=== PATIENT | male | born 1965 | race Caucasian/White ===

== ENCOUNTER 2017-04-18 11:44 | Inpatient (IN) | payer OTHER ==
[~2017-04-18] VITALS: Ht 185.4 cm; Wt 80.7 kg
[~2017-04-18 11:44] MED LIST: ASPIRIN EC81 M1 PO; DILTIAZEM 24HR240 MG PO; ELIQUIS5 M1 PO; FOLIC ACID1 M1 PO; FUROSEMIDE40 M1 PO; NADOLOL40 M1 PO; ONE DAILY MULT1 EAC2 PO; VITAMIN B-1100 MG PO
--- NOTE | 2017-04-18 11:49 | ED GENERAL ADULT ---
History of Present Illness General Chief Complaint: General Adult Stated Complaint: BIBA PT WITH AFIB Source: patient, family, old records, EMS Exam Limitations: no limitations Vital Signs & Intake/Output Vital Signs & Intake/Output Vital Signs Date Time Temp Pulse Resp B/P B/P Pulse O2 O2 Flow FiO2 Mean Ox Delivery Rate 04/18 1415 102 04/18 1410 126 141/98 04/18 1410 98.2 126 22 138/93 97 Room Air 04/18 1346 99.1 119 16 141/98 98 Room Air 04/18 1246 99.0 111 16 134/99 99 Room Air 04/18 1238 97 Room Air 04/18 1224 99.1 139 22 140/90 04/18 1209 140 134/70 04/18 1204 99.1 129 22 140/90 97 Room Air Allergies Coded Allergies: No Known Allergies (06/04/16) Reconcile Medications Apixaban (Eliquis) 5 MG TABLET 1 TAB PO BID ATRIAL FIBRILLATION Aspirin (Ecotrin*) 81 MG TABLET.DR 1 TAB PO DAILY Heart Health (Reported) Diltiazem HCl (Diltiazem 24HR ER) 240 MG CAP.ER.24H 1 CAP PO DAILY HEART ( Reported) Folic Acid 1 MG TABLET 1 TAB PO DAILY Supplement Furosemide 40 MG TABLET 1 TAB PO DAILY EDEMA (Reported) Multivitamin (One Daily Multivitamin) 1 EACH TABLET 1 TAB PO DAILY Supplement Nadolol 40 MG TABLET 1 TAB PO DAILY HEART (Reported) Thiamine HCl (Vitamin B-1) 100 MG TABLET 1 TAB PO DAILY Supplement Triage Nurses Notes Reviewed? yes HPI: Patient has not taken his medications in the past few days. Patient has been laying on his couch and feeling too weak to get up. EMS was from a [facility] this afternoon. The house was very disheveled with garbage everywhere. Multiple empty beer cans strong throughout the house. Patient is unsure why he has not taken his medications in a few days however he states that he is feeling very weak. Patient denies any chest pain or shortness of breath. Patient has been incontinent of urine and stool. Past History Travel History Traveled to [place] past 21 day No Medical History Any Pertinent Medical History? 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 No Review of Systems Review of Systems Constitutional: Reports: see HPI, weakness. EENTM: Reports: no symptoms. Respiratory: Reports: no symptoms. Cardiovascular: Reports: no symptoms. GI: Reports: no symptoms. Genitourinary: Reports: no symptoms. Musculoskeletal: Reports: no symptoms. Skin: Reports: no symptoms. Neurological/Psychological: Reports: no symptoms. Hematologic/Endocrine: Reports: no symptoms. Immunologic/Allergic: Reports: no symptoms. All Other Systems: Reviewed and Negative Physical Exam Physical Exam General Appearance: well developed/nourished, alert, awake, anxious, moderate distress Head: atraumatic, normal appearance Eyes: Bilateral: PERRL, EOMI. Ears, Nose, Throat: normal pharynx, hearing grossly normal Neck: normal inspection, supple, full range of motion Respiratory: normal breath sounds, chest non-tender, no respiratory distress, lungs clear Cardiovascular: normal peripheral pulses, tachycardia, irregularly irregular Gastrointestinal: normal bowel sounds, soft Back: normal inspection, normal range of motion Extremities: pedal edema, swelling, tenderness Neurologic/Psych: no motor/sensory deficits, awake, alert, oriented x 3, normal mood/affect Skin: intact, normal color, warm/dry Lymphatic: no anterior cervical aubrey Core Measures ACS in differential dx? Yes CVA/TIA Diagnosis: No Severe Sepsis Present: No Septic Shock Present: No Progress Differential Diagnoses I considered the following diagnoses in my evaluation of the patient: [SEPSIS, UTI, ALCOHOL WITHDRAWL, AMI, PNEUMONIA, CELLULITIS, SBO] Plan of Care: Orders Procedure Date/time Status PARTIAL THROMBOPLASTIN TIME 04/18 1830 Active LACTIC ACID 04/18 1449 Active Admit to inpatient 04/18 1422 Active Add-on Test (ER Only) 04/18 1201 Active Telemetry/Assistant Real Estate Manager 04/18 1149 Active URINE DRUGS OF ABUSE 04/18 1149 Active URINALYSIS 04/18 1149 Active TROPONIN LEVEL 04/18 1149 Complete PARTIAL THROMBOPLASTIN TIME 04/18 1149 Complete PROTHROMBIN TIME 04/18 1149 Complete AMMONIA 04/18 1149 Complete LACTIC ACID 04/18 1149 Complete ETHANOL 04/18 1149 Complete COMPREHENSIVE METABOLIC PANEL 04/18 1149 Complete CBC WITHOUT DIFFERENTIAL 04/18 1149 Complete EKG 04/18 1147 Active Current Medications Sig/Jose Start time Last Medication Dose Stop Time Status Admin Diltiazem HCl 125 MG Q12H 04/18 1200 AC 04/18 (Cardizem DRIP) 04/19 1159 1219 Dextrose/Water 100 ML (D5W) Heparin Sodium 4,000 UNIT ONCE ONE 04/18 1200 CAN (Porcine) 04/18 1201 Heparin Sodium/ 25,000 UNIT Q24H 04/18 1200 AC 04/18 Dextrose 04/19 1159 1233 (Heparin) Dextrose/Water 500 ML (D5W) Laboratory Tests 04/18/17 1212: Anion Gap 16, Estimated GFR > 60, BUN/Creatinine Ratio 23.3, Glucose 58 L, Lactic Acid 3.9 H, Calcium 8.5, Total Bilirubin 2.3 H, AST 49, ALT 37, Alkaline Phosphatase 151 H, Ammonia 30, Troponin I 0.03, Total Protein 5.9 L, Albumin 3.4 L, Globulin 2.5, Albumin/Globulin Ratio 1.4, PT 13.1 H, INR 1.25 H, APTT 32, CBC w Diff NO MAN DIFF REQ, RBC 4.09 L, MCV 96.7 H, MCH 31.6 H, RDW 18.6 H, MPV 7.6, Gran % 71.7, Lymphocytes % 15.8 L, Monocytes % 10.6 H, Eosinophils % 0.5, Basophils % 1.4, Absolute Granulocytes 4.1, Absolute Lymphocytes 0.9 L, Absolute Monocytes 0.6, Absolute Eosinophils 0, Absolute Basophils 0.1, PUBS MCHC 32.8 L, Serum Alcohol 138.0 Diagnostic Imaging: Viewed by Me: Radiology Read. Discussed w/RAD: Radiology Read. CXR Impression: PATIENT: JUAN A MORALES PRESENT AGE: 51 PATIENT ACCOUNT NO: [id number] : 63 LOCATION: [facility] ORDERING PHYSICIAN: NIYA HARGROVE MD SERVICE DATE: 04/18/17 EXAM TYPE: RAD - XRY-PORTABLE CHEST XRAY EXAMINATION: XR PORTABLE CHEST CLINICAL INFORMATION: Chest pain COMPARISON: 06/04/2016 TECHNIQUE: Portable frontal view of the chest was obtained. FINDINGS: The lungs are well expanded. There is no dense consolidation, edema, or effusion. Linear left midlung atelectasis. No pneumothorax. The cardiac silhouette is enlarged. IMPRESSION: No acute pulmonary finding. Enlarged cardiac silhouette. DICTATED BY: KENNETH RAO MD DATE/ TIME DICTATED:04/18/171315 CONSULTING PROPERTY MANAGER:KENY DATE/TIME TRANSCRIBED: 04/18/171315 CONFIDENTIAL, DO NOT COPY WITHOUT APPROPRIATE AUTHORIZATION. < Electronically signed in Other Vendor System> SIGNED BY: MAIRA KAMARA, KENNETH 04/18/17 1322 Initial ED EKG: AFIB (with rvr), nonspecific ST T wave chg Prior EKG: unchanged Rhythm Strip: atrial fibrillation Departure Departure Disposition: STILL A PATIENT Condition: Guarded Clinical Impression Primary Impression: Atrial fibrillation with RVR Referrals: DES IZQUIERDO MD Departure Forms: Customer Survey General Discharge Information Admission Note Spoke With: SHAD KAMARA,DAMON Documentation of Exam: Documentation of any treatments & extenuating circumstances including Concerns Regarding Discharge (functional status, medication knowledge or non-compliance, living conditions, etc.) that warrant an admission rather than observation: [ TELE MONITORING, CARDIZEDM DRIP, HEPARIN DRIP, CARDIOLOGY CONSULTATION, SOCIAL WORK INVOLVEMENT] Critical Care Note Critical Care Note Critical Care Time: mins: (45 MIN)
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
--- NOTE | 2017-04-18 12:20 | NUR ---
LABS DRAWN AND SENT (BLUE, SSTX2, LAV, HUNTER, GREEN ON ICE). SECOND IV EST. MEDICATED WITH CARDIZEM IVP PER EMAR FOR AFIB RATE 140'S WITH IMPROVEMENT TO 100'S-110'S. CARDIZEM GTT INITIATED AT 10ML(10MG)/HR PER ORDER TO LAC #18G AND RATE VERIFIED WITH ILDA QUIÑONES. MEDICATED WITH HEPARIN PER ORDER, PLAN FOR GTT WELL AND PT INFORMED.
[2017-04-18 12:22] LABS: ABSOLUTE BASOPHIL COUNT 0.1 /CUMM (0.0-0.2); ABSOLUTE EOSINOPHIL COUNT 0 /CUMM (0.0-0.7); ABSOLUTE GRANULOCYTE CT 4.1 /CUMM (1.4-6.5); ABSOLUTE LYMPH COUNT 0.9 /CUMM (1.2-3.4); ABSOLUTE MONOCYTE COUNT 0.6 /CUMM (0.10-0.60); BASOPHIL % 1.4 % (0.0-2.0); EOSINOPHIL % 0.5 % (0-5); GRANULOCYTE % 71.7 % (42.2-75.2); HEMATOCRIT 39.5 % (42-52); MEAN CORPUSCULAR HGB 31.6 PG (27.0-31.0); MEAN CORPUSCULAR HGB CONC 32.8 G/DL (33.0-37.0); MEAN CORPUSCULAR VOLUME 96.7 FL (80.0-94.0); MEAN PLATELET VOLUME 7.6 FL (7.4-10.4); PLATELET COUNT 283 /CUMM (130-400); RBC DISTRIBUTION WIDTH 18.6 % (11.5-14.5); RED BLOOD CELL CT 4.09 /CUMM (4.70-6.10); WHITE BLOOD CELL COUNT 5.7 /CUMM (4.8-10.8)
[2017-04-18 12:24] VITALS: BP 140/90
--- NOTE | 2017-04-18 12:30 | NUR ---
HEPARIN GTT RUNNING AT 26ML/HR PER MAX OUT DOSE TO RW #18 AND CONFIRMED RATE WITH SECOND RN ISHMAEL. PT AWARE OF PLAN FOR REEVAL OF PTT IN 6 HOURS, PTT ORDERED BY THIS RN. PCXR IN PROGRESS
[2017-04-18 12:32] LABS: PT 13.1 SEC (9.4-12.5); PTT 32 SEC (25-37)
--- NOTE | 2017-04-18 13:22 | RADIOLOGY REPORT ---
EXAMINATION: XR PORTABLE CHEST CLINICAL INFORMATION: Chest pain COMPARISON: 06/04/2016 TECHNIQUE: Portable frontal view of the chest was obtained. FINDINGS: The lungs are well expanded. There is no dense consolidation, edema, or effusion. Linear left midlung atelectasis. No pneumothorax. The cardiac silhouette is enlarged. IMPRESSION: No acute pulmonary finding. Enlarged cardiac silhouette.
--- NOTE | 2017-04-18 13:33 | NUR ---
AT BEDSIDE FOR EVAL. IVF BOLUS RUNNING PER eMAR FOR ELEVATED LACTIC LEVEL 3.9; DR HARGROVE AWARE
--- NOTE | 2017-04-18 13:47 | NUR ---
ACCUCHECK 64 AND NOTIFIED. PT GIVEN JUICES, CRACKERS AND PEANUT BUTTER WHICH IS OK BY
--- NOTE | 2017-04-18 14:14 | NUR ---
MEDICATED WITH ADDITIONAL BOLUS OF IVP CARDIZEM 10MG PER eMAR AND RATE INCREASED TO 15MG(15ML)/HR PER DR HARGROVE ORDER AND RATE VERIFIED AND CONFIRMED WITH SECOND RN ISHMAEL. REMAINS STABLE, [id number]
--- NOTE | 2017-04-18 14:28 | History & Physical ---
JOHN GRAHAM MD 04/18/17 1428: General Information and HPI MD Statement: I have seen and personally examined DARRYL DAVIDSON and documented this H&P. The patient is a 51 year old M who presented with a patient stated chief complaint of SHORTNESS OF BREATH AND EXTREMITY SWELLING OF 6 WEEKS DURATION. Source of Information: patient Exam Limitations: UNDER THE INFLUENCE OF ALCOHOL AND UNRELIABLE HISTORIAN History of Present Illness: Mr Darryl Davidson is a 51 year old male with a PMH significant for afib, HTN, smoking, alcohol abuse, fatty liver, that was BIBA from home for a chief complaint of shortness of breath without excertion and 6 weeks of progressive swelling from his feet to his abdomen that has impeded his ability to ambulate over the past 3 days. He states that he has needed to sleep with several pillows each night. Patient has been noncompliant with his medications which include lasix 40mg, ASA, diltiazem, lopressor. In addition to the SOB and swelling, he complains of chills, palpitations. Patient denies cough or sick contacts, diarrhea or constipation. Last echo done in 2015 showed moderate concentric LVH and an EF of 30-35% with severe RA enlargment. He has a history of cardioversion in the past. He reports smoking 6 cigarettes a day for the past 40 years and drinking 6 beers a day. In fact, EMS reports finding him living in poor conditions with about 50 -60 beer cans strewn throughout his residence. Denies drug use. Denies history of seizures or withdrawal symptoms. Has been told he has fatty liver changes due to alcohol. His bakery associate is Dr. Pang In the ambulance he was given lopressor IV for afib rate 150-160's which improved rate to 120-140's. In the ED he was given 2 cardizem boluses with a 10ml/hr drip which further decreased the rate to 96-100. His EKG showed afib at a rate of 124 with QTC of 483. In the ED vitals noted to be Temperature 99.1, pulse 129, respiration 22, blood pressure 140/90. Labs showed an H&H of 12.9/39.5, lactic Acid level of 3.9, T bili of 2.3, normal AST, ALT, alkaline phosphatase 151, troponin 0.03. U tox pending. Serum alcohol level 138. Chest x-ray showed no evidence of pulmonary edema and severe left midlung atelectasis was seen. Allergies/Medications Allergies: Coded Allergies: No Known Allergies (06/04/16) Home Med list Apixaban (Eliquis) 5 MG TABLET 1 TAB PO BID ATRIAL FIBRILLATION Aspirin (Ecotrin*) 81 MG TABLET.DR 1 TAB PO DAILY Heart Health (Reported) Diltiazem HCl (Diltiazem 24HR ER) 240 MG CAP.ER.24H 1 CAP PO DAILY HEART ( Reported) Folic Acid 1 MG TABLET 1 TAB PO DAILY Supplement Furosemide 40 MG TABLET 1 TAB PO DAILY EDEMA (Reported) Multivitamin (One Daily Multivitamin) 1 EACH TABLET 1 TAB PO DAILY Supplement Nadolol 40 MG TABLET 1 TAB PO DAILY HEART (Reported) Thiamine HCl (Vitamin B-1) 100 MG TABLET 1 TAB PO DAILY Supplement Compliance With Home Meds: POOR Past History Travel History Traveled to [place] past 21 day No Medical History Blood Transfusion Hx: No Neurological: NONE EENT: NONE, poor eyesight due to "age related changes" Cardiovascular: AFIB, hypertension (all valves are leaky), systolic CHF Respiratory: NONE Gastrointestinal: alcoholic hepatitis, LOOSE, FREQUENT STOOLS Hepatic: NONE Renal: NONE Musculoskeletal: NONE Psychiatric: alcohol dependence, depression, substance abuse Endocrine: NONE Blood Disorders: NONE Cancer(s): NONE TAP BUILDER/Reproductive: NONE History of MRSA: No History of VRE: No History of CDIFF: No Influenza Vaccine Status Unknown if ever received Surgical History Surgical History: none ECHO Results (as available) Date of last Echo 04/27/16 EF% 30 Past Family/Social History Psychosocial History Where do you live? Home Who Do You Live With? self Services at Home: None Primary Language: Tuvaluan Smoking Status: Current Everyday Smoker ETOH Use: heavy use Illicit Drug Use: denies illicit drug use Living Will? no Power of [place]/HCP? no Other Social History: Unemployed and trying to complete the process to receive unemployment. Functional Ability ADLs Independent: dressing, eating, toileting, bathing. Ambulation: non-ambulatory (legs swollen and painful) Employment History Employment Unemployed Review of Systems Review of Systems Constitutional: Reports: chills, weakness. EENTM: Reports: blurred vision. Cardiovascular: Reports: edema, orthopena, palpitations, peripheral edema. Denies: chest pain, syncope. Respiratory: Reports: orthopnea, short of breath. Denies: cough. GI: Reports: bloating. Denies: abdominal pain, constipation, diarrhea, vomiting. Musculoskeletal: Denies: back pain, gout, muscle pain, muscle stiffness. Skin: Reports: change in skin color, erythema. Neurological/Psychological: Denies: tremors. Hematologic/Endocrine: Denies: bruising, bleeding, polyuria, polydipsia. All Other Systems: Reviewed and Negative Colonoscopy Testing Status: Unknown if test ever done Exam & Diagnostic Data Last 24 Hrs of Vital Signs/I&O Vital Signs Date Time Temp Pulse Resp B/P B/P Pulse O2 O2 Flow FiO2 Mean Ox Delivery Rate 04/18 1415 102 04/18 1410 126 141/98 04/18 1410 98.2 126 22 138/93 97 Room Air 04/18 1346 99.1 119 16 141/98 98 Room Air 04/18 1246 99.0 111 16 134/99 99 Room Air 04/18 1238 97 Room Air 04/18 1224 99.1 139 22 140/90 04/18 1209 140 134/70 04/18 1204 99.1 129 22 140/90 97 Room Air Intake & Output 04/18 1600 04/18 0800 04/18 0000 Intake Total 1000 Output Total 0 Balance 1000 Intake, IV 1000 Output, Urine 0 Patient 244 lb Weight Weight Reported by Patient Measurement Method Physical Exam General Appearance Alert, Oriented X3, Cooperative, No Acute Distress Skin edematous erythematous legs and groin Skin Temp/Moisture Exam: Warm/Dry Sepsis Skin Exam (color): Flushed HEENT Atraumatic, PERRLA, EOMI, Mucous Membr. moist/pink Neck Supple, JVD + Cardiovascular Normal S1, Normal S2, No Murmurs, Gallops, Rubs Lungs bibasalar crackles Abdomen Normal Bowel Sounds, No Tenderness, distended Neurological Normal Speech, Normal Tone, Sensation Intact Extremities No Clubbing, No Cyanosis, non tender, swollen, erythematous Vascular Normal Pulses, Pulses Symmetrical Sepsis Peripheral Pulse Location: Radial Sepsis Peripheral Pulse Exam: Normal Reproductive (MALE) swollen scrotum Last 24 Hrs of Labs/Ruddy: Laboratory Tests 04/18/17 1830: Lactic Acid Pending, Troponin I Pending, APTT Pending 04/18/17 1625: Urine Opiates Screen < 100.00, Methadone Screen 45, Barbiturate Screen < 60, Ur Phencyclidine Scrn < 6.00, Amphetamines Screen < 100, U Benzodiazepines Scrn < 85, Urine Cocaine Screen < 50, Urine Cannabis Screen < 5.00, Urine Color YEL, Urine Clarity CLEAR, Urine pH 6.0, Ur Specific [place] 1.025, Urine Protein 100 H, Urine Ketones TRACE H, Urine Nitrite NEG, Urine Bilirubin NEG@ICTO, Urine Urobilinogen 4.0 H, Ur Leukocyte Esterase NEG, Ur Microscopic SEDIMENT EXAMINED , Urine RBC 3-5, Urine Bacteria FEW H, Urine Hemoglobin SMALL H, Urine Glucose NEG 04/18/17 1520: Lactic Acid 3.5 H 04/18/17 1212: Anion Gap 16, Estimated GFR > 60, BUN/Creatinine Ratio 23.3, Glucose 58 L, Lactic Acid 3.9 H, Calcium 8.5, Total Bilirubin 2.3 H, AST 49, ALT 37, Alkaline Phosphatase 151 H, Ammonia 30, Troponin I 0.03, Itr-Q-Haonmudcdkb Pept 3330 H, Total Protein 5.9 L, Albumin 3.4 L, Globulin 2.5, Albumin/Globulin Ratio 1.4, PT 13.1 H, INR 1.25 H, APTT 32, CBC w Diff NO MAN DIFF REQ, RBC 4.09 L, MCV 96.7 H, MCH 31.6 H, RDW 18.6 H, MPV 7.6, Gran % 71.7, Lymphocytes % 15.8 L, Monocytes % 10.6 H, Eosinophils % 0.5, Basophils % 1.4, Absolute Granulocytes 4.1, Absolute Lymphocytes 0.9 L, Absolute Monocytes 0.6, Absolute Eosinophils 0, Absolute Basophils 0.1, PUBS MCHC 32.8 L, Serum Alcohol 138.0 Diagnostic Data EKG Results afib rate 124 qtc 483 CXR Results IMPRESSION: No acute pulmonary finding. Enlarged cardiac silhouette. Other Results US - US-EXT BILAT VENOUS DOPPLER IMPRESSION: No acute pulmonary finding. Enlarged cardiac silhouette. Assessment/Plan Assessment: Assessment: This is a 51 year old male with a PMH significant for afib with rvr on eloquis electrical cardioversion 2000, htn, alcohol abuse, dilated cardiomyopathy that presented today for worsening bipedal edema of 6 weeks duration that has impeded his ability to ambulate and shortness of breath without exertion. 1. Bipedal and scrotal nonpitting edema: ?Acute decompensation of chronic CHF vs. ?cellulitis vs ?lymphedema vs ?DVT vs. ?liver disease 2. Atrial fibrillation 3. Hypertension 4. Lactic acidosis 5. Alcohol abuse Plan 1. Bipedal and scrotal nonpitting edema: with normal CBC, negative doppler legs, normal lfts, likely due to acute decompensation of chronic CHF. Patient last had an echocardiogram in 2016 which found systolic dysfunction. Based on clinical picture, he is showing signs of fluid overload despite not having voided since the previous day. Kidney function as per labs was normal so he was given 2L of fluid and is now on lasix 40mg IV bid. * continue lasix and monitor i/o's and weight closely * repeat echo (possible tachycardia induced cariomyopathy due to afib especially since patient is noncompliant with meds) * cardiology consult with dr. merida * if worsening, in setting of tense abdomen and alcohol dependence, consider CT abdomen or ultrasound abdomen 2. Noncompliance with medication has likely contributed to afib mediated worsening cardiac function * continue to monitor on telemetry * check last set troponins and EKGs to rule out ACS * continue cardizem drip and transfer to po once better controlled * discontinue IV heparin drip and restart eliquis 3. Continue Lopressor 50 bid 4. Elevated likely due to alcohol abuse, was given 2L. Trend. 5. CIWA PROTOCOL with ativan prn 1mg IV. Give MV, folate, thiamine and watch for withdrawal signs- currently not showing any. #Heart healthy diet #Full code #Mild pain pathway As Ranked By This Provider Problem List: 1. CHF (congestive heart failure) 2. HTN (hypertension) 3. Atrial fibrillation with RVR Core Measures/Miscellaneous Acute Coronary Syndrome ACS Diagnosis: No Cerebrovascular Accident CVA/TIA Diagnosis: No Congestive Heart Failure CHF Diagnosis: Yes Date of most recent Echo: 06/06/16 Last Known EF %: 30 ALEX/ARB for EF <40%: No VTE (View Protocol) VTE Risk Factors: Acute medical illness, Age > 40, CHF or Resp failure, Immobility, paresis No [facility] VTE prophylaxis d/t: VTE low risk, No contraindications No VTE Pharm Prophylaxis d/t: VTE low risk, No contraindications VTE Diagnosis: No VTE Type: NONE VTE Confirmed by (Test): NONE Sepsis (View Protocol) Severe Sepsis Present: No Septic Shock Septic Shock Present: No Miscellaneous Documentation Attending Case Discussed With: DARRYL TALAVERA MD Primary Care Physician: DOTTIE PANG MD, V. Patient sees these Specialists NA Level of Patient Care: Telemetry Resident Review Statement Resident Statement: examined this patient, discussed with internet manager MANJIT VASQUES 04/18/17 1508: Resident Review Statement Other Findings: Patient is a 50-year-old male with past medical history of A. fib on Eliquis, hypertension, electrical cardioversion in 2000, dilated cardiomyopathy, alcohol abuse who presented to the hospital today for worsening leg edema and shortness of breath. Patient states that his legs has been swelling for the past 6 weeks and has recently become really bad and he is unable to ambulate. He lays on his couch the whole day because of leg swelling. He had palpitations, chills, fatigue but denied any yung chest pain, paroxysmal nocturnal dyspnea, nausea, vomiting, urinary or bowel symptoms. He does endorse dyspnea at rest and exertion which has been going on for the past 2 days. Patient called EMS this afternoon because he was feeling very weak and tired. When the EMS arrived the house was discharged and there was garbage everywhere. Multiple beer cans were spread throughout the room. He was found to be incontinent in urine and stool. He is known to be noncompliant with his medications especially when he is drinking. He has been drinking continuously for the past few days about 6-8 packs of beer every day. His last drink was last night, when he drank about 3 packs of beer. He smokes about 6 cigarettes per day for the last 40 years. He was seen by his bakery associate Dr. Pang about a month ago and prescribed metoprolol 50 twice a day to be taken instead of Nadolol. He has been on Cardizem and Eliquis for about a year now. Patient got his medications refilled however apparently was not taking them. In the ED vitals noted to be Temperature 99.1, pulse 129, respiration 22, blood pressure 140/90. Labs showed an H&H of 12.9/39.5, normal chemistries, lactic Acid level of 3.9, T bili of 2.3, normal AST, ALT, alkaline phosphatase 151, troponin 0.03. U tox pending. Serum alcohol level was 138. EKG showed a A. fib with rapid RVR, heart rate of 124, QTC 483 Chest x-ray showed no evidence of pulmonary edema and severe left midlung atelectasis was seen. Was started on Cardizem drip, heparin drip after a bolus of 20 mg Cardizem. He received 2 L of fluid in the ED. Physical examination: Gen.: Morbidly obese, appears to be in moderate distress HEENT: PERRLA, EOMI, ++JVD Chest: Clear breath sounds, some basal crackles heard CVS: Irregularly irregular heart rate, systolic murmur Abdomen: Distended, no tenderness Extremities: 2+ pitting edema bilateral extremities with erythema up to the thighs Plan: #Atrial fibrillation with rapid RVR: Likely secondary to medication noncompliance -Admit the patient to telemetry -3 sets of troponin and EKG to rule out ACS -Continue Cardizem drip and transition to by mouth Cardizem once heart rate better controlled -Discontinue IV heparin drip and restart the patient on Eliquis -Cardiologic consult with Dr. Pang #Acute on chronic HFwrEF (stage I diastolic dysfunction, EF 30-35% in 2016) -Patient appears fluid overloaded at this time -We'll start him on IV Lasix 40 twice a day -Strict intake and output -Daily weight checks -Doppler bilateral lower extremity to rule out DVT -Repeat echocardiogram(might have worsening EF due to tachycardia-induced cardio myopathy secondary to the A. fib) -Cardiology consult with Dr. Pang #Alcohol abuse: Drinks about 6-8 packs of beers every day. Last drink yesterday evening. No previous episodes of detox. No history of seizures. Serum alcohol level more than 138 -[facility] protocol -Ativan 1 mg IV every when necessary -Multivitamin, thiamine and folate -Watch for withdrawal signs #Hypertension -Continue metoprolol 50 twice a day #Elevated lactate levels -Likely due to chronic severe alcohol abuse -Trend lactate levels to the normalize #Heart healthy diet #Full code #Mild pain pathway DARRYL TALAVERA MD 04/18/17 2213: Attending Review Statement Attending Statement Attending Statement: examined this patient, discuss w/resident/PA/MEDICAL COST CONSULTANT, agreed w/resident/PA/MEDICAL COST CONSULTANT, reviewed EMR data (avail), discussed with nursing, reviewed images, amended to note Attending Assessment/Plan: The patient is a 51 yo male with h/o chronic atrial fibrillation (h/o attempted cardioversion 2000), HTN, fatty liver, dilated cardiomyopathy (EF 30-35% in 2016 ), EtOH abuse (currently drinks at lease 1 six pack of beer/day), who presented in the [facility] ED with 6 week h/o progressive dyspnea, LE and abdominal swelling with orthopnea. Had seen Dr. Pang recently (saw Dr. Sr in past x 1- not recent). In the ED was noted to be in rapid afib with HR 140's. He denied any chest pain, palpitations, fever, chills, or abdominal pain. He states he had not taken his medication that day, however suspect longer term non-compliance. He did have an alcohol level at the time of presentation and stated his last drink was the day prior. He denied any h/o DT's or seizures. He was found by EMS in poor living conditions with 50-60 beer cans adjacent to him. He received IV metoprolol and was started on a cardizem drip in the ED. He had elevated lactate level and was initially given fluid. Physical Exam: VS: T 98.9, P 129-140-108, R 18, BP 142/98-145/95, PO 96-98% (on oxygen?) HEENT: eyes- PERRLA, EOMI brett- dry mucosa Neck: + JVD, no bruits or adenopathy, thyroid normal Chest: diminished breath sound, few rales at bases Cor: tachy, reg, nl S1, S2, no murm Abd: BS+, distended, non-tender, unable to palpate liver/spleen, no shifting dullness Ext: 3+ edema, minimal erythema w/o warmth or tenderness, pulses 1+ Neuro: alert & oriented x 3, non-focal exam (gait not tested) Labs/Tests- as above Impression/Plan: #Rapid Atrial Fibrillation- in patient with known mod-severe LAE on ECHO and prior failed cardioversion. HR was previously controlled with meds and he was on Eliquis. States did not take meds just this morning, however suspect more assisted non-compliance due to alcohol use. Plan: Admit to telemetry floor. Cardiology consult (Dr. Pang). Check serial troponin I levels Cardizem drip in ED and will convert to po meds when able ECHO to compare to prior #CHF/Volume Overload- probably some component due to rapid HR. Plan: Agree with IV furosemide. Follow I/O's and daily weights as per CHF protocol Elevate legs #Lactic Acidosis- ? etiology. May be related to alcohol. Patient received fluids in ED. Plan: Follow-up lactate level and observe. #Non-Compliance with Medication- suspect underlying cause of decompensation. Plan: Will need to emphasize compliance. Close OP follow-up when discharged. #EtOH Abuse- patient admits to at least 1 -6 pack of beer/day (suspect more). No h/o significant withdrawal per patient. Plan: Thiamine, MVI, folate as per protocol, CIWA and prn Ativan at present Monitor closely for DT's. #HTN- BP as above slightly elevated. Plan: Will follow on Cardizem. #Dilated Cardiomyopathy- ? secondary to alcohol. EF reduced as above. Plan: Repeat ECHO. IV Furosemide as above.
--- NOTE | 2017-04-18 14:44 | NUR ---
TELEMETRY HOUSE STAFF IN ROOM FOR EVAL
[2017-04-18 14:56] VITALS: BP 142/98
--- NOTE | 2017-04-18 15:24 | NUR ---
REPEAT LACTIC DRAWN AND SENT. PT REPOSITIONED FOR COMFORT AND LEGS REMAIN ELEVATED
--- NOTE | 2017-04-18 15:30 | NUR ---
DR PABLO TO BEDSIDE
--- NOTE | 2017-04-18 15:46 | NUR ---
PT MEDICATED WITH 40MG LASIX IV, LOPRESSOR 50MG PO AND ASPIRIN 81 MG PO. MANUAL BP 134/98 AT THIS TIME, PT PROVIDED WITH URINAL AND OFFERS NO COMPLAINTS AT THIS TIME.
--- NOTE | 2017-04-18 15:52 | NUR ---
CRITICAL TEST RESULTS [id number] [facility] A [facility] TESTS AND RESULTS: LACTIC 3.5 Results received and read back by: BROOKE ESPINOZA Results received date and time: 04/18/17 1552 The following provider was notified of the results, and read the results back: TELE STAFF PAGED Notified date and time: 04/18/17 at 1552
--- NOTE | 2017-04-18 16:17 | NUR ---
PORTABLE U/S IN PROGRESS
--- NOTE | 2017-04-18 16:25 | NUR ---
PT GOING TO ROOM 171-1.
--- NOTE | 2017-04-18 16:27 | NUR ---
450ML [facility] URINE OUTPUT AFTER 2LNS IVF BOLUSES. TRIO SENT TO LAB FOR TESTING
--- NOTE | 2017-04-18 16:32 | Admission Certification ---
Admission Certification Certification Statement - As attending physician, I certify that at the time of - admission, based on clinical presentation, severity of - symptoms, need for further diagnostic testing and - therapeutic interventions, and risk of adverse outcomes - without in-hospital treatment, in my clinical assessment, - this patient requires an acute hospital stay for a minimum - of two nights or longer. I have also considered psychsocial - factors such as support system, advanced age, financial - issues, cognitive issues, and failed out-patient treatments, - past re-admission history, safety of patient, and lack of - compliance as applicable. Specific rationale supporting this admission is: The patient presents in rapid atrial fibrillation with volume overload. Needs telemetry admission, cardizem drip, IV furosemide, check serial troponins, ECHO, cardiology consult (Dr. Pang). Also with EtOH abuse and will need CIWA monitoring.
[2017-04-18 16:39] VITALS: BP 122/74
--- NOTE | 2017-04-18 17:00 | NUR ---
REPORT GIVEN TO RECEIVING RN
--- NOTE | 2017-04-18 17:02 | ULTRASOUND REPORT ---
EXAMINATION: US TRIPLEX OF LOWER EXTREMITIES, BILATERAL, PORTABLE. CLINICAL INFORMATION: Warmth and erythema of the legs. COMPARISON: None TECHNIQUE: Color-flow triplex imaging with spectral analysis and compression Doppler were performed on the lower extremities. The exam is limited due to portable exam and patient's body habitus/edema. FINDINGS: Respiratory variation, normal compression and augmented flow are noted throughout the lower extremities. The visualized common femoral vein, superficial femoral vein, profunda femoral vein, popliteal vein and midcalf peroneal and posterior tibial venous segments show no evidence of deep venous thrombosis. There is no Schulte's cyst. IMPRESSION: Normal right lower leg venous study. No evidence of DVT.
[2017-04-18 17:52] VITALS: BP 122/90
--- NOTE | 2017-04-18 18:09 | NUR ---
NEW ADMIT INTO 171 ALERT AND ORIENTED ADMITS TO DRINKING 6 PACK CIWA ORDERED VSS AFIB ON MONITOR IN THE 80'S CARDIZEM AND HEPARIN GTTS INFUSING WITHOUT PROBLEM GENERALIZED EDEMA NOTED SOB UPON EXERTION ABD FIRM AND DISTENDED +BS CALL LIGHT IN REACH INSTRUCTED TO CALL
--- NOTE | 2017-04-18 18:17 | Cons- Cardiology ---
General Information and HPI Consulting Request Date of Consult: 04/18/17 Requested By: DARRYL TALAVERA MD Reason for Consult: Rapid atrial fibrillation in a patient with chronic atrial fibrillation and noncompliance with medications. Source of Information: patient, old records Exam Limitations: intoxication History of Present Illness: Darryl Morales is currently a 51-year-old man who has a history of atrial fibrillation in the past. He states he started out with periods of atrial fibrillation when he was in his late 20's and has had a couple of cardioversions. His last one was apparently on admission in October 2000 at [facility]. That history and physical is available, and notes that he had intermittent atrial fibrillation and also that he has had noncompliance with medications. He has been on sotalol and amiodarone in the past. His attempt at cardioversion in October 2000 was apparently unsuccessful, and most likely he has remained in atrial fibrillation since that time, although we have no other records. He has seen multiple cardiologists in the past, but in the past 2 or 3 years has not seen anybody because of lack of insurance. He recently did get [facility] and wanted to have Cardiology input. According to the history and physical from 2000 he had a history of cardiomyopathy, possibly related to alcohol abuse and/or atrial fibrillation, but his most recent echo referenced in that HP, done 05/14/1999, revealed an ejection fraction of 50%. Most recently the patient has been on nadolol and Cardizem. He previously was anticoagulated, but has been off anticoagulation for an unknown period of time as well. At the time of his first visit to me on 05/13/2016 I restarted his medications and he was doing a little better on followup, however after his office visit he apparently started drinking again and was off his medications for a period of time. He presented to the hospital on 06/04/2016 complaining of shortness of breath and orthopnea and palpitations. He was found to be in rapid atrial fibrillation. He was treated by reinstituting his Cardizem and beta tequila. He was also placed on heparin. It was noted that his CAT scan showed an old lacunar infarct. At that point, he was recommended for chronic anticoagulation and agreed to this. He actually left the hospital against medical advice without prescriptions but apparently was able to get his prescriptions. When I saw him in the office on 06/22/2016 he was doing better, and he was more stable. He did have his echocardiogram done while he was in the hospital which showed an ejection fraction of 30% to 35% with a lot of uncoordinated left ventricular contractility. Michael was again seen in the office in July 2016 at which time he was doing pretty well. However, he missed his followup appointments. I finally saw him again on 03/22/2017 in the office. At that time he admitted to not being totally compliant with his medications. He was off nadolol because the pharmacy would not refill it for insurance reasons, but he never communicated that to us. He also admitted to missing an occasional day or more of medications. He admitted to drinking a 6 pack of beer on most days. For the prior 3 weeks to 1 month, he complained of increasing edema and shortness of breath. He claimed to be compliant with diltiazem 240 mg daily, Eliquis 5 mg twice a day, Lasix 40 mg daily and potassium, but as noted was not currently on beta tequila. He gained about 40 pounds since his last visit. At the time of that visit he had gained a lot of weight and had a lot of edema I increased his Lasix to 40 mg twice a day and gave him prescription for metoprolol 50 mg twice a day. However it is not clear that he has been compliant with any of his medications since then and apparently has been drinking heavily. According to the landscape maintenance internship there were a lot of beer cans around his house which was in disarray and his alcohol level was elevated in the ED. In the emergency department he was found to be to have a lot of right-sided congestive heart failure with edema and his heart rate was elevated. He had an elevated lactic acid was given some IV fluids despite the edema. The patient tells me he has been taking his medications at home except for today but I am not sure this is accurate. He is complaining of difficulty walking, weakness, edema, shortness of breath. Allergies/Medications Allergies: Coded Allergies: No Known Allergies (06/04/16) Home Med List: Apixaban (Eliquis) 5 MG TABLET 1 TAB PO BID ATRIAL FIBRILLATION Aspirin (Ecotrin*) 81 MG TABLET. 1 TAB PO DAILY Heart Health (Reported) Diltiazem HCl (Diltiazem 24HR ER) 240 MG CAP.ER.24H 1 CAP PO DAILY HEART ( Reported) Folic Acid 1 MG TABLET 1 TAB PO DAILY Supplement Furosemide 40 MG TABLET 1 TAB PO DAILY EDEMA (Reported) Multivitamin (One Daily Multivitamin) 1 EACH TABLET 1 TAB PO DAILY Supplement Nadolol 40 MG TABLET 1 TAB PO DAILY HEART (Reported) Thiamine HCl (Vitamin B-1) 100 MG TABLET 1 TAB PO DAILY Supplement Current Medications: Current Medications Sig/Jose Start time Last Medication Dose Route Stop Time Status Admin Acetaminophen 650 MG Q6P PRN 04/18 1445 AC PO Acetaminophen 1,000 MG Q6P PRN 04/18 1445 AC IV Apixaban 5 MG BID 04/18 1558 AC PO Apixaban 5 MG BID 04/18 1433 DC PO Aspirin 0 .STK-MED ONE 04/18 1541 DC PO Aspirin Buffered 81 MG DAILY 04/18 1433 AC 04/18 PO 1545 Diltiazem HCl 10 MG ONCE ONE 04/18 1415 DC 04/18 IV PUSH 04/18 1416 1410 Diltiazem HCl 0 .STK-MED ONE 04/18 1409 DC .ROUTE Diltiazem HCl 0 .STK-MED ONE 04/18 1212 DC .ROUTE Diltiazem HCl 0 .STK-MED ONE 04/18 1212 DC IV Diltiazem HCl 10 MG ONCE ONE 04/18 1200 DC 04/18 IV PUSH 04/18 1201 1209 Diltiazem HCl 125 MG Q12H 04/18 1200 AC 04/18 Dextrose/Water 100 ML IV 04/19 1159 1219 Folic Acid 0 .STK-MED ONE 04/18 1654 DC PO Folic Acid 1 MG DAILY 04/18 1602 AC 04/18 PO 1650 Furosemide 0 .STK-MED ONE 04/18 1541 DC IV Furosemide 40 MG BID 04/18 1501 AC 04/18 IV 1545 Furosemide 40 MG DAILY 04/18 1433 DC PO Heparin Sodium 0 .STK-MED ONE 04/18 1232 DC (Porcine) .ROUTE Heparin Sodium 0 .STK-MED ONE 04/18 1212 DC (Porcine) .ROUTE Heparin Sodium 4,000 UNIT ONCE ONE 04/18 1200 CAN (Porcine) IV PUSH 04/18 1201 Heparin Sodium 4,000 UNIT ONCE ONE 04/18 1200 DC 04/18 (Porcine) IV 04/18 1201 1225 Heparin Sodium/ 25,000 UNIT Q24H 04/18 1200 AC 07/03 Dextrose IV 04/19 1159 1233 Dextrose/Water 500 ML Lorazepam 1 MG Q1 NEEDED PRN 04/18 1615 AC IV Metoprolol Tartrate 0 .STK-MED ONE 04/18 1540 DC PO Metoprolol Tartrate 50 MG BID 04/18 1501 AC 04/18 PO 1545 Multivitamins 0 .STK-MED ONE 04/18 1654 DC PO Multivitamins 1 TAB DAILY 04/18 1602 AC 04/18 PO 1650 Nadolol 40 MG DAILY 04/18 1434 DC PO Sodium Chloride 1,000 ML BOLUS ONE 04/18 1315 DC 04/18 IV 04/18 1414 1414 Sodium Chloride 1,000 ML BOLUS ONE 04/18 1315 DC 04/18 IV 04/18 1414 1320 Thiamine HCl 0 .STK-MED ONE 04/18 1653 DC PO Thiamine HCl 100 MG DAILY 04/18 1602 AC 04/18 PO 1650 Review of Systems Review of Systems: He has multiple complaints mostly having to do with weakness, shortness of breath and swelling of the legs. Past History Travel History Traveled to [place] past 21 day No Medical History Blood Transfusion Hx: No Neurological: NONE EENT: NONE Cardiovascular: AFIB, hypertension (all valves are leaky) Respiratory: NONE Gastrointestinal: LOOSE, FREQUENT STOOLS Hepatic: NONE Renal: NONE Musculoskeletal: VERTEBRAL FX Psychiatric: NONE Endocrine: NONE Blood Disorders: NONE Cancer(s): NONE COLOR ADVISER/Reproductive: NONE Surgical History Surgical History: 1 Psychosocial History Where Do You Live? Home Services at Home: None Smoking Status: Current Everyday Smoker ETOH Use: heavy use Illicit Drug Use: denies illicit drug use Exam & Diagnostic Data Vital Signs and I&O Vital Signs Date Time Temp Pulse Resp B/P B/P Pulse O2 O2 Flow FiO2 Mean Ox Delivery Rate 04/18 1752 97.7 59 20 122/90 93 Room Air 04/18 1639 98.8 82 16 122/74 04/18 1639 98.8 82 16 122/74 96 Room Air 04/18 1545 98.9 115 18 134/98 04/18 1457 96 Room Air 04/18 1456 98.9 108 18 142/98 04/18 1456 98.9 108 16 142/98 96 Room Air 04/18 1440 98.8 108 20 132/90 98 Room Air 04/18 1415 102 04/18 1410 126 141/98 04/18 1410 98.2 126 22 138/93 97 Room Air 04/18 1346 99.1 119 16 141/98 98 Room Air 04/18 1246 99.0 111 16 134/99 99 Room Air 04/18 1238 97 Room Air 04/18 1224 99.1 139 22 140/90 04/18 1209 140 134/70 04/18 1204 99.1 129 22 140/90 97 Room Air Intake & Output 04/18 1600 04/18 0800 04/18 0000 04/17 1600 04/17 0800 04/17 0000 Intake Total 1000 Output Total 0 Balance 1000 Intake, IV 1000 Output, Urine 0 Patient 244 lb Weight Weight Reported by Patient Measurement Method Physical Exam: He is alert and cooperative and eating a sandwich when I examined him. He is somewhat disheveled but not actively withdrawing. HEENT exam grossly normal Chest is clear Heart reveals irregular rhythm, normal rate, no murmurs Abdomen is nontender Extremities reveal woody edema of both lower extremities to the knees. Labs/Ruddy Results: Laboratory Tests 04/18 04/18 1625 1520 Chemistry Lactic Acid (0.7 - 2.1 mmol/L) 3.5 H Toxicology Urine Opiates Screen (>2000 NG/ML) < 100.00 Methadone Screen (>300 NG/ML) 45 Barbiturate Screen (>200 NG/ML) < 60 Ur Phencyclidine Scrn (>25 NG/ML) < 6.00 Amphetamines Screen (>1000 NG/ML) < 100 U Benzodiazepines Scrn (>200 NG/ML) < 85 Urine Cocaine Screen (>300 NG/ML) < 50 Urine Cannabis Screen (>50 NG/ML) < 5.00 Urines Urine Color (YEL,AMB,STR) YEL Urine Clarity (CLEAR) CLEAR Urine pH (5.0 - 8.0) 6.0 Ur Specific [place] (1.001 - 1.035) 1.025 Urine Protein (NEG,<30 MG/DL) 100 H Urine Ketones (NEG) TRACE H Urine Nitrite (NEG) NEG Urine Bilirubin (NEG) NEG@ICTO Urine Urobilinogen (0.1 - 1.0 EU/dl) 4.0 H Ur Leukocyte Esterase (NEG) NEG Ur Microscopic SEDIMENT EXAMINED Urine RBC (0 - 5 /HPF) 3-5 Urine Bacteria (NEG/NONE) FEW H Urine Hemoglobin (NEG) SMALL H Urine Glucose (N MG/DL) NEG 04/18 1212 Chemistry Sodium (137 - 145 mmol/L) 139 Potassium (3.5 - 5.1 mmol/L) 3.6 Chloride (98 - 107 mmol/L) 102 Carbon Dioxide (22 - 30 mmol/L) 21 L Anion Gap (5 - 16) 16 BUN (9 - 20 mg/dL) 14 Creatinine (0.7 - 1.2 mg/dL) 0.6 L Estimated GFR (>60 ml/min) > 60 BUN/Creatinine Ratio (7 - 25 %) 23.3 Glucose (65 - 99 mg/dL) 58 L Lactic Acid (0.7 - 2.1 mmol/L) 3.9 H Calcium (8.4 - 10.2 mg/dL) 8.5 Total Bilirubin (0.2 - 1.3 mg/dL) 2.3 H AST (17 - 59 U/L) 49 ALT (21 - 72 U/L) 37 Alkaline Phosphatase (< 127 U/L) 151 H Ammonia (9 - 30 umol/L) 30 Troponin I (<0.11 ng/ml) 0.03 Bya-D-Uatenrqwtap Pept (<125 pg/mL) 3330 H Total Protein (6.3 - 8.2 g/dL) 5.9 L Albumin (3.5 - 5.0 g/dL) 3.4 L Globulin (1.9 - 4.2 gm/dL) 2.5 Albumin/Globulin Ratio (1.1 - 2.2 %) 1.4 Coagulation PT (9.4 - 12.5 SEC) 13.1 H INR (0.90 - 1.17) 1.25 H APTT (25 - 37 SEC) 32 Hematology CBC w Diff NO MAN DIFF REQ WBC (4.8 - 10.8 /CUMM) 5.7 RBC (4.70 - 6.10 /CUMM) 4.09 L Hgb (14.0 - 18.0 G/DL) 12.9 L Hct (42 - 52 %) 39.5 L MCV (80.0 - 94.0 FL) 96.7 H MCH (27.0 - 31.0 PG) 31.6 H RDW (11.5 - 14.5 %) 18.6 H Plt Count (130 - 400 /CUMM) 283 MPV (7.4 - 10.4 FL) 7.6 Gran % (42.2 - 75.2 %) 71.7 Lymphocytes % (20.5 - 51.1 %) 15.8 L Monocytes % (1.7 - 9.3 %) 10.6 H Eosinophils % (0 - 5 %) 0.5 Basophils % (0.0 - 2.0 %) 1.4 Absolute Granulocytes (1.4 - 6.5 /CUMM) 4.1 Absolute Lymphocytes (1.2 - 3.4 /CUMM) 0.9 L Absolute Monocytes (0.10 - 0.60 /CUMM) 0.6 Absolute Eosinophils (0.0 - 0.7 /CUMM) 0 Absolute Basophils (0.0 - 0.2 /CUMM) 0.1 PUBS MCHC (33.0 - 37.0 G/DL) 32.8 L Toxicology Serum Alcohol (<10 MG/DL) 138.0 Diagnostic Data EKG Results EKG on admission shows atrial fibrillation rate 124, a single PVC, incomplete right bundle branch block pattern, nonspecific lateral T-wave changes. EKG at 6:45 PM shows atrial fibrillation at a rate of 87, incomplete right bundle-branch block, diffuse lateral T-wave inversions. CXR Results PATIENT: DARRYL MORALES PRESENT AGE: 51 PATIENT ACCOUNT NO: [id number] : 63 LOCATION: [facility] ORDERING PHYSICIAN: NIYA HARGROVE MD SERVICE DATE: 04/18/17-1149 EXAM TYPE: RAD - XRY-PORTABLE CHEST XRAY EXAMINATION: XR PORTABLE CHEST CLINICAL INFORMATION: Chest pain COMPARISON: 06/04/2016 TECHNIQUE: Portable frontal view of the chest was obtained. FINDINGS: The lungs are well expanded. There is no dense consolidation, edema, or effusion. Linear left midlung atelectasis. No pneumothorax. The cardiac silhouette is enlarged. IMPRESSION: No acute pulmonary finding. Enlarged cardiac silhouette. DICTATED BY: KENNETH RAO MD DATE/TIME DICTATED:04/18/171315 SIXTH GRADE TEACHER:KENY DATE/TIME TRANSCRIBED:04/18/171315 CONFIDENTIAL, DO NOT COPY WITHOUT APPROPRIATE AUTHORIZATION. <Electronically signed in Other Vendor System> SIGNED BY: KENNETH RAO MD 04/18 1322 Other Results MPRESSION: Normal right lower leg venous study. No evidence of DVT. DICTATED BY: IMELDA BOLTON MD DATE/TIME DICTATED:04/18/171654 SIXTH GRADE TEACHER:KENY DATE/TIME TRANSCRIBED:04/18/171654 Assessment/Plan Assessment/Plan Michael Morales is a 51-year-old male with chronic atrial fibrillation, reduced left ventricular systolic function, the etiology of which is uncertain. It could be tachycardia-induced cardiomyopathy versus alcoholic cardiomyopathy. The patient has periodically been noncompliant although he claims compliance to his latest medical regimen which I prescribed for him about 3 weeks ago. However he has obviously been drinking heavily and I don't think he has been absolutely compliant with his medications. Today he presented with rapid atrial fibrillation and increased edema and alcohol intoxication. His heart rate is now improved on IV Cardizem and he has been restarted on his oral medications. Once his heart rate is stable I would wean him off of the Cardizem. I would keep him on the metoprolol and use Lasix 40 mg twice daily until his edema has improved. I would keep him on the Eliquis. I recommend a follow-up echocardiogram, which he last had almost a year ago, to see if his LV function is any better. He needs to be evaluated for alcohol withdrawal by the [facility] protocol. A psych consult would be of help. Consult Acknowledgment - Thank you for your consult request.
--- NOTE | 2017-04-18 18:29 | NUR ---
ABD DISTENDED AND FIRM DENIES PAIN DR GRAHAM AWARE NO NEW ORDERS AT THIS TIME HEPARING GTT WILL BE DISCONTINUED AFTER PO ELIQUIS GIVEN
[2017-04-18 19:55] LABS: PTT 47 SEC (25-37)
[2017-04-18 22:57] VITALS: BP 160/72
[2017-04-18 23:58] VITALS: BP 124/94
[2017-04-19] VITALS (7 sets, daily range): BP systolic 100–150; BP diastolic 60–90
--- NOTE | 2017-04-19 13:25 | PN- Housestaff ---
See Addendum Subjective Follow-up For: bipedal swelling afib with rvr alcoholism lactic acidosis Complaints: pain scale (0-10) Tele-Events Since Last Visit: afib 82-109 PVC throughout night Subjective: patient seen and examined bedside, pt complains of swelling of feet and pressure with mild pain. Review of Systems Constitutional: Denies: no symptoms. EENTM: Denies: no symptoms. Cardiovascular: Reports: edema, orthopena. Denies: no symptoms. Respiratory: Reports: short of breath. Gastrointestinal: Denies: no symptoms. Genitourinary: Denies: no symptoms. Musculoskeletal: Denies: no symptoms. Skin: Reports: erythema. Objective Last 24 Hrs of Vital Signs/I&O Vital Signs Date Time Temp Pulse Resp B/P B/P Pulse O2 O2 Flow FiO2 Mean Ox Delivery Rate 04/19 1000 97 /04 0852 96 124/90 / 0800 98.8 90 20 124/90 / 0800 93 Room Air / 0639 98.8 90 20 124/90 93 Room Air 07/03 2358 97.5 97 24 124/94 95 Room Air 07/03 2152 91 122/90 07/03 1752 97.7 59 20 122/90 93 Room Air 07/03 1639 98.8 82 16 122/74 07/03 1639 98.8 82 16 122/74 96 Room Air 07/03 1545 98.9 115 18 134/98 07/03 1457 96 Room Air 07/03 1456 98.9 108 18 142/98 07/03 1456 98.9 108 16 142/98 96 Room Air 07/03 1440 98.8 108 20 132/90 98 Room Air 07/03 1415 102 07/03 1410 126 141/98 07/03 1410 98.2 126 22 138/93 97 Room Air 07/03 1346 99.1 119 16 141/98 98 Room Air Intake & Output / 1600 07/04 0800 07/ 0000 Intake Total 1100 Output Total 800 1750 Balance -800 -650 Intake, IV 1000 Intake, Oral 100 Output, Urine 800 1750 Patient 262 lb Weight Weight Gabriella Lift Measurement Method Physical Exam General Appearance: Alert, Oriented X3, Cooperative, No Acute Distress Skin: No Rashes (erythema and edema) Skin Temp/Moisture Exam: Warm/Dry Sepsis Skin Exam (color): Flushed HEENT: Atraumatic, PERRLA, EOMI, Mucous Membr. moist/pink Neck: Supple Cardiovascular: Normal S1, Normal S2, No Murmurs, Gallops, Rubs Lungs: crackles bilaterally Abdomen: Normal Bowel Sounds, No Tenderness, distended Extremities: No Clubbing, No Cyanosis Vascular: Pulses Symmetrical Sepsis Peripheral Pulse Location: Radial Sepsis Peripheral Pulse Exam: Normal Current Medications: Current Medications Sig/Jose Start time Last Medication Dose Route Stop Time Status Admin Acetaminophen 650 MG Q6P PRN 04/18 1445 AC PO Acetaminophen 1,000 MG Q6P PRN 04/18 1445 AC IV Apixaban 5 MG BID 04/18 1558 AC 04/19 PO 0851 Apixaban 5 MG BID 04/18 1433 DC PO Aspirin 0 .STK-MED ONE 04/18 1541 DC PO Aspirin Buffered 81 MG DAILY 04/18 1433 AC 04/19 PO 0851 Diltiazem HCl 60 MG Q6 04/19 1200 AC PO Diltiazem HCl 10 MG ONCE ONE 04/18 1415 DC 04/18 IV PUSH 04/18 1416 1410 Diltiazem HCl 0 .STK-MED ONE 04/18 1409 DC .ROUTE Diltiazem HCl 125 MG Q12H 04/18 1200 DC 04/18 Dextrose/Water 100 ML IV 04/19 1159 2230 Folic Acid 0 .STK-MED ONE 04/18 1654 DC PO Folic Acid 1 MG DAILY 04/18 1602 AC 04/19 PO 0852 Furosemide 0 .STK-MED ONE 04/18 1541 DC IV Furosemide 40 MG BID 04/18 1501 AC 04/19 IV 0852 Furosemide 40 MG DAILY 04/18 1433 DC PO Heparin Sodium/ 25,000 UNIT Q24H 04/18 1200 DC 04/18 Dextrose IV 04/19 1159 1233 Dextrose/Water 500 ML Lorazepam 1 MG Q1 NEEDED PRN 04/18 1615 AC IV Metoprolol Tartrate 0 .STK-MED ONE 04/18 1540 DC PO Metoprolol Tartrate 50 MG BID 04/18 1501 AC 04/19 PO 0852 Multivitamins 0 .STK-MED ONE 04/18 1654 DC PO Multivitamins 1 TAB DAILY 04/18 1602 AC 04/19 PO 0852 Nadolol 40 MG DAILY 04/18 1434 DC PO Potassium Chloride 20 MEQ DAILY 04/20 1000 CAN PO Potassium Chloride 20 MEQ BID 04/19 2200 UNVr PO Potassium Chloride 20 MEQ ONCE ONE 04/19 1315 UNVr PO 04/19 1316 Potassium Chloride 40 MEQ ONCE ONE 04/19 1030 DC 04/19 PO 04/19 1031 1103 Potassium Chloride 40 MEQ ONCE ONE 04/19 1030 CAN PO 04/19 1031 Sodium Chloride 1,000 ML BOLUS ONE 04/18 1315 DC 04/18 IV 04/18 1414 1414 Sodium Chloride 1,000 ML BOLUS ONE 04/18 1315 DC 04/18 IV 04/18 1414 1320 Thiamine HCl 0 .STK-MED ONE 04/18 1653 DC PO Thiamine HCl 100 MG DAILY 04/18 1602 AC 04/19 PO 0852 Last 24 Hrs of Lab/Ruddy Results Last 24 Hrs of Labs/Mics: Laboratory Tests 04/19/17 0832: Anion Gap 12, Estimated GFR > 60, BUN/Creatinine Ratio 23.3, Lactic Acid 1.7, Phosphorus 3.0, Magnesium 1.2 L 04/19/17 0210: Troponin I 0.03 04/18/17 1830: Lactic Acid 3.3 H, Troponin I 0.03, APTT 47 H 04/18/17 1625: Urine Opiates Screen < 100.00, Methadone Screen 45, Barbiturate Screen < 60, Ur Phencyclidine Scrn < 6.00, Amphetamines Screen < 100, U Benzodiazepines Scrn < 85, Urine Cocaine Screen < 50, Urine Cannabis Screen < 5.00, Urine Color YEL, Urine Clarity CLEAR, Urine pH 6.0, Ur Specific [place] 1.025, Urine Protein 100 H, Urine Ketones TRACE H, Urine Nitrite NEG, Urine Bilirubin NEG@ICTO, Urine Urobilinogen 4.0 H, Ur Leukocyte Esterase NEG, Ur Microscopic SEDIMENT EXAMINED , Urine RBC 3-5, Urine Bacteria FEW H, Urine Hemoglobin SMALL H, Urine Glucose NEG 04/18/17 1520: Lactic Acid 3.5 H Orders CIWA Score (last 24 hrs): 6 EKG Findings: afib with rvr qtc 483 rate 124 Miscellaneous Findings: doppler negative for dvt Assessment/Plan Assessment: This is a 51 year old male with a PMH significant for afib with rvr on eloquis electrical cardioversion 2000, htn, alcohol abuse, dilated cardiomyopathy that presented for worsening bipedal edema of 6 weeks duration that has impeded his ability to ambulate and shortness of breath without exertion. 1. Bipedal and scrotal nonpitting edema: ?Acute decompensation of chronic CHF vs. ?cellulitis vs ?lymphedema vs ?DVT vs. ?liver disease 2. Atrial fibrillation 3. Hypertension 4. Lactic acidosis 5. Alcohol abuse 6. low k, phos, mg 7. psych social work issues Plan 1. Bipedal and scrotal nonpitting edema: with normal CBC, negative doppler legs, normal lfts, likely due to acute decompensation of chronic CHF. Patient last had an echocardiogram in 2016 which found systolic dysfunction. Based on clinical picture, he is showing signs of fluid overload despite not having voided since the previous day. Kidney function as per labs was normal so he was given 2L of fluid and is now on lasix 40mg IV bid. * continue lasix and monitor i/o's and weight closely * follow dr. doty consult repeat echo outpatient with his retail administrative assistant as last one was done in a year (possible tachycardia induced cariomyopathy due to afib especially since patient is noncompliant with meds) 2. Noncompliance with medication has likely contributed to afib mediated worsening cardiac function * continue to monitor on telemetry * ACS RULED OUT NEGATIVE TROPONINS AND EKGS * wean cardizem once rate is controlled and continue his oral home meds * discontinue IV heparin drip and restart eliquis 3. Continue Lopressor 50 bid 4. LACTIC ACIDOSIS RESOLVING. Elevated likely due to alcohol abuse, was given 2L. 5. CIWA PROTOCOL with ativan prn 1mg IV. Give MV, folate, thiamine and watch for withdrawal signs- currently not showing any. 6. replete k, phos, mg 7. psych social work consult as patient is likely to continue to be noncompliant with meds without resolution of these issues. #Heart healthy diet #Full code #Mild pain pathway Problem List: 1. CHF (congestive heart failure) 2. Atrial fibrillation 3. Dependent edema 4. HTN (hypertension) Pain Ratin Pain Location: legs Pain Goal: Pain 4 or less Pain Plan: tylenol prn Tomorrow's Labs & Rationales: bep, la DVT/Prophylaxis: pharmacological
--- NOTE | 2017-04-19 13:51 | PN- Cardiology ---
Subjective Subjective: Feeling mostly well. No chest pain. No palpitations. No lightheadedness or dizziness. He remains in atrial fibrillation with rate under control. He continues to complain of lower extremity edema. Objective Vital Signs and I&Os Vital Signs Date Time Temp Pulse Resp B/P B/P Pulse O2 O2 Flow FiO2 Mean Ox Delivery Rate 04/19 1326 101 108/80 07/ 1325 101 108/80 07/04 1000 97 /04 0852 96 124/90 / 0800 98.8 90 20 124/90 / 0800 93 Room Air 07/04 0639 98.8 90 20 124/90 93 Room Air 07/ 2358 97.5 97 24 124/94 95 Room Air 07/ 2152 91 122/90 / 1752 97.7 59 20 122/90 93 Room Air 07/03 1639 98.8 82 16 122/74 07/03 1639 98.8 82 16 122/74 96 Room Air 07/03 1545 98.9 115 18 134/98 07/03 1457 96 Room Air 07/03 1456 98.9 108 18 142/98 07/03 1456 98.9 108 16 142/98 96 Room Air 07/03 1440 98.8 108 20 132/90 98 Room Air 07/03 1415 102 07/03 1410 126 141/98 07/03 1410 98.2 126 22 138/93 97 Room Air Intake & Output 04/19 1600 /04 0800 /04 0000 07/03 1600 / 0800 07/ 0000 Intake Total 1100 1000 Output Total 800 1750 0 Balance -800 -650 1000 Intake, IV 1000 1000 Intake, Oral 100 Output, Urine 800 1750 0 Patient 262 lb 244 lb Weight Weight Gabriella Lift Reported by Patient Measurement Method Physical Exam: Gen: NAD HEENT: normal Lungs: clear to auscultation, normal resp. effort Heart: Irregularly irregular, S1, S2, no murmurs Abdomen: Soft, nontender, no masses Extremities: 2+ edema bilaterally Neuro: Alert and oriented x 3, cranial nerves intact Current Medications: Current Medications Sig/Jose Start time Last Medication Dose Route Stop Time Status Admin Acetaminophen 650 MG Q6P PRN 04/18 1445 AC PO Acetaminophen 1,000 MG Q6P PRN 04/18 1445 AC IV Apixaban 5 MG BID 04/18 1558 AC 04/19 PO 0851 Apixaban 5 MG BID 04/18 1433 DC PO Aspirin 0 .STK-MED ONE 04/18 1541 DC PO Aspirin Buffered 81 MG DAILY 04/18 1433 AC 04/19 PO 0851 Diltiazem HCl 60 MG Q6 04/19 1200 AC 04/19 PO 1325 Diltiazem HCl 10 MG ONCE ONE 04/18 1415 DC 04/18 IV PUSH 04/18 1416 1410 Diltiazem HCl 0 .STK-MED ONE 04/18 1409 DC .ROUTE Diltiazem HCl 125 MG Q12H 04/18 1200 DC 04/18 Dextrose/Water 100 ML IV 04/19 1159 2230 Folic Acid 0 .STK-MED ONE 04/18 1654 DC PO Folic Acid 1 MG DAILY 04/18 1602 AC 04/19 PO 0852 Furosemide 0 .STK-MED ONE 04/18 1541 DC IV Furosemide 40 MG BID 04/18 1501 AC 04/19 IV 0852 Furosemide 40 MG DAILY 04/18 1433 DC PO Heparin Sodium/ 25,000 UNIT Q24H 04/18 1200 DC 04/18 Dextrose IV 04/19 1159 1233 Dextrose/Water 500 ML Lorazepam 1 MG Q1 NEEDED PRN 04/18 1615 AC IV Magnesium Oxide 400 MG BID 04/19 1334 UNVr PO Magnesium Sulfate 1 GM Q2H 04/19 1345 UNVr Dextrose/Water 100 ML IV 04/19 1744 Metoprolol Tartrate 0 .STK-MED ONE 04/18 1540 DC PO Metoprolol Tartrate 50 MG BID 04/18 1501 AC 04/19 PO 0852 Multivitamins 0 .STK-MED ONE 04/18 1654 DC PO Multivitamins 1 TAB DAILY 04/18 1602 AC 04/19 PO 0852 Nadolol 40 MG DAILY 04/18 1434 DC PO Potassium Chloride 20 MEQ DAILY 04/20 1000 CAN PO Potassium Chloride 20 MEQ BID 04/19 2200 AC PO Potassium Chloride 20 MEQ ONCE ONE 04/19 1315 DC 07 PO 04/19 1316 1348 Potassium Chloride 40 MEQ ONCE ONE 04/19 1030 DC 07 PO 04/19 1031 1103 Potassium Chloride 40 MEQ ONCE ONE 04/19 1030 CAN PO 04/19 1031 Sodium Chloride 1,000 ML BOLUS ONE 04/18 1315 DC 04/18 IV 04/18 1414 1414 Sodium Chloride 1,000 ML BOLUS ONE 04/18 1315 DC 04/18 IV 04/18 1414 1320 Thiamine HCl 0 .STK-MED ONE 04/18 1653 DC PO Thiamine HCl 100 MG DAILY 04/18 1602 AC 04/19 PO 0852 Results Last 48 Hrs of Labs/Mics: Laboratory Tests 04/19/17 0832: Anion Gap 12, Estimated GFR > 60, BUN/Creatinine Ratio 23.3, Lactic Acid 1.7, Phosphorus 3.0, Magnesium 1.2 L 04/19/17 0210: Troponin I 0.03 04/18/17 1830: Lactic Acid 3.3 H, Troponin I 0.03, APTT 47 H 04/18/17 1625: Urine Opiates Screen < 100.00, Methadone Screen 45, Barbiturate Screen < 60, Ur Phencyclidine Scrn < 6.00, Amphetamines Screen < 100, U Benzodiazepines Scrn < 85, Urine Cocaine Screen < 50, Urine Cannabis Screen < 5.00, Urine Color YEL, Urine Clarity CLEAR, Urine pH 6.0, Ur Specific [place] 1.025, Urine Protein 100 H, Urine Ketones TRACE H, Urine Nitrite NEG, Urine Bilirubin NEG@ICTO, Urine Urobilinogen 4.0 H, Ur Leukocyte Esterase NEG, Ur Microscopic SEDIMENT EXAMINED , Urine RBC 3-5, Urine Bacteria FEW H, Urine Hemoglobin SMALL H, Urine Glucose NEG 04/18/17 1520: Lactic Acid 3.5 H 04/18/17 1212: Anion Gap 16, Estimated GFR > 60, BUN/Creatinine Ratio 23.3, Glucose 58 L, Lactic Acid 3.9 H, Calcium 8.5, Total Bilirubin 2.3 H, AST 49, ALT 37, Alkaline Phosphatase 151 H, Ammonia 30, Troponin I 0.03, [id number] Pept 3330 H, Total Protein 5.9 L, Albumin 3.4 L, Globulin 2.5, Albumin/Globulin Ratio 1.4, PT 13.1 H, INR 1.25 H, APTT 32, CBC w Diff NO MAN DIFF REQ, RBC 4.09 L, MCV 96.7 H, MCH 31.6 H, RDW 18.6 H, MPV 7.6, Gran % 71.7, Lymphocytes % 15.8 L, Monocytes % 10.6 H, Eosinophils % 0.5, Basophils % 1.4, Absolute Granulocytes 4.1, Absolute Lymphocytes 0.9 L, Absolute Monocytes 0.6, Absolute Eosinophils 0, Absolute Basophils 0.1, PUBS MCHC 32.8 L, Serum Alcohol 138.0 Assessment/Plan Assessment/Plan Assessment: 1. Chronic atrial fibrillation with rapid rate, now under control 2. Acute on chronic systolic heart Plan: * Increase metoprolol to 100 mg by mouth twice a day * Wean off IV diltiazem. Would eventually wean off by mouth diltiazem as well if able to control heart rate on metoprolol * Continue Eliquis. * Continue IV Lasix * Basic metabolic profile daily. Continue telemetry? Yes
--- NOTE | 2017-04-19 17:47 | Cons- Psychiatry ---
Psychiatric Consult Date of Consult: 04/19/17 Reason for Consult: I discussed request for consultation directly with the physician caring for patient today, Dr. eDsai. She described patient's long history of medical/ cardiologic issues compounded by alcohol abuse and probable noncompliance with medical therapy/medication contributed to by ongoing alcohol use disorder. Patient is already on CIWA protocol (I.V. Ativan) and is not showing symptoms of significant alcohol withdrawal at this time, but Dr. Desai wanted to see if something could be done to begin to engage patient in recovery from alcoholism before cardiac problems (including chronic atrial fibrillation, reduced L ventricular ejection fraction) worsen. History of Present Illness: Patient admitted to medical floor from E.D. for atrial fibrillation with rapid venticular response. He asserted to me that actually he had "stopped drinking entirely four days ago." Allergies: Coded Allergies: No Known Allergies (06/04/16) Current Medications: (see medical chart) Past History Past Medical History Neurological: NONE EENT: NONE, poor eyesight due to "age related changes" Cardiovascular: AFIB, hypertension (all valves are leaky), systolic CHF Respiratory: NONE Gastrointestinal: alcoholic hepatitis, LOOSE, FREQUENT STOOLS Hepatic: NONE Renal: NONE Musculoskeletal: NONE Psychiatric: alcohol dependence Endocrine: NONE Blood Disorders: NONE Cancer(s): NONE CLAIM BENEFIT SPECIALIST/Reproductive: NONE Past Surgical History Surgical History: none, 1 Psychiatric Treatment History Psych Treatment Psychiatric Treatment No Substance Use/Abuse History Drug Use/Abuse Substances Used/Abused Yes (alcohol) Substance Used/Abused Alcohol Substance Abuse Treatment Substance Abuse Treatment Past Substance Abuse [place] No (no hx of A.A. involvement) Assessment/Plan Mental Status Orientation: Person, Place, Situation Affect: Euphoric Speech: WNL Neuro-vegetative: Energy Decreased Lab Results: (see medical chart) Diffential Diagnosis: Patient appears to have a chronic alcohol use disorder; if there were any doubt, his brother who was with him at the time of my visit told me "I'm an alcoholic. I've been in recovery for 7 years. Believe me, my brother is an alcoholic!" Impression: Patient has a long history of fairly steady alcohol abuse but has not seen this as a particular problem up until now. He may be at the stage of Contemplation ( of becoming abstinent) though by history he has had no related past treatment counseling, outpatient programs, rehab admissions or even contact with A.A./ sober supports (though his brother has been in recovery for 7 years by latter's self-report). Provisional Treatment Plan: I discussed various options for beginning to work on sobriety. Of course, the first and foremost would be getting involved in local A.A., attending meetings and acquiring at least a temporary sponsor. I told patient about the various services offered by our department, including the dual focus IOP's but encouraged him to just walk into the E.D. and ask to talk with a email administrator to start the process. Patient actually asked me about medications which might help him to stop drinking; we spoke about Revia, Campral, Antebuse, amongst others; I told him he could be prescribed one or more of these medications through our OPS or could speak with his PCP about this; he does not have a PCP at this moment but said that someone from the [facility] had come by to see him earlier today and left patient his card.
--- NOTE | 2017-04-19 23:33 | NUR ---
PT C/O DIFFICULTY URINATING. STATES HE FEELS LIKE HE NEEDS TO VOID BUT NOTHING IS COMING OUT. ABD FIRM DISTENDED. BLADDER SCANNED= 250ML. GENERALIZED EDEMA +1-2. BLE +[address] REA PAGED AND INFORMED OF PT'S COMPLAINT. HAS ONLY VOIDED 100ML SINCE 7PM. INTAKE = 240 ML. WILL CTM AWAITING ORDERS.
--- NOTE | 2017-04-20 01:46 | NUR ---
PT INCREASINGLY CONFUSED. TALKING OUT TO PEOPLE NOT IN ROOM, THINKING HE NEEDS TO CLOSE THE DOOR AND GET SOMETHING OFF THE KITCHEN TABLE. ATTEMPTING TO GET OOB UNSAFELY. BED ALARM IN PLACE. MONITORING CIWA. THIS RN RIGHT OUTSIDE ROOM FOR CONFUSION AND HIGH FALL RISK. WILL CTM.
[2017-04-20 02:19] VITALS: BP 112/70
[2017-04-20 05:38] VITALS: BP 116/70
[2017-04-20 07:28] VITALS: BP 116/70
--- NOTE | 2017-04-20 08:00 | NUR ---
LATE ENTRY: [phone]- PT CONFUSED, GRABBING AT THINGS IN THE AIR, RIPPING OFF TELE MONITOR AND O2 NC. BED ALARM IN PLCE BUT PT CONTINUES TO ATTEMPT TO CLIMB OUT OF BED UNSAFELY. REPOSITIONED IN BED BUT PT CONTINUES TO THRASH IN BED. PT STRAIGHT CATHED AT 0500 FOR 150 ML DARK MORALES-HEMATURIA CLOUDY URINE. PT ALSO WAS INCONTINENT OF LARGE AMOUNT OF DARK MORALES URINE WHILE STRAIGHT CATHING. AFTER VOIDING, PT APPEARS MORE COMFORTABLE AND RESTING IN BED. AFTER ABOUT 20 MINUTES OF SLEEPING, PT CONTINUES TO YELL OUT AND GRAB AT THINGS THAT ARE NOT THERE. TRIES TO EAT DALILA COAT AND RIPS OFF MONITOR AND LEADS. THIS RN AT BEDSIDE SITTING FOR PT. NURSING HOG BUYER AWARE THAT PT IS RECEIVING IV ATIVAN PER CIWA SCALE. CIWA 8-22. PT PLACED IN SOFT UPPER RESTRAINTS AT 0700 FOR ATTEMPTING TO REMOVE IV, O2 NC AND TELE MONITOR. 4 SIDE RAILS UP FOR UNSAFE AMBULATION. PT CONTINUES TO FIGHT THE WRIST RESTRAINTS EVEN WITH REORIENTATION. BED ALARM IN PLACE. REPORT GIVEN TO DAY RN.
--- NOTE | 2017-04-20 09:40 | NUR ---
ALL PO MEDS HELD DUE TO SOME SEDATION AND NOT FOLLOWING INSTRUCTION, RISK FOR ASPIRATION. WAS UPDATED
--- NOTE | 2017-04-20 09:50 | PN- Cardiology ---
Subjective Subjective: The patient is now actively withdrawing from alcohol. He is poorly responsive and agitated. He is unable to take by mouth medications. We're going to start him back on Cardizem drip for better heart rate control until he is able to take by mouth again. He remains in atrial fibrillation. His heart rate is now in the 120 range. Objective Vital Signs and I&Os Vital Signs Date Time Temp Pulse Resp B/P B/P Pulse O2 O2 Flow FiO2 Mean Ox Delivery Rate / 0939 103 116/70 07/05 0939 103 116/70 07/05 0728 97.8 103 22 116/70 95 Nasal Cannula 07/05 0607 98 116/70 07/05 0538 98 116/70 07/05 0400 98.2 89 24 07/05 0246 89 07/05 0219 97.7 87 24 112/70 07/05 0219 97.7 87 24 112/70 94 Nasal Cannula 07/05 0000 Room Air 07/04 2359 89 07/04 2324 76 100/60 07/04 2250 99.7 65 20 150/60 95 07/04 2200 97.9 96 20 100/60 100 Room Air 07/04 2047 87 112/76 07/04 2000 113 07/04 1849 102 124/90 07/04 1800 109 07/04 1600 98.1 102 20 118/72 07/04 1600 96 Room Air 07/04 1541 98.1 95 20 118/72 96 Room Air 07/04 1400 92 07/04 1326 101 108/80 07/04 1325 101 108/80 07/04 1200 87 07/04 1000 97 Intake & Output 07/ 1600 07/05 0800 07/05 0000 07/04 1600 07/04 0800 07/04 0000 Intake Total 50 0394 050 4672 Output Total 150 450 792 422 6000 Balance -100 820 177 -800 -650 Intake, IV 112 1000 Intake, Oral 50 1270 640 100 Number 0 2 Bowel Movements Output, Urine 150 450 238 391 1666 Patient 250 lb 262 lb Weight Weight Chair scale Gabriella Lift Measurement Method Physical Exam: He is poorly responsive and agitated HEENT exam grossly normal chest aerating okay Heart irregular rhythm, no murmurs Extremities chronic edema Current Medications: Current Medications Sig/Jose Start time Last Medication Dose Route Stop Time Status Admin Acetaminophen 650 MG Q6P PRN 04/18 1445 AC PO Acetaminophen 1,000 MG Q6P PRN 04/18 1445 AC IV Apixaban 5 MG BID 04/18 1558 AC 04/19 PO 2048 Aspirin Buffered 81 MG DAILY 04/18 1433 AC 04/19 PO 0851 Diltiazem HCl 60 MG Q6 04/19 1200 AC 04/19 PO 2324 Diltiazem HCl 125 MG Q12H 04/18 1200 DC 04/18 Dextrose/Water 100 ML IV 04/19 1159 2230 Folic Acid 1 MG DAILY 04/18 1602 AC 04/19 PO 0852 Furosemide 40 MG BID 04/18 1501 AC 04/20 IV 0925 Heparin Sodium/ 25,000 UNIT Q24H 04/18 1200 DC 04/18 Dextrose IV 04/19 1159 1233 Dextrose/Water 500 ML Lorazepam 2 MG Q6 04/20 0711 AC 04/20 IV 0924 Lorazepam 0 Q1P PRN 04/20 0015 AC 04/20 IV 0627 Lorazepam 1 MG Q1 NEEDED PRN 04/18 1615 DC 04/19 IV 2359 Magnesium Oxide 400 MG BID 04/19 1334 AC 04/19 PO 2046 Magnesium Sulfate 1 GM ONCE ONE 04/20 0915 AC Dextrose/Water 100 ML IV 04/20 1314 Magnesium Sulfate 1 GM Q2H 04/19 1345 DC 04/19 Dextrose/Water 100 ML IV 04/19 1744 1630 Metoprolol Tartrate 100 MG BID 04/19 2200 AC 04/19 PO 2047 Metoprolol Tartrate 50 MG BID 04/18 1501 DC 04/19 PO 0852 Multivitamins 1 TAB DAILY 04/18 1602 AC 04/19 PO 0852 Nicotine 14 MG DAILY 04/19 1810 AC 04/20 TOP 0927 Nystatin 1 VY BID 04/20 1000 AC 04/20 TOP 0627 Potassium Chloride 20 MEQ DAILY 04/20 1000 CAN PO Potassium Chloride 10 MEQ ONCE ONE 04/20 0730 DC 04/20 IV 04/20 0731 0927 Potassium Chloride 20 MEQ BID 04/19 2200 AC 04/19 PO 2048 Potassium Chloride 20 MEQ ONCE ONE 04/19 1315 DC 04/19 PO 04/19 1316 1348 Potassium Chloride 40 MEQ ONCE ONE 04/19 1030 DC 04/19 PO 04/19 1031 1103 Potassium Chloride 40 MEQ ONCE ONE 04/19 1030 CAN PO 04/19 1031 Ramelteon 8 MG AT BEDTIME 04/19 2200 AC 04/19 PO 2324 Thiamine HCl 100 MG DAILY 04/18 1602 AC 04/19 PO 0852 Results Last 48 Hrs of Labs/Mics: Laboratory Tests 04/20/17 0735: Anion Gap 10, Estimated GFR > 60, BUN/Creatinine Ratio 18.8, Magnesium 1.6 04/19/17 1855: Anion Gap 12, Estimated GFR > 60, BUN/Creatinine Ratio 17.5, Magnesium 1.6 04/19/17 0832: Anion Gap 12, Estimated GFR > 60, BUN/Creatinine Ratio 23.3, Lactic Acid 1.7, Phosphorus 3.0, Magnesium 1.2 L 04/19/17 0210: Troponin I 0.03 04/18/17 1830: Lactic Acid 3.3 H, Troponin I 0.03, APTT 47 H 04/18/17 1625: Urine Opiates Screen < 100.00, Methadone Screen 45, Barbiturate Screen < 60, Ur Phencyclidine Scrn < 6.00, Amphetamines Screen < 100, U Benzodiazepines Scrn < 85, Urine Cocaine Screen < 50, Urine Cannabis Screen < 5.00, Urine Color YEL, Urine Clarity CLEAR, Urine pH 6.0, Ur Specific [place] 1.025, Urine Protein 100 H, Urine Ketones TRACE H, Urine Nitrite NEG, Urine Bilirubin NEG@ICTO, Urine Urobilinogen 4.0 H, Ur Leukocyte Esterase NEG, Ur Microscopic SEDIMENT EXAMINED , Urine RBC 3-5, Urine Bacteria FEW H, Urine Hemoglobin SMALL H, Urine Glucose NEG 04/18/17 1520: Lactic Acid 3.5 H 04/18/17 1212: Anion Gap 16, Estimated GFR > 60, BUN/Creatinine Ratio 23.3, Glucose 58 L, Lactic Acid 3.9 H, Calcium 8.5, Total Bilirubin 2.3 H, AST 49, ALT 37, Alkaline Phosphatase 151 H, Ammonia 30, Troponin I 0.03, [id number] Pept 3330 H, Total Protein 5.9 L, Albumin 3.4 L, Globulin 2.5, Albumin/Globulin Ratio 1.4, PT 13.1 H, INR 1.25 H, APTT 32, CBC w Diff NO MAN DIFF REQ, RBC 4.09 L, MCV 96.7 H, MCH 31.6 H, RDW 18.6 H, MPV 7.6, Gran % 71.7, Lymphocytes % 15.8 L, Monocytes % 10.6 H, Eosinophils % 0.5, Basophils % 1.4, Absolute Granulocytes 4.1, Absolute Lymphocytes 0.9 L, Absolute Monocytes 0.6, Absolute Eosinophils 0, Absolute Basophils 0.1, PUBS MCHC 32.8 L, Serum Alcohol 138.0 Assessment/Plan Assessment/Plan The patient is now withdrawing from alcohol. His heart rate is beginning to increase in atrial fibrillation and he will be restarted on Cardizem drip. He does not appear to be in gross congestive heart failure at this time. We will use Lasix as necessary intravenously until he is able to take medication orally again. Continue telemetry? Yes
--- NOTE | 2017-04-20 10:06 | PN- Housestaff ---
SANTOS KAMARA,JOHN 04/20/17 1006: Subjective Follow-up For: bipedal swelling afib with rvr alcohol withdrawal lactic acidosis (resolved) Complaints: pt unable to provide hx Tele-Events Since Last Visit: afib 89-102 overnight with PVCs Subjective: patient seen and examined bedside, confused and unresponsive. As per resident, around 11pm patient became aggressive and agitated and 2 point restraints had to be ordered. He is currently on ativan per CIWA protocol, somnolent, and does not respond to questions. Review of Systems Constitutional: Denies: no symptoms. EENTM: Denies: no symptoms. Comments: patient unable to respond to questions - somnolent and on ativan per CIWA protocol Objective Last 24 Hrs of Vital Signs/I&O Vital Signs Date Time Temp Pulse Resp B/P B/P Pulse O2 O2 Flow FiO2 Mean Ox Delivery Rate 04/20 1200 99 Part 60% ReBreather 04/20 1045 98.1 125 32 116/89 / 1020 86 Nasal 2.5L Cannula 04/20 0939 103 116/70 /05 0939 103 116/70 / 0800 Nasal 2.5L Cannula / 0728 97.8 103 22 116/70 95 Nasal Cannula /05 0607 98 116/70 07/05 0538 98 116/70 07/05 0400 98.2 89 24 07/05 0246 89 07/05 0219 97.7 87 24 112/70 07/05 0219 97.7 87 24 112/70 94 Nasal Cannula /05 0000 Room Air /04 2359 89 07/04 2324 76 100/60 07/04 2250 99.7 65 20 150/60 95 07/04 2200 97.9 96 20 100/60 100 Room Air 07/04 2047 87 112/76 07/04 2000 113 07/04 1849 102 124/90 /04 1800 109 Intake & Output / 1600 / 0800 07/05 0000 Intake Total 527 31 3261 Output Total 340 150 450 Balance -60 -100 820 Intake, IV 280 Intake, Oral 0 50 1270 Number 0 Bowel Movements Output, Urine 340 150 450 Physical Exam General Appearance: Moderate Distress Skin: No Breakdown Skin Temp/Moisture Exam: Hot/Dry Sepsis Skin Exam (color): Flushed HEENT: unable to assess- eyes closed Cardiovascular: Normal S1, Normal S2, Gallops, Rubs Lungs: crackles bilaterally Abdomen: Normal Bowel Sounds, distended Neurological: somnolent and not responsive to questions Extremities: erythematous and edematous from feet to scrotum Vascular: Normal Pulses Sepsis Peripheral Pulse Location: Radial Sepsis Peripheral Pulse Exam: Normal Reproductive (MALE) swollen scrotum, hematuria from straight cath and pinon placement for urinary retention Current Medications: Current Medications Sig/Jose Start time Last Medication Dose Route Stop Time Status Admin Acetaminophen 650 MG Q6P PRN 04/18 1445 AC PO Acetaminophen 1,000 MG Q6P PRN 04/18 1445 AC IV Apixaban 5 MG BID 04/18 1558 DC 04/19 PO 2048 Aspirin Buffered 81 MG DAILY 04/18 1433 AC 04/19 PO 0851 Diltiazem HCl 125 MG Q24H / 1000 AC 04/20 Dextrose/Water 100 ML IV 1107 Diltiazem HCl 60 MG Q6 04/19 1200 DC 04/19 PO 2324 Folic Acid 1 MG DAILY 04/18 1602 AC 04/19 PO 0852 Furosemide 20 MG ONCE ONE 04/20 1515 DC 07/ IV 07/ 1516 1528 Furosemide 40 MG BID / 1501 DC 07 IV 0925 Heparin Sodium 25,000 UNIT Q24H 04/20 1515 AC (Porcine) IV Sodium Chloride 500 ML Lorazepam 50 MG Q24H 07/ 1100 AC / Dextrose/Water 500 ML IV 1217 Lorazepam 2 MG Q6 / 0711 DC 04/20 IV 0924 Lorazepam 0 Q1P PRN / 0015 AC 07 IV 1058 Lorazepam 1 MG Q1 NEEDED PRN / 1615 DC 07/ IV 2359 Magnesium Oxide 400 MG BID 04/19 1334 AC 04/19 PO 2046 Magnesium Sulfate 1 GM ONCE ONE 04/20 1215 DC 07/ Dextrose/Water 100 ML IV / 1614 1229 Magnesium Sulfate 1 GM ONCE ONE / 0915 DC / Dextrose/Water 100 ML IV / 1314 1105 Magnesium Sulfate 1 GM Q2H 04/19 1345 DC 04/19 Dextrose/Water 100 ML IV 04/19 1744 1630 Metoprolol Tartrate 100 MG BID 07/04 2200 AC 04/19 PO 2047 Multivitamins 1 TAB DAILY 04/18 1602 AC 04/19 PO 0852 Nicotine 14 MG DAILY 04/19 1810 DC 04/20 TOP 0927 Nystatin 1 VY BID 04/20 1000 AC 04/20 TOP 0627 Pantoprazole Sodium 40 MG DAILY 04/20 1512 IV Potassium Chloride 10 MEQ ONCE ONE 04/20 0730 DC 04/20 IV 04/20 0731 0927 Potassium Chloride 20 MEQ BID 04/19 2200 AC 04/19 PO 2048 Ramelteon 8 MG AT BEDTIME 04/19 2200 DC 04/19 PO 2324 Thiamine HCl 100 MG DAILY 04/18 1602 AC 04/19 PO 0852 Last 24 Hrs of Lab/Ruddy Results Last 24 Hrs of Labs/Mics: Laboratory Tests 04/20/17 1215: Anion Gap 14, Estimated GFR > 60, Glucose 99, Calcium 8.5, Phosphorus 3.3, Magnesium 1.6, Total Bilirubin 3.2 H, AST 48, ALT 33, Troponin I 0.02, Albumin 3.5, CBC w Diff NO MAN DIFF REQ, RBC 3.57 L, MCV 97.5 H, MCH 31.7 H, RDW 19.5 H, MPV 8.2, Gran % 69.6, Lymphocytes % 16.7 L, Monocytes % 11.7 H, Eosinophils % 0.8, Basophils % 1.2, Absolute Granulocytes 6.1, Absolute Lymphocytes 1.5, Absolute Monocytes 1.0 H, Absolute Eosinophils 0.1, Absolute Basophils 0.1, PUBS MCHC 32.5 L 04/20/17 1144: pH 7.48 H, pCO2 30 L, pO2 143 H, HCO3 22, ABG O2 Sat (Measured) 99.0, P-50 ( Temp Corrected) YES, Carboxyhemoglobin 0.6 L, O2 Concentration % 100%, Temperature 98.8, O2 Delivery Method NRB, Phlebotomy Draw Site LEFT RADIAL 04/20/17 0735: Anion Gap 10, Estimated GFR > 60, BUN/Creatinine Ratio 18.8, Magnesium 1.6 04/19/17 1855: Anion Gap 12, Estimated GFR > 60, BUN/Creatinine Ratio 17.5, Magnesium 1.6 Microbiology 04/20 1155 UPPER RESP: Surveillance Culture - RECD 04/20 115 GI: Surveillance Culture - RECD Orders CIWA Score (last 24 hrs): 22 Radiology Findings: renal/kidney ultrasound 1. No evidence of renal calculus or upper urinary tract obstruction. 2. Urinary bladder is underdistended and suboptimally evaluated. There appears to be mild, diffuse thickening of the bladder wall (possible detrusor muscle hypertrophy). 3. Small volume of ascitic fluid is present in the abdomen and pelvis. Lines/Diet/Fluids Fluids/Infusions: kdur, mg, lorazepam, cardizem Catheters/Tubes: pinon Pinon Still Needed? Yes Lines: peripheral lines Restraints: right wrist, left wrist Assessment/Plan Assessment: This is a 51 year old male with a PMH significant for afib with rvr on eliquis electrical cardioversion 2000, htn, alcohol abuse, dilated cardiomyopathy that presented for worsening bipedal edema of 6 weeks duration that has impeded his ability to ambulate and shortness of breath without exertion. Patient is currently experiencing alcohol withdrawal symptoms. 1. ALCOHOL WITHDRAWAL 2. Bipedal and scrotal nonpitting edema: ?Acute decompensation of chronic CHF vs. ?cellulitis vs ?lymphedema vs ?DVT vs. ?liver disease 3. Atrial fibrillation currently on IV cardizem 3. Urinary retention 4. Hypertension 5. Lactic acidosis 6. low k, phos, mg 7. psych social work issues Plan 1. Acute alcohol withdrawal: Start patient on ativan per CIWA protocol. CIWA IS 22 OVERNIGHT. CURRENTLY ON 2MG iV Q6H. MONITOR WITH CIWA Q2-3 HOURS. Give MV, folate, thiamine. 2. Bipedal and scrotal nonpitting edema: with normal CBC, negative doppler legs , normal lfts, likely due to acute decompensation of chronic CHF. Patient last had an echocardiogram in 2016 which found systolic dysfunction. Based on clinical picture, he is showing signs of fluid overload despite not having voided since the previous day. Kidney function as per labs was normal so he was given 2L of fluid and is now on lasix 40mg IV bid. * continue lasix and monitor i/o's and weight closely * follow dr. doty consult repeat echo outpatient with his insurance compliance analyst as last one was done in a year (possible tachycardia induced cariomyopathy due to afib especially since patient is noncompliant with meds) 3. Noncompliance with medication has likely contributed to afib mediated worsening cardiac function. CURRENTLY ON iv CARDIZEM FOR RATE CONTROL. As per cardiology this am: The Patient is now withdrawing from alcohol. His heart rate is beginning to increase in atrial fibrillation and he will be restarted on Cardizem drip. * continue to monitor on telemetry * ACS RULED OUT NEGATIVE TROPONINS AND EKGS * wean cardizem once rate is controlled and continue his oral home meds * ANTICOAGULATED WITH eliquis 4. Continue Lopressor 50 bid 5. Urinary retention. Was straight cathed - high volumes necessitated pinon placement. Renal and kidney ultrasound support bph over kidney pathology. No evidence of renal calculus or upper urinary tract obstruction. 6. LACTIC ACIDOSIS RESOLVING. Elevated likely due to alcohol abuse, was given 2L in the ED. 7. replete k, phos, mg. CURRENTLY k+ IS 3.4. 8. psych social work consult SUGGESTED IOP REHABILITION AND AA. #Heart healthy diet #Full code #Mild pain pathway Problem List: 1. Rapid atrial fibrillation 2. CHF (congestive heart failure) 3. HTN (hypertension) 4. Alcohol withdrawal Pain Ratin (cannot assess accurately) Pain Location: NA Pain Goal: Remain pain free (NA) Pain Plan: NA Tomorrow's Labs & Rationales: bep DVT/Prophylaxis: pharmacological JUAN A TALAVERA MD 04/20/17 1514: Attending MD Review Statement Attending Statement Attending MD Statement: examined this patient, discuss w/resident/PA/DIGITAL SALES DIRECTOR, agreed w/resident/PA/DIGITAL SALES DIRECTOR, reviewed EMR data (avail), discussed with nursing, discussed with case mgmt, reviewed images, amended to note Attending Assessment/Plan: The patient was seen and discussed with house staff. Patient began with DT's and was placed on standing Ativan dose yesterday. Somnolent this morning and oxygen saturation dropped. HR was in low 100's initially. Transferred to ICU for closer nursing monitoring. Pulse ox improved on Venti-mask at present. Dr. Vidal- pulmonary/intensive care to see. Gross hematuria developed at time of transfer and is most likely traumatic. Pinon in place for urinary retention. Appreciate Urology (Dr. Moody) input. Will place back on Cardizem drip in ICU.
[2017-04-20 10:45] VITALS: BP 116/89
--- NOTE | 2017-04-20 11:22 | Event Note ---
Event Note Event Note: At 1100, Mr Davidson was noted to be in respiratory distress, RR 32, 86% O2 sat on 2.5L with agonal breathing but clear chest on auscultation and increasing confusion. ABG was done, order for CXR put in, and a nonrebreather started. He is currently being transferred to the ICU for Ativan drip for possible DT's. He is currently on cardizem drip for rapid afib rates of 140 in the setting of alcohol withdrawal and Eloquis for anticoagulation. Currently rates of 120's-130 's, BP 116/89. We currently are repleting Mg and K. BS: 96. Temp 98.1 axillary. Patient is currently receiving lasix bid 40mg IV for CHF and metoprolol for rate control. Attendings Dr. Chan and Nurse Sitter Dr. Pang aware of transfer.
--- NOTE | 2017-04-20 11:30 | NUR ---
AT START OF SHIFT PT WAS SEDATED FROM ATIVAN DOSES OVER NIGHT ALTHOUGH GRUNTING AT TIMES AND ATTEMPTING TO MOVE ARMS AROUND AT TIMES. BILATERAL SOFT WRIST RESTRAINTS IN PLACE PER ORDERS FOR AGITATION AND TO PREVENT PULLING OF LINES. LIPS, NOSE AND FINGERTIPS CYANOTIC BUT IS NOT A CHANGE PER REPORT. ? POSSIBILITY OF ATIVAN DRIP OVER ROUNDS DUE TO INCREASED PRN USE OVER NIGHT. SHCEDULED IV ATIVAN ORDERED INSTEAD. GIVEN PER ORDERS. OVER THE COURSE OF THE MORNING PT HAD INCREASED GRUNTING AND RESTLESS IN BED ALTHOUGH STILL NOT VERBALLY RESPONDING AND EYES SHUT, ALSO WENT INTO RESPIRATORY DISTRESS USING ABDOMINAL MUSCLES TO BREATH. O2 SAT ON 2.5L WAS HIGH OF 86% ALTHOUGH FINGERTIPS WERE VERY COLD. RR 32. DR.REETUPARNA VASQUES WAS CALLED IMMEDIATELY. ABG'S ORDERED, RT UNABLE TO GET SAT ON NON-REBREATHER. 2MG PRN ATIVAN GIVEN. ALL PO MEDS HAD BEEN HELD DUE TO SEDATION SO CARDIZEM DRIP RESTARTED WELL AT 5ML/HR. IV POTASSIUM GIVEN AND IV MAG INITIATED PRIOR TO TRANSFER TO ICU. LES THAT HAD TRAUMATIC INSERTION PER REPORT,HAS PUT OUT HEMATURIA. MD IS AWARE. LAST SET OF VS 98.1 AXILLARY, HR 120s-130s, RR 32, AUTO BP 116/89. REPORT GIVEN TO ICU.
--- NOTE | 2017-04-20 12:17 | NUR ---
PT TRANSFERED TO UNIT FROM ONE [place] ON 100% NONREBREATHER SAT 98%, CONFUSED AND AGITATED, WRIST RESTRAINTS ON, PT SETTLED INTO BED, ATIVAN GTT ORDERED AND STARTED, ABGS DONE, EKG AND LABS DONE. PT CURRENTLY ON 60% NONREBREATHER WITH SATS OF 98%, WILL CONT TO MON.
[2017-04-20 13:15] LABS: ABSOLUTE BASOPHIL COUNT 0.1 /CUMM (0.0-0.2); ABSOLUTE EOSINOPHIL COUNT 0.1 /CUMM (0.0-0.7); ABSOLUTE GRANULOCYTE CT 6.1 /CUMM (1.4-6.5); ABSOLUTE LYMPH COUNT 1.5 /CUMM (1.2-3.4); BASOPHIL % 1.2 % (0.0-2.0); EOSINOPHIL % 0.8 % (0-5); GRANULOCYTE % 69.6 % (42.2-75.2); HEMATOCRIT 34.8 % (42-52); MEAN CORPUSCULAR HGB 31.7 PG (27.0-31.0); MEAN CORPUSCULAR HGB CONC 32.5 G/DL (33.0-37.0); MEAN CORPUSCULAR VOLUME 97.5 FL (80.0-94.0); MEAN PLATELET VOLUME 8.2 FL (7.4-10.4); PLATELET COUNT 228 /CUMM (130-400); RBC DISTRIBUTION WIDTH 19.5 % (11.5-14.5); RED BLOOD CELL CT 3.57 /CUMM (4.70-6.10)
[2017-04-20 13:24] LABS: WHITE BLOOD CELL COUNT 8.7 /CUMM (4.8-10.8)
--- NOTE | 2017-04-20 14:20 | NUR ---
PT LES [place] PER AT 1400, GROSS HEMATURIA IN LES, AWARE, PT DTV BY 2200, WILL CONT TO MON.
--- NOTE | 2017-04-20 15:36 | ULTRASOUND REPORT ---
EXAMINATION: US RETROPERITONEAL COMPLETE (RENAL) CLINICAL INFORMATION: Difficulty with urination. Evaluate for hydronephrosis/obstruction.. COMPARISON: None TECHNIQUE: Real-time imaging of the kidneys and bladder. FINDINGS: RIGHT KIDNEY: 11 x 6.5 x 6 cm (SAG x AP x TRV). The kidney has normal cortical thickness and echotexture. No evidence of focal parenchymal lesion, nephrolithiasis or hydronephrosis. LEFT KIDNEY: The left kidney is suboptimally visualized. It measures approximately 11.5 x 6.8 x 6 cm (SAG x AP x TRV). The visualized portions of the kidney has normal cortical thickness and echotexture. No evidence of focal parenchymal lesion, hydronephrosis or nephrolithiasis. BLADDER: Urinary bladder is underdistended, currently with estimated volume of 46 mL. There is mild, diffuse thickening of the bladder wall without evidence of bladder calculus or diverticulum. Prostate gland is suboptimally visualized. OTHER: Small amount of ascitic fluid is present within the abdomen and pelvis. IMPRESSION: 1. No evidence of renal calculus or upper urinary tract obstruction. 2. Urinary bladder is underdistended and suboptimally evaluated. There appears to be mild, diffuse thickening of the bladder wall (possible detrusor muscle hypertrophy). 3. Small volume of ascitic fluid is present in the abdomen and pelvis.
--- NOTE | 2017-04-20 15:48 | RADIOLOGY REPORT ---
EXAMINATION: XR PORTABLE CHEST CLINICAL INFORMATION: Acute hypoxemia, edema COMPARISON: 04/18/2017 TECHNIQUE: Portable frontal view of the chest was obtained. FINDINGS: Nonvisualization left hemidiaphragm. A left basilar process needs to be considered. There is some increasing change in the right lung radiating to the hilum. Early CHF cannot be excluded though the left suprahilar area is within normal limits. IMPRESSION: Left basilar opacity obscuring the hemidiaphragm. Consistent with atelectasis or infiltrate. Findings on the right which may reflect asymmetric CHF. Follow-up PA and lateral films recommended when the patient is able
--- NOTE | 2017-04-20 15:50 | CT SCAN REPORT ---
EXAMINATION: CT ANGIOGRAM OF THE CHEST WITH AND WITHOUT CONTRAST (CT PULMONARY ANGIOGRAM FOR PE) CLINICAL INFORMATION: Reason for Study:
Presumptive Dx: PE
Signs Symptoms: SOB, tachy
COMPARISON: None TECHNIQUE: Prior to contrast administration, noncontrast localization images were obtained. Subsequently, multidetector volumetric imaging was performed from the thoracic inlet to below the diaphragms following the administration of 95 mL Optiray 320 intravenous contrast. No contrast reaction reported. Sagittal, coronal, and MIP oblique sagittal reformatted images were obtained on the CT workstation, uploaded to PACS, and reviewed. Total exam dose-length product 556 mGy-cm. FINDINGS: QUALITY OF STUDY/CONTRAST BOLUS: Limited diagnostic quality due to extensive respiratory misregistration. Patient is unable to follow commands. PULMONARY ARTERIES: No filling defects are identified in the central or main pulmonary arteries, lobar and segmental emboli are not excluded on this exam due to extensive respiratory motion. THORACIC AORTA: Atherosclerotic changes without aneurysm. LUNGS AND PLEURA: Small right, trace left pleural effusion with associated atelectasis most notably involving the right lower lobe posterior basal and medial basal segments. There is airspace disease involving the posterior segment of the right upper lobe and superior segment of the right lower lobe, atelectasis and/or infiltrate. Pulmonary nodules are difficult to evaluate for this exam with significant motion artifact. MEDIASTINUM: The heart is enlarged most notably the right atrium with reflux of contrast material into dilated superior and inferior vena cava and distended hepatic veins suggesting a component of right-sided heart failure. There is no lymphadenopathy. There is a trace pericardial effusion. CHEST WALL/AXILLA: No pathologically enlarged lymph nodes. OSSEOUS STRUCTURES: No aggressive appearing osseous lesions. UPPER ABDOMEN: There is a small sliding hiatal hernia. Diffuse hepatic steatosis is suggested. There is a small amount of intraperitoneal free fluid also identified. There is reflux of contrast into the hepatic veins to suggest elevated right heart pressures which are dilated. Echocardiography should be considered to further evaluate if not already performed. IMPRESSION: 1. Nondiagnostic examination for pulmonary emboli although no central or main pulmonary filling defects are identified. 2. Small right-sided pleural effusion with associated atelectasis, infiltrate and pneumonia less likely though not excluded. Findings are less severe on the left. 3. Cardiomegaly with elevated right-sided heart pressures. This is indeterminate in etiology. Small pericardial effusion is also suspected in the superior recess. 4. There is a small amount of ascites. VTE: Nondiagnostic
[2017-04-20 16:00] VITALS: BP 130/90
--- NOTE | 2017-04-20 18:03 | NUR ---
PT BLADDER SCANNED FOR 16ML OF RESIDUAL, MD NOTIFIED.
--- NOTE | 2017-04-20 20:03 | PN- Att Addend ---
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
--- NOTE | 2017-04-20 21:44 | NUR ---
PT DESAT TO 89%, RT NOTIFIED, NASAL TRUMPET PLACED TO R NARES AND PT DEEP SUCTIONED BY RT, PT SAT 95% WILL CONT TO MON.
--- NOTE | 2017-04-20 22:07 | NUR ---
PT BLADDER SCANNED FOR 31ML, PT STILL EXPERIENCING GROSS HEMATURIA, WILL CONT TO MON.
[2017-04-20 22:28] LABS: PTT 70 SEC (25-37)
[2017-04-21] VITALS (12 sets, daily range): BP systolic 112–154; BP diastolic 80–100
--- NOTE | 2017-04-21 01:39 | NUR ---
PT RESTLESS,THRASHING IN BED. ARIVAN GTT AT 5MG/H. BI;ATERA; SOFT WRIST RESTRAINT ON. AFIB 110'S, CATDIZEM GTT ZT 5MG. HEPARIN GTT CONTINUED, NO EVIDENCE OF ACTIVE BLEED. BLADDER SCANFDONE, 150ML OBTAINED.[place] CATH IN PLACE AND DRAINING TO BLOODT URINE.
[2017-04-21 05:13] LABS: ABSOLUTE BASOPHIL COUNT 0.1 /CUMM (0.0-0.2); ABSOLUTE EOSINOPHIL COUNT 0.1 /CUMM (0.0-0.7); ABSOLUTE GRANULOCYTE CT 5.8 /CUMM (1.4-6.5); ABSOLUTE LYMPH COUNT 1.2 /CUMM (1.2-3.4); ABSOLUTE MONOCYTE COUNT 0.8 /CUMM (0.10-0.60); BASOPHIL % 1.2 % (0.0-2.0); EOSINOPHIL % 0.8 % (0-5); GRANULOCYTE % 73.3 % (42.2-75.2); HEMATOCRIT 32.8 % (42-52); MEAN CORPUSCULAR HGB 31.8 PG (27.0-31.0); MEAN CORPUSCULAR HGB CONC 32.1 G/DL (33.0-37.0); MEAN CORPUSCULAR VOLUME 98.9 FL (80.0-94.0); PLATELET COUNT 211 /CUMM (130-400); RBC DISTRIBUTION WIDTH 18.7 % (11.5-14.5); RED BLOOD CELL CT 3.32 /CUMM (4.70-6.10); WHITE BLOOD CELL COUNT 7.9 /CUMM (4.8-10.8)
--- NOTE | 2017-04-21 05:41 | PN- CRCU ---
Subjective HPI/Critical Care Issues: I examined the patient personally today at bedside. Patient is afebrile, Response to tactile stimuli, tachycardic, drowsy,sedated on nasal cannula O2 8 L, Bp 1 22/90. Patient is on Ativan drip 4 mg, heparin drip, Cardizem drip 7.5 mg. Objective Current Medications: Current Medications Sig/Jose Start time Last Medication Dose Route Stop Time Status Admin Acetaminophen 650 MG Q6P PRN 04/18 1445 AC PO Acetaminophen 1,000 MG Q6P PRN / 1445 AC IV Apixaban 5 MG BID 04/18 1558 DC 07 PO 2048 Aspirin Buffered 81 MG DAILY 04/18 1433 AC 04/19 PO 0851 Diltiazem HCl 125 MG Q24H / 1000 AC 04/21 Dextrose/Water 100 ML IV 0730 Diltiazem HCl 60 MG Q6 / 1200 DC 04/19 PO 2324 Folic Acid 1 MG DAILY / 1602 04/19 PO 0852 Furosemide 20 MG ONCE ONE 04/21 0745 CO 07/ IV 04/21 0746 0815 Furosemide 20 MG ONCE ONE 04/20 1515 DC 07/ IV 07/ 1516 1528 Furosemide 40 MG BID / 1501 CO 07 IV 0925 Heparin Sodium 25,000 UNIT Q24H / 1515 AC 07/ (Porcine) IV 1719 Sodium Chloride 500 ML Lorazepam 50 MG Q10H / 0745 / Dextrose/Water 500 ML IV 0842 Lorazepam 50 MG Q16H / 0200 DC Dextrose/Water 500 ML IV 04/21 0744 Lorazepam 50 MG Q24H / 1100 DC 07/ Dextrose/Water 500 ML IV / 0200 1217 Lorazepam 2 MG Q6 / 0711 CO 07 IV 0924 Lorazepam 0 Q1P PRN / 0015 07 IV 1058 Magnesium Oxide 400 MG BID / 1334 04/19 PO 2046 Magnesium Sulfate 1 GM Q2H / 0615 04/21 Dextrose/Water 100 ML IV / 1014 0842 Magnesium Sulfate 1 GM .STK-MED ONE 04/20 1227 DC IM 04/20 1228 Magnesium Sulfate 1 GM ONCE ONE 04/20 1215 DC 07/ Dextrose/Water 100 ML IV 04/20 1614 1229 Magnesium Sulfate 1 GM ONCE ONE 04/20 0915 DC 04/20 Dextrose/Water 100 ML IV 04/20 1314 1105 Metoprolol Tartrate 100 MG BID 04/19 2200 AC 04/19 PO 2047 Multivitamins 1 TAB DAILY 04/18 1602 AC 07 PO 0852 Nicotine 14 MG DAILY 04/19 1810 DC 04/20 TOP 0927 Nystatin 1 VY BID 04/20 1000 AC 04/20 TOP 2113 Pantoprazole Sodium 40 MG DAILY 04/20 1512 AC 07 IV 1814 Potassium Chloride 10 MEQ Q1H 04/21 0615 DC 04/21 IV 04/21 0716 0626 Potassium Chloride 10 MEQ Q1H 04/20 1845 DC 04/20 IV 04/20 2046 2109 Potassium Chloride 20 MEQ BID 04/19 2200 AC 04/19 PO 2048 Ramelteon 8 MG AT BEDTIME 04/19 2200 DC 04/19 PO 2324 Thiamine HCl 100 MG DAILY 04/18 1602 AC 04/19 PO 0852 Vital Signs & I&O Last 24 Hrs of Vitals and I&O: Vital Signs Date Time Temp Pulse Resp B/P B/P Pulse O2 O2 Flow FiO2 Mean Ox Delivery Rate 04/21 0840 94 Nasal 8L Cannula 04/21 08 98.5 110 24 122/90 / 0800 96 Venti Mask 55% 04/21 0800 98.5 110 24 122/90 96 Venti Mask 55% 04/21 0600 104 24 123/83 07/ 0400 96.0 100 32 154/100 07 0400 95 Venti Mask 55% / 0200 106 32 134/80 07/06 0000 96.1 112 30 136/80 07/ 0000 96 Venti Mask 55% 07/ 0000 96.1 112 30 126/80 96 Venti Mask 55% 04/20 2011 95 Venti Mask 55% 07/05 1600 99 Venti Mask 55% 07/05 1600 97.4 112 30 130/90 99 Venti Mask 55% 07/05 1200 99 Part 60% ReBreather 04/20 1045 98.1 125 32 116/89 07/05 1020 86 Nasal 2.5L Cannula Intake & Output 04/21 1600 07/06 0800 07/ 0000 Intake Total 625 782 Output Total 600 1000 Balance 25 -218 Intake, IV 625 782 Intake, Oral 0 Output, Urine 600 1000 Exam General Appearance: well developed/nourished, sedated, mild distress Head: normal appearance Neck: normal inspection, supple Respiratory: normal breath sounds, crackles Cardiovascular: regular rate/rhythm, tachycardia Abdomen: normal bowel sounds, soft, non-tender Extremities: b/l pedal edema 3+ Skin: intact, normal color Results Last 24 Hrs of Lab Results: Laboratory Tests 04/21/17 0700: pH 7.41, pCO2 40, pO2 105 H, HCO3 25, ABG O2 Sat (Measured) 97.0, Carboxyhemoglobin 0.6 L, O2 Concentration % .55, O2 Delivery Method V/M, Phlebotomy Draw Site RIGHT RADIAL 04/21/17 0349: Anion Gap 11, Estimated GFR > 60, Glucose 108 H, Calcium 7.7 L, Phosphorus 3.2 , Magnesium 1.5 L, Total Bilirubin 2.7 H, AST 38, ALT 34, Albumin 2.7 L, CBC w Diff NO MAN DIFF REQ, RBC 3.32 L, MCV 98.9 H, MCH 31.8 H, RDW 18.7 H, MPV 8.0, Gran % 73.3, Lymphocytes % 14.6 L, Monocytes % 10.1 H, Eosinophils % 0.8, Basophils % 1.2, Absolute Granulocytes 5.8, Absolute Lymphocytes 1.2, Absolute Monocytes 0.8 H, Absolute Eosinophils 0.1, Absolute Basophils 0.1, PUBS MCHC 32.1 L 04/20/17 2202: APTT 70 H 04/20/17 1215: Anion Gap 14, Estimated GFR > 60, Glucose 99, Calcium 8.5, Phosphorus 3.3, Magnesium 1.6, Total Bilirubin 3.2 H, AST 48, ALT 33, Troponin I 0.02, Albumin 3.5, CBC w Diff NO MAN DIFF REQ, RBC 3.57 L, MCV 97.5 H, MCH 31.7 H, RDW 19.5 H, MPV 8.2, Gran % 69.6, Lymphocytes % 16.7 L, Monocytes % 11.7 H, Eosinophils % 0.8, Basophils % 1.2, Absolute Granulocytes 6.1, Absolute Lymphocytes 1.5, Absolute Monocytes 1.0 H, Absolute Eosinophils 0.1, Absolute Basophils 0.1, PUBS MCHC 32.5 L 04/20/17 1144: pH 7.48 H, pCO2 30 L, pO2 143 H, HCO3 22, ABG O2 Sat (Measured) 99.0, P-50 ( Temp Corrected) YES, Carboxyhemoglobin 0.6 L, O2 Concentration % 100%, Temperature 98.8, O2 Delivery Method NRB, Phlebotomy Draw Site LEFT RADIAL Diagnostic Data CXR Findings: 04/21/17 Left basilar opacity obscuring the hemidiaphragm. Consistent with atelectasis or infiltrate. Findings on the right which may reflect asymmetric CHF. Follow-up PA and lateral films recommended when the patient is able CT Scan Findings: 04/20/17-CTA 1. Nondiagnostic examination for pulmonary emboli although no central or main pulmonary filling defects are identified. 2. Small right-sided pleural effusion with associated atelectasis, infiltrate and pneumonia less likely though not excluded. Findings are less severe on the left. 3. Cardiomegaly with elevated right-sided heart pressures. This is indeterminate in etiology. Small pericardial effusion is also suspected in the superior recess. 4. There is a small amount of ascites. ECHO Findings: 04/21/17 Mild thickening/calcification of the mitral valve leaflets. There is a somewhat mobile mass on the anterior leaflet of the mitral valve measuring slightly less than 1 cm in diameter. This appears to be calcified. Etiology might be a fibroblastoma versus vegetation. Left ventricular ejection fraction is estimated at 20-25 %. Radiology Findings: 04/20/17- RENAL US 1. No evidence of renal calculus or upper urinary tract obstruction. 2. Urinary bladder is underdistended and suboptimally evaluated. There appears to be mild, diffuse thickening of the bladder wall (possible detrusor muscle hypertrophy). 3. Small volume of ascitic fluid is present in the abdomen and pelvis. Impression/Plan Impression/Plan Impression/Plan: 51 year old male with a PMH significant for afib with rvr on eliquis electrical cardioversion 2000, htn, alcohol abuse, dilated cardiomyopathy that presented for worsening bipedal edema of 6 weeks duration that has impeded his ability to ambulate and shortness of breath without exertion. The patient suddenly became unresponsive, confused yesterday and transferred to ICU for close monitoring. Patient is on Ativan drip, Cardizem drip, heparin drip. Plan Respiratory Bilateral crackles+, no other added sounds. SEEN BY DR. Vidal. * Cont current meds * Reduce ativan further * Low threshold to intubate * Lasix one dose today IV 20 and rpt this pm * Agg replace potassium by IV * Avoid bipap if worse intubate * PPI * keep hob up * Heparin drip,hold asa and keep npo * Reduce nicotine to 7 mg * Agg oral suctioning * Chlorhexidine mouth wash qid * low threshold to start IV abx if patient becomes febrile or if wbc is elevated Infection Maintain low threshold for antibiotics. Cardiac S1-S2, patient has A. fib on heparin drip and Cardizem drip 7.5 mgwith a heart rate around 120 BPM. ECHO-04/21/17 Left ventricular ejection fraction is estimated at 20-25 %. Mild thickening/calcification of the mitral valve leaflets. There is a somewhat mobile mass measuring slightly less than 1 cm in diameter. This appears to be calcified. Etiology might be a fibroblastoma versus vegetation Heme Close monitoring of his electrolytes, CBC. Daily ICU bundle, CBC. metabOLIC PH 7.41, PCO2 40, PaO2 1 not 5, bicarbonate 25. On Ativan drip 40 mg as per CIWA protocol. Aspiration precaution. Alimentary Nothing by mouth Neuro None DVT On heparin drip Code Status: Full Code Problem List: 1. Rapid atrial fibrillation 2. Atrial fibrillation 3. CHF (congestive heart failure) 4. HTN (hypertension) 5. Alcohol withdrawal
--- NOTE | 2017-04-21 09:11 | NUR ---
AT 0800 REC'D THE PT HEAVILY SEDATED ON ATIVAN AT 5MG/HR WITH AN SAS OF 2. AT 0810 THE ATIVAN GTT WAS DECREASED TO 4MG/HR OR 40ML/HR. SAS IS A 3 NOW. PT IS DROWSY BUT AROUSABLE. SPEECH IS GARBLED TO THE POINT OF BEING ALMOST INTELLIGIBLE. HARDING BUT DOES NOT FOLLOW COMMANDS. CIWA IS A 4. PT REMAINS IN AN AFIB IN THE 100'S TO 120'S. CARDIZEM GTT CONTINUES AT 7.5MG/HR OR 7.5ML/HR INFUSING ALONG WITH THE ATIVAN GTT VIA A #20 TO THE TOM. THE HEPARIN GTT IS INFUSING AT 11.5U/KG/HR OR 26ML/HR VIA A #22 TO THE LF. REPEAT PTT IS DUE AT 1100. PT HAS 2+ BLE EDEMA. RACHID BS ARE RHONCHOROUS THROUGHOUT. INITIALLY THE PT WAS ON A 55% VM WITH AN O2 SAT OF 96%. AT 0840 OPEN SHANK COVERER CHANGED THE PT TO AN 8LNC, O2 SAT IS CURRENTLY 93%. ABD IS OBESE WITH NORMOACTIVE BOWEL SOUNDS. REMAINS NPO THE PT IS TOO DROWSY TO EAT SO IS AT AN INCREASED RISK OF ASPIRATION. [place] CATH REAMINS IN PLACE WITH DK RED URINE. LASIX 20MG IV ADMINISTERED AT 0815 PER MD ORDER.
--- NOTE | 2017-04-21 09:27 | NUR ---
PER DR SOSA THE URINE CULTURE DOES NOT NEED TO BE DONE. WHEN THE SALDANA WAS INADVERTANTLY ORDERED THE URINE CULTURE WAS GENREATED BY THE SALDANA ORDER.
--- NOTE | 2017-04-21 09:39 | PN- CRCU ---
Subjective HPI/Critical Care Issues: Still somnolent Coughing with productive sputum Afebrile on nasal cannula In afib with hr around 110 Sig hematuria with a condom cath noted Objective Current Medications: Current Medications Sig/Jose Start time Last Medication Dose Route Stop Time Status Admin Acetaminophen 650 MG Q6P PRN 07/ 1445 AC PO Acetaminophen 1,000 MG Q6P PRN / 1445 AC IV Apixaban 5 MG BID 04/18 1558 DC 04/19 PO 2048 Aspirin Buffered 81 MG DAILY 04/18 1433 AC 04/19 PO 0851 Diltiazem HCl 125 MG Q24H 07/ 1000 AC 07 Dextrose/Water 100 ML IV 0730 Diltiazem HCl 60 MG Q6 / 1200 DC 04/19 PO 2324 Folic Acid 1 MG DAILY / 1602 AC 04/19 PO 0852 Furosemide 20 MG ONCE ONE 04/21 0745 DC / IV 04/21 0746 0815 Furosemide 20 MG ONCE ONE 04/20 1515 DC 07 IV 04/20 1516 1528 Furosemide 40 MG BID / 1501 DC 07 IV 0925 Heparin Sodium 25,000 UNIT Q24H / 1515 AC 07/ (Porcine) IV 1719 Sodium Chloride 500 ML Lorazepam 50 MG Q10H / 0745 AC 04/21 Dextrose/Water 500 ML IV 0842 Lorazepam 50 MG Q16H / 0200 DC Dextrose/Water 500 ML IV 04/21 0744 Lorazepam 50 MG Q24H / 1100 DC 04/20 Dextrose/Water 500 ML IV 04/21 0200 1217 Lorazepam 2 MG Q6 / 0711 CO 07 IV 0924 Lorazepam 0 Q1P PRN / 0015 AC 07/ IV 1058 Magnesium Oxide 400 MG BID / 1334 AC 04/19 PO 2046 Magnesium Sulfate 1 GM Q2H 04/21 0615 AC 04/21 Dextrose/Water 100 ML IV 04/21 1014 0842 Magnesium Sulfate 1 GM .STK-MED ONE 04/20 1227 DC IM 04/20 1228 Magnesium Sulfate 1 GM ONCE ONE 04/20 1215 DC 07 Dextrose/Water 100 ML IV 04/20 1614 1229 Magnesium Sulfate 1 GM ONCE ONE 04/20 0915 DC 04/20 Dextrose/Water 100 ML IV 04/20 1314 1105 Metoprolol Tartrate 100 MG BID 04/19 2200 AC 04/19 PO 2047 Multivitamins 1 TAB DAILY 04/18 1602 AC 04/19 PO 0852 Nicotine 14 MG DAILY 04/19 1810 DC 04/20 TOP 0927 Nystatin 1 VY BID 04/20 1000 AC 04/20 TOP 2113 Pantoprazole Sodium 40 MG DAILY 04/20 1512 AC 04/20 IV 1814 Potassium Chloride 10 MEQ Q1H 04/21 0615 DC 04/21 IV 04/21 0716 0626 Potassium Chloride 10 MEQ Q1H 04/20 1845 DC 07 IV 04/20 2046 2109 Potassium Chloride 20 MEQ BID 04/19 2200 AC 04/19 PO 2048 Ramelteon 8 MG AT BEDTIME 04/19 2200 DC 04/19 PO 2324 Thiamine HCl 100 MG DAILY 04/18 1602 AC 04/19 PO 0852 Vital Signs & I&O Last 24 Hrs of Vitals and I&O: Vital Signs Date Time Temp Pulse Resp B/P B/P Pulse O2 O2 Flow FiO2 Mean Ox Delivery Rate 04/21 0840 94 Nasal 8L Cannula 04/21 0800 98.5 110 24 122/90 07 0800 98.5 110 24 122/90 96 Venti Mask 55% 04/21 0600 104 24 123/83 07/ 0400 96.0 100 32 154/100 07/ 0400 95 Venti Mask 55% / 0200 106 32 134/80 07/06 0000 96.1 112 30 136/80 07/06 0000 96 Venti Mask 55% / 0000 96.1 112 30 126/80 96 Venti Mask 55% 04/20 2011 95 Venti Mask 55% /05 1600 99 Venti Mask 55% / 1600 97.4 112 30 130/90 99 Venti Mask 55% 07/05 1200 99 Part 60% ReBreather 04/20 1045 98.1 125 32 116/89 07/05 1020 86 Nasal 2.5L Cannula 04/20 0939 103 116/70 07/05 0939 103 116/70 Intake & Output /06 1600 07/06 0800 07/06 0000 Intake Total 625 782 Output Total 600 1000 Balance 25 -218 Intake, IV 625 782 Intake, Oral 0 Output, Urine 600 1000 Laboratory Tests 07/04/21 0700 0340 2202 Blood Gas pH (7.35 - 7.45 PH) 7.41 pCO2 (35 - 45 TORR) 40 pO2 (80 - 100 TORR) 105 H HCO3 (21 - 28 MEQ/L) 25 ABG O2 Sat (Measured) (>96.0 %) 97.0 Carboxyhemoglobin (1.5 - 5.0 %) 0.6 L O2 Concentration % .55 O2 Delivery Method V/M Chemistry Sodium (137 - 145 mmol/L) 135 L Potassium (3.5 - 5.1 mmol/L) 3.5 Chloride (98 - 107 mmol/L) 98 Carbon Dioxide (22 - 30 mmol/L) 26 Anion Gap (5 - 16) 11 BUN (9 - 20 mg/dL) 12 Creatinine (0.7 - 1.2 mg/dL) 0.7 Estimated GFR (>60 ml/min) > 60 Glucose (65 - 99 mg/dL) 108 H Calcium (8.4 - 10.2 mg/dL) 7.7 L Phosphorus (2.5 - 4.5 mg/dL) 3.2 Magnesium (1.6 - 2.3 mg/dL) 1.5 L Total Bilirubin (0.2 - 1.3 mg/dL) 2.7 H AST (17 - 59 U/L) 38 ALT (21 - 72 U/L) 34 Albumin (3.5 - 5.0 g/dL) 2.7 L Coagulation APTT (25 - 37 SEC) 70 H Hematology CBC w Diff NO MAN DIFF REQ WBC (4.8 - 10.8 /CUMM) 7.9 RBC (4.70 - 6.10 /CUMM) 3.32 L Hgb (14.0 - 18.0 G/DL) 10.6 L Hct (42 - 52 %) 32.8 L MCV (80.0 - 94.0 FL) 98.9 H MCH (27.0 - 31.0 PG) 31.8 H RDW (11.5 - 14.5 %) 18.7 H Plt Count (130 - 400 /CUMM) 211 MPV (7.4 - 10.4 FL) 8.0 Gran % (42.2 - 75.2 %) 73.3 Lymphocytes % (20.5 - 51.1 %) 14.6 L Monocytes % (1.7 - 9.3 %) 10.1 H Eosinophils % (0 - 5 %) 0.8 Basophils % (0.0 - 2.0 %) 1.2 Absolute Granulocytes (1.4 - 6.5 /CUMM) 5.8 Absolute Lymphocytes (1.2 - 3.4 /CUMM) 1.2 Absolute Monocytes (0.10 - 0.60 /CUMM) 0.8 H Absolute Eosinophils (0.0 - 0.7 /CUMM) 0.1 Absolute Basophils (0.0 - 0.2 /CUMM) 0.1 PUBS MCHC (33.0 - 37.0 G/DL) 32.1 L Miscellaneous Phlebotomy Draw Site RIGHT RADIAL 04/20 04/20 04/20 1215 1144 0735 Blood Gas pH (7.35 - 7.45 PH) 7.48 H pCO2 (35 - 45 TORR) 30 L pO2 (80 - 100 TORR) 143 H HCO3 (21 - 28 MEQ/L) 22 ABG O2 Sat (Measured) (>96.0 %) 99.0 P-50 (Temp Corrected) YES Carboxyhemoglobin (1.5 - 5.0 %) 0.6 L O2 Concentration % 100% Temperature (97.0 - 100.0 FARH) 98.8 O2 Delivery Method NRB Chemistry Sodium (137 - 145 mmol/L) 137 137 Potassium (3.5 - 5.1 mmol/L) 3.7 3.6 Chloride (98 - 107 mmol/L) 99 98 Carbon Dioxide (22 - 30 mmol/L) 25 28 Anion Gap (5 - 16) 14 10 BUN (9 - 20 mg/dL) 15 15 Creatinine (0.7 - 1.2 mg/dL) 0.8 0.8 Estimated GFR (>60 ml/min) > 60 > 60 BUN/Creatinine Ratio (7 - 25 %) 18.8 Glucose (65 - 99 mg/dL) 99 Calcium (8.4 - 10.2 mg/dL) 8.5 Phosphorus (2.5 - 4.5 mg/dL) 3.3 Magnesium (1.6 - 2.3 mg/dL) 1.6 1.6 Total Bilirubin (0.2 - 1.3 mg/dL) 3.2 H AST (17 - 59 U/L) 48 ALT (21 - 72 U/L) 33 Troponin I (<0.11 ng/ml) 0.02 Albumin (3.5 - 5.0 g/dL) 3.5 Hematology CBC w Diff NO MAN DIFF REQ WBC (4.8 - 10.8 /CUMM) 8.7 RBC (4.70 - 6.10 /CUMM) 3.57 L Hgb (14.0 - 18.0 G/DL) 11.3 L Hct (42 - 52 %) 34.8 L MCV (80.0 - 94.0 FL) 97.5 H MCH (27.0 - 31.0 PG) 31.7 H RDW (11.5 - 14.5 %) 19.5 H Plt Count (130 - 400 /CUMM) 228 MPV (7.4 - 10.4 FL) 8.2 Gran % (42.2 - 75.2 %) 69.6 Lymphocytes % (20.5 - 51.1 %) 16.7 L Monocytes % (1.7 - 9.3 %) 11.7 H Eosinophils % (0 - 5 %) 0.8 Basophils % (0.0 - 2.0 %) 1.2 Absolute Granulocytes (1.4 - 6.5 /CUMM) 6.1 Absolute Lymphocytes (1.2 - 3.4 /CUMM) 1.5 Absolute Monocytes (0.10 - 0.60 /CUMM) 1.0 H Absolute Eosinophils (0.0 - 0.7 /CUMM) 0.1 Absolute Basophils (0.0 - 0.2 /CUMM) 0.1 PUBS MCHC (33.0 - 37.0 G/DL) 32.5 L Miscellaneous Phlebotomy Draw Site LEFT RADIAL 04/19 1855 Chemistry Sodium (137 - 145 mmol/L) 136 L Potassium (3.5 - 5.1 mmol/L) 3.4 L Chloride (98 - 107 mmol/L) 97 L Carbon Dioxide (22 - 30 mmol/L) 27 Anion Gap (5 - 16) 12 BUN (9 - 20 mg/dL) 14 Creatinine (0.7 - 1.2 mg/dL) 0.8 Estimated GFR (>60 ml/min) > 60 BUN/Creatinine Ratio (7 - 25 %) 17.5 Magnesium (1.6 - 2.3 mg/dL) 1.6 Microbiology Date/Time Procedure - Status Source Growth 07/06 0812 Urine Culture - ORD URINE ROUT 04/20 1155 Surveillance Culture - RECD UPPER RESP 04/20 1155 Surveillance Culture - RECD GI Impression/Plan Impression/Plan Impression/Plan: General Appearance: Moderate Distress Skin: No Breakdown Skin Temp/Moisture Exam: Hot/Dry Sepsis Skin Exam (color): Flushed HEENT: unable to assess- eyes closed Cardiovascular: Normal S1, Normal S2, Gallops, Rubs Lungs: crackles bilaterally Abdomen: Normal Bowel Sounds, distended Neurological: somnolent and not responsive to questions Extremities: erythematous and edematous from feet to scrotum Vascular: Normal Pulses IMPRESSION Pt with sig cardiomegaly, pulm htn, prob sig jonny, etoh abuse, rapid afib, now admitted to the ICU with * Sig DTs with delirium * Aspiration with chemical pna * Sig pulm htn with total body fluid overload * Medical non compliance * Rapid afib * 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 * Mild effusion, asicites and rt heart failure * Prob sig untreated JONNY * Dillon incertion leading to hematuria has a condom cath urology on board, pt was on eloquis and asa REC Cont current meds Reduce ativan further Low threshold to intubate Lasix one dose today IV 20 and rpt this pm Agg replace potassium by IV Avoid bipap if worse intubate PPI keep hob up Heparin drip,hold asa and keep npo Reduce nicotine to 7 mg Agg oral suctioning Chlorhexidine mouth wash qid low threshold to start IV abx if patient becomes febrile or if wbc is elevated Will follow closely Pt is critically ill tts 40 mins
--- NOTE | 2017-04-21 10:00 | NUR ---
PT HAD BEDSIDE ECHO PERFORMED/
[2017-04-21 12:21] LABS: PTT 54 SEC (25-37)
--- NOTE | 2017-04-21 12:42 | ECHOCARDIOGRAM REPORT ---
JUAN A MORALES Age: 51 : 1965 Gender: M Exam Date: 04/21/2017 09:34 Exam Location: [facility] Ht (in): 73 Wt (lb): 250 BSA: 2.45 BP: 138 / 90 Ordering Physician: MANJIT VASQUES, Referring Physician: MANJIT VASQUES MD Technologist: [facility] Room Number: 110 Indications: AFIB/FLUTTER Rhythm: Sinus Technical Quality: Good FINDINGS Left Ventricle Left ventricular cavity size at the upper limits of normal. Mild concentric left ventricular hypertrophy. Moderately to severly reduced global left ventricular systolic function. Left ventricular ejection fraction is estimated at 20-25 %. Right Ventricle Moderate right ventricular dilatation. Right Atrium Moderate to severe right atrial dilatation. Left Atrium Moderate to severe left atrial dilatation. Mitral Valve Mild thickening/calcification of the mitral valve leaflets. Mild-to- moderate mitral regurgitation. Aortic Valve Structurally normal trileaflet aortic valve. No aortic stenosis. No aortic regurgitation. Tricuspid Valve Tricuspid valve is normal in structure and function. Moderate tricuspid regurgitation. Right ventricular systolic pressure estimated to be elevated at 45-50 mmHg. Pulmonic Valve Pulmonic valve not well visualized, grossly normal. No pulmonic regurgitation. Pericardium Trace posterior percarial effusion. Great Vessels Normal size aortic root. Ascending aorta at upper limits of normal diameter. CONCLUSIONS Left ventricular cavity size at the upper limits of normal. Mild concentric left ventricular hypertrophy. Moderately to severly reduced global left ventricular systolic function. Left ventricular ejection fraction is estimated at 20-25 %. Moderate right ventricular dilatation. Moderate to severe right atrial dilatation. Moderate to severe left atrial dilatation. Mild thickening/calcification of the mitral valve leaflets. [id number]-rh-[id number] mitral regurgitation. Structurally normal trileaflet aortic valve. Moderate tricuspid regurgitation. Right ventricular systolic pressure estimated to be elevated at 45- 50 mmHg. Trace posterior percarial effusion. Ascending aorta at upper limits of normal diameter. Noel Pang M.D. (Electronically Signed) Final Date: 21 April 2017 12:41 MEASUREMENTS (Male / Female) Normal Values 2D ECHO LV Diastolic Diameter PLAX 6.3 cm 4.2 - 5.9 / 3.9 - 5.3 cm LV Systolic Diameter PLAX 5.7 cm 2.1 - 4.0 cm LV Fractional Shortening PLAX 9.5 % 25 - 46 % LV Ejection Fraction 2D Teich 20.5 % IVS Diastolic Thickness 1.2 cm LVPW Diastolic Thickness 1.2 cm LV Relative Wall Thickness 0.4 RV Internal Dim ED PLAX 5.8 cm 1.9 - 3.8 cm LVOT Diameter 2.2 cm Aortic Root Diameter 3.3 cm LA Systolic Diameter LX 6.0 cm 3.0 - 4.0 / 2.7 - 3.8 cm LV Diastolic Length 4C 7.0 cm 6.9 - 10.3 cm LV Diastolic Area 4C 33.4 cm LV Diastolic Volume MOD 4C 132.0 cm LV Ejection Fraction MOD 4C 19.7 % LV Stroke Volume MOD 4C 26.0 cm LV Systolic Length 4C 6.7 cm LV Systolic Area 4C 29.1 cm LV Systolic Volume MOD 4C 106.0 cm LV Ejection Fraction MOD 2C 7.6 % LV Diastolic Volume 4C AL 134.7 cm 85 - 139 / 69 - 109 cm LV Systolic Volume 4C AL 107.0 cm LV Ejection Fraction 4C AL 20.6 % LV Stroke Volume 4C AL 27.7 cm LV Ejection Fraction 2C AL 9.8 % LA Volume 185.0 cm 18 - 58 / 22 - 52 cm Ascending Aorta Diameter 3.6 cm DOPPLER AV Peak Velocity 99.2 cm/s AV Peak Gradient 3.9 mmHg AV Mean Velocity 76.6 cm/s AV Mean Gradient 3.0 mmHg AV Velocity Time Integral 16.4 cm LVOT Peak Velocity 51.9 cm/s LVOT Peak Gradient 1.1 mmHg LVOT Mean Velocity 31.7 cm/s LVOT Mean Gradient 0.0 mmHg LVOT Velocity Time Integral 7.6 cm LVOT Stroke Volume 29.0 cm AV Area Cont Eq vti 1.8 cm AV Area Cont Eq pk 2.0 cm MV Peak Velocity 127.0 cm/s MV Peak Gradient 6.5 mmHg MV Mean Velocity 72.2 cm/s MV Mean Gradient 3.0 mmHg MV PHT Velocity 130.0 cm/s MV Deceleration Dickey 1109.0 cm/s MV Pressure Half Time 35.2 ms MV Area PHT 6.3 cm MR Peak Velocity 518.0 cm/s MR Peak Gradient 107.3 mmHg TR Peak Velocity 279.0 cm/s TR Peak Gradient 31.1 mmHg Right Atrial Pressure 15.0 mmHg Pulmonary Artery Systolic Pressu 46.1 mmHg Right Ventricular Systolic Press 46.1 mmHg PV Peak Velocity 60.7 cm/s PV Peak Gradient 1.5 mmHg PV Mean Velocity 37.7 cm/s PV Mean Gradient 1.0 mmHg PV Velocity Time Integral 8.3 cm
--- NOTE | 2017-04-21 13:18 | PN- Cardiology ---
LYSSA KAMARA,HATTERAS 04/21/17 1317: Subjective Subjective: The patient is now in intensive care because of active alcohol withdrawal syndrome. He is on Ativan drip. He is still agitated. He remains in atrial fibrillation. His rate is in the low 100s. He is on IV Cardizem. Troponins are still negative. Objective Vital Signs and I&Os Vital Signs Date Time Temp Pulse Resp B/P B/P Pulse O2 O2 Flow FiO2 Mean Ox Delivery Rate 04/21 1200 98.0 120 32 120/86 / 1200 97 Nasal 8L Cannula 04/21 1000 Nasal 8L Cannula 04/21 1000 98.5 126 28 126/96 07/ 0840 94 Nasal 8L Cannula 04/21 0800 98.5 110 24 122/90 / 0800 96 Venti Mask 55% / 0800 98.5 110 24 122/90 96 Venti Mask 55% / 0600 104 24 123/83 07/ 0400 96.0 100 32 154/100 07/ 0400 95 Venti Mask 55% / 0200 106 32 134/80 07/06 0000 96.1 112 30 136/80 07/06 0000 96 Venti Mask 55% 07/06 0000 96.1 112 30 126/80 96 Venti Mask 55% /05 2010 95 Venti Mask 55% 07/05 1600 99 Venti Mask 55% 07/05 1600 97.4 112 30 130/90 99 Venti Mask 55% Intake & Output 07/06 1600 07/06 0800 07/06 0000 07/05 1600 07/05 0800 07/05 0000 Intake Total 625 782 078 69 4757 Output Total 600 1000 340 150 450 Balance 25 -218 -60 -100 820 Intake, IV 625 782 280 Intake, Oral 0 0 50 1270 Number 0 Bowel Movements Output, Urine 600 1000 340 150 450 Physical Exam: He is not responsive but slightly agitated and moving in bed. HEENT exam grossly normal Chest grossly clear Heart irregular rhythm moderate rate no murmurs Extremities mild edema Current Medications: Current Medications Sig/Jose Start time Last Medication Dose Route Stop Time Status Admin Acetaminophen 650 MG Q6P PRN 04/18 1445 AC PO Acetaminophen 1,000 MG Q6P PRN 04/18 1445 AC IV Apixaban 5 MG BID 04/18 1558 DC 04/19 PO 8 Aspirin Buffered 81 MG DAILY 04/18 1433 AC 07 PO 0851 Chlorhexidine 15 ML TID 04/21 1000 AC 07 Gluconate PO 1124 Diltiazem HCl 125 MG Q24H 07/ 1000 AC 04/21 Dextrose/Water 100 ML IV 0730 Folic Acid 1 MG DAILY 04/18 1602 AC 07 PO 0852 Furosemide 20 MG ONCE ONE 04/21 1800 AC IV 04/21 1801 Furosemide 20 MG ONCE ONE 04/21 0745 DC 04/21 IV 04/21 0746 0815 Furosemide 20 MG ONCE ONE 04/20 1515 DC 07 IV 04/20 1516 1528 Furosemide 40 MG BID 04/18 1501 DC 07 IV 0925 Heparin Sodium 4,500 UNIT ONCE ONE 04/21 1250 DC (Porcine) IV 04/21 1251 Heparin Sodium 25,000 UNIT Q24H 04/20 1515 AC 04/21 (Porcine) IV 1227 Sodium Chloride 500 ML Lorazepam 50 MG Q10H 04/21 0745 AC 04/21 Dextrose/Water 500 ML IV 0842 Lorazepam 50 MG Q16H 04/21 0200 DC Dextrose/Water 500 ML IV 04/21 0744 Lorazepam 50 MG Q24H / 1100 DC 07 Dextrose/Water 500 ML IV 04/21 0200 1217 Lorazepam 0 Q1P PRN / 0015 AC 04/20 IV 1058 Magnesium Oxide 400 MG BID 04/19 1334 AC 04/19 PO 2046 Magnesium Sulfate 1 GM Q2H / 0615 DC 04/21 Dextrose/Water 100 ML IV 04/21 1014 1015 Magnesium Sulfate 1 GM ONCE ONE 04/20 1215 DC 04/20 Dextrose/Water 100 ML IV 04/20 1614 1229 Metoprolol Tartrate 100 MG BID 04/19 2200 AC 04/19 PO 2047 Multivitamins 1 TAB DAILY 04/18 1602 AC 04/19 PO 0852 Nicotine 7 MG DAILY 04/21 1000 AC 04/21 TOP 1124 Nicotine 14 MG DAILY 04/19 1810 DC 04/20 TOP 0927 Nystatin 1 VY BID 04/20 1000 AC 04/21 TOP 1015 Pantoprazole Sodium 40 MG DAILY 04/20 1512 AC 04/21 IV 1012 Potassium Chloride 10 MEQ Q1H 04/21 0615 DC 04/21 IV 04/21 0716 1124 Potassium Chloride 10 MEQ Q1H 04/20 1845 DC 04/20 IV 04/20 Potassium Chloride 20 MEQ BID 04/19 2200 AC 04/19 PO 2047 Ramelteon 8 MG AT BEDTIME 04/19 2200 DC 04/19 PO 232 Thiamine HCl 100 MG DAILY 04/18 160 AC 04/19 PO 0852 Results Last 48 Hrs of Labs/Mics: Laboratory Tests 04/21/17 1105: APTT 54 H 04/21/17 0700: pH 7.41, pCO2 40, pO2 105 H, HCO3 25, ABG O2 Sat (Measured) 97.0, Carboxyhemoglobin 0.6 L, O2 Concentration % .55, O2 Delivery Method V/M, Phlebotomy Draw Site RIGHT RADIAL 04/21/17 0349: Anion Gap 11, Estimated GFR > 60, Glucose 108 H, Calcium 7.7 L, Phosphorus 3.2 , Magnesium 1.5 L, Total Bilirubin 2.7 H, AST 38, ALT 34, Albumin 2.7 L, CBC w Diff NO MAN DIFF REQ, RBC 3.32 L, MCV 98.9 H, MCH 31.8 H, RDW 18.7 H, MPV 8.0, Gran % 73.3, Lymphocytes % 14.6 L, Monocytes % 10.1 H, Eosinophils % 0.8, Basophils % 1.2, Absolute Granulocytes 5.8, Absolute Lymphocytes 1.2, Absolute Monocytes 0.8 H, Absolute Eosinophils 0.1, Absolute Basophils 0.1, PUBS MCHC 32.1 L 04/20/172201: APTT 70 H 04/20/17 1215: Anion Gap 14, Estimated GFR > 60, Glucose 99, Calcium 8.5, Phosphorus 3.3, Magnesium 1.6, Total Bilirubin 3.2 H, AST 48, ALT 33, Troponin I 0.02, Albumin 3.5, CBC w Diff NO MAN DIFF REQ, RBC 3.57 L, MCV 97.5 H, MCH 31.7 H, RDW 19.5 H, MPV 8.2, Gran % 69.6, Lymphocytes % 16.7 L, Monocytes % 11.7 H, Eosinophils % 0.8, Basophils % 1.2, Absolute Granulocytes 6.1, Absolute Lymphocytes 1.5, Absolute Monocytes 1.0 H, Absolute Eosinophils 0.1, Absolute Basophils 0.1, PUBS MCHC 32.5 L 04/20/17 1144: pH 7.48 H, pCO2 30 L, pO2 143 H, HCO3 22, ABG O2 Sat (Measured) 99.0, P-50 ( Temp Corrected) YES, Carboxyhemoglobin 0.6 L, O2 Concentration % 100%, Temperature 98.8, O2 Delivery Method NRB, Phlebotomy Draw Site LEFT RADIAL 04/20/17 0735: Anion Gap 10, Estimated GFR > 60, BUN/Creatinine Ratio 18.8, Magnesium 1.6 04/19/17 1855: Anion Gap 12, Estimated GFR > 60, BUN/Creatinine Ratio 17.5, Magnesium 1.6 Recent Imaging Studies: CONCLUSIONS Left ventricular cavity size at the upper limits of normal. Mild concentric left ventricular hypertrophy. Moderately to severly reduced global left ventricular systolic function. Left ventricular ejection fraction is estimated at 20-25 %. Moderate right ventricular dilatation. Moderate to severe right atrial dilatation. Moderate to severe left atrial dilatation. Mild thickening/calcification of the mitral valve leaflets. There is a somewhat mobile mass on the anterior leaflet of the mitral valve measuring slightly less than 1 cm in diameter. This appears to be calcified. Etiology might be a fibroblastoma versus vegetation. [id number] mitral regurgitation. Structurally normal trileaflet aortic valve. Moderate tricuspid regurgitation. Right ventricular systolic pressure estimated to be elevated at 45- 50 mmHg. Trace posterior percarial effusion. Ascending aorta at upper limits of normal diameter. Noel Pang M.D. (Electronically Signed) Final Date: 21 April 2017 12:41 Amended: 21 April 2017 12:52 Assessment/Plan Assessment/Plan The patient is actively withdrawing from alcohol. He is on Ativan drip. He has been changed to IV Cardizem. He is on IV heparin for anticoagulation. His echocardiogram shows very poor left ventricular systolic function. 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 Of note is that he has a small mass on his anterior leaflet of mitral valve. 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 I would obtain blood cultures for completeness. Otherwise I would continue the same regimen until he is clinically improved. Continue telemetry? Yes STEPHANIE SOSA MD 04/21/17 1350: Objective Vital Signs and I&Os Vital Signs Date Time Temp Pulse Resp B/P B/P Pulse O2 O2 Flow FiO2 Mean Ox Delivery Rate 04/21 1200 98.0 120 32 120/86 07/ 1200 97 Nasal 8L Cannula 04/21 1000 Nasal 8L Cannula 04/21 1000 98.5 126 28 126/96 04/21 0840 94 Nasal 8L Cannula 04/21 0800 98.5 110 24 122/90 04/21 0800 96 Venti Mask 55% 04/21 0800 98.5 110 24 122/90 96 Venti Mask 55% / 0600 104 24 123/83 07/ 0400 96.0 100 32 154/100 07/ 0400 95 Venti Mask 55% / 0200 106 32 134/80 07/ 0000 96.1 112 30 136/80 07/06 0000 96 Venti Mask 55% 07/06 0000 96.1 112 30 126/80 96 Venti Mask 55% /2010 95 Venti Mask 55% 07/05 1600 99 Venti Mask 55% /05 1600 97.4 112 30 130/90 99 Venti Mask 55% Intake & Output 04/21 1600 / 0800 /06 0000 07/ 1600 07/ 0800 07/05 0000 Intake Total 625 782 701 08 8394 Output Total 600 1000 340 150 450 Balance 25 -218 -60 -100 820 Intake, IV 625 782 280 Intake, Oral 0 0 50 1270 Number 0 Bowel Movements Output, Urine 600 1000 340 150 450
--- NOTE | 2017-04-21 15:58 | NUR ---
PT'S HR HAS INCREASED FROM THE LOW 100'S TO 110'S TO UPWARDS OF 120'S. AT 1545 THE CARDIZEM GTT WAS INCREASED TO 10MG/HR=10ML/HR PER ERASMO HANSON AND JEREMIAH. IN ADDITION, A CBC WAS ORDERED AT 1700. THE PT IS TO HAVE A PTT DRAWN AT 1900 THE CBC WILL BE DRAWN AT THAT TIME WELL PER DISCUSSION WITH DR DANIELS.
[2017-04-21 20:02] LABS: ABSOLUTE BASOPHIL COUNT 0.1 /CUMM (0.0-0.2); ABSOLUTE EOSINOPHIL COUNT 0.1 /CUMM (0.0-0.7); ABSOLUTE GRANULOCYTE CT 6.3 /CUMM (1.4-6.5); ABSOLUTE LYMPH COUNT 1.1 /CUMM (1.2-3.4); ABSOLUTE MONOCYTE COUNT 0.7 /CUMM (0.10-0.60); BASOPHIL % 0.8 % (0.0-2.0); EOSINOPHIL % 0.8 % (0-5); GRANULOCYTE % 76.4 % (42.2-75.2); HEMATOCRIT 33.1 % (42-52); MEAN CORPUSCULAR HGB 31.6 PG (27.0-31.0); MEAN CORPUSCULAR HGB CONC 32.3 G/DL (33.0-37.0); MEAN CORPUSCULAR VOLUME 98.1 FL (80.0-94.0); MEAN PLATELET VOLUME 7.9 FL (7.4-10.4); PLATELET COUNT 228 /CUMM (130-400); RBC DISTRIBUTION WIDTH 18.9 % (11.5-14.5); RED BLOOD CELL CT 3.38 /CUMM (4.70-6.10); WHITE BLOOD CELL COUNT 8.2 /CUMM (4.8-10.8)
[2017-04-21 20:38] LABS: PTT > 120 SEC (25-37)
--- NOTE | 2017-04-21 21:12 | NUR ---
0800 REPORTED PATIENTS RONCHI/CRACKLE/ LUNG SOUNDS TO DR. DANIELS O2 SAT 92%, PAGED RT TO ASSIST W/ N.T. DEEP SUCTION O2 SAT 95% AFTER SUCTION REPORTED BURGUNDY COLOR U/O TO DR. DANIELS PTT > 120 HEPARIN PUT ON HOLD FOR 60 MINUTES; WILL CONTINUE TO CLOSELY MONITOR
[2017-04-22] VITALS (8 sets, daily range): BP systolic 98–130; BP diastolic 62–100
--- NOTE | 2017-04-22 00:57 | NUR ---
PT RESTLESS IN BED. ATIVAN GTT AT 4MG. PULLED OFF [place] CATH, PLACED BACK AGAIN. URINE BLOODY, IN GOOD AMTS. SATURATION 94% ON 8L O2, BILATERAL RHONCH HEARD. SUCTIONED VIA NASAL TRUMPET, OBTAINED THICK YELLOW SWCRETIONS. AFIB 120'S, CARDIZEM TTT AT 15MG/H. HEPARIN GTT CONT, NO EVIDENCE OF ACTIVE BLEED.
--- NOTE | 2017-04-22 02:18 | NUR ---
PLACED ON 55% VM, SATURATION, 90%-93%. BILATERAL RHONCHI HEARD. SEEN BY HOUSESTAFF. ABG DRAWN, 7.44,38,74,94,26. RESULT RELAYED TO HOUSESTAFF. ATIVAN GTT TURNED OFF BY . FOR INTUBATION.
--- NOTE | 2017-04-22 04:04 | Event Note ---
Event Note Event Note: Pt's respiratory status worsening, saturation ~92% on fio2 55% with increased work of breathing and excessive frothy secretions and worsening oxygenation on ABG. Patient unable to protect airway due to AMS and poor bipap candidate. Dr Vidal was informed and patient failed to improve off ativan gtt. Anesthesia and respiratory therapy contacted. Patient intubated by anesthesia with 100mg propofol, mac 3 x 1 attempt w cricoid pressure. 8.0ett 23cm at lip +etco2, stat cxr ordered, ativan 4mg/hr and propofol 25mcg/kg/min ordered for sedation, titrate to sas 3. Will inform family.
--- NOTE | 2017-04-22 04:15 | RADIOLOGY REPORT ---
EXAMINATION: XR PORTABLE CHEST CLINICAL INFORMATION: Post intubation COMPARISON: Chest x-ray 04/20/2017. CT chest 04/20/2017 TECHNIQUE: Portable frontal view of the chest was obtained. 3:43 AM FINDINGS: Endotracheal tube in good position about 4 cm above manny. Heart size is enlarged. This accounts for the density at the left lung base is unchanged since prior study. No acute infiltrate or pulmonary vascular congestion. IMPRESSION: No acute abnormality of chest. Cardiomegaly accounts for the dense left lung base unchanged since prior CAT scan and chest x-ray of 04/20/2017.
[2017-04-22 04:22] LABS: ABSOLUTE BASOPHIL COUNT 0 /CUMM (0.0-0.2); ABSOLUTE EOSINOPHIL COUNT 0.1 /CUMM (0.0-0.7); ABSOLUTE GRANULOCYTE CT 4.5 /CUMM (1.4-6.5); ABSOLUTE LYMPH COUNT 0.9 /CUMM (1.2-3.4); ABSOLUTE MONOCYTE COUNT 0.7 /CUMM (0.10-0.60); BASOPHIL % 0.8 % (0.0-2.0); EOSINOPHIL % 1.4 % (0-5); GRANULOCYTE % 72.4 % (42.2-75.2); HEMATOCRIT 29.9 % (42-52); MEAN CORPUSCULAR HGB 31.8 PG (27.0-31.0); MEAN CORPUSCULAR HGB CONC 32.3 G/DL (33.0-37.0); MEAN CORPUSCULAR VOLUME 98.7 FL (80.0-94.0); MEAN PLATELET VOLUME 7.6 FL (7.4-10.4); PLATELET COUNT 205 /CUMM (130-400); RBC DISTRIBUTION WIDTH 19.3 % (11.5-14.5); RED BLOOD CELL CT 3.03 /CUMM (4.70-6.10); WHITE BLOOD CELL COUNT 6.3 /CUMM (4.8-10.8)
--- NOTE | 2017-04-22 04:25 | NUR ---
PT INTUBATED BY ANESTHESIA, #8/R/24CM. SETTINGS AC18/TV 500/ 50%/ PEEP 5.SATURATION 96%. ATIVAN GTT RESUMED AT 4MG/H. REMAINS IN AFIB 95, MANUAL BP 130/100. URINE REMAINS BLOODY, HEPARIN GTT CONT ORDERED. DR. REA AWARE OF BLOODY URINE.
[2017-04-22 04:27] LABS: PTT 82 SEC (25-37)
--- NOTE | 2017-04-22 06:49 | PN- CRCU ---
Subjective HPI/Critical Care Issues: I examined the patient personally today at bedside. Patient O2 requirement increased overnight around 3 a.m. and decided for intubation. Patient is sedated, BP 105/81(hold Lopressor). Patient off Propofol, Ativan drip 4 mg, heparin drip, Cardizem drip 10 mg. vitals- pr-80,bp- 122/74 Objective Current Medications: Current Medications Sig/Jose Start time Last Medication Dose Route Stop Time Status Admin Acetaminophen 650 MG Q6P PRN 04/18 1445 AC PO Acetaminophen 1,000 MG Q6P PRN / 1445 AC IV Aspirin Buffered 81 MG DAILY 04/18 1433 AC 04/19 PO 0851 Chlorhexidine 15 ML TID 04/21 1000 AC 04/21 Gluconate PO 2209 Diltiazem HCl 125 MG Q12H 04/21 2300 AC 04/22 Dextrose/Water 100 ML IV 0436 Diltiazem HCl 125 MG Q24H / 1000 DC 04/21 Dextrose/Water 100 ML IV 04/21 2300 0730 Folic Acid 1 MG DAILY 04/18 1602 AC 04/19 PO 0852 Furosemide 20 MG ONCE ONE 04/21 1800 DC 04/21 IV 04/21 1801 1826 Heparin Sodium 5,000 UNIT .STK-MED ONE 04/21 1254 DC (Porcine) IV 04/21 1255 Heparin Sodium 4,500 UNIT ONCE ONE 04/21 1250 DC 04/21 (Porcine) IV 07/ 1251 1250 Heparin Sodium 25,000 UNIT Q24H / 1515 AC 04/22 (Porcine) IV 0900 Sodium Chloride 500 ML Lorazepam 50 MG Q16H 04/22 0345 AC 04/22 Dextrose/Water 500 ML IV 0436 Lorazepam 50 MG Q10H 04/21 0745 DC 04/21 Dextrose/Water 500 ML IV 2203 Lorazepam 0 Q1P PRN / 0015 AC 04/20 IV 1058 Magnesium Oxide 400 MG BID 04/19 1334 AC 04/19 PO 2046 Magnesium Sulfate 1 GM ONCE ONE 04/22 0700 AC Dextrose/Water 100 ML IV 04/22 1059 Magnesium Sulfate 1 GM Q2H / 0615 DC 04/21 Dextrose/Water 100 ML IV 04/21 1014 1015 Metoprolol Tartrate 100 MG BID 04/19 2200 AC 04/19 PO 2047 Multivitamins 1 TAB DAILY 04/18 1602 AC 04/19 PO 0852 Nicotine 7 MG DAILY 04/21 1000 04/21 TOP 1124 Non-Formulary 0 SEE ADMIN CRITERIA 04/22 345 CAN Medication ANY Nystatin 1 VY BID 04/20 1000 AC 04/21 TOP 2209 Pantoprazole Sodium 40 MG DAILY 04/20 1512 AC 04/21 IV 1012 Potassium Chloride 10 MEQ Q1H 04/22 0700 DC IV 04/22 0801 Potassium Chloride 20 MEQ BID 04/19 2200 AC 04/19 PO 2048 Propofol 1,000 MG CONTINOUS INFUSION 04/22 0345 AC 04/22 N/A 100 ML IV 0433 Thiamine HCl 100 MG DAILY 04/18 1602 04/19 PO 0852 Vital Signs & I&O Last 24 Hrs of Vitals and I&O: Vital Signs Date Time Temp Pulse Resp B/P B/P Pulse O2 O2 Flow FiO2 Mean Ox Delivery Rate 04/22 0826 50 04/22 0627 50 04/22 0600 92 18 105/81 04/22 0400 96.1 95 20 130/100 04/22 0400 96 Ventilator 50% 04/22 0336 50 04/22 0200 115 32 116/85 04/22 0000 96.0 120 30 130/80 04/22 0000 94 Nasal 8L Cannula 04/22 0000 96.0 120 30 130/80 94 04/21 2212 105 124/85 04/21 2200 112 28 124/85 04/21 2000 98.1 103 24 122/80 04/21 2000 93 Nasal 8L Cannula 04/21 1800 97.2 111 32 116/85 04/21 1600 97.2 124 24 112/90 04/21 1600 95 Nasal 8L Cannula 04/21 1600 97.2 124 24 112/90 95 Nasal 8L Cannula 04/21 1400 98.0 121 30 137/97 04/21 1200 98.0 120 32 120/86 04/21 1200 97 Nasal 8L Cannula 04/21 1000 Nasal 8L Cannula 04/21 1000 98.5 126 28 126/96 Intake & Output 04/22 1600 /07 0800 04/22 0000 Intake Total 532 613 Output Total 300 1500 Balance 232 -887 Intake, IV 532 613 Intake, Oral 0 Number 0 Bowel Movements Output, Urine 300 1500 Patient 250 lb Weight Exam General Appearance: well developed/nourished, sedated, intubated Head: atraumatic, normal appearance Neck: normal inspection, supple Respiratory: chest non-tender, no respiratory distress, left lung base crackles+ Cardiovascular: pulse irregular around 80-90 BPM. Abdomen: soft, non-tender, no organomegaly Extremities: normal inspection, swelling Skin: intact, normal color Other Physical Findings: scrotal swelling + Results Last 24 Hrs of Lab Results: Laboratory Tests 04/22/17 0635: pH 7.53 H, pCO2 31 L, pO2 85, HCO3 26, ABG O2 Sat (Measured) 97.0, P-50 (Temp Corrected) N, Carboxyhemoglobin 0.9 L, O2 Concentration % .50, Respiration Rate 18, O2 Delivery Method VENT, Vent Mode A/C, Expiratory Pressure 5, Tidal Volume 500, Phlebotomy Draw Site RIGHT RADIAL 04/22/17 0350: Anion Gap 8, Estimated GFR > 60, Glucose 108 H, Calcium 7.9 L, Phosphorus 3.1, Magnesium 1.5 L, Total Bilirubin 2.4 H, AST 42, ALT 30, Albumin 2.6 L, APTT 82 H, CBC w Diff NO MAN DIFF REQ, RBC 3.03 L, MCV 98.7 H, MCH 31.8 H, RDW 19.3 H, MPV 7.6, Gran % 72.4, Lymphocytes % 14.5 L, Monocytes % 10.9 H, Eosinophils % 1.4, Basophils % 0.8, Absolute Granulocytes 4.5, Absolute Lymphocytes 0.9 L, Absolute Monocytes 0.7 H, Absolute Eosinophils 0.1, Absolute Basophils 0, PUBS MCHC 32.3 L 04/22/17 0200: pH 7.44, pCO2 38, pO2 74 L, HCO3 26, ABG O2 Sat (Measured) 94.0 L, P-50 (Temp Corrected) N, Carboxyhemoglobin 1.0 L, O2 Concentration % .55, O2 Delivery Method V/M, Phlebotomy Draw Site RIGHT RADIAL 04/21/17 1850: APTT > 120 *H, CBC w Diff NO MAN DIFF REQ, RBC 3.38 L, MCV 98.1 H, MCH 31.6 H , RDW 18.9 H, MPV 7.9, Gran % 76.4 H, Lymphocytes % 12.9 L, Monocytes % 9.1, Eosinophils % 0.8, Basophils % 0.8, Absolute Granulocytes 6.3, Absolute Lymphocytes 1.1 L, Absolute Monocytes 0.7 H, Absolute Eosinophils 0.1, Absolute Basophils 0.1, PUBS MCHC 32.3 L 04/21/17 1105: APTT 54 H Diagnostic Data CXR Findings: 04/22/17 - 4 am Endotracheal tube in good position about 4 cm above manny. Heart size is enlarged. This accounts for the density at the left lung base is unchanged since prior study. No acute infiltrate or pulmonary vascular congestion ECHO Findings: 04/21/17 Left ventricular ejection fraction is estimated at 20-25 %. Mild thickening/calcification of the mitral valve leaflets. There is a somewhat mobile mass measuring slightly less than 1 cm in diameter. This appears to be calcified. 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 The patient suddenly became unresponsive, confused and transferred to ICU for close monitoring on 04/20/17. Patient today around 3:30 AM had worsening respiratory status and planned for intubation as per Dr. Vidal instructions. Patient is on Ativan drip, Cardizem drip, heparin drip. Patient's had bloody urine. Dr. Moody was called in. [place] Cath removed and Chery was inserted. Watch for ongoing hematuria, if so contac Dr. Moody for cystoscopy. Plan ICU day 3 * Respiratory LEFT LUNG BASE crackles+, no other added sounds. * Infection Urine culture grew gram-negative rods. Ceftriaxone 1 g started. * Cardiac S1-S2, patient has A. fib on heparin drip and Cardizem drip 10 mg with a heart rate around 80-90 BPM. * Heme Close monitoring of his electrolytes, CBC. Daily ICU bundle, CBC,ABG * metabOLIC PH 7.47, PCO2 37, PaO2 67, bicarbonate 26. Aspiration precaution. * Alimentary tube feed started. * Neuro Head CT ordered for altered mental status. * DVT On heparin drip Code Status: Full Code Problem List: 1. Acute on chronic congestive heart failure 2. Rapid atrial fibrillation 3. HTN (hypertension) 4. Alcohol withdrawal 3. HTN (hypertension) 4. Alcohol withdrawal
--- NOTE | 2017-04-22 08:50 | RADIOLOGY REPORT ---
EXAMINATION: XR PORTABLE CHEST CLINICAL INFORMATION: Check OGT placement. COMPARISON: Prior chest 04/22/2017, 3:43 AM. TECHNIQUE: Portable frontal view of the chest was obtained. FINDINGS: The exam is limited by underpenetrated technique and the upper abdomen in the expected area of the stomach is outside of the field of view with examination. I am uncertain as to the distal location of the tube although there is a suggestion that the tube may be at least to the EG junction. Recommend repeat radiograph. Endotracheal tube again noted with the tip 3.7 cm above the manny. The cardiac silhouette is enlarged but unchanged. Lungs and pleural spaces: There are patchy bilateral opacities overlying both lungs, unchanged. IMPRESSION: Suboptimal radiograph to determine the location of the orogastric tube. Recommend repeat with different technique and larger field of view to include the area of the stomach. Endotracheal tube unchanged, 3.7 cm above the manny. Stable cardiac enlargement and bilateral parenchymal opacities. CT performed 04/20/2017 suggests that this could simply reflect posterior atelectasis.
--- NOTE | 2017-04-22 09:00 | NUR ---
AT 0800 REC'D THE PT ORALLY INTUBATED AND MECHANICALLY VENTILATED PER MD ORDER. PT WAS INITIALLY ON PROPOFOL AT 10MCG/KG/MIN, HOWEVER, PT WAS REACHING FOR ETT DESPITE BEING IN RACHID WRIST RESTRAINTS, SAS WAS A 4. AT 0830 THE PROPOFOL WAS INCREASED TO 15MCG/KG/MIN OR 10.2ML/HR-THE SAS IS NO 3.PT ALSO CONTINUES ON THE ATIVAN GTT AT 4MG/HR OR 40ML/HR INFUSING VIA A #20 TO THE TOM ALONG WITH THE HEPARIN GTT. HARDING BUT DOES NOT FOLLOW COMMANDS. NOTED TO HAVE ORBITAL AND SCLERAL EDEMA. PT IS IN AN AFIB IN THE 80'S ON CARDIZEM AT 15MG/HR INFUSING VIA A #22 TO THE LF. IN ADDITION, THE PT REMAINS ON THE HEPARIN GTT AT 11.5U/KG/HR OR 26ML/HR. NO ECTOPY NOTED. RACHID BS ARE CLEAR WITH AN O2 SAT OF 100% ON AN FIO2 OF 40%-HOSPITAL TELEVISION RENTAL CLERK DECREASED THE FIO2 FROM 50% TO 40% AT 0820. SUCTIONED FOR CREAMY PALE ARORA SECRETIONS. ABD IS OBESE WITH NORMOACTIVE BOWEL SOUNDS. OGT PLACED AT 60CM AT THE LIP. AWAITING RESULTS OF CXR TO CONFIRM PLACEMENT. PER DR SOSA THE LOPRESSOR IS NOT TO BE GIVEN TODAY. [place] CATH IN PLACE DRAINING PINK TO FRUIT PUNCH COLORED URINE.
--- NOTE | 2017-04-22 09:54 | CT SCAN REPORT ---
EXAMINATION: CT HEAD WITHOUT CONTRAST CLINICAL INFORMATION: Altered mental status. Evaluate for intracranial bleed. COMPARISON: 06/04/2016 TECHNIQUE: Contiguous axial imaging was performed from the skull base to vertex without intravenous administration of contrast. DLP: 674 mGy-cm FINDINGS: No acute intracranial hemorrhage, extra-axial fluid collection, mass or midline shift. Camargo-white matter differentiation is well preserved. Again noted is patchy hypoattenuation within supratentorial white matter compatible with sequela of chronic microvascular ischemic change. There are old lacunar infarctions of the right and left caudate head. No evidence of an acute major vascular territory infarction. There is mild atrophy of cerebral hemispheres with symmetric prominence of ventricles, sulci and cisterns. There is atherosclerotic calcification of cavernous carotid arteries. The calvarium is intact and the mastoid air cells and middle ear cavities are clear. Incidentally noted is mucosal thickening within the right frontal sinus, right ethmoid air cells and sphenoid sinus. IMPRESSION: 1. No acute intracranial pathology compared to 06/04/2016. 2. Incidentally detected is paranasal sinus disease.
--- NOTE | 2017-04-22 10:13 | PN- CRCU ---
Subjective HPI/Critical Care Issues: Events and data reviewed overnight Patient continued to be more somnolent and agitated requiring more Ativan. As he was not able to protect his airway and he was becoming progressively more hypoxemic and was intubated. This morning he is intubated and he is on propofol and Ativan 4 mg per hour. Appears calm. No other history could be a kat obtained. He has had adequate urine output and has had a condom catheter. He has remained afebrile. SIGNIFICANT DATA BUN/creatinine stable potassium significantly low at 3.2, magnesium 1.5. His bilirubin is elevated his last TSH was slightly elevated as well. White count 6.3 with no significant left shift hemoglobin 9.7 with a significant drop since yesterday. Patient continues to have hematuria. His INR was 1.25 on admission ABG reviewed . Chest x-ray showed ET tube in adequate position bilateral bibasal atelectasis. Significant cardiomegaly noted Echocardiogram report reviewed Patient has profoundly reduced ejection fraction 20-25% with left ventricular hypertrophy with significant right ventricular dilation dictation right atrial allocation severe left atrial ballot patient. There was a mobile mass in the anterior leaflet of the mitral valve measuring less than 1 cm in diameter this appears to be calcified differential diagnoses includes fibroblastoma versus vegetation mild to moderate mitral regurg. RV pressure was 40-50. There is a trace posterior effusion noted. So far all his cultures have been negative Objective Current Medications: Current Medications Sig/Jose Start time Last Medication Dose Route Stop Time Status Admin Acetaminophen 650 MG Q6P PRN 04/18 1445 AC PO Acetaminophen 1,000 MG Q6P PRN 04/18 1445 AC IV Aspirin Buffered 81 MG DAILY 04/18 1433 AC 04/19 PO 0851 Chlorhexidine 15 ML TID 04/21 1000 AC 04/21 Gluconate PO 2209 Diltiazem HCl 125 MG Q12H 04/21 2300 AC 04/22 Dextrose/Water 100 ML IV 0436 Diltiazem HCl 125 MG Q24H 04/20 1000 DC / Dextrose/Water 100 ML IV 04/21 2300 0730 Folic Acid 1 MG DAILY 04/18 1602 AC 04/19 PO 0852 Furosemide 20 MG ONCE ONE 04/21 1800 DC 04/21 IV 04/21 1801 1826 Heparin Sodium 5,000 UNIT .STK-MED ONE 04/21 1254 DC (Porcine) IV 04/21 1255 Heparin Sodium 4,500 UNIT ONCE ONE 04/21 1250 DC 04/21 (Porcine) IV 04/21 1251 1250 Heparin Sodium 25,000 UNIT Q24H / 1515 AC 04/22 (Porcine) IV 0900 Sodium Chloride 500 ML Lorazepam 50 MG Q16H 04/22 0345 AC 04/22 Dextrose/Water 500 ML IV 0436 Lorazepam 50 MG Q10H 04/21 0745 DC 04/21 Dextrose/Water 500 ML IV 2203 Lorazepam 0 Q1P PRN 04/20 0015 AC 04/20 IV 1058 Magnesium Oxide 400 MG BID 04/19 1334 AC 04/19 PO 2046 Magnesium Sulfate 1 GM ONCE ONE 04/22 07 AC Dextrose/Water 100 ML IV 04/22 1059 Magnesium Sulfate 1 GM Q2H 04/21 0615 DC 04/21 Dextrose/Water 100 ML IV 04/21 1014 1015 Metoprolol Tartrate 100 MG BID 04/19 2200 AC 04/19 PO 2047 Multivitamins 1 TAB DAILY 04/18 1602 AC 04/19 PO 0852 Nicotine 7 MG DAILY 04/21 1000 AC 04/21 TOP 1124 Non-Formulary 0 SEE ADMIN CRITERIA 04/22 0345 CAN Medication ANY Nystatin 1 VY BID 04/20 1000 AC 04/21 TOP 2209 Pantoprazole Sodium 40 MG DAILY 04/20 1512 AC 04/21 IV 1012 Potassium Chloride 10 MEQ Q1H 04/22 0700 DC IV 04/22 0801 Potassium Chloride 20 MEQ BID 04/19 2200 AC 04/19 PO 2048 Propofol 1,000 MG CONTINOUS INFUSION 04/22 0345 AC 04/22 N/A 100 ML IV 0433 Thiamine HCl 100 MG DAILY 04/18 1602 AC 04/19 PO 0852 Vital Signs & I&O Last 24 Hrs of Vitals and I&O: Vital Signs Date Time Temp Pulse Resp B/P B/P Pulse O2 O2 Flow FiO2 Mean Ox Delivery Rate 04/22 826 50 04/22 06 50 04/22 0600 92 18 105/81 04/22 0400 96.1 95 20 130/100 04/22 0400 96 Ventilator 50% 04/22 0336 50 04/22 0200 115 32 116/85 04/22 0000 96.0 120 30 130/80 04/22 0000 94 Nasal 8L Cannula 04/22 0000 96.0 120 30 130/80 94 04/21 2212 105 124/85 04/21 2200 112 28 124/85 04/21 2000 98.1 103 24 122/80 04/21 2000 93 Nasal 8L Cannula 04/21 1800 97.2 111 32 116/85 /06 1600 97.2 124 24 112/90 04/21 1600 95 Nasal 8L Cannula 04/21 1600 97.2 124 24 112/90 95 Nasal 8L Cannula 04/21 1400 98.0 121 30 137/97 04/21 1200 98.0 120 32 120/86 04/21 1200 97 Nasal 8L Cannula 04/21 1000 Nasal 8L Cannula 04/21 1000 98.5 126 28 126/96 Intake & Output 04/22 1600 04/22 0800 04/22 0000 Intake Total 532 613 Output Total 300 1500 Balance 232 -887 Intake, IV 532 613 Intake, Oral 0 Number 0 Bowel Movements Output, Urine 300 1500 Patient 250 lb Weight Impression/Plan Impression/Plan Impression/Plan: General Appearance: Intubated sedated. Ventilator settings reviewed, vt 500 fio2 50 Skin: No Breakdown Skin Temp/Moisture Exam: Hot/Dry Sepsis Skin Exam (color): Flushed HEENT: unable to assess- eyes closed Cardiovascular: Normal S1, Normal S2, Gallops, Rubs Lungs: crackles bilaterally Abdomen: Normal Bowel Sounds, distended Neurological: somnolent and not responsive to questions Extremities: erythematous and edematous from feet to scrotum Vascular: Normal Pulses IMPRESSION Pt with sig cardiomegaly, pulm htn, prob sig jonny, etoh abuse, rapid afib, now admitted to the ICU issues include * Acute hypoxic resp failure due to severe dt and inability to protect his airways with fluid overload and prob aspiration * Sig DTs with delirium * Aspiration with chemical pna, no active bacterial process so far but high risk for it * Severe cardiomyopathy, 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, with sig pulm htn and atrial hypertrophy * Sig pulm htn with total body fluid overload * Medical non compliance * Rapid afib * Mild effusion, asicites and rt heart failure * Prob sig untreated JONNY * Dillon incertion leading to hematuria has a condom cath urology on board, pt was on eloquis and asa, now with anemia * On heparin for afib * Sig electrolyte imbalance REC Cont current meds Rpt xray to check g tube placement Rpt blood cultures to eval for endocarditis Agg Pot replacement down og tube and iv IV lasix 20 mg q8 hrs today and recheck potassium and replace Wean off propofol and cont ativan Start gabapentin 300 mg q8 hr and increase to 600 q8 hrs in am for dt PPI Check tsh and free t 4 Start jevity at 20 cc per hr later on when pt is stable Mag 2 gram iv DC nicotine patch keep hob up Heparin drip Watch condom cath for any worsening penile edema Agg oral suctioning low threshold to start IV abx if patient becomes febrile or if wbc is elevated Will follow closely Pt is critically ill tts 40 mins Code Status: Full Code
--- NOTE | 2017-04-22 11:23 | PN- Cardiology ---
Subjective Subjective: The patient is now intubated to protect his airway. He is sedated. He remains in atrial fibrillation. His heart rate is in the normal range. 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 Blood cultures have been ordered to rule out vegetation but I think this is less likely. Objective Vital Signs and I&Os Vital Signs Date Time Temp Pulse Resp B/P B/P Pulse O2 O2 Flow FiO2 Mean Ox Delivery Rate 04/22 1056 40 04/22 1000 98.1 87 18 107/82 04/22 0826 50 04/22 0627 50 04/22 0600 92 18 105/81 04/22 0400 96.1 95 20 130/100 04/22 0400 96 Ventilator 50% 04/22 0336 50 04/22 0200 115 32 116/85 04/22 0000 96.0 120 30 130/80 04/22 0000 94 Nasal 8L Cannula 04/22 0000 96.0 120 30 130/80 94 / 2212 105 124/85 04/21 2200 112 28 124/85 04/21 2000 98.1 103 24 122/80 07/06 2000 93 Nasal 8L Cannula / 1800 97.2 111 32 116/85 07/06 1600 97.2 124 24 112/90 07/06 1600 95 Nasal 8L Cannula / 1600 97.2 124 24 112/90 95 Nasal 8L Cannula / 1400 98.0 121 30 137/97 07/06 1200 98.0 120 32 120/86 07/06 1200 97 Nasal 8L Cannula Intake & Output 04/22 1600 04/22 0804/22 0000 04/21 1600 / 0800 04/21 0000 Intake Total 532 613 950 625 782 Output Total 300 1500 7633 917 6244 Balance 232 -887 -950 25 -218 Intake, IV 532 613 950 625 782 Intake, Oral 0 0 Number 0 Bowel Movements Output, Urine 300 1500 7568 924 [id number] Patient 250 lb 250 lb Weight Physical Exam: He is sedated and on the respirator Lungs are aerating well Heart irregular rhythm, soft heart sounds, no murmur Extremities minimal edema at this time. Current Medications: Current Medications Sig/Jose Start time Last Medication Dose Route Stop Time Status Admin Acetaminophen 650 MG Q6P PRN 04/18 1445 AC PO Acetaminophen 1,000 MG Q6P PRN 04/18 1445 AC IV Aspirin Buffered 81 MG DAILY 04/18 1433 AC 04/19 PO 0851 Chlorhexidine 15 ML TID 04/21 1000 AC 04/22 Gluconate PO 1101 Diltiazem HCl 125 MG Q12H 04/21 2300 AC 04/22 Dextrose/Water 100 ML IV 1101 Diltiazem HCl 125 MG Q24H / 1000 DC 04/21 Dextrose/Water 100 ML IV 04/21 2300 0730 Folic Acid 1 MG DAILY 04/18 1602 AC 04/19 PO 0852 Furosemide 20 MG ONCE ONE 04/21 1800 DC 04/21 IV 04/21 1801 1826 Heparin Sodium 5,000 UNIT .STK-MED ONE 04/21 1254 DC (Porcine) IV 04/21 1255 Heparin Sodium 4,500 UNIT ONCE ONE 04/21 1250 DC 04/21 (Porcine) IV 04/21 1251 1250 Heparin Sodium 25,000 UNIT Q24H / 1515 AC 04/22 (Porcine) IV 0900 Sodium Chloride 500 ML Lorazepam 50 MG Q16H 04/22 0345 AC 04/22 Dextrose/Water 500 ML IV 0436 Lorazepam 50 MG Q10H 04/21 0745 DC 04/21 Dextrose/Water 500 ML IV 2203 Lorazepam 0 Q1P PRN 04/20 0015 AC 04/20 IV 1058 Magnesium Oxide 400 MG BID 04/19 1334 AC 04/19 PO 2046 Magnesium Sulfate 1 GM ONCE ONE 04/22 0700 DC 04/22 Dextrose/Water 100 ML IV 04/22 1059 1026 Metoprolol Tartrate 100 MG BID 04/19 2200 AC 04/19 PO 2047 Multivitamins 1 TAB DAILY 04/18 1602 AC 04/19 PO 0852 Nicotine 7 MG DAILY 04/21 1000 AC 04/22 TOP 1101 Non-Formulary 0 SEE ADMIN CRITERIA 04/22 034 CAN Medication ANY Nystatin 1 VY BID 04/20 1000 AC 04/22 TOP 1100 Pantoprazole Sodium 40 MG DAILY 04/20 1512 AC 04/22 IV 1059 Potassium Chloride 10 MEQ Q1H 04/22 0700 DC IV 04/22 0801 Potassium Chloride 20 MEQ BID 04/19 2200 AC 04/19 PO 2048 Propofol 1,000 MG CONTINOUS INFUSION 04/22 0345 AC 04/22 N/A 100 ML IV 0433 Propofol 1,000 MG .STK-MED ONE 04/22 0319 DC IV 04/22 0320 Thiamine HCl 100 MG DAILY 04/18 1602 AC 04/19 PO 0852 Results Last 48 Hrs of Labs/Mics: Laboratory Tests 04/22/17 0635: pH 7.53 H, pCO2 31 L, pO2 85, HCO3 26, ABG O2 Sat (Measured) 97.0, P-50 (Temp Corrected) N, Carboxyhemoglobin 0.9 L, O2 Concentration % .50, Respiration Rate 18, O2 Delivery Method VENT, Vent Mode A/C, Expiratory Pressure 5, Tidal Volume 500, Phlebotomy Draw Site RIGHT RADIAL 04/22/17 0350: Anion Gap 8, Estimated GFR > 60, Glucose 108 H, Calcium 7.9 L, Phosphorus 3.1, Magnesium 1.5 L, Total Bilirubin 2.4 H, AST 42, ALT 30, Albumin 2.6 L, APTT 82 H, CBC w Diff NO MAN DIFF REQ, RBC 3.03 L, MCV 98.7 H, MCH 31.8 H, RDW 19.3 H, MPV 7.6, Gran % 72.4, Lymphocytes % 14.5 L, Monocytes % 10.9 H, Eosinophils % 1.4, Basophils % 0.8, Absolute Granulocytes 4.5, Absolute Lymphocytes 0.9 L, Absolute Monocytes 0.7 H, Absolute Eosinophils 0.1, Absolute Basophils 0, PUBS MCHC 32.3 L 04/22/17 0200: pH 7.44, pCO2 38, pO2 74 L, HCO3 26, ABG O2 Sat (Measured) 94.0 L, P-50 (Temp Corrected) N, Carboxyhemoglobin 1.0 L, O2 Concentration % .55, O2 Delivery Method V/M, Phlebotomy Draw Site RIGHT RADIAL 04/21/17 1850: APTT > 120 *H, CBC w Diff NO MAN DIFF REQ, RBC 3.38 L, MCV 98.1 H, MCH 31.6 H , RDW 18.9 H, MPV 7.9, Gran % 76.4 H, Lymphocytes % 12.9 L, Monocytes % 9.1, Eosinophils % 0.8, Basophils % 0.8, Absolute Granulocytes 6.3, Absolute Lymphocytes 1.1 L, Absolute Monocytes 0.7 H, Absolute Eosinophils 0.1, Absolute Basophils 0.1, PUBS MCHC 32.3 L 04/21/17 1105: APTT 54 H 04/21/17 0700: pH 7.41, pCO2 40, pO2 105 H, HCO3 25, ABG O2 Sat (Measured) 97.0, Carboxyhemoglobin 0.6 L, O2 Concentration % .55, O2 Delivery Method V/M, Phlebotomy Draw Site RIGHT RADIAL 04/21/17 0349: Anion Gap 11, Estimated GFR > 60, Glucose 108 H, Calcium 7.7 L, Phosphorus 3.2 , Magnesium 1.5 L, Total Bilirubin 2.7 H, AST 38, ALT 34, Albumin 2.7 L, CBC w Diff NO MAN DIFF REQ, RBC 3.32 L, MCV 98.9 H, MCH 31.8 H, RDW 18.7 H, MPV 8.0, Gran % 73.3, Lymphocytes % 14.6 L, Monocytes % 10.1 H, Eosinophils % 0.8, Basophils % 1.2, Absolute Granulocytes 5.8, Absolute Lymphocytes 1.2, Absolute Monocytes 0.8 H, Absolute Eosinophils 0.1, Absolute Basophils 0.1, PUBS MCHC 32.1 L 04/20/17 2202: APTT 70 H 04/20/17 1215: Anion Gap 14, Estimated GFR > 60, Glucose 99, Calcium 8.5, Phosphorus 3.3, Magnesium 1.6, Total Bilirubin 3.2 H, AST 48, ALT 33, Troponin I 0.02, Albumin 3.5, CBC w Diff NO MAN DIFF REQ, RBC 3.57 L, MCV 97.5 H, MCH 31.7 H, RDW 19.5 H, MPV 8.2, Gran % 69.6, Lymphocytes % 16.7 L, Monocytes % 11.7 H, Eosinophils % 0.8, Basophils % 1.2, Absolute Granulocytes 6.1, Absolute Lymphocytes 1.5, Absolute Monocytes 1.0 H, Absolute Eosinophils 0.1, Absolute Basophils 0.1, PUBS MCHC 32.5 L 04/20/17 1144: pH 7.48 H, pCO2 30 L, pO2 143 H, HCO3 22, ABG O2 Sat (Measured) 99.0, P-50 ( Temp Corrected) YES, Carboxyhemoglobin 0.6 L, O2 Concentration % 100%, Temperature 98.8, O2 Delivery Method NRB, Phlebotomy Draw Site LEFT RADIAL Microbiology 04/20 1155 UPPER RESP: Surveillance Culture - COMP 04/20 1155 GI: Surveillance Culture - COMP Assessment/Plan Assessment/Plan The patient has been intubated to protect his airway. His atrial fibrillation is better controlled on IV Cardizem. He is on IV heparin for anticoagulation for his atrial fibrillation. His echo showed poor LV function, slightly worse than previous echo. This may be due to alcoholic cardiomyopathy. There is a mass on his mitral valve which is most likely a benign finding but we will await blood culture results. There is no evidence of acute systemic infection at this time. After he is extubated we will reinstitute his oral medications. Continue telemetry? Yes
--- NOTE | 2017-04-22 11:31 | NUR ---
PT WENT FOR CT SCAN OF THE HEAD AT 0920. JUST PT WAS BEING MOVED TO THE STRETCHER XRAY ARRIVED TO PERFORM A REPEAT CXR FOR OGT PLACEMENT CONFIRMATION THE 1ST XRAY WAS NOT PLACED LOW ENOUGH TO VISUALIZE OGT. XRAY DIRECTED TO RETURN LATER. UPON RETURN FROM CT SCAN THE ETT REQUIRED RETAPING. XRAY ARRIVED TO PERFORM CXR AND THE ETT WAS BEING RETAPED. PT'S CHEEKS NEEDED TO BE SHAVED TO USE THE CHEEK/BITE BLOCK ETT HERNANDEZ REGULAR TAPE DID NOT HOLD ETT. STILL AWAITING XRAY FOR CXR. ALL MEDS TO BE ADMINSITERED VIA THE OGT WILL BE GIVEN ONCE PLACEMENT CONFIRMED.
--- NOTE | 2017-04-22 13:43 | RADIOLOGY REPORT ---
EXAMINATION: XR PORTABLE CHEST CLINICAL INFORMATION: CHF shortness of breath look for OGT COMPARISON: Prior examinations most recent performed today at 7:54 AM TECHNIQUE: Portable frontal view of the chest was obtained. FINDINGS: The cardiac silhouette is enlarged but unchanged. There are patchy bilateral opacities overlying both lungs unchanged. Pulmonary vascularity unremarkable. Lines and tubes: Endotracheal tube has moved slightly proximally 6.7 cm proximal to the manny. Evaluation of the orogastric tube is again limited due to underpenetration. However I suspect that the NG tube is below the diaphragm likely within the stomach. IMPRESSION: Orogastric tube again difficult to visualize with certainty given the technique.. I suspect that the tube is below the diaphragm in the stomach. Suggest x-ray of the abdomen to confirm placement of the tube in the stomach no change in the appearance of the lungs with bilateral patchy opacities possibly atelectasis as suggested on prior CT but cannot exclude patchy pulmonary edema.
--- NOTE | 2017-04-22 14:34 | RADIOLOGY REPORT ---
EXAMINATION: XR ABDOMEN CLINICAL INDICATION: Congestive heart failure. Shortness of breath Evaluate tube placement COMPARISON: Chest x-ray earlier same day TECHNIQUE: Portable supine frontal view of the abdomen. FINDINGS: Enteric tube tip projects in left midabdomen likely within the proximal body of the stomach. Numerous devices overlie the patient. Only the central upper abdomen is included. There is pleural and parenchymal disease in the left lower chest. The bowel gas pattern is nonobstructed. There is arterial calcification IMPRESSION: Enteric tube tip projects in region of gastric body
--- NOTE | 2017-04-22 15:16 | Cons- Urology ---
General Information and HPI Consulting Request Date of Consult: 04/22/17 Requested By: FEI KAMARA,JOVANY Fitzgerald Reason for Consult: gross hematuria Source of Information: old records Exam Limitations: unable to give history History of Present Illness: 51 year old male with a PMH significant for afib, HTN, smoking, alcohol abuse, fatty liver, that was BIBA from home for a chief complaint of shortness of breath without exertion and 6 weeks of progressive swelling from his feet to his abdomen. Patient has has been noncompliant with his medications which include lasix 40mg, ASA, diltiazem, lopressor. He has a smoking 6 cigarettes a day for the past 40 years and drinking 6 beers a day. Pt had a pinon catheter inserted and thereafter started with gross hematuria. He has no hx of gross hematuria in the past (as per his brother) or prostate issues. Allergies/Medications Allergies: Coded Allergies: No Known Allergies (06/04/16) Home Med List: Apixaban (Eliquis) 5 MG TABLET 1 TAB PO BID ATRIAL FIBRILLATION Aspirin (Ecotrin*) 81 MG TABLET.DR 1 TAB PO DAILY Heart Health (Reported) Diltiazem HCl (Diltiazem 24HR ER) 240 MG CAP.ER.24H 1 CAP PO DAILY HEART ( Reported) Folic Acid 1 MG TABLET 1 TAB PO DAILY Supplement Furosemide 40 MG TABLET 1 TAB PO DAILY EDEMA (Reported) Multivitamin (One Daily Multivitamin) 1 EACH TABLET 1 TAB PO DAILY Supplement Nadolol 40 MG TABLET 1 TAB PO DAILY HEART (Reported) Thiamine HCl (Vitamin B-1) 100 MG TABLET 1 TAB PO DAILY Supplement Current Medications: Current Medications Sig/Jose Start time Last Medication Dose Route Stop Time Status Admin Acetaminophen 650 MG Q6P PRN 04/18 1445 AC PO Acetaminophen 1,000 MG Q6P PRN 04/18 1445 AC IV Aspirin Buffered 81 MG DAILY 04/18 1433 AC 04/19 PO 0851 Ceftriaxone Sodium 1,000 MG DAILY 04/22 1447 AC IV Chlorhexidine 15 ML TID 04/21 1000 AC 04/22 Gluconate PO 1101 Diltiazem HCl 125 MG Q12H 04/21 2300 AC 04/22 Dextrose/Water 100 ML IV 1101 Diltiazem HCl 125 MG Q24H 04/20 1000 DC 04/21 Dextrose/Water 100 ML IV 04/21 2300 0730 Folic Acid 1 MG DAILY 04/18 1602 AC 04/19 PO 0852 Furosemide 20 MG Q8 04/22 1400 AC IV Furosemide 20 MG ONCE ONE 04/21 1800 DC 04/21 IV 04/21 1801 1826 Gabapentin 300 MG Q8 04/22 1400 AC PO Heparin Sodium 25,000 UNIT Q24H 04/20 1515 AC 04/22 (Porcine) IV 0900 Sodium Chloride 500 ML Lorazepam 50 MG Q16H 04/22 0345 AC 04/22 Dextrose/Water 500 ML IV 1214 Lorazepam 50 MG Q10H 04/21 0745 DC 04/21 Dextrose/Water 500 ML IV 2203 Lorazepam 0 Q1P PRN 04/20 0015 AC 04/20 IV 1058 Magnesium Oxide 400 MG BID 04/19 1334 AC 04/19 PO 2046 Magnesium Sulfate 1 GM ONCE ONE 04/22 0700 DC 04/22 Dextrose/Water 100 ML IV 04/22 1059 1026 Metoprolol Tartrate 100 MG BID 04/19 2200 AC 04/19 PO 2047 Multivitamins 1 TAB DAILY 04/18 1602 AC 04/19 PO 0852 Nicotine 7 MG DAILY 04/21 1000 DC 04/22 TOP 1101 Non-Formulary 0 SEE ADMIN CRITERIA 04/22 0345 CAN Medication ANY Nystatin 1 VY BID 04/20 1000 AC 04/22 TOP 1100 Pantoprazole Sodium 40 MG DAILY 04/20 1512 AC 04/22 IV 1059 Potassium Chloride 10 MEQ Q1H 04/22 0700 DC 04/22 IV 04/22 0801 1316 Potassium Chloride 20 MEQ BID 04/19 2200 AC 04/19 PO 2048 Propofol 1,000 MG CONTINOUS INFUSION 04/22 0345 AC 04/22 N/A 100 ML IV 1139 Propofol 1,000 MG .STK-MED ONE 04/22 0319 DC IV 04/22 0320 Thiamine HCl 100 MG DAILY 04/18 1602 AC 04/19 PO 0852 Past History Medical History Blood Transfusion Hx: No Neurological: NONE EENT: NONE, poor eyesight due to "age related changes" Cardiovascular: AFIB, hypertension (all valves are leaky), systolic CHF Respiratory: NONE Gastrointestinal: alcoholic hepatitis, LOOSE, FREQUENT STOOLS Hepatic: NONE Renal: NONE Musculoskeletal: NONE Psychiatric: alcohol dependence Endocrine: NONE Blood Disorders: NONE Cancer(s): NONE CLINICAL TRIAL SPECIALIST/Reproductive: NONE Surgical History Pertinent Surgical History: none, 1 Psychosocial History Where Do You Live? Home Who Do You Live With? self Services at Home: None Primary Language: Slovenian Smoking Status: Current Everyday Smoker ETOH Use: heavy use Illicit Drug Use: denies illicit drug use Living Will? no Power of Steam And Power Supervisor/HCP? no Other Social History: Unemployed and trying to complete the process to receive unemployment. Functional Ability ADLs Independent: dressing, eating, toileting, bathing. Ambulation: non-ambulatory (legs swollen and painful) Employment History Employment: Unemployed Exam & Diagnostic Data Vital Signs and I&O Vital Signs Date Time Temp Pulse Resp B/P B/P Pulse O2 O2 Flow FiO2 Mean Ox Delivery Rate 04/22 1317 40 04/22 1200 97.4 84 18 104/74 04/22 1200 98 Ventilator 40% 04/22 1056 40 04/22 1000 98.1 87 18 107/82 07/ 1000 98.1 87 18 107/82 / 0826 50 / 0800 98.1 90 18 104/80 / 0800 100 Ventilator 50% 04/22 0800 98.1 90 18 104/80 100 Ventilator 50% / 0627 50 / 0600 92 18 105/81 07/ 0400 96.1 95 20 130/100 07/ 0400 96 Ventilator 50% / 0336 50 / 0200 115 32 116/85 /07 0000 96.0 120 30 130/80 07/07 0000 94 Nasal 8L Cannula 04/22 0000 96.0 120 30 130/80 94 07/06 2212 105 124/85 /06 2200 112 28 124/85 /1999 98.1 103 24 122/80 /06 1999 93 Nasal 8L Cannula 04/21 1800 97.2 111 32 116/85 /06 1600 97.2 124 24 112/90 07/ 1600 95 Nasal 8L Cannula 04/21 1600 97.2 124 24 112/90 95 Nasal 8L Cannula Intake & Output 04/22 1600 / 0800 /07 0000 / 1600 / 0800 / 0000 Intake Total 532 613 950 625 782 Output Total 300 1500 2333 934 9333 Balance 232 -237 -950 25 -218 Intake, IV 532 613 950 625 782 Intake, Oral 0 0 Number 0 Bowel Movements Output, Urine 300 1500 9567 395 0277 Patient 113.511 kg 113.511 kg Weight Physical Exam: pt intubated and unable to respond Physical Exam Head: atraumatic, normal appearance Neck: normal inspection Respiratory: intubated Rectal: deferred Assessment/Plan Assessment/Plan 51yo male with a hx of Afibb and ETOH abuse and no hx with onset of gross hematuria after pinon placement initially. Renal/bladder US WNL. Coude catheter placed to drainage and [place] cath removed. Cont pinon to monitor quality of UOP. No need for intervention at this time. Consider cystoscopy possibly as an inpatient if persists but likely from traumatic pinon placement. Consult Acknowledgment - Thank you for your consult request.
--- NOTE | 2017-04-22 15:48 | NUR ---
Sw call from pt sister in law looking for information on aftercare. Providered her infor regarding rehab for PT and Rehab for substance. provider her with no specific info on pt. Pt remains in ICU. Sister in law wanting to be sure there are local options for pt so pt's brother can visit and suppot pt. sister in law doesn ot believe pt has ever had rehab or substance abuse tx. She reprots he was recently spending time doinf nothing but sitting. Gonzalo went by pt's room to see if sister in law was there and pt was in this roomalone sleeping. Brittnee Davidson [phone]
[2017-04-22 17:00] LABS: PTT 74 SEC (25-37)
--- NOTE | 2017-04-22 17:46 | NUR ---
SINCE 1310 THE PT'S CARDIZEM WAS DECREASED FROM 15MG/HR TO 12.5MG/HR AND THEN FURTHER DECREASED TO 10MG/HR AT 1500. IN ADDITION, PER DR ENAMORADO THE PROPOFOL WAS TITRATED TO OFF AT 1500. PT REMAINS ON THE ATIVAN GTT AT 4MG/HR WITH AN SAS OF 3. AT 1430 DR SCHMIDT PLACED AN 18FR CAUDE CATHETER AND 850ML OF BLOODY URINE DRAINED. URINE CULTURE SENT. LASIX 20MG IV DUE AT 1400 HELD THE PT;S SBP WAS 98-100. DR SOSA AWARE.
[2017-04-23] VITALS: BP 94/60
[2017-04-23 04:54] LABS: ABSOLUTE BASOPHIL COUNT 0 /CUMM (0.0-0.2); ABSOLUTE EOSINOPHIL COUNT 0.1 /CUMM (0.0-0.7); ABSOLUTE GRANULOCYTE CT 3.7 /CUMM (1.4-6.5); ABSOLUTE LYMPH COUNT 1.3 /CUMM (1.2-3.4); ABSOLUTE MONOCYTE COUNT 0.7 /CUMM (0.10-0.60); BASOPHIL % 0.7 % (0.0-2.0); EOSINOPHIL % 2.2 % (0-5); GRANULOCYTE % 63.4 % (42.2-75.2); HEMATOCRIT 33.7 % (42-52); MEAN CORPUSCULAR HGB 31.6 PG (27.0-31.0); MEAN CORPUSCULAR VOLUME 98.6 FL (80.0-94.0); MEAN PLATELET VOLUME 7.8 FL (7.4-10.4); PLATELET COUNT 237 /CUMM (130-400); RBC DISTRIBUTION WIDTH 18.9 % (11.5-14.5); RED BLOOD CELL CT 3.41 /CUMM (4.70-6.10); WHITE BLOOD CELL COUNT 5.8 /CUMM (4.8-10.8)
[2017-04-23 05:05] LABS: PTT 103 SEC (25-37)
--- NOTE | 2017-04-23 06:22 | PN- CRCU ---
Subjective HPI/Critical Care Issues: I examined the patient personally today at bedside. Patient intubated on sedation, BP 105/81(hold Lopressor). Patient off Propofol, Ativan drip 4 mg, vitals- pr-80,bp- 122/74 Objective Current Medications: Current Medications Sig/Jose Start time Last Medication Dose Route Stop Time Status Admin Acetaminophen 650 MG Q6P PRN 04/18 1445 AC PO Acetaminophen 1,000 MG Q6P PRN 04/18 1445 AC IV Aspirin Buffered 81 MG DAILY 04/18 1433 AC 04/22 PO 1519 Ceftriaxone Sodium 1,000 MG DAILY 04/22 1447 AC 04/22 IV 1541 Chlorhexidine 15 ML TID 04/21 1000 AC 04/22 Gluconate PO 2126 Diltiazem HCl 125 MG Q12H 04/21 2300 AC 04/22 Dextrose/Water 100 ML IV 2125 Folic Acid 1 MG DAILY 04/18 1602 AC 04/22 PO 1520 Furosemide 20 MG Q8 04/22 1400 AC 04/22 IV 2125 Gabapentin 300 MG Q8 / 1400 AC 04/23 PO 0600 Heparin Sodium 25,000 UNIT Q24H / 1515 AC 04/23 (Porcine) IV 0601 Sodium Chloride 500 ML Lorazepam 50 MG Q16H 04/22 0345 AC 04/23 Dextrose/Water 500 ML IV 0218 Lorazepam 0 Q1P PRN / 0015 AC 04/20 IV 1058 Magnesium Oxide 400 MG BID 04/19 1334 AC 04/22 PO 2125 Magnesium Sulfate 1 GM ONCE ONE 04/23 0615 UNVr Dextrose/Water 100 ML IV 04/23 1014 Magnesium Sulfate 1 GM ONCE ONE 04/22 0700 DC 04/22 Dextrose/Water 100 ML IV 04/22 1059 1026 Metoprolol Tartrate 100 MG BID 04/19 2200 AC 04/19 PO 2047 Multivitamins 1 TAB DAILY 04/18 1602 AC 04/22 PO 1520 Nicotine 7 MG DAILY 04/21 1000 DC 04/22 TOP 1101 Nystatin 1 VY BID 04/20 1000 AC 04/22 TOP 2126 Pantoprazole Sodium 40 MG DAILY 04/20 1512 AC 04/22 IV 1059 Potassium Chloride 40 MEQ ONCE ONE 04/23 0615 UNVr PO 04/23 0616 Potassium Chloride 10 MEQ Q1H 04/22 0700 DC 04/22 IV 04/22 0801 1316 Potassium Chloride 20 MEQ BID 04/19 2200 AC 04/22 PO 2125 Propofol 1,000 MG CONTINOUS INFUSION 04/22 0345 AC 04/22 N/A 100 ML IV 1139 Thiamine HCl 100 MG DAILY 04/18 1602 AC 04/22 PO 1519 Vital Signs & I&O Last 24 Hrs of Vitals and I&O: Vital Signs Date Time Temp Pulse Resp B/P B/P Pulse O2 O2 Flow FiO2 Mean Ox Delivery Rate 04/23 0543 30 04/23 0400 94 Ventilator 30% 04/23 0221 30 04/23 0000 97.9 86 18 94/60 100 Ventilator 30% 04/23 0000 100 Ventilator 30% 04/22 2257 30 04/22 2125 104 102/50 04/22 2002 30 04/22 2000 94 Ventilator 35% 04/22 1731 35 04/22 1600 98 Ventilator 40% 04/22 1600 97.2 95 18 98/62 98 Ventilator 40% 04/22 1317 40 04/22 1200 97.4 84 18 104/74 04/22 1200 98 Ventilator 40% 04/22 1056 40 04/22 1000 98.1 87 18 107/82 07/07 1000 98.1 87 18 107/82 07/07 0826 50 07/07 0800 98.1 90 18 104/80 07/07 0800 100 Ventilator 50% 04/22 0800 98.1 90 18 104/80 100 Ventilator 50% 04/22 0627 50 Intake & Output 04/23 0800 07/08 0000 /07 1600 Intake Total 829 828 968 Output Total 950 1655 400 Balance -121 -827 568 Intake, IV 519 597 968 Intake, Tube 130 36 Feeding Intake, Tube 180 195 Irrigant Output, Urine 950 1655 400 Patient 256 lb Weight Weight Bed scale Measurement Method Exam General Appearance: well developed/nourished, sedated, intubated Head: normal appearance Neck: normal inspection, full range of motion Respiratory: normal breath sounds, chest non-tender, crackles Cardiovascular: irre HR Abdomen: soft, non-tender, no organomegaly Back: normal inspection Extremities: normal inspection Skin: intact, normal color Results Last 24 Hrs of Lab Results: Laboratory Tests 04/23/17 0400: Anion Gap 9, Estimated GFR > 60, Glucose 98, Calcium 8.1 L, Phosphorus 3.1, Magnesium 1.6, Total Bilirubin 2.1 H, AST 30, ALT 32, Albumin 2.5 L, APTT 103 *H, CBC w Diff NO MAN DIFF REQ, RBC 3.41 L, MCV 98.6 H, MCH 31.6 H, RDW 18.9 H, MPV 7.8, Gran % 63.4, Lymphocytes % 22.1, Monocytes % 11.6 H, Eosinophils % 2.2, Basophils % 0.7, Absolute Granulocytes 3.7, Absolute Lymphocytes 1.3, Absolute Monocytes 0.7 H, Absolute Eosinophils 0.1, Absolute Basophils 0, PUBS MCHC 32.0 L 04/22/17 1600: APTT 74 H 04/22/17 0635: pH 7.53 H, pCO2 31 L, pO2 85, HCO3 26, ABG O2 Sat (Measured) 97.0, P-50 (Temp Corrected) N, Carboxyhemoglobin 0.9 L, O2 Concentration % .50, Respiration Rate 18, O2 Delivery Method VENT, Vent Mode A/C, Expiratory Pressure 5, Tidal Volume 500, Phlebotomy Draw Site RIGHT RADIAL Impression/Plan Impression/Plan Impression/Plan: 51 year old male with a PMH significant for afib with rvr was on eliquis ( electrical cardioversion 2000), htn, alcohol abuse, 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 The patient suddenly became unresponsive, agitated, confused and transferred to ICU for close monitoring on 04/20/17. Patient around 3:30 AM Yesterday had worsening respiratory status and intubated as per Dr. Vidal instructions. Patient is on Ativan drip. Cardizem drip HELD IN VIEW OF HYPOTENSION, heparin drip HELD IN VIEW OF HEMATURIA Plan ICU day 3 * Respiratory LEFT LUNG BASE crackles+, no other added sounds. * Infection Urine culture grew gram-negative rods.sputum culture- steptococcos penumonuia on Ceftriaxone 1 gm - DAY 2. pt has hematuria, pinon insitu. advised to hold heparin for 24 hrs. * Cardiac S1-S2, patient has A. fib on heparin drip and Cardizem drip withheld in view of hypotension 96/64. * Heme Close monitoring of his electrolytes, CBC. Daily ICU bundle, CBC,ABG. TSH- 5.440 * metabolic PH 7.47, PCO2 37, PaO2 67, bicarbonate 26. Aspiration precaution. * Alimentary tube feed. * Neuro Head CT-04/22/17 1. No acute intracranial pathology compared to 06/04/2016. 2. Incidentally detected is paranasal sinus disease. * DVT On heparin drip Code Status: Full Code
--- NOTE | 2017-04-23 07:38 | RADIOLOGY REPORT ---
EXAMINATION: XR PORTABLE CHEST CLINICAL INFORMATION: Shortness of breath. COMPARISON: Recent priors. TECHNIQUE: Portable AP erect view of the chest was obtained. FINDINGS: The endotracheal tube is relatively high with the tip 8 cm above the manny. The feeding tube is seen passing in the stomach. The tip is difficult to identify. Enlargement the cardiac silhouette is unchanged. Focal opacity at the left base consistent with atelectasis is unchanged. Patchy opacity in the right upper lobe is consistent with mild atelectasis and is unchanged. IMPRESSION: 1. Endotracheal tube with tip 8 cm above the manny. 2. Persistent cardiomegaly. 3. Persistent left lower lobe opacity consistent with atelectasis. Mild patchy opacity right upper lobe consistent with atelectasis.
--- NOTE | 2017-04-23 09:00 | NUR ---
SEDATED SAS 3, PUPILS 4; PERRLA, BP 102/80, HR 94 AFIB, LUNGS RHONCHOROUS, MODERATE AMOUNT OF THICK, TANNISH/PALE YELLOW SECRETIONS, HEMATURIA WITHOUT CLOTS NOTED TO SALDANA CATHETER. NOSE, LIPS, BILAT. HANDS NOTED TO BE PURPLE IN COLOR, AND COOL TO TOUCH. MOTTLING NOTED TO UNDERSIDE OF SKIN. ABOVE MENTIONED TO DR. LOPEZ AND DR. HOANG. FOR 1100; HEPARIN DRIP TURNED OFF FOR [address] HOANG FOR 1300; CARDIZEM DRIP TURNED OFF, PER LOW BP PER DR. HOANG. BILAT. ARMS ELEVATED ON PILLOWS PER DR. HANSON
--- NOTE | 2017-04-23 10:54 | PN- CRCU ---
Subjective HPI/Critical Care Issues: The patient remains intubated and sedated, on an Ativan drip at 4 mg per hour. His respiratory status is stable on 30% oxygen with saturations in the mid 90s. He remains in atrial fibrillation, on a Cardizem drip. The patient is somewhat arousable with an SAS of 2-3. The patient is tolerating tube feeds at 30 ML per hour. He continues to have hematuria. The patient is not able to communicate or offer complaints. Objective Current Medications: Current Medications Sig/Jose Start time Last Medication Dose Route Stop Time Status Admin Acetaminophen 650 MG Q6P PRN 04/18 1445 AC PO Acetaminophen 1,000 MG Q6P PRN 04/18 1445 AC IV Aspirin Buffered 81 MG DAILY 04/18 1433 AC 04/23 PO 1000 Ceftriaxone Sodium 1,000 MG DAILY 04/22 1447 AC 04/23 IV 1000 Chlorhexidine 15 ML TID 04/21 1000 AC 04/23 Gluconate PO 1001 Diltiazem HCl 125 MG Q12H 04/21 2300 AC 04/22 Dextrose/Water 100 ML IV 2125 Folic Acid 1 MG DAILY 04/18 1602 AC 04/23 PO 1000 Furosemide 20 MG Q8 04/22 1400 AC 04/22 IV 2125 Gabapentin 300 MG Q8 04/22 1400 AC 04/23 PO 0600 Heparin Sodium 25,000 UNIT Q24H 04/20 1515 AC 04/23 (Porcine) IV 0601 Sodium Chloride 500 ML Lorazepam 50 MG Q16H 04/22 0345 AC 04/23 Dextrose/Water 500 ML IV 0218 Lorazepam 0 Q1P PRN 04/20 0015 AC 04/20 IV 1058 Magnesium Oxide 400 MG BID 04/19 1334 AC 04/23 PO 1000 Magnesium Sulfate 1 GM ONCE ONE 04/23 0615 DC 04/23 Dextrose/Water 100 ML IV 04/23 1014 0637 Magnesium Sulfate 1 GM ONCE ONE 04/22 0700 DC 04/22 Dextrose/Water 100 ML IV 04/22 1059 1026 Metoprolol Tartrate 100 MG BID 04/19 2200 AC 04/19 PO 2047 Multivitamins 1 TAB DAILY 04/18 1602 AC 04/23 PO 1001 Nicotine 7 MG DAILY 04/21 1000 DC 04/22 TOP 1101 Nystatin 1 VY BID 04/20 1000 AC 04/23 TOP 1001 Pantoprazole Sodium 40 MG DAILY 04/20 1512 AC 04/23 IV 1000 Potassium Chloride 40 MEQ ONCE ONE 04/23 0615 DC 04/23 PO 04/23 0616 0637 Potassium Chloride 20 MEQ BID 04/19 2200 AC 04/23 PO 1000 Propofol 1,000 MG CONTINOUS INFUSION 04/22 0345 AC 04/22 N/A 100 ML IV 1139 Sodium Chloride 500 ML BOLUS ONE 04/23 0945 DC 04/23 IV 04/23 1044 0945 Thiamine HCl 100 MG DAILY 04/18 1602 AC 04/23 PO 1000 Vital Signs & I&O Last 24 Hrs of Vitals and I&O: Vital Signs Date Time Temp Pulse Resp B/P B/P Pulse O2 O2 Flow FiO2 Mean Ox Delivery Rate 04/23 0853 30 04/23 0543 30 04/23 0400 94 Ventilator 30% 04/23 0221 30 04/23 0000 97.9 86 18 94/60 100 Ventilator 30% 04/23 0000 100 Ventilator 30% 04/22 2257 30 04/22 2125 104 102/50 04/22 2002 30 04/22 2000 94 Ventilator 35% 04/22 1731 35 04/22 1600 98 Ventilator 40% 04/22 1600 97.2 95 18 98/62 98 Ventilator 40% 04/22 1317 40 04/22 1200 97.4 84 18 104/74 04/22 1200 98 Ventilator 40% 04/22 1056 40 Intake & Output 04/23 1600 08 0800 07/08 0000 Intake Total 829 828 Output Total 950 1655 Balance -121 -827 Intake, IV 519 597 Intake, Tube 130 36 Feeding Intake, Tube 180 195 Irrigant Output, Urine 950 1655 General Appearance: Intubated sedated. Skin: No Breakdown Skin Temp/Moisture Exam: Hot/Dry Sepsis Skin Exam (color): Flushed HEENT: unable to assess- eyes closed Cardiovascular: Normal S1, Normal S2, Gallops, Rubs Lungs: crackles bilaterally Abdomen: Normal Bowel Sounds, distended Neurological: somnolent and not responsive to questions Extremities: erythematous and edematous from feet to scrotum Vascular: Normal Pulses Results Last 24 Hrs of Lab Results: Laboratory Tests 04/23/17 0945: pH 7.55 H, pCO2 32 L, pO2 78 L, HCO3 27, ABG O2 Sat (Measured) 96.0, P-50 ( Temp Corrected) N, Carboxyhemoglobin 0.3 L, O2 Concentration % 30%, Respiration Rate 18, O2 Delivery Method VENT, Vent Mode AC, Expiratory Pressure 5, Tidal Volume 500, Pressure Support 0, Phlebotomy Draw Site RIGHT RADIAL 04/23/17 0400: Anion Gap 9, Estimated GFR > 60, Glucose 98, Calcium 8.1 L, Phosphorus 3.1, Magnesium 1.6, Total Bilirubin 2.1 H, AST 30, ALT 32, Albumin 2.5 L, APTT 103 *H, CBC w Diff NO MAN DIFF REQ, RBC 3.41 L, MCV 98.6 H, MCH 31.6 H, RDW 18.9 H, MPV 7.8, Gran % 63.4, Lymphocytes % 22.1, Monocytes % 11.6 H, Eosinophils % 2.2, Basophils % 0.7, Absolute Granulocytes 3.7, Absolute Lymphocytes 1.3, Absolute Monocytes 0.7 H, Absolute Eosinophils 0.1, Absolute Basophils 0, PUBS MCHC 32.0 L 04/22/17 1600: APTT 74 H Impression/Plan Impression/Plan Impression/Plan: 1. Respiratory failure secondary to aspiration pneumonitis versus pneumonia, on mechanical ventilation. Respiratory culture is positive for strep pneumo. The patient also has evidence of fluid overload. 2. Severe cardiomyopathy with an EF of 20-25%, with left ventricular hypertrophy and significant right ventricular dilation. 3. Significant pulmonary hypertension with body fluid overload. 4. Atrial fibrillation with rapid ventricular response, on Heparin. 5. Mild pleural effusion. 6. Probable significant untreated obstructive sleep apnea. 7. Ongoing severe hematuria. 8. Peripheral ischemia, may be related to dependent venous disease. Ulcers are palpable and no evidence of acute clotting. 9. Urinary tract infection, culture is positive for Klebsiella. Recommendations: * Vent settings changed and will check a follow up ABG. * Discussed with urology, will stop Heparin as recommended due to bleeding. Will inform cardiology. CBI will not stop bleeding, so will hold off. * Nursing to irrigate pinon catheter to keep it patent. * Will wean down ativan as tolerated. Keep SAS at 3. Continue to monitor on CIWA protocol. * Continue multivitamin, thiamine and folate. * Keep hands elevated and reassess. Vascular surgery consult for ongoing cyanosis if the patient does not improve with hand elevation. * Check DOLLY, ANCA, ESR. * Tube feeds to be adjusted to goal. * Continue IV Lasix, recheck potassium and replace as needed. * DVT and GI prophylaxis at all times. * Continue ventilator bundle. * Continue all supportive care. Code Status: Full Code
--- NOTE | 2017-04-23 13:01 | PN- Cardiology ---
Subjective Subjective: The patient remains intubated, sedated, etc. Blood pressure systolic in the high 90s. Heart rate stable. Persistent gross hematuria. Objective Vital Signs and I&Os Vital Signs Date Time Temp Pulse Resp B/P B/P Pulse O2 O2 Flow FiO2 Mean Ox Delivery Rate 04/23 1051 30 04/23 0853 30 04/23 0800 97 Ventilator 30% 04/23 0543 30 04/23 0400 94 Ventilator 30% 04/23 0221 30 04/23 0000 97.9 86 18 94/60 100 Ventilator 30% 04/23 0000 100 Ventilator 30% 04/22 2257 30 04/22 2125 104 102/50 / 2002 30 04/22 2000 94 Ventilator 35% 04/22 1731 35 04/22 1600 98 Ventilator 40% 04/22 1600 97.2 95 18 98/62 98 Ventilator 40% 04/22 1317 40 Intake & Output 04/23 1600 /08 0800 07/08 0000 /07 1600 04/22 0800 04/22 0000 Intake Total 829 828 968 532 613 Output Total 950 1655 861 756 6054 Balance -121 -827 568 232 -887 Intake, IV 519 597 968 532 613 Intake, Oral 0 Intake, Tube 130 36 Feeding Intake, Tube 180 195 Irrigant Number 0 Bowel Movements Output, Urine 950 1655 146 616 3802 Patient 256 lb Weight Weight Bed scale Measurement Method Physical Exam: General Appearance: well developed/nourished, sedated, intubated Head: normal appearance Neck: normal inspection, full range of motion, JVP not appreciated, carotids normal bilaterally Respiratory: Bilateral rhonchi Cardiovascular: Irregular S1, S2, 1 to 2/6 systolic murmur left sternal border Abdomen: soft, non-tender, no organomegaly Back: normal inspection Extremities: Hands and feet dusky in color. Capillary refill good. Radial pulses normal bilaterally. Mild edema Skin: intact, normal color Current Medications: Current Medications Sig/Jose Start time Last Medication Dose Route Stop Time Status Admin Acetaminophen 650 MG Q6P PRN 04/18 1445 AC PO Acetaminophen 1,000 MG Q6P PRN 04/18 1445 AC IV Aspirin Buffered 81 MG DAILY 04/18 1433 AC 04/23 PO 1000 Ceftriaxone Sodium 1,000 MG DAILY 04/22 1447 AC 04/23 IV 1000 Chlorhexidine 15 ML TID 04/21 1000 AC 04/23 Gluconate PO 1001 Diltiazem HCl 125 MG Q12H 04/21 2300 AC 04/22 Dextrose/Water 100 ML IV 2125 Folic Acid 1 MG DAILY 04/18 1602 AC 04/23 PO 1000 Furosemide 20 MG Q8 04/22 1400 AC 04/22 IV 2125 Gabapentin 300 MG Q8 04/22 1400 AC 04/23 PO 0600 Heparin Sodium 25,000 UNIT Q24H 04/20 1515 DC 04/23 (Porcine) IV 0601 Sodium Chloride 500 ML Lorazepam 50 MG Q16H 04/22 0345 AC 04/23 Dextrose/Water 500 ML IV 0218 Lorazepam 0 Q1P PRN 04/20 0015 AC 04/20 IV 1058 Magnesium Oxide 400 MG BID 04/19 1334 AC 04/23 PO 1000 Magnesium Sulfate 1 GM ONCE ONE 04/23 0615 DC 04/23 Dextrose/Water 100 ML IV 04/23 1014 0637 Metoprolol Tartrate 100 MG BID 04/19 2200 AC 04/19 PO 2047 Multivitamins 1 TAB DAILY 04/18 1602 AC 04/23 PO 1001 Nicotine 7 MG DAILY 04/21 1000 DC 04/22 TOP 1101 Nystatin 1 VY BID 04/20 1000 AC 04/23 TOP 1001 Pantoprazole Sodium 40 MG DAILY 04/20 1512 AC 04/23 IV 1000 Potassium Chloride 40 MEQ ONCE ONE 04/23 0615 DC 04/23 PO 04/23 0616 0637 Potassium Chloride 20 MEQ BID 04/19 2200 AC 04/23 PO 1000 Propofol 1,000 MG CONTINOUS INFUSION 04/22 0345 AC 04/22 N/A 100 ML IV 1139 Sodium Chloride 500 ML BOLUS ONE 04/23 1300 AC 04/23 IV 04/23 1359 1259 Sodium Chloride 500 ML BOLUS ONE 04/23 0945 DC 04/23 IV 04/23 1044 0945 Thiamine HCl 100 MG DAILY 04/18 1602 AC 04/23 PO 1000 Results Last 48 Hrs of Labs/Mics: Laboratory Tests 04/23/17 1230: pH 7.57 H, pCO2 24 L, pO2 84, HCO3 22, ABG O2 Sat (Measured) 97.0, P-50 (Temp Corrected) N, Carboxyhemoglobin 0.1 L, O2 Concentration % 30%, Respiration Rate 10, O2 Delivery Method VENT, Vent Mode AC, Expiratory Pressure 5, Tidal Volume 500, Pressure Support 0, Phlebotomy Draw Site LEFT RADIAL 04/23/17 0945: pH 7.55 H, pCO2 32 L, pO2 78 L, HCO3 27, ABG O2 Sat (Measured) 96.0, P-50 ( Temp Corrected) N, Carboxyhemoglobin 0.3 L, O2 Concentration % 30%, Respiration Rate 18, O2 Delivery Method VENT, Vent Mode AC, Expiratory Pressure 5, Tidal Volume 500, Pressure Support 0, Phlebotomy Draw Site RIGHT RADIAL 04/23/17 0400: Anion Gap 9, Estimated GFR > 60, Glucose 98, Calcium 8.1 L, Phosphorus 3.1, Magnesium 1.6, Total Bilirubin 2.1 H, AST 30, ALT 32, Albumin 2.5 L, APTT 103 *H, CBC w Diff NO MAN DIFF REQ, RBC 3.41 L, MCV 98.6 H, MCH 31.6 H, RDW 18.9 H, MPV 7.8, Gran % 63.4, Lymphocytes % 22.1, Monocytes % 11.6 H, Eosinophils % 2.2, Basophils % 0.7, Absolute Granulocytes 3.7, Absolute Lymphocytes 1.3, Absolute Monocytes 0.7 H, Absolute Eosinophils 0.1, Absolute Basophils 0, PUBS MCHC 32.0 L 04/22/17 1600: APTT 74 H 04/22/17 0635: pH 7.53 H, pCO2 31 L, pO2 85, HCO3 26, ABG O2 Sat (Measured) 97.0, P-50 (Temp Corrected) N, Carboxyhemoglobin 0.9 L, O2 Concentration % .50, Respiration Rate 18, O2 Delivery Method VENT, Vent Mode A/C, Expiratory Pressure 5, Tidal Volume 500, Phlebotomy Draw Site RIGHT RADIAL 04/22/17 0350: Anion Gap 8, Estimated GFR > 60, Glucose 108 H, Calcium 7.9 L, Phosphorus 3.1, Magnesium 1.5 L, Total Bilirubin 2.4 H, AST 42, ALT 30, Albumin 2.6 L, TSH 5.440 H, Thyroxine (T4) 5.3, APTT 82 H, CBC w Diff NO MAN DIFF REQ, RBC 3.03 L, MCV 98.7 H, MCH 31.8 H, RDW 19.3 H, MPV 7.6, Gran % 72.4, Lymphocytes % 14.5 L, Monocytes % 10.9 H, Eosinophils % 1.4, Basophils % 0.8, Absolute Granulocytes 4.5, Absolute Lymphocytes 0.9 L, Absolute Monocytes 0.7 H, Absolute Eosinophils 0.1, Absolute Basophils 0, PUBS MCHC 32.3 L 04/22/17 0200: pH 7.44, pCO2 38, pO2 74 L, HCO3 26, ABG O2 Sat (Measured) 94.0 L, P-50 (Temp Corrected) N, Carboxyhemoglobin 1.0 L, O2 Concentration % .55, O2 Delivery Method V/M, Phlebotomy Draw Site RIGHT RADIAL 04/21/17 1850: APTT > 120 *H, CBC w Diff NO MAN DIFF REQ, RBC 3.38 L, MCV 98.1 H, MCH 31.6 H , RDW 18.9 H, MPV 7.9, Gran % 76.4 H, Lymphocytes % 12.9 L, Monocytes % 9.1, Eosinophils % 0.8, Basophils % 0.8, Absolute Granulocytes 6.3, Absolute Lymphocytes 1.1 L, Absolute Monocytes 0.7 H, Absolute Eosinophils 0.1, Absolute Basophils 0.1, PUBS MCHC 32.3 L Microbiology 04/21 1400 URINE ROUT: Urine Culture - COMP KLEBSIELLA PNEUMONIAE Assessment/Plan Assessment/Plan Assessment: 1. Atrial fibrillation with reasonable rate control 2. Respiratory failure 3. Cardiomyopathy 4. Mitral valve mass lesion 5. Mild to moderate mitral and tricuspid insufficiency with moderate pulmonary hypertension Recommendations: -For now, continue current regimen management as per ICU team -Continue current cardiac medications -After discussion about gross hematuria, the plan is to hold IV heparin for at least 24 hours. -Reassess hematuria in a.m.
[2017-04-23 14:14] LABS: PT 14.2 SEC (9.4-12.5); PTT 41 SEC (25-37)
[2017-04-23 16:00] VITALS: BP 88/58
[2017-04-24] VITALS: BP 100/64
[2017-04-24 04:53] LABS: ABSOLUTE BASOPHIL COUNT 0 /CUMM (0.0-0.2); ABSOLUTE EOSINOPHIL COUNT 0.1 /CUMM (0.0-0.7); ABSOLUTE GRANULOCYTE CT 3.7 /CUMM (1.4-6.5); ABSOLUTE LYMPH COUNT 1.2 /CUMM (1.2-3.4); ABSOLUTE MONOCYTE COUNT 0.7 /CUMM (0.10-0.60); BASOPHIL % 0.5 % (0.0-2.0); EOSINOPHIL % 1.9 % (0-5); GRANULOCYTE % 64.6 % (42.2-75.2); HEMATOCRIT 31.2 % (42-52); MEAN CORPUSCULAR HGB 31.5 PG (27.0-31.0); MEAN CORPUSCULAR HGB CONC 32.2 G/DL (33.0-37.0); MEAN CORPUSCULAR VOLUME 97.9 FL (80.0-94.0); PLATELET COUNT 233 /CUMM (130-400); RBC DISTRIBUTION WIDTH 19.4 % (11.5-14.5); RED BLOOD CELL CT 3.19 /CUMM (4.70-6.10); WHITE BLOOD CELL COUNT 5.7 /CUMM (4.8-10.8)
--- NOTE | 2017-04-24 07:23 | RADIOLOGY REPORT ---
EXAMINATION: XR PORTABLE CHEST CLINICAL INFORMATION: Shortness of breath COMPARISON: Previous chest x-ray most recent from yesterday TECHNIQUE: Portable frontal view of the chest was obtained. FINDINGS: The support tubes are not well visualized. The lung volumes are low. The cardiac silhouette is enlarged but stable. There is pulmonary venous redistribution. There is loss of the left hemidiaphragm suggestive of left lower lobe atelectasis or consolidation and/or left effusion. The right lung is clear. There is no right pleural effusion. IMPRESSION: Low lung volumes. Stable enlargement of cardiac silhouette. Loss of left hemidiaphragm suggestive of left lower lobe atelectasis/consolidation and/or left effusion. Support tubes is not well visualized. Repeat x-ray should be considered if clinically indicated.
[2017-04-24 08:00] VITALS: BP 110/78
--- NOTE | 2017-04-24 08:31 | PN- Housestaff ---
Subjective Review of Systems Constitutional: Reports: see HPI. Objective Last 24 Hrs of Vital Signs/I&O Vital Signs Date Time Temp Pulse Resp B/P B/P Pulse O2 O2 Flow FiO2 Mean Ox Delivery Rate 04/24 0826 30 04/24 0624 30 04/24 0411 30 04/24 0400 95 Ventilator 30% 04/24 0052 30 04/24 0000 97.9 100 18 100/64 94 Ventilator 30% 04/24 0000 97 Ventilator 30% 04/23 2248 29.5 04/23 2221 108 90/72 04/23 2015 30 04/23 2000 94 Ventilator 30% 04/23 1722 30 04/23 1600 99 Ventilator 30% 04/23 1600 98.5 100 23 88/58 99 Ventilator 30% 04/23 1409 30 04/23 1200 97 Ventilator 30% 04/23 1051 30 04/23 0853 30 Intake & Output 04/24 1600 04/24 0800 04/24 0000 Intake Total 1445 1200 Output Total 1800 800 Balance -355 400 Intake, IV 615 380 Intake, Tube 470 400 Feeding Intake, Tube 360 420 Irrigant Output, Urine 1800 800 Physical Exam General Appearance: No Acute Distress Assessment/Plan Assessment: This is a 51 year old male with a PMH significant for afib with rvr on eliquis electrical cardioversion 2000, htn, alcohol abuse, dilated cardiomyopathy that presented for worsening bipedal edema of 6 weeks duration that has impeded his ability to ambulate and shortness of breath without exertion. Patient is currently experiencing alcohol withdrawal symptoms. 1. ALCOHOL WITHDRAWAL 2. Bipedal and scrotal nonpitting edema: ?Acute decompensation of chronic CHF vs. ?cellulitis vs ?lymphedema vs ?DVT vs. ?liver disease 3. Atrial fibrillation currently on IV cardizem 3. Urinary retention 4. Hypertension 5. Lactic acidosis 6. low k, phos, mg 7. psych social work issues Plan 1. Acute alcohol withdrawal: Start patient on ativan per CIWA protocol. CIWA IS 22 OVERNIGHT. CURRENTLY ON 2MG iV Q6H. MONITOR WITH CIWA Q2-3 HOURS. Give MV, folate, thiamine. 2. Bipedal and scrotal nonpitting edema: with normal CBC, negative doppler legs , normal lfts, likely due to acute decompensation of chronic CHF. Patient last had an echocardiogram in 2016 which found systolic dysfunction. Based on clinical picture, he is showing signs of fluid overload despite not having voided since the previous day. Kidney function as per labs was normal so he was given 2L of fluid and is now on lasix 40mg IV bid. * continue lasix and monitor i/o's and weight closely * follow dr. 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 Noncompliance with medication has likely contributed to afib mediated worsening cardiac function. CURRENTLY ON iv CARDIZEM FOR RATE CONTROL. As per cardiology this am: The Patient is now withdrawing from alcohol. His heart rate is beginning to increase in atrial fibrillation and he will be restarted on Cardizem drip. * continue to monitor on telemetry * ACS RULED OUT NEGATIVE TROPONINS AND EKGS * wean cardizem once rate is controlled and continue his oral home meds * ANTICOAGULATED WITH eliquis 4. Continue Lopressor 50 bid 5. Urinary retention. Was straight cathed - high volumes necessitated pinon placement. Renal and kidney ultrasound support bph over kidney pathology. No evidence of renal calculus or upper urinary tract obstruction. 6. LACTIC ACIDOSIS RESOLVING. Elevated likely due to alcohol abuse, was given 2L in the ED. 7. replete k, phos, mg. CURRENTLY k+ IS 3.4. 8. psych social work consult SUGGESTED IOP REHABILITION AND AA. #Heart healthy diet #Full code #Mild pain pathway
--- NOTE | 2017-04-24 08:42 | PN- Cardiology ---
Subjective Subjective: The patient remains intubated. Systolic blood pressure borderline. IV Cardizem held due to low blood pressure. Digoxin instituted for heart rate control. Objective Vital Signs and I&Os Vital Signs Date Time Temp Pulse Resp B/P B/P Pulse O2 O2 Flow FiO2 Mean Ox Delivery Rate / 0826 30 04/24 0624 30 04/24 0411 30 04/24 0400 95 Ventilator 30% 04/24 0052 30 / 0000 97.9 100 18 100/64 94 Ventilator 30% / 0000 97 Ventilator 30% / 2248 29.5 / 2221 108 90/72 04/23 2015 30 / 2000 94 Ventilator 30% / 1722 30 / 1600 99 Ventilator 30% / 1600 98.5 100 23 88/58 99 Ventilator 30% 04/23 1409 30 04/23 1200 97 Ventilator 30% / 1051 30 04/23 0853 30 Intake & Output 04/24 1600 / 0800 / 0000 / 1600 / 0800 / 0000 Intake Total 1445 1200 2314 829 828 Output Total 1800 800 722 135 7537 Balance -234 631 9623 -121 -827 Intake, IV 320 619 3885 519 597 Intake, Tube 470 400 480 130 36 Feeding Intake, Tube 360 420 360 180 195 Irrigant Number 0 Bowel Movements Output, Urine 1800 800 836 392 3267 Physical Exam: General Appearance: well developed/nourished, sedated, intubated Head: normal appearance Neck: normal inspection, full range of motion, JVP not appreciated, carotids normal bilaterally Respiratory: Bilateral rhonchi Cardiovascular: Irregular S1, S2, 1 to 2/6 systolic murmur left sternal border Abdomen: soft, non-tender, no organomegaly Extremities: Hands and feet dusky in color. Capillary refill good. Radial pulses normal bilaterally. Mild edema Skin: intact, normal color Current Medications: Current Medications Sig/Jose Start time Last Medication Dose Route Stop Time Status Admin Acetaminophen 650 MG Q6P PRN 04/18 1445 AC PO Acetaminophen 1,000 MG Q6P PRN 04/18 1445 AC IV Aspirin Buffered 81 MG DAILY 04/18 1433 AC 04/23 PO 1000 Ceftriaxone Sodium 1,000 MG DAILY 04/22 1447 AC 04/23 IV 1000 Chlorhexidine 15 ML TID 04/21 1000 AC 07 Gluconate PO 2221 Diltiazem HCl 125 MG Q12H 04/21 2300 DC 07 Dextrose/Water 100 ML IV 1000 Folic Acid 1 MG DAILY 04/18 1602 AC 04/23 PO 1000 Furosemide 20 MG Q8 04/22 1400 AC 07 IV 2125 Gabapentin 300 MG Q8 / 1400 AC 04/24 PO 0534 Heparin Sodium 25,000 UNIT Q24H 04/20 1515 DC 04/23 (Porcine) IV 0601 Sodium Chloride 500 ML Lorazepam 100 MG Q13H 04/24 0530 AC 04/24 Dextrose/Water 1,000 ML IV 0532 Lorazepam 50 MG Q13H 04/23 1430 DC 04/23 Dextrose/Water 500 ML IV 2315 Lorazepam 50 MG Q16H 04/22 0345 DC 04/23 Dextrose/Water 500 ML IV 04/23 1429 0218 Lorazepam 0 Q1P PRN 04/20 0015 AC 04/20 IV 1058 Magnesium Oxide 400 MG BID 04/19 1334 AC 04/23 PO 2221 Magnesium Sulfate 1 GM ONCE ONE 04/23 0615 DC 04/23 Dextrose/Water 100 ML IV 04/23 1014 0637 Metoprolol Tartrate 100 MG BID 04/19 2200 AC 04/19 PO 2047 Multivitamins 1 TAB DAILY 04/18 1602 AC 04/23 PO 1001 Nystatin 1 VY BID 04/20 1000 AC 04/23 TOP 2221 Pantoprazole Sodium 40 MG DAILY 04/20 1512 AC 04/23 IV 1000 Potassium Chloride 20 MEQ ONCE ONE 04/23 1730 DC 04/23 PO 04/23 1731 1730 Potassium Chloride 20 MEQ BID 04/19 2200 AC 04/23 PO 2221 Propofol 1,000 MG CONTINOUS INFUSION 04/22 0345 AC 04/22 N/A 100 ML IV 1139 Sodium Chloride 500 ML BOLUS ONE 04/23 1300 DC 04/23 IV 04/23 1359 1259 Sodium Chloride 500 ML BOLUS ONE 04/23 0945 DC 04/23 IV 04/23 1044 0945 Thiamine HCl 100 MG DAILY 04/18 1602 AC 04/23 PO 1000 Results Last 48 Hrs of Labs/Mics: Laboratory Tests 04/24/17 0535: pH 7.52 H, pCO2 36, pO2 85, HCO3 29 H, ABG O2 Sat (Measured) 96.0, P-50 (Temp Corrected) Y, Carboxyhemoglobin 0.2 L, O2 Concentration % 30%, Temperature 98.0 , Respiration Rate 10, O2 Delivery Method ESPRIT, Vent Mode AC, Expiratory Pressure 5, Tidal Volume 500, Phlebotomy Draw Site RIGHT RADIAL 04/24/17 0400: Anion Gap 6, Estimated GFR > 60, Glucose 86, Calcium 7.9 L, Phosphorus 3.3, Magnesium 1.8, Total Bilirubin 1.4 H, AST 24, ALT 30, Albumin 2.4 L, CBC w Diff NO MAN DIFF REQ, RBC 3.19 L, MCV 97.9 H, MCH 31.5 H, RDW 19.4 H, MPV 8.0, Gran % 64.6, Lymphocytes % 20.7, Monocytes % 12.3 H, Eosinophils % 1.9, Basophils % 0.5, Absolute Granulocytes 3.7, Absolute Lymphocytes 1.2, Absolute Monocytes 0.7 H, Absolute Eosinophils 0.1, Absolute Basophils 0, PUBS MCHC 32.2 L 04/23/17 1230: pH 7.57 H, pCO2 24 L, pO2 84, HCO3 22, ABG O2 Sat (Measured) 97.0, P-50 (Temp Corrected) N, Carboxyhemoglobin 0.1 L, O2 Concentration % 30%, Respiration Rate 10, O2 Delivery Method VENT, Vent Mode AC, Expiratory Pressure 5, Tidal Volume 500, Pressure Support 0, Phlebotomy Draw Site LEFT RADIAL 04/23/17 1200: C-Reactive Prot, Quant 6.0 H, C-React Prot High Sens > 15.0 H, PT 14.2 H, INR 1.36 H, APTT 41 H, ESR Westergren 17 H, ANCA Pending 04/23/17 1025: DOLLY Titer Pending, Anti-Nuclear Antibody Pending 04/23/17 1000: DOLLY Titer Cancelled, Anti-Nuclear Antibody Cancelled 04/23/17 0945: pH 7.55 H, pCO2 32 L, pO2 78 L, HCO3 27, ABG O2 Sat (Measured) 96.0, P-50 ( Temp Corrected) N, Carboxyhemoglobin 0.3 L, O2 Concentration % 30%, Respiration Rate 18, O2 Delivery Method VENT, Vent Mode AC, Expiratory Pressure 5, Tidal Volume 500, Pressure Support 0, Phlebotomy Draw Site RIGHT RADIAL 04/23/17 0400: Anion Gap 9, Estimated GFR > 60, Glucose 98, Calcium 8.1 L, Phosphorus 3.1, Magnesium 1.6, Total Bilirubin 2.1 H, AST 30, ALT 32, Albumin 2.5 L, APTT 103 *H, CBC w Diff NO MAN DIFF REQ, RBC 3.41 L, MCV 98.6 H, MCH 31.6 H, RDW 18.9 H, MPV 7.8, Gran % 63.4, Lymphocytes % 22.1, Monocytes % 11.6 H, Eosinophils % 2.2, Basophils % 0.7, Absolute Granulocytes 3.7, Absolute Lymphocytes 1.3, Absolute Monocytes 0.7 H, Absolute Eosinophils 0.1, Absolute Basophils 0, PUBS MCHC 32.0 L 04/22/17 1600: APTT 74 H Assessment/Plan Assessment/Plan Assessment: 1. Atrial fibrillation with reasonable rate control 2. Respiratory failure 3. Cardiomyopathy 4. Mitral valve mass lesion 5. Mild to moderate mitral and tricuspid insufficiency with moderate pulmonary hypertension Recommendations: -The patient is currently off of IV Cardizem. Heart rate slightly higher today in the 120s. Digoxin never instituted. -Please give digoxin 0.25 mg IV now. Heart rate to be reassessed in several hours. If necessary, an additional 0.125 mg of digoxin can be given in a few hours, and repeated again later in the day for rate control. -If there are any further issues with a heart rate please notify me. -Continue other medications for now. Continue telemetry? Yes
--- NOTE | 2017-04-24 10:58 | PN- Resident CRCU ---
Subjective HPI/CRCU Issues: Remained stable. BP remained on the lower side. Remained in afib w/ RVR. In-1445 , Out- 1800 ml. No overnight events. Found to have bluish discolored fingers. Arousable to verbal stimuli. Objective Vital Signs & I&O Last 8 Hrs of Vitals and I&O: Vital Signs Date Time Temp Pulse Resp B/P B/P Pulse O2 O2 Flow FiO2 Mean Ox Delivery Rate 04/24 1319 30 07/ 1200 98 Ventilator 30% 04/24 1055 30 / 0826 30 / 0800 97 Ventilator 30% 04/24 0800 97.9 114 20 110/78 99 Ventilator 30% 04/24 0624 30 04/24 0411 30 / 0400 95 Ventilator 30% / 0052 30 / 0000 97.9 100 18 100/64 94 Ventilator 30% 07/ 0000 97 Ventilator 30% / 2248 29.5 04/23 2221 108 90/72 04/23 2015 30 / 2000 94 Ventilator 30% /08 1722 30 /08 1600 99 Ventilator 30% /08 1600 98.5 100 23 88/58 99 Ventilator 30% /08 1409 30 Intake & Output / 1600 07/ 0800 07/ 0000 Intake Total 1445 1200 Output Total 1800 800 Balance -355 400 Intake, IV 615 380 Intake, Tube 470 400 Feeding Intake, Tube 360 420 Irrigant Output, Urine 1800 800 Exam General Appearance: anxious, sedated, intubated Head: atraumatic, normal appearance Neck: normal inspection, supple Respiratory: normal breath sounds Cardiovascular: edema, tachycardia, irregularly irregular Gastrointestinal: normal bowel sounds Extremities: normal inspection, normal capillary refill Cranial Nerves: PERRL Skin: intact, bluish discoloration of fingers of upper extremity. Improved during the day. Skin Temp/Moisture Exam: Warm/Dry Sepsis Skin Exam (color): Normal for Ethnicity Back: normal inspection Current Medications: Current Medications Sig/Jose Start time Last Medication Dose Route Stop Time Status Admin Acetaminophen 650 MG Q6P PRN 04/18 1445 AC PO Acetaminophen 1,000 MG Q6P PRN 04/18 1445 AC IV Aspirin Buffered 81 MG DAILY 04/18 1433 AC 04/24 PO 1011 Ceftriaxone Sodium 1,000 MG DAILY 07/07 1447 AC 04/24 IV 1011 Chlorhexidine 15 ML TID 04/21 1000 AC 04/24 Gluconate PO 1756 Digoxin 0.125 MG ONCE ONE 04/24 1745 DC 04/24 IV 04/24 1746 1751 Digoxin 0.25 MG ONCE ONE 04/24 1045 DC 04/24 IV 04/24 1046 1111 Diltiazem HCl 125 MG Q12H 04/21 2300 DC 04/23 Dextrose/Water 100 ML IV 1000 Folic Acid 1 MG DAILY 04/18 1602 AC 04/24 PO 1011 Furosemide 20 MG Q8 04/22 1400 AC 04/22 IV 2125 Gabapentin 300 MG Q8 04/22 1400 AC 04/24 PO 1403 Lorazepam 100 MG Q13H 04/24 0530 AC 04/24 Dextrose/Water 1,000 ML IV 1756 Lorazepam 50 MG Q13H 04/23 1430 DC 04/23 Dextrose/Water 500 ML IV 2315 Lorazepam 0 Q1P PRN 04/20 0015 AC 04/20 IV 1058 Magnesium Oxide 400 MG BID 04/19 1334 AC 04/24 PO 1011 Metoprolol Tartrate 100 MG BID 04/19 2200 AC 04/19 PO 2047 Multivitamins 1 TAB DAILY 04/18 1602 AC 04/24 PO 1011 Nystatin 1 VY BID 04/20 1000 DC 04/23 TOP 2221 Pantoprazole Sodium 40 MG DAILY 04/20 1512 AC 04/24 IV 1012 Potassium Chloride 20 MEQ BID 04/19 2200 AC 04/24 PO 1011 Propofol 1,000 MG CONTINOUS INFUSION 04/22 0345 AC 04/22 N/A 100 ML IV 1139 Thiamine HCl 100 MG DAILY 04/18 1602 AC 04/24 PO 1011 Impression/Plan Impression/Problem List Impression: Mr Davidson is a 51 yr old man with a past history of cardiomegaly, pulmonary HTN, JONNY, alcohol abuse, paroxysmal atrial fibrillation is being managed for acute hypoxic respiratory failure and alcohol withdrawal. In the last 24 hours, laboratory findings-WBC 5.7, hemoglobin 10.0 (10.8 on 04/23 ), platelets 233, sodium 136, potassium 4.0, renal function-BUN 7 serum creatinine 0.6. Calcium 7.9 (albumin 2.4), elevated TSH 5.4, blood gas revealed pH 7.52, PCO2 36, (PCO2 24 on 04/23) on 30% FiO2. INR 1.36. DOLLY, Anca titers pending. Differential diagnosis: #1 acute hypoxic respiratory failure #2 digit fibrillation #3 alcohol withdrawal #4 hematuria secondary to trauma #5 low ejection fraction #6 tachycardia Below is the problem list and plan: #1 respiratory-continues to be ventilated with respiratory rate set at 10, tidal volume 500, FiO2 30%, PEEP of 5, peak inspiratory pressure of 20. Chest x-ray revealed possible pneumonia secondary to aspiration, and is currently on antibiotics- ceftriaxone. Lower respiratory culture was positive for strep pneumo. Repeat ABGs in a.m. Alkalemia improving. #2 infectious-no leukocytosis, and remained afebrile. Continue ceftriaxone at this time. He also had urine culture positive for Klebsiella, which is sensitive to cephalosporins. Continue to monitor vitals closely. Continues to be hypotensive, likely multifactorial at this time. #3 cardiovascular-has a history of atrial fibrillation, and has rapid ventricular rate secondary to hypotension also. Low ejection fraction, and mitral valve mass was noted on latest echocardiogram. Dosed with 1 dose of digoxin 250 g, with recommendation to follow-up with one 25 g after 4 hours. Hold IV heparin for another 24 hours, as per bull driver's recommendation. If the hematuria improves, may restart it in the a.m. Hold Cardizem. #4 hematology-H&H stable at this time. #5 alimentary-currently on tube feeds. IV Protonix, since the patient is on ventilator. #6 metabolic-elevated TSH likely subclinical or due to an acute infection. Continue to monitor. Renal function within normal limits. Currently has Chery catheter in place. Hematuria, improving. #7 neuro-continues to be sedated with us SAS 2. Continue Ativan drip, titrate as tolerated. Currently has restraints in place. CIWA protocol. #8 DVT prophylaxis-Alps at this time, and restart heparin after the hematuria resolved. Problem List: 1. Acute on chronic congestive heart failure 2. Alcohol withdrawal Pain Ratin Tomorrow's Labs & Rationales: cbc bep Plan DVT/Prophylaxis: pharmacological Code Status: Full Code
--- NOTE | 2017-04-24 12:24 | PN- CRCU ---
Subjective HPI/Critical Care Issues: The patient is arousable, but sedated and on mechanical ventilation. He is currently on 9 mg of Ativan per hour. His Ativan dose increased overnight due to agatiation. His heart rate and BP have improved, noting his BP was low yesterday and his heart rate was elevated. He is now off Cardizem and he has been started on digoxin with improvement. His cyanosis on his fingertips has improved with hand elevation. His hematuria is resolving. Objective Current Medications: Current Medications Sig/Jose Start time Last Medication Dose Route Stop Time Status Admin Acetaminophen 650 MG Q6P PRN 04/18 1445 AC PO Acetaminophen 1,000 MG Q6P PRN 04/18 1445 AC IV Aspirin Buffered 81 MG DAILY 04/18 1433 AC 04/24 PO 1011 Ceftriaxone Sodium 1,000 MG DAILY 04/22 1447 AC 04/24 IV 1011 Chlorhexidine 15 ML TID 04/21 1000 AC 04/24 Gluconate PO 1012 Digoxin 0.25 MG ONCE ONE 04/24 1045 DC 04/24 IV 04/24 1046 1111 Diltiazem HCl 125 MG Q12H 04/21 2300 DC 04/23 Dextrose/Water 100 ML IV 1000 Folic Acid 1 MG DAILY 04/18 1602 AC 04/24 PO 1011 Furosemide 20 MG Q8 04/22 1400 AC 04/22 IV 2125 Gabapentin 300 MG Q8 04/22 1400 AC 04/24 PO 0534 Lorazepam 100 MG Q13H 04/24 0530 AC 04/24 Dextrose/Water 1,000 ML IV 0532 Lorazepam 50 MG Q13H 04/23 1430 DC / Dextrose/Water 500 ML IV 2315 Lorazepam 50 MG Q16H 04/22 0345 DC / Dextrose/Water 500 ML IV 04/23 1429 0218 Lorazepam 0 Q1P PRN 04/20 0015 AC 04/20 IV 1058 Magnesium Oxide 400 MG BID 04/19 1334 AC 04/24 PO 1011 Metoprolol Tartrate 100 MG BID 04/19 2200 AC 04/19 PO 2047 Multivitamins 1 TAB DAILY 04/18 1602 AC 04/24 PO 1011 Nystatin 1 VY BID 04/20 1000 DC 04/23 TOP 2221 Pantoprazole Sodium 40 MG DAILY 04/20 1512 AC 04/24 IV 1012 Potassium Chloride 20 MEQ ONCE ONE 04/23 1730 DC 04/23 PO 04/23 1731 1730 Potassium Chloride 20 MEQ BID 04/19 2200 AC 04/24 PO 1011 Propofol 1,000 MG CONTINOUS INFUSION 04/22 0345 AC 04/22 N/A 100 ML IV 1139 Sodium Chloride 500 ML BOLUS ONE 04/23 1300 DC 04/23 IV 04/23 1359 1259 Thiamine HCl 100 MG DAILY 04/18 1602 AC 04/24 PO 1011 Vital Signs & I&O Last 24 Hrs of Vitals and I&O: Vital Signs Date Time Temp Pulse Resp B/P B/P Pulse O2 O2 Flow FiO2 Mean Ox Delivery Rate 04/24 1055 30 04/24 0826 30 04/24 0800 97 Ventilator 30% 04/24 0800 97.9 114 20 110/78 99 Ventilator 30% 04/24 0624 30 04/24 0411 30 04/24 0400 95 Ventilator 30% 04/24 0052 30 / 0000 97.9 100 18 100/64 94 Ventilator 30% 04/24 0000 97 Ventilator 30% 04/23 2248 29.5 04/23 2221 108 90/72 04/23 2015 30 / 2000 94 Ventilator 30% 08 1722 30 /08 1600 99 Ventilator 30% / 1600 98.5 100 23 88/58 99 Ventilator 30% 04/23 1409 30 Intake & Output 04/24 1600 / 0800 07/ 0000 Intake Total 1445 1200 Output Total 1800 800 Balance -355 400 Intake, IV 615 380 Intake, Tube 470 400 Feeding Intake, Tube 360 420 Irrigant Output, Urine 1800 800 General Appearance: Intubated, sedated Skin: No Breakdown Skin Temp/Moisture Exam: Hot/Dry Sepsis Skin Exam (color): Flushed HEENT: unable to assess- eyes closed Cardiovascular: Normal S1, Normal S2, Gallops, Rubs Lungs: crackles bilaterally Abdomen: Normal Bowel Sounds, distended Neurological: somnolent and not responsive to questions Extremities: erythematous and edematous from feet to scrotum Vascular: Normal Pulses Results Last 24 Hrs of Lab Results: Laboratory Tests 04/24/17 0535: pH 7.52 H, pCO2 36, pO2 85, HCO3 29 H, ABG O2 Sat (Measured) 96.0, P-50 (Temp Corrected) Y, Carboxyhemoglobin 0.2 L, O2 Concentration % 30%, Temperature 98.0 , Respiration Rate 10, O2 Delivery Method ESPRIT, Vent Mode AC, Expiratory Pressure 5, Tidal Volume 500, Phlebotomy Draw Site RIGHT RADIAL 04/24/17 0400: Anion Gap 6, Estimated GFR > 60, Glucose 86, Calcium 7.9 L, Phosphorus 3.3, Magnesium 1.8, Total Bilirubin 1.4 H, AST 24, ALT 30, Albumin 2.4 L, CBC w Diff NO MAN DIFF REQ, RBC 3.19 L, MCV 97.9 H, MCH 31.5 H, RDW 19.4 H, MPV 8.0, Gran % 64.6, Lymphocytes % 20.7, Monocytes % 12.3 H, Eosinophils % 1.9, Basophils % 0.5, Absolute Granulocytes 3.7, Absolute Lymphocytes 1.2, Absolute Monocytes 0.7 H, Absolute Eosinophils 0.1, Absolute Basophils 0, PUBS MCHC 32.2 L 04/23/17 1230: pH 7.57 H, pCO2 24 L, pO2 84, HCO3 22, ABG O2 Sat (Measured) 97.0, P-50 (Temp Corrected) N, Carboxyhemoglobin 0.1 L, O2 Concentration % 30%, Respiration Rate 10, O2 Delivery Method VENT, Vent Mode AC, Expiratory Pressure 5, Tidal Volume 500, Pressure Support 0, Phlebotomy Draw Site LEFT RADIAL Impression/Plan Impression/Plan Impression/Plan: 1. Respiratory failure secondary to aspiration pneumonitis versus pneumonia, on mechanical ventilation. Respiratory culture is positive for strep pneumo, on ceftriaxone. 2. Severe PREP PERSON with an EF of 20-25%, with left ventricular hypertrophy and significant RV dilation. Positive evidence of fluid overload. 3. Significant pulmonary hypertension with body fluid overload. 4. Atrial fibrillation with rapid ventricular response, on Heparin. 5. Left pleural effusion which may need to be tapped if increased. 6. Probable significant untreated obstructive sleep apnea. 7. Ongoing severe hematuria. 8. Peripheral ischemia, may be related to dependent venous disease. Ulcers are palpable and no evidence of acute clotting. 9. Urinary tract infection, culture is positive for Klebsiella. Recommendations: * Continue to monitor off anticoagulation due to hematuria. * Nursing to irrigate pinon catheter to keep it patent. * Will wean down ativan as tolerated. Keep SAS at 3. Continue to monitor on CIWA protocol. * Continue multivitamin, thiamine and folate. * Keep hands elevated. * Continue tube feeds. * Rate control with digoxin as per cardiology. * Continue IV Lasix, recheck potassium and replace as needed. * DVT and GI prophylaxis at all times. * Continue ventilator bundle. * Continue all supportive care. Code Status: Full Code
--- NOTE | 2017-04-24 20:33 | NUR ---
PT SEDATED ON ATIVAN GTT AT 9MG/HR. OPENS EYES TO VERBAL STIMULI, NOT FOLLOWING COMMAND AT PRESENT. SOFT BILATERAL WRIST RESTRAINTS IN PLACE. ORALLY INTUBATED AND VENTED. RHONCI BREATH SOUNDS THROUGHOUT, DIMINISHED BREATH SOUNDS AT BASES BILATERALLY. SUCTIONING FOR LG AMT OF THIN ARORA SECREATIONS. SEE FLOW SHEET FOR VS, 02 SATS, I/O'S. MONITOR SHOWS AFIB, NO ECTOPY NOTED AT PRESENT. BP STABLE AT PRESENT. ABD SOFT, NONTENDER, NONDISTENDED, POSITIVE BOWEL SOUNDS. OGT IN PLACE-PLACEMENT CONFIRMED BY AIR-ON TUBE FEEDS-TOLERATING WELL AT PRESENT. SALDANA IN PLACE-DRAINING LARGE AMT OF HEMATURIA-NO CLOTS NOTED AT PRESENT. 2+ GENERALIZED EDEMA. SKIN INTACT
[2017-04-24 23:00] VITALS: BP 124/84
[2017-04-25 04:53] LABS: ABSOLUTE BASOPHIL COUNT 0 /CUMM (0.0-0.2); ABSOLUTE EOSINOPHIL COUNT 0.1 /CUMM (0.0-0.7); ABSOLUTE GRANULOCYTE CT 3.3 /CUMM (1.4-6.5); ABSOLUTE MONOCYTE COUNT 0.9 /CUMM (0.10-0.60); BASOPHIL % 0.8 % (0.0-2.0); EOSINOPHIL % 2.3 % (0-5); GRANULOCYTE % 61.1 % (42.2-75.2); HEMATOCRIT 32.2 % (42-52); MEAN CORPUSCULAR HGB 31.8 PG (27.0-31.0); MEAN CORPUSCULAR HGB CONC 32.6 G/DL (33.0-37.0); MEAN CORPUSCULAR VOLUME 97.4 FL (80.0-94.0); MEAN PLATELET VOLUME 8.1 FL (7.4-10.4); PLATELET COUNT 250 /CUMM (130-400); RBC DISTRIBUTION WIDTH 19.3 % (11.5-14.5); WHITE BLOOD CELL COUNT 5.5 /CUMM (4.8-10.8)
--- NOTE | 2017-04-25 07:10 | NUR ---
PT REMAINS ON ATIVAN GTT AT 9MG/HR. SAS-3 FOR SHIFT. REMAINS ON BILATERAL SOFT WRIST RESTRAINTS. SUCTIONING FOR MOD-LG AMT OF THIN AORRA SECREATIONS. 02 SATS >95%. PT REMAINS IN AFIB, BUT HR DOWN TO 90'S TO LOW 100'S AFTER SCHEDULED LOPRESSOR DOSE. BP STABLE THROUGHOUT SHIFT. LARGE URINE OUTPUT AFTER SCHEDULED LASIX DOSE. URINE REMAINS HEMATURIC, BUT IS WILDLIFE BIOSTATION RESEARCH ECOLOGIST-NOW LIGHT RED TO DARK PINK COLOR. TOLERATED TUBE FEEDS WELL THROUGHOUT SHIFT. SKIN REMAINS INTACT
--- NOTE | 2017-04-25 08:22 | RADIOLOGY REPORT ---
EXAMINATION: XR PORTABLE CHEST CLINICAL INFORMATION: Shortness of breath. COMPARISON: CXR from 04/23/2017 and 04/24/2017 TECHNIQUE: Portable frontal view of the chest was obtained. FINDINGS: Patient is slightly rotated to the left. Endotracheal tube is positioned 5.4 cm above the manny. Enteric tube extends below the diaphragm, into the stomach and beyond the [id number]. The interval increased hazy opacity in right lower lobe could represent atelectasis and/or infiltrate. There is persistent opacification of the left lower lobe from collapse and/or consolidation. Unable to exclude small left pleural effusion. Cardiomegaly and left-sided shift of the cardiomediastinal silhouette, indicative of volume loss. No acute skeletal finding. IMPRESSION: 1. Endotracheal tube is in satisfactory position at 5.4 cm above the manny. 2. Left lower lobe is probably collapsed and there is left-sided shift of the cardiomediastinal silhouette. 3. There is increased hazy opacity in the right lower lobe from worsening atelectasis or infiltrate.
--- NOTE | 2017-04-25 08:53 | PN- CRCU ---
Subjective HPI/Critical Care Issues: I saw the patient today at bedside. NO OVER NIGHT EVENTS. Patient is sedated, intubated. No apparent distress. Vitals stable. On Ativan drip 9 MG Objective Current Medications: Current Medications Sig/Jose Start time Last Medication Dose Route Stop Time Status Admin Acetaminophen 650 MG Q6P PRN 04/18 1445 AC PO Acetaminophen 1,000 MG Q6P PRN 04/18 1445 AC IV Aspirin Buffered 81 MG DAILY 04/18 1433 AC 04/24 PO 1011 Ceftriaxone Sodium 1,000 MG DAILY 04/22 1447 AC 04/24 IV 1011 Chlorhexidine 15 ML TID 04/21 1000 AC 04/24 Gluconate PO 2144 Digoxin 0.125 MG ONCE ONE 04/24 1745 DC 04/24 IV 04/24 1746 1751 Digoxin 0.25 MG ONCE ONE 04/24 1045 DC 04/24 IV 04/24 1046 1111 Folic Acid 1 MG DAILY 04/18 1602 AC 04/24 PO 1011 Furosemide 20 MG Q8 04/22 1400 AC 04/25 IV 0635 Gabapentin 300 MG Q8 04/22 1400 AC 04/25 PO 0635 Lorazepam 100 MG Q13H 04/24 0530 AC 04/25 Dextrose/Water 1,000 ML IV 0215 Lorazepam 0 Q1P PRN 04/20 0015 AC 04/20 IV 1058 Magnesium Oxide 400 MG ONE ONE 04/25 0645 CAN PO 04/25 0646 Magnesium Oxide 400 MG ONE ONE 04/25 0645 CAN PO 04/25 0646 Magnesium Oxide 400 MG BID 04/19 1334 AC 04/24 PO 2144 Metoprolol Tartrate 100 MG BID 04/19 2200 AC 04/24 PO 2143 Multivitamins 1 TAB DAILY 04/18 1602 AC 04/24 PO 1011 Nystatin 1 VY BID 04/20 1000 DC 04/23 TOP 2221 Pantoprazole Sodium 40 MG DAILY 04/20 1512 AC 04/24 IV 1012 Potassium Chloride 20 MEQ BID 04/19 2200 AC 04/24 PO 2142 Propofol 1,000 MG CONTINOUS INFUSION 04/22 0345 AC 04/22 N/A 100 ML IV 1139 Thiamine HCl 100 MG DAILY 04/18 1602 AC 04/24 PO 1011 Vital Signs & I&O Last 24 Hrs of Vitals and I&O: Vital Signs Date Time Temp Pulse Resp B/P B/P Pulse O2 O2 Flow FiO2 Mean Ox Delivery Rate 04/25 0820 30 04/25 0605 30 04/25 0400 98 Ventilator 30% 04/25 0324 30 04/25 0000 95 Ventilator 30% 04/24 2300 97.6 92 26 124/84 95 Ventilator 30% 04/24 2143 124 21 122/89 04/24 2127 30 04/24 2000 95 Ventilator 30% 04/24 1926 30 04/24 1610 30 04/24 1319 30 04/24 1200 98 Ventilator 30% 04/24 1055 30 Intake & Output 04/25 1600 04/25 0800 04/25 0000 Intake Total 1742 1375 Output Total 4675 2225 Balance -2933 -850 Intake, IV 701 978 Intake, Tube 501 217 Feeding Intake, Tube 540 180 Irrigant Number 0 0 Bowel Movements Output, Urine 4675 2225 Patient 256 lb Weight Weight Bed scale Measurement Method Exam General Appearance: well developed/nourished, no apparent distress, sedated, intubated Head: normal appearance Neck: normal inspection, supple, full range of motion, JVD Respiratory: normal breath sounds Cardiovascular: regular rate/rhythm Abdomen: normal bowel sounds, soft, non-tender, no organomegaly, minimal scrotal edema Extremities: bluish discoloration of peripheries. Results Last 24 Hrs of Lab Results: Laboratory Tests 04/25/17 0529: Anion Gap 7, Estimated GFR > 60, Glucose 87, Calcium 8.2 L, Phosphorus 4.0, Magnesium 1.9, Total Bilirubin 1.2, AST 27, ALT 31, Albumin 2.5 L 04/25/17 0510: pH 7.50 H, pCO2 39, pO2 103 H, HCO3 30 H, ABG O2 Sat (Measured) 97.0, P-50 ( Temp Corrected) Y, Carboxyhemoglobin 0.4 L, O2 Concentration % 30%, Temperature 98.8, Respiration Rate 10, O2 Delivery Method ESPRIT, Vent Mode AC, Expiratory Pressure 5, Tidal Volume 500, Phlebotomy Draw Site RIGHT RADIAL 04/25/17 0418: CBC w Diff NO MAN DIFF REQ, RBC 3.30 L, MCV 97.4 H, MCH 31.8 H, RDW 19.3 H, MPV 8.1, Gran % 61.1, Lymphocytes % 19.0 L, Monocytes % 16.8 H, Eosinophils % 2.3, Basophils % 0.8, Absolute Granulocytes 3.3, Absolute Lymphocytes 1.0 L, Absolute Monocytes 0.9 H, Absolute Eosinophils 0.1, Absolute Basophils 0, PUBS MCHC 32.6 L Diagnostic Data CXR Findings: 04/25/17 1. Endotracheal tube is in satisfactory position at 5.4 cm above the manny. 2. Left lower lobe is probably collapsed and there is left-sided shift of the cardiomediastinal silhouette. 3. There is increased hazy opacity in the right lower lobe from worsening atelectasis or infiltrate. Impression/Plan Impression/Plan Impression/Plan: 51 year old male with a PMH significant for afib with rvr was on eliquis ( electrical cardioversion 2000), htn, alcohol abuse, 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 The patient suddenly became unresponsive, agitated, confused and transferred to ICU for close monitoring on 04/20/17. Patient around 3.30 am on 04/20/17 had worsening respiratory status and intubated as per Dr. Vidal instructions. Patient is on Ativan drip. Cardizem drip HELD IN VIEW OF HYPOTENSION, heparin drip HELD IN VIEW OF HEMATURIA. on ativan drip. vitals bp-124/84, pr-92,rr-18, fio2 30 Plan ICU day 5 Respiratory * Chest clear, no other added sounds. * Advised to start Librium 75 every q 6, increase gabapentin to 600 every q 8, Lasix 40 mg every q8, potassium 40 mg twice a day if significant diuresis, Ativan rapid taper after 2 or 3 doses of Librium by Dr. Vidal. * Pulmonary toilet * Aspiration precaution Infection * Urine culture grew gram-negative rods.sputum culture- steptococcos penumonuia on Ceftriaxone 1 gm - DAY 4. Patient had hematuria-today urine clearing. Cardiac * S1-S2, patient has A. fib. was on heparin drip held due to hematuria. and Cardizem drip withheld in view of hypotension 96/64. today bp- 124/84. Heme * Close monitoring of his electrolytes, CBC. Daily ICU bundle, CBC,ABG. TSH- 5.440. In view of bluish coloration of his feet and hands- lucy,anca,crp,esr ordered. metabolic * PH 7.50, PCO2 39, PaO2 103, bicarbonate 30. Aspiration precaution. Alimentary * tube feed. Neuro * Head CT-04/22/17 1. No acute intracranial pathology compared to 06/04/20 2. Incidentally detected is paranasal sinus disease. DVT * alps Code Status: Full Code Problem List: 1. Atrial fibrillation with RVR 2. HTN (hypertension) 3. Alcohol withdrawal 4. Acute on chronic congestive heart failure
[2017-04-25 10:00] VITALS: BP 130/94
--- NOTE | 2017-04-25 10:38 | PN- CRCU ---
Subjective HPI/Critical Care Issues: Patient is sedated, intubated. opens eyes on commands. No apparent distress. Vitals stable. On Ativan drip. Events and data reviewed Laboratory Tests 04/25 04/25 04/25 [id number] 8726 Blood Gas pH (7.35 - 7.45 PH) 7.50 H pCO2 (35 - 45 TORR) 39 pO2 (80 - 100 TORR) 103 H HCO3 (21 - 28 MEQ/L) 30 H ABG O2 Sat (Measured) (>96.0 %) 97.0 P-50 (Temp Corrected) Y Carboxyhemoglobin (1.5 - 5.0 %) 0.4 L O2 Concentration % 30% Temperature (97.0 - 100.0 FARH) 98.8 Respiration Rate (BPM) 10 O2 Delivery Method ESPRIT Vent Mode AC Expiratory Pressure (CMH2O/P) 5 Tidal Volume (CC) 500 Chemistry Sodium (137 - 145 mmol/L) 139 Potassium (3.5 - 5.1 mmol/L) 4.3 Chloride (98 - 107 mmol/L) 102 Carbon Dioxide (22 - 30 mmol/L) 29 Anion Gap (5 - 16) 7 BUN (9 - 20 mg/dL) 9 Creatinine (0.7 - 1.2 mg/dL) 0.6 L Estimated GFR (>60 ml/min) > 60 Glucose (65 - 99 mg/dL) 87 Calcium (8.4 - 10.2 mg/dL) 8.2 L Phosphorus (2.5 - 4.5 mg/dL) 4.0 Magnesium (1.6 - 2.3 mg/dL) 1.9 Total Bilirubin (0.2 - 1.3 mg/dL) 1.2 AST (17 - 59 U/L) 27 ALT (21 - 72 U/L) 31 Albumin (3.5 - 5.0 g/dL) 2.5 L Hematology CBC w Diff NO MAN DIFF REQ WBC (4.8 - 10.8 /CUMM) 5.5 RBC (4.70 - 6.10 /CUMM) 3.30 L Hgb (14.0 - 18.0 G/DL) 10.5 L Hct (42 - 52 %) 32.2 L MCV (80.0 - 94.0 FL) 97.4 H MCH (27.0 - 31.0 PG) 31.8 H RDW (11.5 - 14.5 %) 19.3 H Plt Count (130 - 400 /CUMM) 250 MPV (7.4 - 10.4 FL) 8.1 Gran % (42.2 - 75.2 %) 61.1 Lymphocytes % (20.5 - 51.1 %) 19.0 L Monocytes % (1.7 - 9.3 %) 16.8 H Eosinophils % (0 - 5 %) 2.3 Basophils % (0.0 - 2.0 %) 0.8 Absolute Granulocytes (1.4 - 6.5 /CUMM) 3.3 Absolute Lymphocytes (1.2 - 3.4 /CUMM) 1.0 L Absolute Monocytes (0.10 - 0.60 /CUMM) 0.9 H Absolute Eosinophils (0.0 - 0.7 /CUMM) 0.1 Absolute Basophils (0.0 - 0.2 /CUMM) 0 PUBS MCHC (33.0 - 37.0 G/DL) 32.6 L Miscellaneous Phlebotomy Draw Site RIGHT RADIAL 04/24 04/24 0535 0400 Blood Gas pH (7.35 - 7.45 PH) 7.52 H pCO2 (35 - 45 TORR) 36 pO2 (80 - 100 TORR) 85 HCO3 (21 - 28 MEQ/L) 29 H ABG O2 Sat (Measured) (>96.0 %) 96.0 P-50 (Temp Corrected) Y Carboxyhemoglobin (1.5 - 5.0 %) 0.2 L O2 Concentration % 30% Temperature (97.0 - 100.0 FARH) 98.0 Respiration Rate (BPM) 10 O2 Delivery Method ESPRIT Vent Mode AC Expiratory Pressure (CMH2O/P) 5 Tidal Volume (CC) 500 Chemistry Sodium (137 - 145 mmol/L) 136 L Potassium (3.5 - 5.1 mmol/L) 4.0 Chloride (98 - 107 mmol/L) 101 Carbon Dioxide (22 - 30 mmol/L) 29 Anion Gap (5 - 16) 6 BUN (9 - 20 mg/dL) 7 L Creatinine (0.7 - 1.2 mg/dL) 0.6 L Estimated GFR (>60 ml/min) > 60 Glucose (65 - 99 mg/dL) 86 Calcium (8.4 - 10.2 mg/dL) 7.9 L Phosphorus (2.5 - 4.5 mg/dL) 3.3 Magnesium (1.6 - 2.3 mg/dL) 1.8 Total Bilirubin (0.2 - 1.3 mg/dL) 1.4 H AST (17 - 59 U/L) 24 ALT (21 - 72 U/L) 30 Albumin (3.5 - 5.0 g/dL) 2.4 L Hematology CBC w Diff NO MAN DIFF REQ WBC (4.8 - 10.8 /CUMM) 5.7 RBC (4.70 - 6.10 /CUMM) 3.19 L Hgb (14.0 - 18.0 G/DL) 10.0 L Hct (42 - 52 %) 31.2 L MCV (80.0 - 94.0 FL) 97.9 H MCH (27.0 - 31.0 PG) 31.5 H RDW (11.5 - 14.5 %) 19.4 H Plt Count (130 - 400 /CUMM) 233 MPV (7.4 - 10.4 FL) 8.0 Gran % (42.2 - 75.2 %) 64.6 Lymphocytes % (20.5 - 51.1 %) 20.7 Monocytes % (1.7 - 9.3 %) 12.3 H Eosinophils % (0 - 5 %) 1.9 Basophils % (0.0 - 2.0 %) 0.5 Absolute Granulocytes (1.4 - 6.5 /CUMM) 3.7 Absolute Lymphocytes (1.2 - 3.4 /CUMM) 1.2 Absolute Monocytes (0.10 - 0.60 /CUMM) 0.7 H Absolute Eosinophils (0.0 - 0.7 /CUMM) 0.1 Absolute Basophils (0.0 - 0.2 /CUMM) 0 PUBS MCHC (33.0 - 37.0 G/DL) 32.2 L Miscellaneous Phlebotomy Draw Site RIGHT RADIAL 04/23 04/23 1230 1200 Blood Gas pH (7.35 - 7.45 PH) 7.57 H pCO2 (35 - 45 TORR) 24 L pO2 (80 - 100 TORR) 84 HCO3 (21 - 28 MEQ/L) 22 ABG O2 Sat (Measured) (>96.0 %) 97.0 P-50 (Temp Corrected) N Carboxyhemoglobin (1.5 - 5.0 %) 0.1 L O2 Concentration % 30% Respiration Rate (BPM) 10 O2 Delivery Method VENT Vent Mode AC Expiratory Pressure (CMH2O/P) 5 Tidal Volume (CC) 500 Pressure Support (CMH2O/P) 0 Chemistry C-Reactive Prot, Quant (<1.0 mg/dL) 6.0 H C-React Prot High Sens (1.0 - 3.0 mg/L) > 15.0 H Coagulation PT (9.4 - 12.5 SEC) 14.2 H INR (0.90 - 1.17) 1.36 H APTT (25 - 37 SEC) 41 H Hematology ESR Westergren (0 - 10 MM) 17 H Immunology ANCA Pending Miscellaneous Phlebotomy Draw Site LEFT RADIAL Microbiology Date/Time Procedure - Status Source Growth 04/22 1545 Urine Culture - COMP URINE ROUT 04/22 1144 Respiratory Culture - RES LOWER RESP STREPTOCOCCUS PNEUMONIAE 04/22 1144 Gram Stain - RES LOWER RESP Objective Current Medications: Current Medications Sig/Jose Start time Last Medication Dose Route Stop Time Status Admin Acetaminophen 650 MG Q6P PRN 04/18 1445 AC PO Acetaminophen 1,000 MG Q6P PRN 04/18 1445 AC IV Aspirin Buffered 81 MG DAILY 04/18 1433 AC 04/25 PO 0842 Ceftriaxone Sodium 1,000 MG DAILY 04/22 1447 AC 04/25 IV 0841 Chlorhexidine 15 ML TID 04/21 1000 AC 04/25 Gluconate PO 0843 Digoxin 0.125 MG ONCE ONE 04/24 1745 DC 04/24 IV 04/24 1746 1751 Digoxin 0.25 MG ONCE ONE 04/24 1045 DC 04/24 IV 04/24 1046 1111 Folic Acid 1 MG DAILY 04/18 1602 AC 04/25 PO 0842 Furosemide 20 MG Q8 04/22 1400 AC 04/25 IV 0635 Gabapentin 300 MG Q8 04/22 1400 AC 04/25 PO 0635 Lorazepam 100 MG Q13H 04/24 0530 AC 04/25 Dextrose/Water 1,000 ML IV 0215 Lorazepam 0 Q1P PRN 04/20 0015 AC 04/20 IV 1058 Magnesium Oxide 400 MG ONE ONE 04/25 0645 CAN PO 04/25 0646 Magnesium Oxide 400 MG ONE ONE 04/25 0645 CAN PO 04/25 0646 Magnesium Oxide 400 MG BID 04/19 1334 AC 04/25 PO 0842 Metoprolol Tartrate 100 MG BID 04/19 2200 AC 04/25 PO 0842 Multivitamins 1 TAB DAILY 04/18 1602 AC 04/25 PO 0842 Pantoprazole Sodium 40 MG DAILY 04/20 1512 AC 04/25 IV 0841 Potassium Chloride 20 MEQ BID 04/19 2200 AC 04/25 PO 0842 Propofol 1,000 MG CONTINOUS INFUSION 04/22 0345 AC 04/22 N/A 100 ML IV 1139 Thiamine HCl 100 MG DAILY 04/18 1602 AC 04/25 PO 0842 Vital Signs & I&O Last 24 Hrs of Vitals and I&O: Vital Signs Date Time Temp Pulse Resp B/P B/P Pulse O2 O2 Flow FiO2 Mean Ox Delivery Rate 04/25 0820 30 04/25 0605 30 04/25 0400 98 Ventilator 30% 04/25 0324 30 04/25 0000 95 Ventilator 30% 04/24 2300 97.6 92 26 124/84 95 Ventilator 30% 04/24 2143 124 21 122/89 04/24 2127 30 04/24 2000 95 Ventilator 30% 04/24 1926 30 04/24 1610 30 04/24 1319 30 04/24 1200 98 Ventilator 30% 04/24 1055 30 Intake & Output 04/25 1600 04/25 0800 04/25 0000 Intake Total 1742 1375 Output Total 4675 2225 Balance -2933 -850 Intake, IV 701 978 Intake, Tube 501 217 Feeding Intake, Tube 540 180 Irrigant Number 0 0 Bowel Movements Output, Urine 4675 2225 Patient 256 lb Weight Weight Bed scale Measurement Method Impression/Plan Impression/Plan Impression/Plan: General Appearance: Intubated sedated. Ventilator settings reviewed, vt 500 fio2 30 Skin: No Breakdown Skin Temp/Moisture Exam: Hot/Dry Sepsis Skin Exam (color): Flushed HEENT: unable to assess- eyes closed Cardiovascular: Normal S1, Normal S2, Gallops, Rubs Lungs: crackles bilaterally Abdomen: Normal Bowel Sounds, distended Neurological: somnolent and not responsive to questions Extremities: erythematous and edematous from feet to scrotum Vascular: Normal Pulses IMPRESSION Pt with sig cardiomegaly, pulm htn, prob sig jonny, etoh abuse, rapid afib, now admitted to the ICU issues include * Acute hypoxic resp failure due to severe DTs and inability to protect his airways with fluid overload and prob aspiration * Sig DTs with delirium * Aspiration pna and sinusitis with strep pneumo in the sputum * Severe cardiomyopathy, 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, with sig pulm htn and atrial hypertrophy * Sig pulm htn with total body fluid overload * History of Medical non compliance * Afib with high ventricular response * Mild effusion, asicites and rt heart failure * Prob sig untreated JONNY * Dillon incertion leading to hematuria has a condom cath urology on board, pt was on eloquis and asa, now with anemia * Sig hematuria now slowly improving off heparin per cardio, pt has a uti with klebsiella aswell * Sig electrolyte imbalance * Left lower lobe atx due to cardiomegaly and aspiration REC Cont vent Reduce ativan Start librium down ng 75 q 6 hrs and after two to three doses rapidly taper ativan Increase gabapentin to 600 q 8 IV lasix 40mg q 8 hrs today Potassium down ng 40 bid if he has sig diuresis cont abx PPI Check tsh and free t 4 Start jevity at 20 cc per hr later on when pt is stable Mag 1 gram iv Cont agg pulm toilet keep hob up Will follow closely Pt is critically ill tts 40 mins Code Status: Full Code
[2017-04-26] VITALS: BP 104/60
[2017-04-26 05:12] LABS: ABSOLUTE BASOPHIL COUNT 0.1 /CUMM (0.0-0.2); ABSOLUTE EOSINOPHIL COUNT 0.2 /CUMM (0.0-0.7); ABSOLUTE LYMPH COUNT 1.2 /CUMM (1.2-3.4); BASOPHIL % 1.2 % (0.0-2.0); EOSINOPHIL % 3.7 % (0-5); GRANULOCYTE % 53.9 % (42.2-75.2); HEMATOCRIT 34.4 % (42-52); MEAN CORPUSCULAR HGB 31.6 PG (27.0-31.0); MEAN CORPUSCULAR HGB CONC 32.3 G/DL (33.0-37.0); MEAN CORPUSCULAR VOLUME 97.7 FL (80.0-94.0); MEAN PLATELET VOLUME 7.8 FL (7.4-10.4); PLATELET COUNT 292 /CUMM (130-400); RBC DISTRIBUTION WIDTH 19.3 % (11.5-14.5); RED BLOOD CELL CT 3.52 /CUMM (4.70-6.10); WHITE BLOOD CELL COUNT 5.6 /CUMM (4.8-10.8)
--- NOTE | 2017-04-26 07:15 | PN- CRCU ---
Subjective HPI/Critical Care Issues: I saw the patient today at bedside. Patient is drowsy, follows commands, not dyspneic, not tachypneic. No overnight events. FiO2-30, RR-18, BP-113/77, LA- 92. ATIVAN 2 MG. Objective Current Medications: Current Medications Sig/Jose Start time Last Medication Dose Route Stop Time Status Admin Acetaminophen 650 MG Q6P PRN 04/18 1445 AC PO Acetaminophen 1,000 MG Q6P PRN 04/18 1445 AC IV Apixaban 2.5 MG BID 04/26 1041 AC PO Aspirin Buffered 81 MG DAILY 04/18 1433 AC 04/26 PO 0907 Ceftriaxone Sodium 1,000 MG DAILY 04/22 1447 AC 04/26 IV 0902 Chlordiazepoxide HCl 75 MG Q6 04/25 1200 AC 04/26 PO 0543 Chlorhexidine 15 ML TID 04/21 1000 AC 04/26 Gluconate PO 0902 Folic Acid 1 MG DAILY 04/18 1602 AC 04/26 PO 0907 Furosemide 40 MG Q8 04/25 1400 AC 04/26 IV 0543 Gabapentin 600 MG Q8 04/25 1400 AC 04/26 PO 0543 Lorazepam 100 MG Q11H 04/25 2359 AC 04/25 Dextrose/Water 1,000 ML IV 2356 Lorazepam 100 MG Q13H 04/24 0530 DC 04/25 Dextrose/Water 1,000 ML IV 04/25 2359 0215 Lorazepam 0 Q1P PRN 04/20 0015 AC 04/20 IV 1058 Magnesium Oxide 400 MG BID 04/19 1334 DC 04/25 PO 2218 Magnesium Sulfate 1 GM ONCE ONE 04/26 0800 DC 04/26 Dextrose/Water 100 ML IV 04/26 1159 0902 Metoprolol Tartrate 100 MG BID 04/19 2200 AC 04/25 PO 2218 Multivitamins 1 TAB DAILY 04/18 1602 AC 04/26 PO 0907 Pantoprazole Sodium 40 MG DAILY 04/20 1512 AC 04/26 IV 0902 Polyethylene Glycol 17 GM DAILY 04/25 1834 AC 04/26 PO 0905 Potassium Chloride 20 MEQ BID 04/19 2200 AC 04/26 PO 0907 Propofol 1,000 MG CONTINOUS INFUSION 04/22 0345 AC 04/22 N/A 100 ML IV 1139 Thiamine HCl 100 MG DAILY 04/18 1602 AC 04/26 PO 0907 Vital Signs & I&O Last 24 Hrs of Vitals and I&O: Vital Signs Date Time Temp Pulse Resp B/P B/P Pulse O2 O2 Flow FiO2 Mean Ox Delivery Rate 04/26 1200 98.2 110 22 100/68 07 1200 100 Ventilator 30% 11 1115 30 04/26 1026 99 98/68 04/26 1000 98.4 108 24 101/76 04/26 0900 98.4 108 18 100/72 04/26 0843 30 04/26 0800 98.4 104 18 113/78 04/26 0800 100 Ventilator 30% 04/26 0800 98.4 104 21 98/58 100 Ventilator 30% 04/26 0632 30 04/26 0400 100 Ventilator 30% 04/26 0254 30 04/26 0037 30 04/26 0000 100 Ventilator 30% / 0000 97.9 92 18 104/60 100 Ventilator 30% 04/25 2250 30 04/25 2218 111 113/77 04/25 2000 100 Ventilator 30% 10 1950 30 04/25 1635 30 04/25 1600 100 Ventilator 30% /10 1435 30 Intake & Output 04/26 1600 11 0800 04/26 0000 Intake Total 1077 1616 Output Total 5000 3520 Balance -3923 -1904 Intake, IV 386 716 Intake, Oral 0 Intake, Tube 511 520 Feeding Intake, Tube 180 380 Irrigant Number 0 0 Bowel Movements Output, Urine 5000 3520 Patient 227 lb Weight Weight Bed scale Measurement Method Exam General Appearance: well developed/nourished, sedated, intubated, follows command Head: normal appearance Neck: normal inspection, supple, full range of motion Respiratory: normal breath sounds, chest non-tender, no respiratory distress, quiet respiration Cardiovascular: irregular Abdomen: normal bowel sounds, soft, non-tender, no organomegaly Back: normal inspection Extremities: normal inspection, normal capillary refill, peripheral pulses felt Skin: intact, bluish discoloration FEET AND HANDS Results Last 24 Hrs of Lab Results: Laboratory Tests 04/26/17 0415: Anion Gap 10, Estimated GFR > 60, Glucose 81, Calcium 8.9, Phosphorus 5.4 H, Magnesium 1.8, Total Bilirubin 1.2, AST 32, ALT 26, Albumin 2.7 L, CBC w Diff NO MAN DIFF REQ, RBC 3.52 L, MCV 97.7 H, MCH 31.6 H, RDW 19.3 H, MPV 7.8, Gran % 53.9, Lymphocytes % 22.4, Monocytes % 18.8 H, Eosinophils % 3.7, Basophils % 1.2, Absolute Granulocytes 3.0, Absolute Lymphocytes 1.2, Absolute Monocytes 1.0 H, Absolute Eosinophils 0.2, Absolute Basophils 0.1, PUBS MCHC 32.3 L 04/25/17 1500: Troponin I Cancelled Diagnostic Data CXR Findings: 04/26/17 1. Endotracheal tube is in stable position at 5.5 cm above the manny. 2. Persistent collapse of left lower lobe with left-sided shift of the cardiomediastinal silhouette. 3. No interval change in hazy opacity of atelectasis or infiltrate in the right lower lobe. Impression/Plan Impression/Plan Impression/Plan: 51 year old male with a PMH significant for afib with rvr was on eliquis ( electrical cardioversion 2000), htn, alcohol abuse, 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 The patient suddenly became unresponsive, agitated, confused and transferred to ICU for close monitoring on 04/20/17. Patient around 3.30 am on 04/20/17 had worsening respiratory status and intubated as per Dr. Vidal instructions. Patient is on Ativan drip. Cardizem drip HELD IN VIEW OF HYPOTENSION, heparin drip HELD IN VIEW OF HEMATURIA. on ativan TAPER for weaning trials today. vitals bp-124/84, pr-92,rr-18, fio2 30 Plan ICU day 5 Respiratory * Chest clear, no other added sounds. * Pulmonary toilet * Aspiration precaution Infection * Urine culture grew gram-negative rods.sputum culture- steptococcos penumonuia on Ceftriaxone 1 gm - DAY 5. Urine clear. Cardiac * S1-S2, patient has A. fib. was on heparin drip held due to hematuria. and Cardizem drip withheld in view of hypotension 96/64. today bp- 108/72. started on eliquis 2.5 mg BID. Heme * Close monitoring of his electrolytes, CBC. Daily ICU bundle, CBC,ABG. TSH- 5.440. In view of bluish coloration of his feet and hands- lucy,anca,crp,esr ordered. metabolic * PH 7.50, PCO2 39, PaO2 103, bicarbonate 30. Aspiration precaution. Alimentary * tube feed. Neuro * Head CT-04/22/17 1. No acute intracranial pathology compared to 06/04/20 2. Incidentally detected is paranasal sinus disease. DVT * alps, ELIQUIS 2.5 MG BID. Code Status: Full Code Problem List: 1. Alcohol withdrawal 2. Atrial fibrillation with RVR 3. HTN (hypertension) 4. Acute on chronic congestive heart failure
--- NOTE | 2017-04-26 07:40 | NUR ---
RECEIVED PATIENT AT 0730 ORALLY INTUBATED W/ #8 ETT AT THE CENTER AT 24 CM AND MECHANICALLY VENTILATED AT RATE OF 10, TV-500, FIO2 30% AND PEEP OF 5, O2 SAT 100%. DIMINISHED BREATH SOUNDS HEARD TO THE BASES AND MORE ON THE LEFT SIDE AND CLEAR IN THE UPPER RIGHT LOBE. DEEP SUCTIONS FOR MOD WHITE SECRETIONS AND ORALLY SUCTIONED TO FROTHY WHITE SECRETIONS. AFIB ON THE CHIEF GREEN OFFICER 90S-110S, TXY=[id number], NO C/O CP. POSITIVE PEDAL PULSES BILATERALLY, RADIAL PULSES BILATERALLY. ABDOMEN SOFT, HYPERACTIVE BOWEL SOUNDS. OGT AT 60 CM W/ JEVITY 1.5 RUNNING AT 65 MLS/HR W/ Q4 HOUR WATER FLUSHES OF 180 MLS. PASSING FLATUS, NO BM YET. SALDANA IN PLACE DRAINING LARGE/PINK URINE, EMPTIED FOR 1850 ML. SKIN INTACT. +2 EDEMA TO SCROTUM/PENIS. GENERALIZED TRACE EDEMA. SAS 2-3. PUPILS 3MM BRISKLY REACTIVE. RESPONDS TO VERBAL/PHYSICAL STIMULI. ATIVAN GTT AT 2MG/HR. PATIENT GETTING PO LIBRIUM. BILATERAL WRIST RESTRAINTS IN PLACE/SKIN INTEGRITY ASSESSED/RANGE OF MOTION COMPLETED. SAFETY MAINTAINED.
[2017-04-26 08:00] VITALS: BP 113/78; BP 98/58
--- NOTE | 2017-04-26 08:11 | RADIOLOGY REPORT ---
EXAMINATION: XR PORTABLE CHEST CLINICAL INFORMATION: Shortness of breath. COMPARISON: 04/25/2017 TECHNIQUE: Portable frontal view of the chest was obtained. FINDINGS: The endotracheal tube is located 5.5 cm above the manny. The enteric tube extends below the diaphragm and is difficult to visualize. Again noted is left lower lobe collapse, left-sided shift of the cardiomediastinal silhouette and obscuration of the left diaphragm by the basilar opacity. The hazy opacity in the medial right lower lobe is unchanged. No pneumothorax, pneumomediastinum or other new pathology. IMPRESSION: 1. Endotracheal tube is in stable position at 5.5 cm above the manny. 2. Persistent collapse of left lower lobe with left-sided shift of the cardiomediastinal silhouette. 3. No interval change in hazy opacity of atelectasis or infiltrate in the right lower lobe.
[2017-04-26 09:00] VITALS: BP 100/72
--- NOTE | 2017-04-26 09:16 | PN- Cardiology ---
Subjective Subjective: The patient remains intubated and sedated. He remains in atrial fibrillation. He is now on oral i.e. NG tube Lopressor for rate control and his rate is in the 90s. He is off IV heparin because of hematuria. His vital signs are otherwise normal. He continues to diuresis. Objective Vital Signs and I&Os Vital Signs Date Time Temp Pulse Resp B/P B/P Pulse O2 O2 Flow FiO2 Mean Ox Delivery Rate 04/26 0843 30 04/26 0800 100 Ventilator 30% 04/26 0800 98.4 104 21 98/58 100 Ventilator 30% 04/26 0632 30 04/26 0400 100 Ventilator 30% 04/26 0254 30 04/26 0037 30 04/26 0000 100 Ventilator 30% 04/26 0000 97.9 92 18 104/60 100 Ventilator 30% /10 2250 30 04/25 2218 111 113/77 04/25 2000 100 Ventilator 30% 07/10 1950 30 04/25 1635 30 / 1600 100 Ventilator 30% / 1435 30 04/25 1200 97 Ventilator 30% / 1130 30 /10 1000 99 Ventilator 30% 07/10 1000 97.5 99 22 130/94 99 Ventilator 30% Intake & Output 04/26 1600 11 0800 04/26 0000 /10 1600 /10 0800 / 0000 Intake Total 1077 1616 1690 1742 1375 Output Total 5000 3520 4600 4675 2225 Balance -3923 -1904 -2910 -2933 -850 Intake, IV 386 716 750 701 978 Intake, Oral 0 0 Intake, Tube 511 520 520 501 217 Feeding Intake, Tube 180 380 420 540 180 Irrigant Number 0 0 0 0 0 Bowel Movements Output, Urine 5000 3520 4600 4675 2225 Patient 227 lb 256 lb Weight Weight Bed scale Bed scale Measurement Method Physical Exam: He is unresponsive on the respirator HEENT exam grossly normal Chest aerating well Heart irregular rhythm no murmurs Extremities no edema at this time Current Medications: Current Medications Sig/Jose Start time Last Medication Dose Route Stop Time Status Admin Acetaminophen 650 MG Q6P PRN 04/25 1230 CAN PO Acetaminophen 650 MG Q6P PRN 04/18 1445 AC PO Acetaminophen 1,000 MG Q6P PRN 04/18 1445 AC IV Aspirin 81 MG DAILY 04/26 1000 CAN PO Aspirin Buffered 81 MG DAILY 04/18 1433 AC 04/25 PO 0842 Atorvastatin Calcium 80 MG 1700 04/25 1700 CAN PO Ceftriaxone Sodium 1,000 MG DAILY 04/22 1447 AC 04/25 IV 0841 Chlordiazepoxide HCl 75 MG Q6 04/25 1200 AC 04/26 PO 0543 Chlorhexidine 15 ML TID 04/21 1000 AC 04/25 Gluconate PO 2216 Folic Acid 1 MG DAILY 04/18 1602 AC 04/25 PO 0842 Furosemide 40 MG Q8 04/25 1400 AC 04/26 IV 0543 Furosemide 20 MG Q8 04/22 1400 DC 04/25 IV 0635 Gabapentin 600 MG Q8 04/25 1400 AC 04/26 PO 0543 Gabapentin 300 MG Q8 04/22 1400 DC 04/25 PO 0635 Ibuprofen 600 MG Q6P PRN 04/25 1230 DC PO Lorazepam 100 MG Q11H 04/25 2359 AC 04/25 Dextrose/Water 1,000 ML IV 2356 Lorazepam 100 MG Q13H 04/24 0530 DC 04/25 Dextrose/Water 1,000 ML IV 04/25 2359 0215 Lorazepam 0 Q1P PRN 04/20 0015 AC 04/20 IV 1058 Magnesium Oxide 400 MG BID 04/19 1334 DC 04/25 PO 2218 Magnesium Sulfate 1 GM ONCE ONE 04/26 0800 AC Dextrose/Water 100 ML IV 04/26 1159 Metoprolol Tartrate 100 MG BID 04/19 2200 AC 04/25 PO 2218 Morphine Sulfate 2 MG Q4P PRN 04/25 1230 DC IV Multivitamins 1 TAB DAILY 04/18 1602 AC 04/25 PO 0842 Pantoprazole Sodium 40 MG DAILY 04/20 1512 AC 04/25 IV 0841 Polyethylene Glycol 17 GM DAILY 04/25 1834 AC 04/25 PO 1834 Potassium Chloride 20 MEQ BID 04/19 2200 AC 04/25 PO 2219 Propofol 1,000 MG CONTINOUS INFUSION 04/22 0345 AC 04/22 N/A 100 ML IV 1139 Thiamine HCl 100 MG DAILY 04/18 1602 AC 04/25 PO 0842 Results Last 48 Hrs of Labs/Mics: Laboratory Tests 04/26/17 0415: Anion Gap 10, Estimated GFR > 60, Glucose 81, Calcium 8.9, Phosphorus 5.4 H, Magnesium 1.8, Total Bilirubin 1.2, AST 32, ALT 26, Albumin 2.7 L, CBC w Diff NO MAN DIFF REQ, RBC 3.52 L, MCV 97.7 H, MCH 31.6 H, RDW 19.3 H, MPV 7.8, Gran % 53.9, Lymphocytes % 22.4, Monocytes % 18.8 H, Eosinophils % 3.7, Basophils % 1.2, Absolute Granulocytes 3.0, Absolute Lymphocytes 1.2, Absolute Monocytes 1.0 H, Absolute Eosinophils 0.2, Absolute Basophils 0.1, PUBS MCHC 32.3 L 04/25/17 1500: Troponin I Cancelled 04/25/17 0529: Anion Gap 7, Estimated GFR > 60, Glucose 87, Calcium 8.2 L, Phosphorus 4.0, Magnesium 1.9, Total Bilirubin 1.2, AST 27, ALT 31, Albumin 2.5 L 04/25/17 0510: pH 7.50 H, pCO2 39, pO2 103 H, HCO3 30 H, ABG O2 Sat (Measured) 97.0, P-50 ( Temp Corrected) Y, Carboxyhemoglobin 0.4 L, O2 Concentration % 30%, Temperature 98.8, Respiration Rate 10, O2 Delivery Method ESPRIT, Vent Mode AC, Expiratory Pressure 5, Tidal Volume 500, Phlebotomy Draw Site RIGHT RADIAL 04/25/178: CBC w Diff NO MAN DIFF REQ, RBC 3.30 L, MCV 97.4 H, MCH 31.8 H, RDW 19.3 H, MPV 8.1, Gran % 61.1, Lymphocytes % 19.0 L, Monocytes % 16.8 H, Eosinophils % 2.3, Basophils % 0.8, Absolute Granulocytes 3.3, Absolute Lymphocytes 1.0 L, Absolute Monocytes 0.9 H, Absolute Eosinophils 0.1, Absolute Basophils 0, PUBS MCHC 32.6 L Recent Imaging Studies: PATIENT: JUAN A MORALES PRESENT AGE: 51 PATIENT ACCOUNT NO: [id number] : 63 LOCATION: [facility] ORDERING PHYSICIAN: STEPHANIE SOSA MD SERVICE DATE: 04/26/17050 EXAM TYPE: RAD - XRY-PORTABLE CHEST XRAY EXAMINATION: XR PORTABLE CHEST CLINICAL INFORMATION: Shortness of breath. COMPARISON: 04/25/2017 TECHNIQUE: Portable frontal view of the chest was obtained. FINDINGS: The endotracheal tube is located 5.5 cm above the manny. The enteric tube extends below the diaphragm and is difficult to visualize. Again noted is left lower lobe collapse, left-sided shift of the cardiomediastinal silhouette and obscuration of the left diaphragm by the basilar opacity. The hazy opacity in the medial right lower lobe is unchanged. No pneumothorax, pneumomediastinum or other new pathology. IMPRESSION: 1. Endotracheal tube is in stable position at 5.5 cm above the manny. 2. Persistent collapse of left lower lobe with left-sided shift of the cardiomediastinal silhouette. 3. No interval change in hazy opacity of atelectasis or infiltrate in the right lower lobe. DICTATED BY: BENITO GONSALES MD DATE/TIME DICTATED:04/26/17804 DISABILITY SERVICES COORDINATOR:KENY DATE/TIME TRANSCRIBED:04/26/17804 CONFIDENTIAL, DO NOT COPY WITHOUT APPROPRIATE AUTHORIZATION. <Electronically signed in Other Vendor System> SIGNED BY: BENITO GONSALES MD 04/26/17810 Assessment/Plan Assessment/Plan The patient's atrial fibrillation is controlled. He is diuresing on IV Lasix. We will need to watch his renal function so as not to over diuresis him. Hopefully he will be able to be extubated soon. We'll continue to watch him on the monitor for his atrial fibrillation Continue telemetry? Yes
[2017-04-26 10:00] VITALS: BP 101/76
[2017-04-26 12:00] VITALS: BP 100/68
--- NOTE | 2017-04-26 12:25 | NUR ---
PATIENT'S ATIVAN D/C'D AT 1000 SAS-2, OPENS EYES, FOLLOWS COMMANDS, SQUEEZES HANDS TO GIVE PRN ATIVAN IV NEEDED.
--- NOTE | 2017-04-26 14:22 | PN- CRCU ---
Subjective HPI/Critical Care Issues: The patient remains intubated and sedated. He remains in atrial fibrillation. He is now on oral i.e. NG tube Lopressor for rate control and his rate is in the 90s. He is off IV heparin because of hematuria. His vital signs are otherwise normal. He continues to diuresis. Objective Current Medications: Current Medications Sig/Jose Start time Last Medication Dose Route Stop Time Status Admin Acetaminophen 650 MG Q6P PRN 04/18 1445 AC PO Acetaminophen 1,000 MG Q6P PRN 04/18 1445 AC IV Apixaban 2.5 MG BID 04/26 1041 AC PO Aspirin Buffered 81 MG DAILY 04/18 1433 AC 04/26 PO 0907 Ceftriaxone Sodium 1,000 MG DAILY 04/22 1447 AC 04/26 IV 0902 Chlordiazepoxide HCl 75 MG Q6 04/25 1200 AC 04/26 PO 0543 Chlorhexidine 15 ML TID 04/21 1000 AC 04/26 Gluconate PO 0902 Folic Acid 1 MG DAILY 04/18 1602 AC 04/26 PO 0907 Furosemide 40 MG Q8 04/25 1400 AC 04/26 IV 0543 Gabapentin 600 MG Q8 04/25 1400 AC 04/26 PO 0543 Lorazepam 100 MG Q11H 04/25 2359 DC 04/25 Dextrose/Water 1,000 ML IV 2356 Lorazepam 100 MG Q13H 04/24 0530 DC 04/25 Dextrose/Water 1,000 ML IV 04/25 2359 0215 Lorazepam 0 Q1P PRN 04/20 0015 AC 04/20 IV 1058 Magnesium Oxide 400 MG BID 04/19 1334 DC 04/25 PO 2218 Magnesium Sulfate 1 GM ONCE ONE 04/26 0800 DC 04/26 Dextrose/Water 100 ML IV 04/26 1159 0902 Metoprolol Tartrate 100 MG BID 04/19 2200 AC 04/25 PO 2218 Multivitamins 1 TAB DAILY 04/18 1602 AC 04/26 PO 0907 Pantoprazole Sodium 40 MG DAILY 04/20 1512 AC 04/26 IV 0902 Polyethylene Glycol 17 GM DAILY 04/25 1834 AC 04/26 PO 0905 Potassium Chloride 20 MEQ BID 04/19 2200 AC 04/26 PO 0907 Propofol 1,000 MG CONTINOUS INFUSION 04/22 0345 DC 04/22 N/A 100 ML IV 1139 Thiamine HCl 100 MG DAILY 04/18 1602 AC 04/26 PO 0907 Vital Signs & I&O Last 24 Hrs of Vitals and I&O: Vital Signs Date Time Temp Pulse Resp B/P B/P Pulse O2 O2 Flow FiO2 Mean Ox Delivery Rate 04/26 1200 98.2 110 22 100/68 07 1200 100 Ventilator 30% 04/26 1115 30 04/26 1026 99 98/68 04/26 1000 98.4 108 24 101/76 04/26 0900 98.4 108 18 100/72 04/26 0843 30 04/26 0800 98.4 104 18 113/78 04/26 0800 100 Ventilator 30% 04/26 0800 98.4 104 21 98/58 100 Ventilator 30% 04/26 0632 30 04/26 0400 100 Ventilator 30% 04/26 0254 30 04/26 0037 30 04/26 0000 100 Ventilator 30% 04/26 0000 97.9 92 18 104/60 100 Ventilator 30% 04/25 2250 30 04/25 2218 111 113/77 04/25 2000 100 Ventilator 30% 04/25 1950 30 04/25 1635 30 04/25 1600 100 Ventilator 30% 04/25 1435 30 Intake & Output 04/26 1600 11 0800 07 0000 Intake Total 1077 1616 Output Total 5000 3520 Balance -3923 -1904 Intake, IV 386 716 Intake, Oral 0 Intake, Tube 511 520 Feeding Intake, Tube 180 380 Irrigant Number 0 0 Bowel Movements Output, Urine 5000 3520 Patient 227 lb Weight Weight Bed scale Measurement Method Laboratory Tests 04/26 04/25 07 0415 1500 0529 Chemistry Sodium (137 - 145 mmol/L) 138 139 Potassium (3.5 - 5.1 mmol/L) 4.3 4.3 Chloride (98 - 107 mmol/L) 96 L 102 Carbon Dioxide (22 - 30 mmol/L) 33 H 29 Anion Gap (5 - 16) 10 7 BUN (9 - 20 mg/dL) 12 9 Creatinine (0.7 - 1.2 mg/dL) 0.7 0.6 L Estimated GFR (>60 ml/min) > 60 > 60 Glucose (65 - 99 mg/dL) 81 87 Calcium (8.4 - 10.2 mg/dL) 8.9 8.2 L Phosphorus (2.5 - 4.5 mg/dL) 5.4 H 4.0 Magnesium (1.6 - 2.3 mg/dL) 1.8 1.9 Total Bilirubin (0.2 - 1.3 mg/dL) 1.2 1.2 AST (17 - 59 U/L) 32 27 ALT (21 - 72 U/L) 26 31 Troponin I Cancelled Albumin (3.5 - 5.0 g/dL) 2.7 L 2.5 L Hematology CBC w Diff NO MAN DIFF REQ WBC (4.8 - 10.8 /CUMM) 5.6 RBC (4.70 - 6.10 /CUMM) 3.52 L Hgb (14.0 - 18.0 G/DL) 11.1 L Hct (42 - 52 %) 34.4 L MCV (80.0 - 94.0 FL) 97.7 H MCH (27.0 - 31.0 PG) 31.6 H RDW (11.5 - 14.5 %) 19.3 H Plt Count (130 - 400 /CUMM) 292 MPV (7.4 - 10.4 FL) 7.8 Gran % (42.2 - 75.2 %) 53.9 Lymphocytes % (20.5 - 51.1 %) 22.4 Monocytes % (1.7 - 9.3 %) 18.8 H Eosinophils % (0 - 5 %) 3.7 Basophils % (0.0 - 2.0 %) 1.2 Absolute Granulocytes (1.4 - 6.5 /CUMM) 3.0 Absolute Lymphocytes (1.2 - 3.4 /CUMM) 1.2 Absolute Monocytes (0.10 - 0.60 /CUMM) 1.0 H Absolute Eosinophils (0.0 - 0.7 /CUMM) 0.2 Absolute Basophils (0.0 - 0.2 /CUMM) 0.1 PUBS MCHC (33.0 - 37.0 G/DL) 32.3 L 04/25 04/25 0510 0418 Blood Gas pH (7.35 - 7.45 PH) 7.50 H pCO2 (35 - 45 TORR) 39 pO2 (80 - 100 TORR) 103 H HCO3 (21 - 28 MEQ/L) 30 H ABG O2 Sat (Measured) (>96.0 %) 97.0 P-50 (Temp Corrected) Y Carboxyhemoglobin (1.5 - 5.0 %) 0.4 L O2 Concentration % 30% Temperature (97.0 - 100.0 FARH) 98.8 Respiration Rate (BPM) 10 O2 Delivery Method ESPRIT Vent Mode AC Expiratory Pressure (CMH2O/P) 5 Tidal Volume (CC) 500 Hematology CBC w Diff NO MAN DIFF REQ WBC (4.8 - 10.8 /CUMM) 5.5 RBC (4.70 - 6.10 /CUMM) 3.30 L Hgb (14.0 - 18.0 G/DL) 10.5 L Hct (42 - 52 %) 32.2 L MCV (80.0 - 94.0 FL) 97.4 H MCH (27.0 - 31.0 PG) 31.8 H RDW (11.5 - 14.5 %) 19.3 H Plt Count (130 - 400 /CUMM) 250 MPV (7.4 - 10.4 FL) 8.1 Gran % (42.2 - 75.2 %) 61.1 Lymphocytes % (20.5 - 51.1 %) 19.0 L Monocytes % (1.7 - 9.3 %) 16.8 H Eosinophils % (0 - 5 %) 2.3 Basophils % (0.0 - 2.0 %) 0.8 Absolute Granulocytes (1.4 - 6.5 /CUMM) 3.3 Absolute Lymphocytes (1.2 - 3.4 /CUMM) 1.0 L Absolute Monocytes (0.10 - 0.60 /CUMM) 0.9 H Absolute Eosinophils (0.0 - 0.7 /CUMM) 0.1 Absolute Basophils (0.0 - 0.2 /CUMM) 0 PUBS MCHC (33.0 - 37.0 G/DL) 32.6 L Miscellaneous Phlebotomy Draw Site RIGHT RADIAL Impression/Plan Impression/Plan Impression/Plan: General Appearance: Intubated sedated. Ventilator settings reviewed, vt 500 fio2 30 Skin: No Breakdown Skin Temp/Moisture Exam: Hot/Dry Sepsis Skin Exam (color): Flushed HEENT: unable to assess- eyes closed Cardiovascular: Normal S1, Normal S2, Gallops, Rubs Lungs: crackles bilaterally Abdomen: Normal Bowel Sounds, distended Neurological: somnolent and not responsive to questions Extremities: erythematous and edematous from feet to scrotum Vascular: Normal Pulses IMPRESSION Pt with sig cardiomegaly, pulm htn, prob sig jonny, etoh abuse, rapid afib, now admitted to the ICU issues include * Acute hypoxic resp failure due to severe DTs and inability to protect his airways with fluid overload and prob aspiration * Sig DTs with delirium * Aspiration pna and sinusitis with strep pneumo in the sputum * Severe cardiomyopathy, 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, with sig pulm htn and atrial hypertrophy * Sig pulm htn with total body fluid overload * History of Medical non compliance * Afib with high ventricular response * Mild effusion, asicites and rt heart failure * Prob sig untreated JONNY * Dillon incertion leading to hematuria has a condom cath urology on board, pt was on eloquis and asa, now with anemia * Sig hematuria now slowly improving off heparin per cardio, pt has a uti with klebsiella aswell * Sig electrolyte imbalance * Left lower lobe atx due to cardiomegaly and aspiration REC Cont vent Reduce ativan to off and use prn librium down ng 75 q 6 hrs Gabapentin to 600 q 8 IV lasix 40mg q 12 hrs today Potassium down ng 40 bid if he has sig diuresis cont abx PPI PSV trials and hope to extubate in am when more awake Mag 1 gram iv Cont agg pulm toilet keep hob up Will follow closely Pt is critically ill tts 38 mins Code Status: Full Code
[2017-04-26 16:00] VITALS: BP 108/60
[2017-04-27] VITALS: BP 104/64
[2017-04-27 04:37] LABS: ABSOLUTE BASOPHIL COUNT 0.1 /CUMM (0.0-0.2); ABSOLUTE EOSINOPHIL COUNT 0.2 /CUMM (0.0-0.7); ABSOLUTE GRANULOCYTE CT 3.4 /CUMM (1.4-6.5); ABSOLUTE LYMPH COUNT 1.1 /CUMM (1.2-3.4); HEMATOCRIT 32.9 % (42-52); MEAN PLATELET VOLUME 7.8 FL (7.4-10.4); PLATELET COUNT 286 /CUMM (130-400); RBC DISTRIBUTION WIDTH 19.1 % (11.5-14.5); RED BLOOD CELL CT 3.39 /CUMM (4.70-6.10); WHITE BLOOD CELL COUNT 5.8 /CUMM (4.8-10.8)
--- NOTE | 2017-04-27 07:54 | NUR ---
RECEIVED PATIENT DROWSY AROUSABLE, FOLLOWING SOME COMMANDS/RESTLESS, PUPILS 4MM AND BRISK, ORALLY INTUBATED W/ #8 TO THE CENTER AT 24 CM AND MECHANICALLY VENTILATED W/ RATE OF 24, TV 500, FIO2 30%, PEEP OF 5, SATTING 100%. LUNGS DIMINISHED THROUGHOUT. AFIB ON THE MONITOR 90S-100S, EKA=359S. NO CHEST PAIN. ABDOMEN SOFT/NONTENDER. POSITIVE BOWEL SOUNDS, PASSING FLATUS. OGT TO JEVITY 1.5 TUBE FEEDING AT 65 MLS/HR AND Q4 HOUR WATER FLUSHES OF 180 MLS. NO RESIDUALS. SALDANA IN PLACE DRAINING LARGE PINK CLEAR URINE. +1 EDEMA TO BILATERAL FEET, TRACE SCROTAL EDEMA, SKIN INTACT. FOUR SIDE RAILS UP FOR TRYING TO GET OOB AND BILATERAL WRIST RESTRAINTS IN PLACE FOR PULLING AT LINES AND TUBES. PATIENT GIVEN VERBAL REASSURANCE AND EMOTIONAL SUPPORT. SAFETY MAINTAINED.
[2017-04-27 08:00] VITALS: BP 94/60
--- NOTE | 2017-04-27 08:47 | RADIOLOGY REPORT ---
EXAMINATION: XR PORTABLE CHEST CLINICAL INFORMATION: Shortness of breath. CHF, hypertension. COMPARISON: Chest x-ray 04/25/2017; 04/26/2017. TECHNIQUE: Portable frontal 45-degrees semierect view of the chest was obtained. FINDINGS: The tip of endotracheal tube is 5.5 cm above the manny, unchanged. Enteric tube is not well visualized below the diaphragms. The left lung is partially collapsed, consistent with left lower lobe collapse and mediastinal shift to the left. Opacity in the right lower zone medially is unchanged. There may be a small left-sided pleural effusion. The cardiac silhouette is prominent but unchanged. There is mild prominence of the central pulmonary vasculature, slightly increased compared to the prior study. There are no acute osseous findings. IMPRESSION: 1. Stable position of the endotracheal tube, 5.5 cm above the manny. 2. Persistent left lower lobe collapse with mediastinal shift to the left. 3. No change in the opacity at the right lower lobe.
--- NOTE | 2017-04-27 10:18 | PN- Pulmonary ---
Subjective HPI/Critical Care Issues: Continues to be drowsy and at times opens his eyes on psv trial ongoing diuresis noted No other history could be obtained Draining pink urine Objective Current Medications: Current Medications Sig/Jose Start time Last Medication Dose Route Stop Time Status Admin Acetaminophen 650 MG Q6P PRN 04/18 1445 AC PO Acetaminophen 1,000 MG Q6P PRN 04/18 1445 AC IV Apixaban 2.5 MG BID 04/26 1041 AC 04/27 PO 0936 Aspirin Buffered 81 MG DAILY 04/18 1433 AC 04/27 PO 0936 Ceftriaxone Sodium 1,000 MG DAILY 04/22 1447 DC 04/26 IV 0902 Chlordiazepoxide HCl 75 MG Q6 04/25 1200 AC 04/27 PO 0507 Chlorhexidine 15 ML TID 04/21 1000 AC 04/27 Gluconate PO 0956 Folic Acid 1 MG DAILY 04/18 1602 AC 04/27 PO 0936 Furosemide 40 MG Q8 04/25 1400 AC 04/27 IV 0507 Gabapentin 600 MG Q8 04/25 1400 AC 04/27 PO 0507 Lorazepam 100 MG Q11H 04/25 2359 DC 04/25 Dextrose/Water 1,000 ML IV 2356 Lorazepam 0 Q1P PRN 04/20 0015 DC 04/20 IV 1058 Magnesium Oxide 400 MG ONE ONE 04/27 0645 DC 04/27 PO 04/27 0646 0658 Magnesium Sulfate 1 GM ONCE ONE 04/26 0800 DC 04/26 Dextrose/Water 100 ML IV 04/26 1159 0902 Metoprolol Tartrate 100 MG BID 04/19 2200 AC 04/27 PO 0936 Multivitamins 1 TAB DAILY 04/18 1602 AC 04/27 PO 0936 Pantoprazole Sodium 40 MG DAILY 04/20 1512 AC 04/27 IV 0956 Polyethylene Glycol 17 GM DAILY 04/25 1834 AC 04/27 PO 0936 Potassium Chloride 20 MEQ ONCE ONE 04/27 0645 DC 04/27 PO 04/27 0646 0656 Potassium Chloride 20 MEQ BID 04/19 2200 AC 04/27 PO 0936 Propofol 1,000 MG CONTINOUS INFUSION 04/22 0345 DC 04/22 N/A 100 ML IV 1139 Thiamine HCl 100 MG DAILY 04/18 1602 AC 04/27 PO 0936 Vital Signs & I&O Last 24 Hrs of Vitals and I&O: Vital Signs Date Time Temp Pulse Resp B/P B/P Pulse O2 O2 Flow FiO2 Mean Ox Delivery Rate 04/27 0936 109 99/63 / 0858 30 04/27 0800 99 Ventilator 30% 04/27 0634 30 04/27 0400 99 Ventilator 30% 04/27 0234 30 04/27 0035 30 04/27 0000 97.4 92 16 104/64 97 Ventilator 30% 04/27 0000 97 Ventilator 30% 04/26 2209 112 105/62 07 2205 30 04/26 2000 97 Ventilator 30% 04/26 1905 30 04/26 1630 30 04/26 1600 99 Ventilator 30% 04/26 1600 98.8 104 14 108/60 99 Ventilator 30% 04/26 1421 30 04/26 1200 98.2 110 22 100/68 04/26 1200 100 Ventilator 30% 04/26 1115 30 04/26 1026 99 98/68 Intake & Output 04/27 1600 /12 0800 07/ 0000 Intake Total 738 706 Output Total 3700 3300 Balance -2962 -2594 Intake, Oral 0 0 Intake, Tube 483 326 Feeding Intake, Tube 255 380 Irrigant Number 0 0 Bowel Movements Output, Urine 3700 3300 Patient 210 lb Weight Weight Bed scale Measurement Method Impression/Plan Impression/Plan Impression/Plan: General Appearance: Intubated sedated. Ventilator settings reviewed, vt 500 fio2 30 Skin: No Breakdown Skin Temp/Moisture Exam: Hot/Dry Sepsis Skin Exam (color): Flushed HEENT: unable to assess- eyes closed Cardiovascular: Normal S1, Normal S2, Gallops, Rubs Lungs: crackles bilaterally Abdomen: Normal Bowel Sounds, distended Neurological: somnolent and not responsive to questions Extremities: erythematous and edematous from feet to scrotum Vascular: Normal Pulses IMPRESSION Pt with sig cardiomegaly, pulm htn, prob sig jonny, etoh abuse, rapid afib, now admitted to the ICU issues include * Acute hypoxic resp failure due to severe DTs and inability to protect his airways with fluid overload and prob aspiration * Sig DTs with delirium * Aspiration pna and sinusitis with strep pneumo in the sputum * Severe cardiomyopathy, 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, with sig pulm htn and atrial hypertrophy * Sig pulm htn with total body fluid overload * History of Medical non compliance * Afib with high ventricular response * Mild effusion, asicites and rt heart failure * Prob sig untreated JONNY * Dillon incertion leading to hematuria has a condom cath urology on board, pt was on eloquis and asa, now with anemia * Sig hematuria now slowly improving off heparin per cardio, pt has a uti with klebsiella aswell * Sig electrolyte imbalance * Left lower lobe atx due to cardiomegaly and aspiration REC Cont vent, psv trials Hold librium till he is awake and then start librium 50 q 8 Use prn ativan May extubate if he is more awake and following commands Chest Pt to left lower with mucomyst and tid Gabapentin to 600 q 8 continue potassium 40 now and 20 later Hold further lasix and give diamox 250 down ng cont abx PPI Cont agg pulm toilet, mucomyst and chest pt to left lower lobe keep hob up Will follow closely Pt is critically ill tts 40 mins
--- NOTE | 2017-04-27 12:06 | PN- CRCU ---
Subjective HPI/Critical Care Issues: I saw the patient today at bedside. Patient is drowsy, follows commands, not dyspneic, not tachypneic. No overnight events. He remains in atrial fibrillation. He is now on oral i.e. NG tube Lopressor for rate control and his rate is in the 90s. FiO2-30, RR-18, BP-113/77, RI-92. off ativan. for weaning trials today. Objective Current Medications: Current Medications Sig/Jose Start time Last Medication Dose Route Stop Time Status Admin Acetaminophen 650 MG Q6P PRN 04/18 1445 AC PO Acetaminophen 1,000 MG Q6P PRN 04/18 1445 AC IV Acetazolamide 250 MG ONCE ONE 04/27 1215 DC PO 04/27 1216 Acetylcysteine 2 ML TID 04/27 1600 AC INH Albuterol Sulfate 3 ML TID 04/27 1600 AC INH Apixaban 2.5 MG BID 04/26 1041 AC 04/27 PO 0936 Aspirin Buffered 81 MG DAILY 04/18 1433 AC 04/27 PO 0936 Ceftriaxone Sodium 1,000 MG DAILY 04/22 1447 DC 04/26 IV 0902 Chlordiazepoxide HCl 75 MG Q6 04/25 1200 DC 04/27 PO 0507 Chlorhexidine 15 ML TID 04/21 1000 AC 04/27 Gluconate PO 0956 Folic Acid 1 MG DAILY 04/18 1602 AC 04/27 PO 0936 Furosemide 40 MG Q8 04/25 1400 DC 07 IV 0507 Gabapentin 600 MG Q8 04/25 1400 AC 04/27 PO 0507 Lorazepam 100 MG Q11H 04/25 2359 DC 04/25 Dextrose/Water 1,000 ML IV 2356 Lorazepam 0 Q1P PRN 04/20 0015 DC 07 IV 1058 Magnesium Oxide 400 MG ONE ONE 04/27 0645 DC 04/27 PO 04/27 0646 0658 Metoprolol Tartrate 100 MG BID 04/19 2200 AC 04/27 PO 0936 Multivitamins 1 TAB DAILY 04/18 1602 AC 04/27 PO 0936 Pantoprazole Sodium 40 MG DAILY 04/20 1512 AC 07 IV 0956 Polyethylene Glycol 17 GM DAILY 04/25 1834 AC 04/27 PO 0936 Potassium Chloride 20 MEQ ONCE ONE 04/27 1800 AC PO 04/27 1801 Potassium Chloride 20 MEQ ONCE ONE 04/27 0645 DC 04/27 PO 04/27 0646 0656 Potassium Chloride 20 MEQ BID 04/19 2200 AC 04/27 PO 0936 Propofol 1,000 MG CONTINOUS INFUSION 04/22 0345 DC 04/22 N/A 100 ML IV 1139 Thiamine HCl 100 MG DAILY 04/18 1602 AC 04/27 PO 0936 Vital Signs & I&O Last 24 Hrs of Vitals and I&O: Vital Signs Date Time Temp Pulse Resp B/P B/P Pulse O2 O2 Flow FiO2 Mean Ox Delivery Rate 04/27 1219 30 04/27 0936 109 99/63 04/27 0858 30 04/27 0800 98.1 108 15 94/60 99 Ventilator 30% 04/27 0800 99 Ventilator 30% 04/27 0634 30 04/27 0400 99 Ventilator 30% 04/27 0234 30 04/27 0035 30 04/27 0000 97.4 92 16 104/64 97 Ventilator 30% 04/27 0000 97 Ventilator 30% 04/26 2209 112 105/62 04/26 2205 30 04/26 2000 97 Ventilator 30% 04/26 1905 30 04/26 1630 30 04/26 1600 99 Ventilator 30% 04/26 1600 98.8 104 14 108/60 99 Ventilator 30% 04/26 1421 30 Intake & Output 04/27 1600 / 0800 07 0000 Intake Total 738 706 Output Total 3700 3300 Balance -2962 -2594 Intake, Oral 0 0 Intake, Tube 483 326 Feeding Intake, Tube 255 380 Irrigant Number 0 0 Bowel Movements Output, Urine 3700 3300 Patient 210 lb Weight Weight Bed scale Measurement Method Exam General Appearance: well developed/nourished, comfortable, intubated Head: normal appearance Neck: normal inspection, supple, full range of motion Respiratory: chest non-tender, no respiratory distress, quiet respiration, decreased breath sounds left lower base. Cardiovascular: irregular heart rate Abdomen: normal bowel sounds, soft, non-tender, no organomegaly Extremities: normal inspection Skin: intact, normal color Results Last 24 Hrs of Lab Results: Laboratory Tests 04/27/17 0345: Anion Gap 10, Estimated GFR > 60, Glucose 119 H, Calcium 8.9, Phosphorus 5.9 H , Magnesium 1.8, Total Bilirubin 1.1, AST 27, ALT 30, Albumin 2.6 L, CBC w Diff NO MAN DIFF REQ, RBC 3.39 L, MCV 97.0 H, MCH 31.0, RDW 19.1 H, MPV 7.8, Gran % 59.0, Lymphocytes % 18.9 L, Monocytes % 18.1 H, Eosinophils % 3.0, Basophils % 1.0, Absolute Granulocytes 3.4, Absolute Lymphocytes 1.1 L, Absolute Monocytes 1.0 H, Absolute Eosinophils 0.2, Absolute Basophils 0.1, PUBS MCHC 32.0 L Diagnostic Data CXR Findings: 04/27/17 1. Stable position of the endotracheal tube, 5.5 cm above the manny. 2. Persistent left lower lobe collapse with mediastinal shift to the left. 3. No change in the opacity at the right lower lobe Impression/Plan Impression/Plan Impression/Plan: 51 year old male with a PMH significant for afib with rvr was on eliquis ( electrical cardioversion 2000), htn, alcohol abuse, 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 The patient suddenly became unresponsive, agitated, confused and transferred to ICU for close monitoring on 04/20/17. Patient around 3.30 am on 04/20/17 had worsening respiratory status and intubated as per Dr. Vidal instructions. Patient is on Ativan drip. Cardizem drip HELD IN VIEW OF HYPOTENSION, heparin drip HELD IN VIEW OF HEMATURIA. Off ativan TAPER, for weaning trials today. vitals bp-104/64, pr-108,rr-18, fio2 30 Plan ICU day 5 Respiratory * Chest clear, no other added sounds. * Pulmonary toilet * Aspiration precaution/pul toileting. * Hold librium till he is awake and then start librium 50 q 8 * Hold further lasix and give diamox 250 down ng Infection * Urine culture grew gram-negative rods.sputum culture- steptococcos penumonuia on Ceftriaxone 1 gm - DAY 6. Urine clear. Cardiac * S1-S2, patient has A. fib. was on heparin drip held due to hematuria. and Cardizem drip withheld in view of hypotension 96/64. today bp- 108/72. started on eliquis 2.5 mg BID. * cario f/p appreciated. Heme * Close monitoring of his electrolytes, CBC. Daily ICU bundle, CBC,ABG. TSH- 5.440. In view of bluish coloration of his feet and hands- lucy,anca,crp,esr ordered. metabolic * PH 7.50, PCO2 39, PaO2 103, bicarbonate 30. Aspiration precaution. Alimentary * tube feed. Neuro * Head CT-04/22/17 1. No acute intracranial pathology compared to 06/04/20 2. Incidentally detected is paranasal sinus disease. DVT * alps, ELIQUIS 2.5 MG BID. Code Status: Full Code
[2017-04-27 16:00] VITALS: BP 110/80
--- NOTE | 2017-04-27 18:00 | NUR ---
Patient presents with a partial thickness wound to the coccyx presumed stage 2 pressure injury measuring 1.2 X 1.2 cm. Clean pink dermal fill with scant bloody drainage noted. Wound bed is moist. Periwound is red and blanchable. Wound was cleansed with normal saline and patted dry. A hydrocolloid was applied to the wound at this time. Impression: Stage 2 pressure injury Recommendations: Continue use of hydrocolloid and change every 3-5 days and prn. Continue use of catergory 2 mattress. Frequent turning and repositioning. Nutrition has been following since patient has been intubated. Please follow all additional pressure injury guidelines. Notify wound care with any further decline.
--- NOTE | 2017-04-27 19:00 | NUR ---
PATIENT HAVING INCREASING HEMATURIA TODAY BEFORE STARTING ELIQUIS, PATIENT'S URINE WAS ORANGE/PINK BUT CLEAR INFORMED DR. SOSA UROLOGY TO BE CONSULTED. PATIENT ON ELIQUIS CONTINUING TO MONITOR
[2017-04-27 20:00] VITALS: BP 116/64
[2017-04-28] VITALS: BP 14/72
[2017-04-28 05:13] LABS: ABSOLUTE BASOPHIL COUNT 0 /CUMM (0.0-0.2); ABSOLUTE EOSINOPHIL COUNT 0.1 /CUMM (0.0-0.7); ABSOLUTE GRANULOCYTE CT 4.3 /CUMM (1.4-6.5); ABSOLUTE MONOCYTE COUNT 1.6 /CUMM (0.10-0.60); BASOPHIL % 0.7 % (0.0-2.0); GRANULOCYTE % 60.6 % (42.2-75.2); HEMATOCRIT 35.6 % (42-52); MEAN CORPUSCULAR HGB 31.1 PG (27.0-31.0); MEAN CORPUSCULAR HGB CONC 32.2 G/DL (33.0-37.0); MEAN CORPUSCULAR VOLUME 96.5 FL (80.0-94.0); MEAN PLATELET VOLUME 7.7 FL (7.4-10.4); PLATELET COUNT 317 /CUMM (130-400); RBC DISTRIBUTION WIDTH 19.5 % (11.5-14.5); RED BLOOD CELL CT 3.69 /CUMM (4.70-6.10); WHITE BLOOD CELL COUNT 7.1 /CUMM (4.8-10.8)
[2017-04-28 08:00] VITALS: BP 110/80
--- NOTE | 2017-04-28 08:23 | RADIOLOGY REPORT ---
EXAMINATION: XR PORTABLE CHEST CLINICAL INFORMATION: Shortness of breath. COMPARISON: 04/27/2017 TECHNIQUE: Portable frontal view of the chest was obtained. FINDINGS: The endotracheal tube is located 6.2 cm above the manny, unchanged from 04/27/2017. The aeration of the retrocardiac region of left lower lobe has improved and the left diaphragm is now more clearly defined. This suggests decreasing atelectasis/collapse in the left lower lobe. There is persistent left-sided shift of the cardiomediastinal silhouette. The hazy opacity in the medial right lung base has decreased. There is stable enlargement of the cardiomediastinal silhouette. No pulmonary edema, pneumothorax or other interval change. IMPRESSION: 1. Endotracheal tube is 6.2 cm above the manny, stable in position compared the prior radiograph. 2. Left lower lobe collapse/atelectasis and medial right basilar opacity have decreased compared to the prior exam.
--- NOTE | 2017-04-28 09:52 | PN- CRCU ---
Subjective HPI/Critical Care Issues: I saw the patient today at bedside. No overnight events. Patient drowsy, follows commands. On Ativan 2 mg. Vitals stable. Plan for weaning trials today. Objective Current Medications: Current Medications Sig/Jose Start time Last Medication Dose Route Stop Time Status Admin Acetaminophen 650 MG Q6P PRN 04/18 1445 AC PO Acetaminophen 1,000 MG Q6P PRN 04/18 1445 AC IV Acetazolamide 250 MG ONCE ONE 04/27 1215 DC 04/27 PO 04/27 1216 1500 Acetylcysteine 2 ML TID 04/27 1600 AC 04/28 INH 0939 Albuterol Sulfate 3 ML TID 04/27 1600 AC 04/28 INH 0910 Apixaban 2.5 MG BID 04/26 1041 AC 04/28 PO 1015 Aspirin Buffered 81 MG DAILY 04/18 1433 AC 04/28 PO 1015 Bisacodyl 5 MG ONE ONE 04/27 1415 CAN PO 04/27 1416 Chlordiazepoxide HCl 75 MG Q6 04/25 1200 DC 04/27 PO 0507 Chlorhexidine 15 ML TID 04/21 1000 AC 04/28 Gluconate PO 1015 Folic Acid 1 MG DAILY 04/18 1602 AC 04/28 PO 1015 Furosemide 40 MG ONCE ONE 04/28 1000 DC 04/28 IV 04/28 1001 1011 Furosemide 40 MG Q8 04/25 1400 DC 04/27 IV 0507 Gabapentin 600 MG Q8 04/25 1400 AC 04/28 PO 0529 Methylprednisolone 60 MG ONCE ONE 04/28 1000 DC 04/28 IV 04/28 1001 1012 Metoprolol Tartrate 100 MG BID 04/19 2200 AC 04/28 PO 1016 Multivitamins 1 TAB DAILY 04/18 1602 AC 04/28 PO 1015 Pantoprazole Sodium 40 MG DAILY 04/20 1512 AC 04/28 IV 1012 Polyethylene Glycol 17 GM DAILY 04/25 1834 AC 04/28 PO 1015 Potassium Chloride 20 MEQ ONCE ONE 04/27 1800 DC 04/27 PO 04/27 1801 1749 Potassium Chloride 20 MEQ BID 04/19 2200 AC 04/28 PO 1015 Senna 187 MG AT BEDTIME 04/27 2200 AC 04/27 PO 2207 Senna 187 MG ONCE ONE 04/27 1445 DC 04/27 PO 04/27 1446 1500 Thiamine HCl 100 MG DAILY 04/18 1602 AC 04/28 PO 1015 Vital Signs & I&O Last 24 Hrs of Vitals and I&O: Vital Signs Date Time Temp Pulse Resp B/P B/P Pulse O2 O2 Flow FiO2 Mean Ox Delivery Rate 04/28 1111 30 04/28 1016 113 109/77 04/28 0814 30 04/28 0800 99 Ventilator 30% 04/28 0800 99.0 110 14 110/80 98 Ventilator 30% 04/28 0610 30 04/28 0400 99 Ventilator 30% 04/28 0352 30 04/28 0000 100 Ventilator 30% 04/28 0000 98.2 86 12 14/72 100 Ventilator 30% 04/27 2215 30 04/27 2207 104 122/70 04/27 2000 96 Ventilator 30% 04/27 2000 98.3 100 16 116/64 96 Ventilator 30% 04/27 1935 30 04/27 1700 30 04/27 1600 98.0 98 13 110/80 100 Ventilator 30% 04/27 1600 100 Ventilator 30% 04/27 1443 30 04/27 1219 30 04/27 1200 100 Ventilator 30% Intake & Output 04/28 1600 04/28 0800 04/28 0000 Intake Total 654 1010 Output Total 850 1600 Balance -196 -590 Intake, Oral 0 Intake, Other 200 Intake, Tube 444 450 Feeding Intake, Tube 210 360 Irrigant Number 1 0 Bowel Movements Output, Urine 850 1600 Patient 197 lb Weight Weight Bed scale Measurement Method Exam General Appearance: well developed/nourished, sedated, intubated Head: normal appearance Neck: normal inspection, supple, full range of motion Respiratory: normal breath sounds, chest non-tender, no respiratory distress, quiet respiration Cardiovascular: regular rate/rhythm Abdomen: normal bowel sounds, soft, non-tender, no organomegaly Extremities: normal inspection Skin: intact, normal color Results Last 24 Hrs of Lab Results: Laboratory Tests 04/28/17 0440: Anion Gap 10, Estimated GFR > 60, Glucose 102 H, Calcium 9.2, Phosphorus 5.4 H , Magnesium 2.0, Total Bilirubin 1.3, AST 31, ALT 21, Albumin 2.9 L, CBC w Diff NO MAN DIFF REQ, RBC 3.69 L, MCV 96.5 H, MCH 31.1 H, RDW 19.5 H, MPV 7.7, Gran % 60.6, Lymphocytes % 14.0 L, Monocytes % 22.7 H, Eosinophils % 2.0, Basophils % 0.7, Absolute Granulocytes 4.3, Absolute Lymphocytes 1.0 L, Absolute Monocytes 1.6 H, Absolute Eosinophils 0.1, Absolute Basophils 0, PUBS MCHC 32.2 L Diagnostic Data CXR Findings: 04/28/17 1. Endotracheal tube is 6.2 cm above the manny, stable in position compared the prior radiograph. 2. Left lower lobe collapse/atelectasis and medial right basilar opacity have decreased compared to the prior exam. Impression/Plan Impression/Plan Impression/Plan: 51 year old male with a PMH significant for afib with rvr was on eliquis ( electrical cardioversion 2000), htn, alcohol abuse, 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 The patient suddenly became unresponsive, agitated, confused and transferred to ICU for close monitoring on 04/20/17. Patient around 3.30 am on 04/20/17 had worsening respiratory status and intubated as per Dr. Vidal instructions. Patient is on Ativan drip. Cardizem drip HELD IN VIEW OF HYPOTENSION, heparin drip HELD IN VIEW OF HEMATURIA. ativan 2mg, for extubation today. vitals bp-110/80, pr-113,rr-14, fio2 30 Plan ICU day 6 Respiratory * Chest clear, no other added sounds. * Pulmonary toilet * Aspiration precaution/pul toileting. * Hold librium till he is awake and then start librium 50 q 8 * lasix 40 meq once, iv solumedrol 60 mg now and rpt if needed. Infection * Urine culture grew gram-negative rods.sputum culture- steptococcos penumonuia on Ceftriaxone 1 gm - DAY 7. Urine clear. Cardiac * S1-S2, patient has A. fib. was on heparin drip held due to hematuria. and Cardizem drip withheld in view of hypotension 96/64. on eliquis 2.5 mg BID. * cardio f/p appreciated. Heme * Close monitoring of his electrolytes, CBC. Daily ICU bundle, CBC,ABG. TSH- 5.440. In view of bluish coloration of his feet and hands- lucy,anca,crp,esr ordered. metabolic * PH 7.50, PCO2 39, PaO2 103, bicarbonate 30. Aspiration precaution. Alimentary * tube feed. Neuro * Head CT-04/22/17 1. No acute intracranial pathology compared to 06/04/20 2. Incidentally detected is paranasal sinus disease. DVT * alps, ELIQUIS 2.5 MG BID. Code Status: Full Code Problem List: 1. Alcohol withdrawal 2. Atrial fibrillation with RVR 3. HTN (hypertension)
--- NOTE | 2017-04-28 09:52 | PN- CRCU ---
Subjective HPI/Critical Care Issues: Patient is drowsy, follows commands, not dyspneic, not tachypneic. No overnight events. He remains in atrial fibrillation. He is now on oral i.e. NG tube Lopressor for rate control and his rate is in the 90s. FiO2-30, RR-18, BP- 113/77, AK-92. off ativan. for weaning trials today. Objective Current Medications: Current Medications Sig/Jose Start time Last Medication Dose Route Stop Time Status Admin Acetaminophen 650 MG Q6P PRN 04/18 1445 AC PO Acetaminophen 1,000 MG Q6P PRN 04/18 1445 AC IV Acetazolamide 250 MG ONCE ONE 04/27 1215 DC 04/27 PO 04/27 1216 1500 Acetylcysteine 2 ML TID 04/27 1600 AC 04/28 INH 0939 Albuterol Sulfate 3 ML TID 04/27 1600 AC 04/28 INH 0910 Apixaban 2.5 MG BID 04/26 1041 AC 04/27 PO 2206 Aspirin Buffered 81 MG DAILY 04/18 1433 AC 04/27 PO 0936 Bisacodyl 5 MG ONE ONE 04/27 1415 CAN PO 04/27 1416 Chlordiazepoxide HCl 75 MG Q6 04/25 1200 DC 04/27 PO 0507 Chlorhexidine 15 ML TID 04/21 1000 AC 04/27 Gluconate PO 2207 Folic Acid 1 MG DAILY 04/18 1602 AC 04/27 PO 0936 Furosemide 40 MG Q8 04/25 1400 DC 07 IV 0507 Gabapentin 600 MG Q8 04/25 1400 AC 04/28 PO 0529 Metoprolol Tartrate 100 MG BID 04/19 2200 AC 04/27 PO 2207 Multivitamins 1 TAB DAILY 04/18 1602 AC 04/27 PO 0936 Pantoprazole Sodium 40 MG DAILY 04/20 1512 AC 04/27 IV 0956 Polyethylene Glycol 17 GM DAILY 04/25 1834 AC 04/27 PO 0936 Potassium Chloride 20 MEQ ONCE ONE 04/27 1800 DC 04/27 PO 04/27 1801 1749 Potassium Chloride 20 MEQ BID 04/19 2200 AC 04/27 PO 2207 Senna 187 MG AT BEDTIME 04/27 2200 AC 04/27 PO 2207 Senna 187 MG ONCE ONE 04/27 1445 DC 04/27 PO 04/27 1446 1500 Thiamine HCl 100 MG DAILY 04/18 1602 AC 04/27 PO 0936 Vital Signs & I&O Last 24 Hrs of Vitals and I&O: Vital Signs Date Time Temp Pulse Resp B/P B/P Pulse O2 O2 Flow FiO2 Mean Ox Delivery Rate 04/28 0814 30 04/28 0800 99 Ventilator 30% 04/28 0800 99.0 110 14 110/80 98 Ventilator 30% 04/28 0610 30 04/28 0400 99 Ventilator 30% 04/28 0352 30 04/28 0000 100 Ventilator 30% 04/28 0000 98.2 86 12 14/72 100 Ventilator 30% 04/27 2215 30 04/27 2207 104 122/70 04/27 2000 96 Ventilator 30% 04/27 2000 98.3 100 16 116/64 96 Ventilator 30% 04/27 1935 30 04/27 1700 30 04/27 1600 98.0 98 13 110/80 100 Ventilator 30% 04/27 1600 100 Ventilator 30% 04/27 1443 30 04/27 1219 30 04/27 1200 100 Ventilator 30% Intake & Output 04/28 1600 04/28 0800 04/28 0000 Intake Total 654 1010 Output Total 850 1600 Balance -196 -590 Intake, Oral 0 Intake, Other 200 Intake, Tube 444 450 Feeding Intake, Tube 210 360 Irrigant Number 1 0 Bowel Movements Output, Urine 850 1600 Patient 197 lb Weight Weight Bed scale Measurement Method Laboratory Tests 04/28 04/27 0440 0345 Chemistry Sodium (137 - 145 mmol/L) 136 L 139 Potassium (3.5 - 5.1 mmol/L) 4.4 3.9 Chloride (98 - 107 mmol/L) 95 L 92 L Carbon Dioxide (22 - 30 mmol/L) 31 H 37 H Anion Gap (5 - 16) 10 10 BUN (9 - 20 mg/dL) 16 14 Creatinine (0.7 - 1.2 mg/dL) 0.8 0.8 Estimated GFR (>60 ml/min) > 60 > 60 Glucose (65 - 99 mg/dL) 102 H 119 H Calcium (8.4 - 10.2 mg/dL) 9.2 8.9 Phosphorus (2.5 - 4.5 mg/dL) 5.4 H 5.9 H Magnesium (1.6 - 2.3 mg/dL) 2.0 1.8 Total Bilirubin (0.2 - 1.3 mg/dL) 1.3 1.1 AST (17 - 59 U/L) 31 27 ALT (21 - 72 U/L) 21 30 Albumin (3.5 - 5.0 g/dL) 2.9 L 2.6 L Hematology CBC w Diff NO MAN DIFF REQ NO MAN DIFF REQ WBC (4.8 - 10.8 /CUMM) 7.1 5.8 RBC (4.70 - 6.10 /CUMM) 3.69 L 3.39 L Hgb (14.0 - 18.0 G/DL) 11.5 L 10.5 L Hct (42 - 52 %) 35.6 L 32.9 L MCV (80.0 - 94.0 FL) 96.5 H 97.0 H MCH (27.0 - 31.0 PG) 31.1 H 31.0 RDW (11.5 - 14.5 %) 19.5 H 19.1 H Plt Count (130 - 400 /CUMM) 317 286 MPV (7.4 - 10.4 FL) 7.7 7.8 Gran % (42.2 - 75.2 %) 60.6 59.0 Lymphocytes % (20.5 - 51.1 %) 14.0 L 18.9 L Monocytes % (1.7 - 9.3 %) 22.7 H 18.1 H Eosinophils % (0 - 5 %) 2.0 3.0 Basophils % (0.0 - 2.0 %) 0.7 1.0 Absolute Granulocytes (1.4 - 6.5 /CUMM) 4.3 3.4 Absolute Lymphocytes (1.2 - 3.4 /CUMM) 1.0 L 1.1 L Absolute Monocytes (0.10 - 0.60 /CUMM) 1.6 H 1.0 H Absolute Eosinophils (0.0 - 0.7 /CUMM) 0.1 0.2 Absolute Basophils (0.0 - 0.2 /CUMM) 0 0.1 PUBS MCHC (33.0 - 37.0 G/DL) 32.2 L 32.0 L Impression/Plan Impression/Plan Impression/Plan: General Appearance: Intubated sedated. Ventilator settings reviewed, vt 500 fio2 30 Skin: No Breakdown Skin Temp/Moisture Exam: Hot/Dry Sepsis Skin Exam (color): Flushed HEENT: unable to assess- eyes closed Cardiovascular: Normal S1, Normal S2, Gallops, Rubs Lungs: crackles bilaterally Abdomen: Normal Bowel Sounds, distended Neurological: somnolent and not responsive to questions Extremities: erythematous and edematous from feet to scrotum Vascular: Normal Pulses IMPRESSION Pt with sig cardiomegaly, pulm htn, prob sig jonny, etoh abuse, rapid afib, now admitted to the ICU issues include * Resolving Acute hypoxic resp failure due to severe DTs and inability to protect his airways with fluid overload and prob aspiration * Sig DTs with delirium * Aspiration pna and sinusitis with strep pneumo in the sputum * Severe cardiomyopathy, 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, with sig pulm htn and atrial hypertrophy * Sig pulm htn with total body fluid overload * History of Medical non compliance * Afib with high ventricular response * Mild effusion, asicites and rt heart failure * Prob sig untreated JONNY * Dillon incertion leading to hematuria has a condom cath urology on board, pt was on eloquis and asa, now with anemia * Sig hematuria now slowly improving off heparin per cardio, pt has a uti with klebsiella aswell * Sig electrolyte imbalance * Left lower lobe atx due to cardiomegaly and aspiration REC Cont vent, psv trials and extubate Give one dose of lasix now IV 40 mg and solumedrol 60 mg one dose now Hold librium till he is awake and then start librium 50 q 8 Chest Pt to left lower with mucomyst and tid Gabapentin to 600 q 8 continue potassium 40 now and 20 later Hold further lasix and give diamox 250 down ng cont abx PPI Cont agg pulm toilet, mucomyst and chest pt to left lower lobe keep hob up Will follow closely Pt is critically ill tts 40 mins Code Status: Full Code
--- NOTE | 2017-04-28 13:23 | NUR ---
1310: PATIENT EXTUBATED AND PLACED ON 30% AEROSOL MASK TOLERATED EXTUBATED WELL, O2 SAT 100% W/ A STRONG COUGH. PATIENT FOLLOWING COMMANDS ONLY OCCASIONALLY AND OPENING EYES INTERMITTENTLY. CONTINUING TO ENCOURAGE/GIVE EMOTIONAL SUPPORT
--- NOTE | 2017-04-28 15:33 | NUR ---
Patient wrist restraints reordered for patient continuing to pull off o2 and wires/lines. Patient continuing to be reoriented as well. Dr. Rahman aware. Informed oncoming RN Dada. Bed alarm also plugged in.
[2017-04-28 16:00] VITALS: BP 130/76
--- NOTE | 2017-04-28 16:00 | NUR ---
ASSUMED CARE OF PATIENT. PATIENT SOMNOLENT BUT AWAKENS TO NAME CALL. OPENS EYES AND FOLLOWS SIMPLE COMMANDS, ABLE TO MOVE ALL EXTREMITIES ON COMMAND. LUNGS WITH SCATTERED RHONCHI, PRODUCTIVE COUGH WITH THICK SECRETIONS, MONITOR AFIB WITHOUT ECTOPY, GOOD PULSES IN EXTREMITIES, ABD OBESE NON TENDER WITH GOOD BS, SALDANA INTACT DRAINING MORALES RED URINE, SKIN INTACT EXCEPT FOR SMALL STAGE II ON COCCYX DUODERM IN PLACE.
[2017-04-28 22:42] LABS: PTT 84 SEC (25-37)
[2017-04-29] VITALS: BP 130/80
--- NOTE | 2017-04-29 01:03 | NUR ---
RESTLESS AND AGITATED. HAD ATIVAN AT 10PM TODAY. AFIB 90'S, MANUAL BP 130/80. SATURATION 99% ON 2L O2, LUNGS SOUND CLEAR. ABDOMEN SOFT, NORMOACTIVE BS. SALDANA IN PLACE, ADEQUATE UO NOTED. URINE DARK MORALES. HEPARIN GTT CONT.
[2017-04-29 05:30] LABS: ABSOLUTE BASOPHIL COUNT 0 /CUMM (0.0-0.2); ABSOLUTE EOSINOPHIL COUNT 0 /CUMM (0.0-0.7); ABSOLUTE GRANULOCYTE CT 5.1 /CUMM (1.4-6.5); BASOPHIL % 0.4 % (0.0-2.0); EOSINOPHIL % 0.3 % (0-5); GRANULOCYTE % 71.5 % (42.2-75.2); HEMATOCRIT 36.3 % (42-52); MEAN CORPUSCULAR HGB 30.7 PG (27.0-31.0); MEAN CORPUSCULAR VOLUME 95.9 FL (80.0-94.0); MEAN PLATELET VOLUME 8.6 FL (7.4-10.4); PLATELET COUNT 386 /CUMM (130-400); RED BLOOD CELL CT 3.78 /CUMM (4.70-6.10); WHITE BLOOD CELL COUNT 7.1 /CUMM (4.8-10.8)
--- NOTE | 2017-04-29 07:31 | RADIOLOGY REPORT ---
EXAMINATION: XR PORTABLE CHEST CLINICAL INFORMATION: Atrial fibrillation. Extubated. COMPARISON: Chest x-ray 04/28/2017. TECHNIQUE: Portable frontal view of the chest was obtained. FINDINGS: Endotracheal tube is no longer visualized. Symmetric lung inflation. Stable appearing retrocardiac opacity. Stable hazy right perihilar airspace opacity. The lungs are otherwise clear. There is no pneumothorax. No definite pleural effusions. Cardiac silhouette is enlarged and unchanged. No acute osseous findings. IMPRESSION: - The endotracheal tube is no longer visualized. - Stable retrocardiac and hazy right perihilar opacity. - Stable enlargement of the cardiac silhouette.
[2017-04-29 08:00] VITALS: BP 120/80
--- NOTE | 2017-04-29 08:53 | PN- CRCU ---
Subjective HPI/Critical Care Issues: I saw the patient today at bedside. he [id number] , well oriented. afebrile. denies chestpain, dyspnea. vitals: bp 110/70, pr 108. Objective Current Medications: Current Medications Sig/Jose Start time Last Medication Dose Route Stop Time Status Admin Acetaminophen 650 MG Q6P PRN 04/18 1445 AC PO Acetaminophen 1,000 MG Q6P PRN 04/18 1445 AC IV Acetylcysteine 2 ML TID 04/27 1600 AC 04/29 INH 1340 Albuterol Sulfate 3 ML TID 04/27 1600 AC 04/29 INH 1340 Apixaban 2.5 MG BID 04/29 1242 CAN PO Apixaban 2.5 MG BID 04/26 1041 AC 04/29 PO 1211 Aspirin Buffered 81 MG DAILY 04/18 1433 AC 04/29 PO 1212 Chlorhexidine 15 ML TID 04/21 1000 AC 04/29 Gluconate PO 1034 Folic Acid 1 MG DAILY 04/18 1602 AC 04/29 PO 1212 Furosemide 40 MG ONCE ONE 04/29 1300 DC 04/29 IV 04/29 1301 1344 Gabapentin 600 MG Q8 04/25 1400 AC 04/29 PO 1222 Heparin Sodium/ 25,000 UNIT Q24H 04/28 1545 DC 04/28 Dextrose IV 1618 Dextrose/Water 500 ML Lorazepam 2 MG ONCE ONE 04/29 1145 DC 04/29 IV 04/29 1146 1155 Lorazepam 1 MG ONE TIME ONE 04/29 0100 DC IV 04/29 0101 Metoprolol Tartrate 100 MG BID 04/29 1213 AC 04/29 PO 1222 Metoprolol Tartrate 5 MG Q6 04/28 1800 DC 04/29 IV 0530 Multivitamins 1 TAB DAILY 04/18 1602 AC 04/29 PO 1212 Omeprazole 40 MG DAILY AC 04/29 1248 AC PO Pantoprazole Sodium 40 MG DAILY 04/20 1512 DC 04/29 IV 1033 Polyethylene Glycol 17 GM DAILY 04/25 1834 AC 04/28 PO 1015 Potassium Chloride 20 MEQ ONCE ONE 04/29 1300 DC 04/29 PO 04/29 1301 1344 Potassium Chloride 20 MEQ BID 04/19 2200 AC 04/29 PO 1223 Senna 187 MG AT BEDTIME 04/27 2200 AC 04/27 PO 2207 Thiamine HCl 100 MG DAILY 04/18 1602 AC 04/29 PO 1213 Vital Signs & I&O Last 24 Hrs of Vitals and I&O: Vital Signs Date Time Temp Pulse Resp B/P B/P Pulse O2 O2 Flow FiO2 Mean Ox Delivery Rate 04/29 1222 121 115/82 04/29 1200 100 Nasal 2.0L Cannula 04/29 0911 98 Nasal 2.0L Cannula 04/29 0800 98.9 108 18 120/80 98 Nasal 2.0L Cannula 04/29 0800 99 Nasal 2.0L Cannula 04/29 0530 109 24 116/87 04/29 0400 93 Nasal 2.0L Cannula 04/29 0000 99 Nasal 2.0L Cannula 04/29 0000 96.5 92 22 130/80 99 Nasal 2.0L Cannula 04/28 2358 109 32 115/72 04/28 2000 98 Nasal 2.0L Cannula 04/28 1900 98 Nasal 2.0L Cannula 04/28 1818 99.0 100 22 116/75 04/28 1600 98 Nasal 2.0L Cannula 04/28 1600 99.0 116 22 130/76 98 Nasal 2.0L Cannula Intake & Output 04/29 1600 04/29 0800 04/29 0000 Intake Total 318 153 Output Total 675 1225 Balance -357 -1072 Intake, IV 218 153 Intake, Oral 100 0 Number 0 1 Bowel Movements Output, Urine 675 1225 Patient 188 lb Weight Weight Bed scale Measurement Method Exam General Appearance: well developed/nourished, alert, awake, comfortable Head: normal appearance Neck: normal inspection, supple, full range of motion Respiratory: normal breath sounds, chest non-tender, no respiratory distress Cardiovascular: irregular heart rate. Abdomen: normal bowel sounds, soft, non-tender, no organomegaly Extremities: normal inspection Neurologic/Psychiatric: awake, alert, oriented x 3 Skin: intact, normal color Results Last 24 Hrs of Lab Results: Laboratory Tests 04/29/17 1100: APTT 79 H 04/29/17 0343: Anion Gap 11, Estimated GFR > 60, Glucose 96, Calcium 9.4, Phosphorus 5.0 H, Magnesium 2.0, Total Bilirubin 1.3, AST 28, ALT 29, Albumin 3.1 L, CBC w Diff NO MAN DIFF REQ, RBC 3.78 L, MCV 95.9 H, MCH 30.7, RDW 19.0 H, MPV 8.6, Gran % 71.5, Lymphocytes % 14.4 L, Monocytes % 13.4 H, Eosinophils % 0.3, Basophils % 0.4, Absolute Granulocytes 5.1, Absolute Lymphocytes 1.0 L, Absolute Monocytes 1.0 H, Absolute Eosinophils 0, Absolute Basophils 0, PUBS MCHC 32.0 L 04/28/17 2205: APTT 84 H Diagnostic Data CXR Findings: 04/29/17 The endotracheal tube is no longer visualized. - Stable retrocardiac and hazy right perihilar opacity. - Stable enlargement of the cardiac silhouette. Impression/Plan Impression/Plan Impression/Plan: 51 year old male with a PMH significant for afib with rvr was on eliquis ( electrical cardioversion 2000), htn, alcohol abuse, 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 The patient suddenly became unresponsive, agitated, confused and transferred to ICU for close monitoring on 04/20/17. Patient around 3.30 am on 04/20/17 had worsening respiratory status and intubated as per Dr. Vidal instructions. Patient is on Ativan drip. Cardizem drip HELD IN VIEW OF HYPOTENSION, heparin drip HELD IN VIEW OF HEMATURIA. extubated and progressing well. Plan ICU day 7 Respiratory * Chest clear, no other added sounds. * Pulmonary toilet * Aspiration precaution/pul toileting. 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 Urine pink Cardiac * S1-S2, patient has A. fib. was on heparin drip held due to hematuria. and Cardizem drip withheld in view of hypotension 96/64. on eliquis 2.5 mg BID. * cardio f/p appreciated. Heme * Close monitoring of his electrolytes, CBC. Daily ICU bundle, CBC,ABG. TSH- 5.440. In view of bluish coloration of his feet and hands- lucy,anca,crp,esr ordered. metabolic * replete electrolytes if needed. Alimentary regular diet Neuro * none DVT * alps, ELIQUIS 2.5 MG BID. Code Status: Full Code Problem List: 1. Atrial fibrillation with RVR 2. Alcohol withdrawal 3. HTN (hypertension)
--- NOTE | 2017-04-29 10:19 | PN- CRCU ---
Subjective HPI/Critical Care Issues: Status post extubation Still groggy Afebrile Vital signs stable 2 L nasal cannula Intravenous heparin ongoing Patient is still tachycardic with atrial fibrillation heart rate of 110 Urine output was adequate patient was negative Objective Current Medications: Current Medications Sig/Jose Start time Last Medication Dose Route Stop Time Status Admin Acetaminophen 650 MG Q6P PRN 04/18 1445 AC PO Acetaminophen 1,000 MG Q6P PRN 04/18 1445 AC IV Acetylcysteine 2 ML TID 04/27 1600 AC 04/29 INH 0903 Albuterol Sulfate 3 ML TID 04/27 1600 AC 04/29 INH 0903 Apixaban 2.5 MG BID 04/26 1041 AC 04/28 PO 1015 Aspirin Buffered 81 MG DAILY 04/18 1433 AC 04/28 PO 1015 Chlorhexidine 15 ML TID 04/21 1000 AC 04/28 Gluconate PO 2200 Folic Acid 1 MG DAILY 04/18 1602 AC 04/28 PO 1015 Gabapentin 600 MG Q8 04/25 1400 AC 04/28 PO 0529 Heparin Sodium/ 25,000 UNIT Q24H 04/28 1545 AC 04/28 Dextrose IV 1618 Dextrose/Water 500 ML Lorazepam 1 MG ONE TIME ONE 04/29 0100 DC IV 04/29 0101 Metoprolol Tartrate 10 MG Q6 04/28 1800 CAN IV Metoprolol Tartrate 5 MG Q6 04/28 1800 AC 04/29 IV 0530 Metoprolol Tartrate 100 MG BID 04/19 2200 DC 04/28 PO 1016 Multivitamins 1 TAB DAILY 04/18 1602 AC 04/28 PO 1015 Pantoprazole Sodium 40 MG DAILY 04/20 1512 AC 04/28 IV 1012 Polyethylene Glycol 17 GM DAILY 04/25 1834 AC 04/28 PO 1015 Potassium Chloride 20 MEQ BID 04/19 2200 AC 04/28 PO 1015 Senna 187 MG AT BEDTIME 04/27 2200 AC 04/27 PO 2207 Thiamine HCl 100 MG DAILY 04/18 1602 AC 04/28 PO 1015 Vital Signs & I&O Last 24 Hrs of Vitals and I&O: Vital Signs Date Time Temp Pulse Resp B/P B/P Pulse O2 O2 Flow FiO2 Mean Ox Delivery Rate 04/29 0911 98 Nasal 2.0L Cannula 04/29 0530 109 24 116/87 04/29 0400 93 Nasal 2.0L Cannula 04/29 0000 99 Nasal 2.0L Cannula 04/29 0000 96.5 92 22 130/80 99 Nasal 2.0L Cannula 04/28 2358 109 32 115/72 04/28 2000 98 Nasal 2.0L Cannula 04/28 1900 98 Nasal 2.0L Cannula 04/28 1818 99.0 100 22 116/75 04/28 1600 98 Nasal 2.0L Cannula 04/28 1600 99.0 116 22 130/76 98 Nasal 2.0L Cannula 04/28 1406 98 Nasal 2.0L Cannula 04/28 1200 99 Ventilator 30% 04/28 1111 30 04/28 1016 113 109/77 Intake & Output 04/29 1600 04/29 0800 04/29 0000 Intake Total 153 Output Total 1225 Balance -1072 Intake, IV 153 Intake, Oral 0 Number 1 Bowel Movements Output, Urine 1225 Patient 185 lb Weight Weight Bed scale Measurement Method Laboratory Tests 04/29 04/28 0343 2205 Chemistry Sodium (137 - 145 mmol/L) 139 Potassium (3.5 - 5.1 mmol/L) 4.2 Chloride (98 - 107 mmol/L) 97 L Carbon Dioxide (22 - 30 mmol/L) 32 H Anion Gap (5 - 16) 11 BUN (9 - 20 mg/dL) 17 Creatinine (0.7 - 1.2 mg/dL) 0.8 Estimated GFR (>60 ml/min) > 60 Glucose (65 - 99 mg/dL) 96 Calcium (8.4 - 10.2 mg/dL) 9.4 Phosphorus (2.5 - 4.5 mg/dL) 5.0 H Magnesium (1.6 - 2.3 mg/dL) 2.0 Total Bilirubin (0.2 - 1.3 mg/dL) 1.3 AST (17 - 59 U/L) 28 ALT (21 - 72 U/L) 29 Albumin (3.5 - 5.0 g/dL) 3.1 L Coagulation APTT (25 - 37 SEC) 84 H Hematology CBC w Diff NO MAN DIFF REQ WBC (4.8 - 10.8 /CUMM) 7.1 RBC (4.70 - 6.10 /CUMM) 3.78 L Hgb (14.0 - 18.0 G/DL) 11.6 L Hct (42 - 52 %) 36.3 L MCV (80.0 - 94.0 FL) 95.9 H MCH (27.0 - 31.0 PG) 30.7 RDW (11.5 - 14.5 %) 19.0 H Plt Count (130 - 400 /CUMM) 386 MPV (7.4 - 10.4 FL) 8.6 Gran % (42.2 - 75.2 %) 71.5 Lymphocytes % (20.5 - 51.1 %) 14.4 L Monocytes % (1.7 - 9.3 %) 13.4 H Eosinophils % (0 - 5 %) 0.3 Basophils % (0.0 - 2.0 %) 0.4 Absolute Granulocytes (1.4 - 6.5 /CUMM) 5.1 Absolute Lymphocytes (1.2 - 3.4 /CUMM) 1.0 L Absolute Monocytes (0.10 - 0.60 /CUMM) 1.0 H Absolute Eosinophils (0.0 - 0.7 /CUMM) 0 Absolute Basophils (0.0 - 0.2 /CUMM) 0 PUBS MCHC (33.0 - 37.0 G/DL) 32.0 L 04/28 0440 Chemistry Sodium (137 - 145 mmol/L) 136 L Potassium (3.5 - 5.1 mmol/L) 4.4 Chloride (98 - 107 mmol/L) 95 L Carbon Dioxide (22 - 30 mmol/L) 31 H Anion Gap (5 - 16) 10 BUN (9 - 20 mg/dL) 16 Creatinine (0.7 - 1.2 mg/dL) 0.8 Estimated GFR (>60 ml/min) > 60 Glucose (65 - 99 mg/dL) 102 H Calcium (8.4 - 10.2 mg/dL) 9.2 Phosphorus (2.5 - 4.5 mg/dL) 5.4 H Magnesium (1.6 - 2.3 mg/dL) 2.0 Total Bilirubin (0.2 - 1.3 mg/dL) 1.3 AST (17 - 59 U/L) 31 ALT (21 - 72 U/L) 21 Albumin (3.5 - 5.0 g/dL) 2.9 L Hematology CBC w Diff NO MAN DIFF REQ WBC (4.8 - 10.8 /CUMM) 7.1 RBC (4.70 - 6.10 /CUMM) 3.69 L Hgb (14.0 - 18.0 G/DL) 11.5 L Hct (42 - 52 %) 35.6 L MCV (80.0 - 94.0 FL) 96.5 H MCH (27.0 - 31.0 PG) 31.1 H RDW (11.5 - 14.5 %) 19.5 H Plt Count (130 - 400 /CUMM) 317 MPV (7.4 - 10.4 FL) 7.7 Gran % (42.2 - 75.2 %) 60.6 Lymphocytes % (20.5 - 51.1 %) 14.0 L Monocytes % (1.7 - 9.3 %) 22.7 H Eosinophils % (0 - 5 %) 2.0 Basophils % (0.0 - 2.0 %) 0.7 Absolute Granulocytes (1.4 - 6.5 /CUMM) 4.3 Absolute Lymphocytes (1.2 - 3.4 /CUMM) 1.0 L Absolute Monocytes (0.10 - 0.60 /CUMM) 1.6 H Absolute Eosinophils (0.0 - 0.7 /CUMM) 0.1 Absolute Basophils (0.0 - 0.2 /CUMM) 0 PUBS MCHC (33.0 - 37.0 G/DL) 32.2 L Impression/Plan Impression/Plan Impression/Plan: General Appearance: Patient is extubated 2 L nasocannula Alert does follow commands Lethargic Skin: No Breakdown Skin Temp/Moisture Exam: Hot/Dry Sepsis Skin Exam (color): Flushed HEENT: unable to assess- eyes closed Cardiovascular: Normal S1, Normal S2, Gallops, Rubs Lungs: crackles bilaterally Abdomen: Normal Bowel Sounds, distended Neurological: Moves all limbs Extremities: erythematous and edematous from feet to scrotum Vascular: Normal Pulses IMPRESSION Pt with sig cardiomegaly, pulm htn, prob sig jonny, etoh abuse, rapid afib, now admitted to the ICU issues include * Resolving Acute hypoxic resp failure due to severe DTs and inability to protect his airways with fluid overload and prob aspiration, now status post extubation * Sig DTs with delirium, slowly improving * Aspiration pna and sinusitis with strep pneumo in the sputum, status post antibiotics * Severe cardiomyopathy, 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, with sig pulm htn and atrial hypertrophy * Sig pulm htn with total body fluid overload * History of Medical non compliance * Afib with high ventricular response * Mild effusion, asicites and rt heart failure * Prob sig untreated JONNY * Dillon incertion leading to hematuria has a condom cath urology on board, pt was on eloquis and asa, now on IV heparin as he is nothing by mouth * Sig hematuria now slowly improving * Sig electrolyte imbalance * Left lower lobe atx due to cardiomegaly and aspiration REC Continue to hold sedation As needed Ativan only if he gets agitated Lasix 20 mg IV 2 doses with potassium intravenously 20 mEq Continue chest PT to left lower lobe IV heparin. Discontinue Eliquis in the computer and it can be restarted when he can take by mouth PPI Pt is critically ill tts 36 mins Code Status: Full Code
[2017-04-29 11:51] LABS: PTT 79 SEC (25-37)
[2017-04-29 16:00] VITALS: BP 118/60
--- NOTE | 2017-04-29 17:10 | Transfer of Care Summary ---
Hospital Course Course Hospital Course: DATE OF ICU TRANSFER- DATE OF TRANSFER TO FLOOR-04/30/17 NO OF DAYS IN ICU- 9 DIAGNOSIS UPON ADMISSION- Rapid Atrial Fibrillation CHF/Volume Overload Lactic Acidosis EtOH Abuse HTN Dilated Cardiomyopathy secondary to alcoho DIAGNOSIS UPON DISCHARGE FROM ICU- Rapid Atrial Fibrillation Alcohol withdrawal HTN Dilated Cardiomyopathy secondary to alcohol vs tachycardia Acute on chronic congestive heart failure Urinary tract infection, culture is positive for Klebsiella CONDITION UPON TRANSFER- Hemodynamicaly stable. HPI Mr Darryl Davidson is a 51 year old male with a PMH significant for afib, HTN, smoking, alcohol abuse, fatty liver, that was BIBA from home for a chief complaint of shortness of breath without exertion and 6 weeks of progressive swelling from his feet to his abdomen that has impeded his ability to ambulate over the past 3 days. Patient has been noncompliant with his medications which include lasix 40mg, ASA, diltiazem, lopressor. In addition to the SOB and swelling, he complains of chills, palpitations. Last echo done in 2015 showed moderate concentric LVH and an EF of 30-35% with severe RA enlargment. He has a history of cardioversion in the past. Active smoker past 40 years and drinking 6 beers a day. In the ambulance he was given lopressor IV for afib rate 150-160 's which improved rate to 120-140's. In the ED he was given 2 cardizem boluses with a 10ml/hr drip which further decreased the rate to 96-100. His EKG showed afib at a rate of 124 with QTC of 483. ED vitals noted to be Temperature 99.1, pulse 129, respiration 22, blood pressure 140/90. Labs showed an H&H of 12.9/39.5, lactic Acid level of 3.9, T bili of 2.3, normal AST , ALT, alkaline phosphatase 151, troponin 0.03.Serum alcohol level 138. Chest x-ray showed no evidence of pulmonary edema and severe left midlung atelectasis was seen. He was admitted in tele for further treatment. cardiology was on board. ON day 2 of hospital admission patient around 1100, was noted to be in respiratory distress, RR 32, 86% O2 sat on 2.5L with agonal breathing but clear chest on auscultation and increasing confusion. ABG was done, order for CXR put in, and a nonrebreather started. He was transferred to the ICU for Ativan drip for possible DT's. He was on cardizem drip for rapid afib rates of 140 in the setting of alcohol withdrawal and Eliquis for anticoagulation. Patient also on lasix bid 40mg IV for CHF and metoprolol for rate control. Transfer viatls : of 120's-130's, BP 116/89. Temp 98.1 axillary. ICU COURSE: Pt was recieved with the above vitals. started him on ativan drip. during the time of transfer patient had pinon insertion followed by hematuria likely traumatic, renal USG was taken and urology was on board who advised 24 hr monitoring if persits advised to hold heparin for 24 hrs. icu day 2: Pt's respiratory status worsening, saturation ~92% on fio2 55% with increased work of breathing and excessive frothy secretions and worsening oxygenation on ABG. Patient unable to protect airway due to AMS and poor bipap candidate. Hence intubated. Pt was on ativan, heparin, propofol and cardizem drip. Heamaturia worsened and heparin was held for 24 hrs. his blood pressure dropped to 105/81 hence cardizem was held . Urine culture grew gram-negative rods. sputum culture- steptococcos penumonuia was started on ceftriaxone. In view of bluish coloration of his feet and hands- lucy,anca,crp,esr ordered. Slowly ativan was tapered and he was off propofol. adequate diuresis and aspiration precaution maintained. he was slowely planned for weaning trails since day 6 and extubated sucessfully on day 9. pt diet advanced and was transferred back to [facility]. IMAGING: ECHO: 04/21/17Left ventricular cavity size at the upper limits of normal. Mild concentric left ventricular hypertrophy. Moderately to severly reduced global left ventricular systolic function. Left ventricular ejection fraction is estimated at 20-25 %. Moderate right ventricular dilatation. Moderate to severe right atrial dilatation. Moderate to severe left atrial dilatation. Moderate to severe left atrial dilatation. Mild thickening/calcification of the mitral valve leaflets. There is a somewhat mobile mass on the anterior leaflet of the mitral valve measuring slightly less than 1 cm in diameter. This appears to be calcified. Etiology might be a fibroblastoma versus vegetation. [id number] mitral regurgitation. Structurally normal trileaflet aortic valve. Moderate tricuspid regurgitation. Right ventricular systolic pressure estimated to be elevated at 45- 50 mmHg. Trace posterior percarial effusion. Ascending aorta at upper limits of normal diameter. RENAL US04/20/17 1. No evidence of renal calculus or upper urinary tract obstruction. 2. Urinary bladder is underdistended and suboptimally evaluated. There appears to be mild, diffuse thickening of the bladder wall (possible detrusor muscle hypertrophy). 3. Small volume of ascitic fluid is present in the abdomen and pelvis. VENOUS DOPPLER: 04/18/17 Respiratory variation, normal compression and augmented flow are noted throughout the lower extremities. The visualized common femoral vein, superficial femoral vein, profunda femoral vein, popliteal vein and midcalf peroneal and posterior tibial venous segments show no evidence of deep venous thrombosis. Complications: Hypotension Hematuria Assessment/Plan: 51 year old male with a PMH significant for afib with rvr was on eliquis ( electrical cardioversion 2000), htn, alcohol abuse, 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 The patient suddenly became unresponsive, agitated, confused and transferred to ICU for close monitoring on 04/20/17. Patient around 3.30 am on 04/20/17 had worsening respiratory status and intubated as per Dr. Vidal instructions. Patient is on Ativan drip. Cardizem drip HELD IN VIEW OF HYPOTENSION, heparin drip HELD IN VIEW OF HEMATURIA. extubated and progressing well. Can be transferred back tele. Plan ICU day 9 Respiratory * Chest clear, no other added sounds. * Pulmonary toilet * Aspiration precaution/pul toileting. 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 Urine pink Cardiac * S1-S2, patient has A. fib. was on heparin drip held due to hematuria. and Cardizem drip withheld in view of hypotension 96/64. on eliquis 2.5 mg BID. * cardio f/p appreciated. Heme * Close monitoring of his electrolytes, CBC. Daily ICU bundle, CBC,ABG. TSH- 5.440. In view of bluish coloration of his feet and hands- lucy,anca,crp,esr ordered. metabolic * replete electrolytes if needed. Alimentary regular diet Neuro * none DVT * alps, ELIQUIS 2.5 MG BID.
[2017-04-29 22:04] VITALS: BP 130/90
[2017-04-30 06:30] VITALS: BP 112/84
[2017-04-30 08:38] LABS: ABSOLUTE BASOPHIL COUNT 0.1 /CUMM (0.0-0.2); ABSOLUTE EOSINOPHIL COUNT 0.1 /CUMM (0.0-0.7); ABSOLUTE GRANULOCYTE CT 3.4 /CUMM (1.4-6.5); ABSOLUTE LYMPH COUNT 1.5 /CUMM (1.2-3.4); ABSOLUTE MONOCYTE COUNT 1.1 /CUMM (0.10-0.60); BASOPHIL % 1.8 % (0.0-2.0); EOSINOPHIL % 2.1 % (0-5); GRANULOCYTE % 54.7 % (42.2-75.2); HEMATOCRIT 35.9 % (42-52); MEAN CORPUSCULAR HGB 30.8 PG (27.0-31.0); MEAN CORPUSCULAR HGB CONC 32.4 G/DL (33.0-37.0); PLATELET COUNT 416 /CUMM (130-400); RBC DISTRIBUTION WIDTH 19.2 % (11.5-14.5); RED BLOOD CELL CT 3.78 /CUMM (4.70-6.10); WHITE BLOOD CELL COUNT 6.2 /CUMM (4.8-10.8)
--- NOTE | 2017-04-30 10:19 | PN- Resident CRCU ---
Objective Weaning Parameters NIF: 20 Minute Volume: 9.51 Resp rate: 16 Vt: 475 Heart Rate: 108 Weaning Schedule Start Time: 0935 Minute Volume: 9.51 Resp Rate: 16 Vt: 430 Heart Rate: 108 End Time: 1310 Minute Volume: 8.45 Resp Rate: 22 Vt: 375 Heart Rate: 100 Impression/Plan Plan DVT/Prophylaxis: pharmacological Code Status: Full Code
--- NOTE | 2017-04-30 12:50 | PN- Pulmonary ---
Subjective HPI/Critical Care Issues: Continues to be restless and agitated passed swallow yesterday Objective Current Medications: Current Medications Sig/Jose Start time Last Medication Dose Route Stop Time Status Admin Acetaminophen 650 MG Q6P PRN 04/18 1445 AC PO Acetaminophen 1,000 MG Q6P PRN 04/18 1445 AC IV Acetylcysteine 2 ML TID 04/27 1600 DC 04/29 INH 1340 Albuterol Sulfate 3 ML BID 04/29 2200 AC 04/30 INH 1027 Albuterol Sulfate 3 ML TID 04/27 1600 DC 04/29 INH 2118 Apixaban 2.5 MG BID 04/29 1242 CAN PO Apixaban 2.5 MG BID 04/26 1041 AC 04/30 PO 0941 Aspirin Buffered 81 MG DAILY 04/18 1433 AC 04/30 PO 0941 Chlordiazepoxide HCl 50 MG Q8 04/29 1708 AC 04/30 PO 0609 Chlorhexidine 15 ML TID 04/21 1000 AC 04/30 Gluconate PO 1126 Folic Acid 1 MG DAILY 04/18 1602 AC 04/30 PO 0940 Furosemide 40 MG ONCE ONE 04/29 1300 DC 04/29 IV 04/29 1301 1344 Gabapentin 600 MG Q8 04/25 1400 AC 04/30 PO 0610 Metoprolol Tartrate 100 MG BID 04/29 1213 AC 04/30 PO 0940 Multivitamins 1 TAB DAILY 04/18 1602 AC 04/30 PO 0941 Omeprazole 40 MG DAILY AC 04/29 1248 AC PO Pantoprazole Sodium 40 MG DAILY 04/20 1512 DC 04/29 IV 1033 Polyethylene Glycol 17 GM DAILY 04/25 1834 AC 04/30 PO 0940 Potassium Chloride 20 MEQ ONCE ONE 04/29 1300 DC 04/29 PO 04/29 1301 1344 Potassium Chloride 20 MEQ BID 04/19 2200 AC 04/30 PO 0940 Senna 187 MG AT BEDTIME 04/27 2200 AC 04/27 PO 2207 Thiamine HCl 100 MG DAILY 04/18 1602 AC 04/30 PO 0940 Vital Signs & I&O Last 24 Hrs of Vitals and I&O: Vital Signs Date Time Temp Pulse Resp B/P B/P Pulse O2 O2 Flow FiO2 Mean Ox Delivery Rate 04/30 1029 97 Nasal 2.0L Cannula 04/30 940 112 112/84 04/30 0800 Nasal 2.0L Cannula 04/30 0630 95.7 112 19 112/84 74 04/30 0000 Room Air 04/29 2229 98.2 102 20 94 Room Air 04/29 2204 116 130/90 04/29 2151 121 130/90 04/29 2122 97 Room Air 04/29 1600 98.0 102 18 118/60 98 Nasal 2.0L Cannula 04/29 1600 98 Nasal 2.0L Cannula Intake & Output 04/30 1600 04/30 0800 04/30 0000 Intake Total 150 374 Output Total 300 2124 Balance -150 -1751 Intake, IV 14 Intake, Oral 150 360 Number 0 Bowel Movements Output, Urine 300 2124 Impression/Plan Impression/Plan Impression/Plan: General Appearance: 2 L nasocannula Alert does follow commands, restless Skin: No Breakdown Skin Temp/Moisture Exam: Hot/Dry Sepsis Skin Exam (color): Flushed HEENT: unable to assess- eyes closed Cardiovascular: Normal S1, Normal S2, Gallops, Rubs Lungs: crackles bilaterally Abdomen: Normal Bowel Sounds, distended Neurological: Moves all limbs Extremities: erythematous and edematous from feet to scrotum Vascular: Normal Pulses IMPRESSION Pt with sig cardiomegaly, pulm htn, prob sig jonny, etoh abuse, rapid afib, now admitted to the ICU issues include * Resolving Acute hypoxic resp failure due to severe DTs and inability to protect his airways with fluid overload and prob aspiration, now status post extubation * Sig DTs with delirium, slowly improving * Aspiration pna and sinusitis with strep pneumo in the sputum, status post antibiotics * Severe cardiomyopathy, 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, with sig pulm htn and atrial hypertrophy * Sig pulm htn with total body fluid overload * History of Medical non compliance * Afib with high ventricular response * Mild effusion, asicites and rt heart failure * Prob sig untreated JONNY * Dillon incertion leading to hematuria has a condom cath urology on board, pt was on eloquis and asa, now on IV heparin as he is nothing by mouth * Sig hematuria now slowly improving * Sig electrolyte imbalance * Left lower lobe atx due to cardiomegaly and aspiration REC Continue current meds including libirium and gabapentin As needed Ativan only if he gets agitated Lasix 20 mg IV with potassium replacement Continue chest PT to left lower lobe for one more day cxr in am Cont apixaban cardio to follow Agg bowel regimen
--- NOTE | 2017-04-30 13:42 | PN- Housestaff ---
Subjective Follow-up For: Alcohol withdrawal Atrial fibrillation with RVR Hypertension Complaints: no complaints Tele-Events Since Last Visit: Patient has A. fib rates 92-124 Subjective: Patient was seen and examined bedside. Patient seems somnolent and less responsive than earlier. Speaks in a very low voice. He notes that he does feel weak. He denies headache dizziness chest pain. Review of Systems Constitutional: Reports: weakness. EENTM: Reports: no symptoms. Cardiovascular: Reports: no symptoms. Respiratory: Reports: no symptoms. Gastrointestinal: Reports: no symptoms. Genitourinary: Reports: no symptoms. Musculoskeletal: Reports: no symptoms. Skin: Reports: no symptoms. Neurological/Psychological: Reports: no symptoms. Hematologic/Endocrine: Reports: no symptoms. Objective Last 24 Hrs of Vital Signs/I&O Vital Signs Date Time Temp Pulse Resp B/P B/P Pulse O2 O2 Flow FiO2 Mean Ox Delivery Rate 04/30 1029 97 Nasal 2.0L Cannula 04/30 0940 112 112/84 04/30 0800 Nasal 2.0L Cannula 04/30 0630 95.7 112 19 112/84 74 04/30 0000 Room Air 04/29 2229 98.2 102 20 94 Room Air 04/29 2204 116 130/90 04/29 2151 121 130/90 04/29 2122 97 Room Air 04/29 1600 98.0 102 18 118/60 98 Nasal 2.0L Cannula 04/29 1600 98 Nasal 2.0L Cannula Intake & Output 04/30 1600 04/30 0800 04/30 0000 Intake Total 150 374 Output Total 300 2125 Balance -150 -1751 Intake, IV 14 Intake, Oral 150 360 Number 0 Bowel Movements Output, Urine 300 2125 Physical Exam General Appearance: No Acute Distress, patient is somnolent he knows his name does not know the date and knows he is at [facility]. Skin: No Rashes, No Breakdown, No Significant Lesion Skin Temp/Moisture Exam: Warm/Dry Sepsis Skin Exam (color): Normal for Ethnicity HEENT: Atraumatic, PERRLA, EOMI, Mucous Membr. moist/pink Neck: Supple, No thryomegaly Cardiovascular: Normal S1, Normal S2, No Murmurs, Gallops, Rubs Lungs: some expiratory wheezing, patient has cough when asked to breathe and breathe out for physical exam. Abdomen: Normal Bowel Sounds, Soft, No Tenderness Neurological: Normal Speech Extremities: No Clubbing, No Cyanosis, No Edema, Normal Pulses, No Tenderness/ Swelling, patient's edema is much better from admission Vascular: Normal Pulses Sepsis Peripheral Pulse Location: Radial Sepsis Peripheral Pulse Exam: Normal Current Medications: Current Medications Sig/Jose Start time Last Medication Dose Route Stop Time Status Admin Acetaminophen 650 MG Q6P PRN 04/18 1445 AC PO Acetaminophen 1,000 MG Q6P PRN 04/18 1445 AC IV Acetylcysteine 2 ML TID 04/27 1600 DC 04/29 INH 1340 Albuterol Sulfate 3 ML BID 04/29 2200 AC 04/30 INH 1027 Albuterol Sulfate 3 ML TID 04/27 1600 DC 04/29 INH 2118 Apixaban 2.5 MG BID 04/29 1242 CAN PO Apixaban 2.5 MG BID 04/26 1041 AC 04/30 PO 0941 Aspirin Buffered 81 MG DAILY 04/18 1433 AC 04/30 PO 0941 Chlordiazepoxide HCl 50 MG Q8 04/29 1708 AC 04/30 PO 0609 Chlorhexidine 15 ML TID 04/21 1000 AC 04/30 Gluconate PO 1126 Folic Acid 1 MG DAILY 04/18 1602 AC 04/30 PO 0940 Gabapentin 600 MG Q8 04/25 1400 AC 04/30 PO 0610 Metoprolol Tartrate 100 MG BID 04/29 1213 AC 04/30 PO 0940 Multivitamins 1 TAB DAILY 04/18 1602 AC 04/30 PO 0941 Omeprazole 40 MG DAILY AC 04/29 1248 AC PO Polyethylene Glycol 17 GM DAILY 04/25 1834 AC 04/30 PO 0940 Potassium Chloride 20 MEQ BID 04/19 2200 AC 04/30 PO 0940 Senna 187 MG AT BEDTIME 04/27 2200 AC 04/27 PO 2207 Thiamine HCl 100 MG DAILY 04/18 1602 AC 04/30 PO 0940 Last 24 Hrs of Lab/Ruddy Results Last 24 Hrs of Labs/Mics: Laboratory Tests 04/30/17 0628: Anion Gap 11, Estimated GFR > 60, Glucose 87, Calcium 9.5, Phosphorus 4.9 H, Magnesium 1.9, Total Bilirubin 1.4 H, AST 37, ALT 33, Albumin 3.1 L, CBC w Diff NO MAN DIFF REQ, RBC 3.78 L, MCV 95.0 H, MCH 30.8, RDW 19.2 H, MPV 8.0, Gran % 54.7, Lymphocytes % 24.0, Monocytes % 17.4 H, Eosinophils % 2.1, Basophils % 1.8, Absolute Granulocytes 3.4, Absolute Lymphocytes 1.5, Absolute Monocytes 1.1 H, Absolute Eosinophils 0.1, Absolute Basophils 0.1, PUBS MCHC 32.4 L Orders CIWA Score (last 24 hrs): 0 Radiology Findings: X-ray April 29 IMPRESSION: - The endotracheal tube is no longer visualized. - Stable retrocardiac and hazy right perihilar opacity. - Stable enlargement of the cardiac silhouette. Lines/Diet/Fluids Restraints: 2 point restraints because he was pulling out his oxygen Assessment/Plan Assessment: 51 year old male with a PMH significant for afib with rvr was on eliquis ( electrical cardioversion 2000), htn, alcohol abuse, 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 The patient suddenly became unresponsive, agitated, confused and transferred to ICU for close monitoring on 04/20/17. Patient around 3.30 am on 04/20/17 had worsening respiratory status and intubated as per Dr. Vidal instructions. Patient is no longer on Ativan drip Cardizem drip HELD IN VIEW OF HYPOTENSION, heparin drip HELD IN VIEW OF HEMATURIA. Extubated and progressing well. Currently in telemetry Respiratory patient is currently on nasal cannula 2 L satting 97%, status post extubation. * Chest clear, no other added sounds. Patient began coughing on examination. * Patient's voice is quite low and he notes throat soreness probably from intubation. He passed a swallow evaluation yesterday. * Continue chest PT to left lower lobe for 1 more day. * Patient previously was positive for strep pneumoniae by respiratory culture April 22. Has finished antibiotics. * Chest x-ray in the morning. Infection * Patient has finished antibiotics course for strep pneumoniae in for UTI which was positive for Klebsiella. He is currently still experiencing some hematuria is most likely traumatic from Chery insertion. Cardiac * Patient is currently on eliquis for atrial fibrillation with RVR, aspirin, metoprolol. Patient edema has mostly resolved, no longer on Lasix * Cardio is following Heme * Close monitoring of his electrolytes, CBC. Alcohol withdrawal * patient on Librium 50 mg every 8 by mouth * Continue thiamine and multivitamins Alimentary regular diet Continue patient on omeprazole 40 mg daily DVT * alps, ELIQUIS 2.5 MG BID. #Full code #Mild pain pathway Problem List: 1. Atrial fibrillation with RVR 2. Alcohol withdrawal 3. HTN (hypertension) Pain Ratin Pain Location: None Pain Goal: Remain pain free Pain Plan: None Tomorrow's Labs & Rationales: bep
[2017-04-30 14:00] VITALS: BP 110/50
[2017-04-30 21:39] VITALS: BP 112/68
[2017-05-01 06:30] VITALS: BP 106/80
[2017-05-01 08:30] LABS: ABSOLUTE BASOPHIL COUNT 0.1 /CUMM (0.0-0.2); ABSOLUTE EOSINOPHIL COUNT 0.2 /CUMM (0.0-0.7); ABSOLUTE GRANULOCYTE CT 3.8 /CUMM (1.4-6.5); ABSOLUTE LYMPH COUNT 1.5 /CUMM (1.2-3.4); ABSOLUTE MONOCYTE COUNT 1.1 /CUMM (0.10-0.60); BASOPHIL % 2.2 % (0.0-2.0); EOSINOPHIL % 2.5 % (0-5); GRANULOCYTE % 56.7 % (42.2-75.2); HEMATOCRIT 37.1 % (42-52); MEAN CORPUSCULAR HGB 30.8 PG (27.0-31.0); MEAN CORPUSCULAR HGB CONC 32.2 G/DL (33.0-37.0); MEAN CORPUSCULAR VOLUME 95.4 FL (80.0-94.0); MEAN PLATELET VOLUME 8.3 FL (7.4-10.4); RBC DISTRIBUTION WIDTH 18.4 % (11.5-14.5); RED BLOOD CELL CT 3.89 /CUMM (4.70-6.10); WHITE BLOOD CELL COUNT 6.7 /CUMM (4.8-10.8)
--- NOTE | 2017-05-01 08:59 | PN- Housestaff ---
See Addendum Subjective Follow-up For: Resolving acute hypoxic respiratory failure due to DTs Status post extubation Alcohol withdrawal A. fib with RVR Hypertension Complaints: no complaints Tele-Events Since Last Visit: Valerie pedraza, heart rate 107-112 Subjective: Patient appears very drowsy and lethargic. Does not offer any complaints this morning. Vital stable overnight. Hasn't required any when necessary Ativan. Saturating 95% on room air Review of Systems Constitutional: Reports: malaise, weakness. EENTM: Reports: no symptoms. Cardiovascular: Reports: no symptoms. Respiratory: Reports: no symptoms. Gastrointestinal: Reports: no symptoms. Genitourinary: Reports: no symptoms. Musculoskeletal: Reports: no symptoms. Skin: Reports: no symptoms. Neurological/Psychological: Reports: no symptoms. Objective Last 24 Hrs of Vital Signs/I&O Vital Signs Date Time Temp Pulse Resp B/P B/P Pulse O2 O2 Flow FiO2 Mean Ox Delivery Rate 05/01 0800 Room Air 05/01 0630 98.7 103 20 106/80 95 Room Air 05/01 0000 Room Air 04/30 2139 98.3 116 20 112/68 95 Room Air 04/30 2137 124 112/68 04/30 1850 94 Room Air 04/30 1400 97.9 110 20 110/50 94 04/30 1029 97 Nasal 2.0L Cannula 04/30 0940 112 112/84 Intake & Output 05/01 1600 16 0800 05/01 0000 Intake Total 120 252 Output Total 450 700 Balance -330 -448 Intake, IV 12 Intake, Oral 120 240 Number 0 0 Bowel Movements Output, Urine 450 700 Patient 86.636 kg Weight Weight Bed scale Measurement Method Physical Exam General Appearance: drowsy, lethargic Skin: No Rashes Skin Temp/Moisture Exam: Warm/Dry Sepsis Skin Exam (color): Normal for Ethnicity HEENT: Atraumatic, PERRLA, EOMI Neck: Supple Lymphatic: Cervical nl Cardiovascular: Normal S1, Normal S2, irregularly irregular Lungs: basal crackles Abdomen: Normal Bowel Sounds, Soft, No Tenderness Neurological: Normal Tone, Reflexes 2+, patient lethargic, not following commands Extremities: trace pedal edema Vascular: Normal Pulses, Pulses Symmetrical Current Medications: Current Medications Sig/Jose Start time Last Medication Dose Route Stop Time Status Admin Acetaminophen 650 MG Q6P PRN 04/18 1445 AC PO Acetaminophen 1,000 MG Q6P PRN 04/18 1445 AC IV Albuterol Sulfate 3 ML BID 04/29 2200 AC 04/30 INH 1850 Apixaban 2.5 MG BID 04/26 1041 AC 04/30 PO 2137 Aspirin Buffered 81 MG DAILY 04/18 1433 AC 04/30 PO 0941 Chlordiazepoxide HCl 50 MG Q8 04/29 1708 AC 05/01 PO 0542 Chlorhexidine 15 ML TID 04/21 1000 AC 04/30 Gluconate PO 2137 Folic Acid 1 MG DAILY 04/18 1602 AC 04/30 PO 0940 Furosemide 20 MG ONCE ONE 04/30 1545 DC 04/30 IV 04/30 1546 1732 Gabapentin 600 MG Q8 04/25 1400 AC 05/01 PO 0541 Lorazepam 1 MG BID PRN 04/30 1545 AC PO Metoprolol Tartrate 100 MG BID 04/29 1213 AC 04/30 PO 2137 Multivitamins 1 TAB DAILY 04/18 1602 AC 04/30 PO 0941 Omeprazole 40 MG DAILY AC 04/29 1248 DC PO Pantoprazole Sodium 40 MG DAILY 05/01 1000 AC IV Polyethylene Glycol 17 GM DAILY 04/25 1834 AC 04/30 PO 0940 Potassium Chloride 40 MEQ ONCE ONE 04/30 1730 DC 04/30 PO 04/30 1731 1733 Potassium Chloride 40 MEQ ONCE ONE 04/30 1545 CAN PO 04/30 1546 Potassium Chloride 20 MEQ BID 04/19 2200 AC 04/30 PO 2137 Senna 187 MG AT BEDTIME 04/27 2200 AC 04/27 PO 2207 Thiamine HCl 100 MG DAILY 04/18 1602 AC 04/30 PO 0940 Last 24 Hrs of Lab/Ruddy Results Last 24 Hrs of Labs/Mics: Laboratory Tests 05/01/17 0635: Anion Gap 12, Estimated GFR > 60, BUN/Creatinine Ratio 25.7 H, CBC w Diff Pending, WBC Pending, RBC Pending, Hgb Pending, Hct Pending, MCV Pending, MCH Pending, RDW Pending, Plt Count Pending, MPV Pending, PUBS MCHC Pending Assessment/Plan Assessment: 51 year old male with a PMH significant for afib with rvr was on eliquis ( electrical cardioversion 2000), htn, alcohol abuse, 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 The patient suddenly became unresponsive, agitated, confused and transferred to ICU for close monitoring on 04/20/17. Patient around 3.30 am on 04/20/17 had worsening respiratory status and intubated as per Dr. Vidal instructions. Patient is no longer on Ativan drip Cardizem drip HELD IN VIEW OF HYPOTENSION, heparin drip HELD IN VIEW OF HEMATURIA. Extubated and progressing well. Currently in telemetry Status post extubation for acute hypoxic respiratory failure due to fluid overload and aspiration pneumonia * Significant improvement in respiratory status, saturating 95% on room air * Last chest x-ray showed stable retrocardiac and hazy right perihilar opacity * Off antibiotics, vital stable, afebrile overnight * Last day of chest PT * Respiratory Cultures positive for strep pneumoniae, finished course of antibiotics * Repeat Chest x-ray today * Pulmonology following Alcohol withdrawal with significant DTs and delirium * Continued on Librium taper * Continue thiamine and multivitamins * Hasn't required any when necessary Ativan overnight * Not being maintained on CIWA anymore * Continue gabapentin Atrial fibrillation with rapid RVR * Patient is currently on eliquis for atrial fibrillation with RVR, aspirin, metoprolol. Patient edema has mostly resolved, no longer on Lasix * Repeat chest x-ray pending * Cardio is following Significant cardiomyopathy with valvular heart disease and mitral valve lesion Mass with significant pulmonary hypertension * Last echo on March 2017 showed an EF of 20-25% with Moderately to severly reduced global left ventricular systolic function. 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 Alimentary * Passed swallow eval, pured and honey thick regular diet * Continue omeprazole 40 daily DVT * alps, ELIQUIS 2.5 MG BID. Full code Mild pain pathway Problem List: 1. Atrial fibrillation 2. HTN (hypertension) 3. Alcohol withdrawal Pain Ratin Pain Location: na Pain Goal: Remain pain free Pain Plan: prn tylenol Tomorrow's Labs & Rationales: none needed
[2017-05-01 09:30] LABS: PLATELET COUNT 416 /CUMM (130-400)
--- NOTE | 2017-05-01 10:07 | RADIOLOGY REPORT ---
EXAMINATION: XR PORTABLE CHEST CLINICAL INFORMATION: Aspiration pneumonia, coughing COMPARISON: Multiple prior studies most recently 04/29/2017. TECHNIQUE: Portable AP 85 degrees upright view of the chest was obtained. FINDINGS: Cardiac silhouette is moderately enlarged. Retrocardiac opacity is likely not significantly changed allowing for differences in technique. A few streaky markings are seen at the right lung base. No evidence of pulmonary edema. IMPRESSION: Stable enlarged cardiac silhouette. No pulmonary edema. No significant change in the patchy opacity in the left retrocardiac region. When feasible, PA and lateral chest radiograph would provide optimal evaluation.
--- NOTE | 2017-05-01 11:47 | PN- Pulmonary ---
Subjective HPI/Critical Care Issues: Does not offer any complaints this morning. Vital stable overnight. Hasn't required any when necessary Ativan. Saturating 95% on room air Review of Systems Constitutional: Reports: malaise, weakness. EENTM: Reports: no symptoms. Cardiovascular: Reports: no symptoms. Respiratory: Reports: no symptoms. Gastrointestinal: Reports: no symptoms. Genitourinary: Reports: no symptoms. Musculoskeletal: Reports: no symptoms. Skin: Reports: no symptoms. Neurological/Psychological: Reports: no symptoms. Objective Current Medications: Current Medications Sig/Jose Start time Last Medication Dose Route Stop Time Status Admin Acetaminophen 650 MG Q6P PRN 04/18 1445 AC PO Acetaminophen 1,000 MG Q6P PRN 04/18 1445 AC IV Albuterol Sulfate 3 ML BID 04/29 2200 AC 05/01 INH 1007 Apixaban 2.5 MG BID 04/26 1041 AC 05/01 PO 0910 Aspirin Buffered 81 MG DAILY 04/18 1433 AC 05/01 PO 0910 Chlordiazepoxide HCl 50 MG Q8 04/29 1708 AC 05/01 PO 0542 Chlorhexidine 15 ML TID 04/21 1000 AC 05/01 Gluconate PO 0911 Folic Acid 1 MG DAILY 04/18 1602 AC 05/01 PO 0910 Furosemide 20 MG ONCE ONE 04/30 1545 DC 04/30 IV 04/30 1546 1732 Gabapentin 600 MG Q8 04/25 1400 AC 05/01 PO 0541 Lorazepam 1 MG BID PRN 04/30 1545 AC PO Metoprolol Tartrate 100 MG BID 04/29 1213 AC 05/01 PO 0910 Multivitamins 1 TAB DAILY 04/18 1602 AC 05/01 PO 0910 Omeprazole 40 MG DAILY AC 04/29 1248 DC PO Pantoprazole Sodium 40 MG DAILY 05/01 1000 AC 05/01 IV 0911 Polyethylene Glycol 17 GM DAILY 04/25 1834 AC 05/01 PO 0910 Potassium Chloride 40 MEQ ONCE ONE 04/30 1730 DC 04/30 PO 04/30 1731 1733 Potassium Chloride 40 MEQ ONCE ONE 04/30 1545 CAN PO 04/30 1546 Potassium Chloride 20 MEQ BID 04/19 2200 AC 05/01 PO 0910 Senna 187 MG AT BEDTIME 04/27 2200 AC 04/27 PO 2207 Thiamine HCl 100 MG DAILY 04/18 1602 AC 05/01 PO 0910 Vital Signs & I&O Last 24 Hrs of Vitals and I&O: Vital Signs Date Time Temp Pulse Resp B/P B/P Pulse O2 O2 Flow FiO2 Mean Ox Delivery Rate 05/01 1011 94 Room Air Room Air 05/01 0910 103 106/80 05/01 0800 Room Air 05/01 0630 98.7 103 20 106/80 95 Room Air 05/01 0000 Room Air 04/30 2139 98.3 116 20 112/68 95 Room Air 04/30 2137 124 112/68 04/30 1850 94 Room Air 04/30 1400 97.9 110 20 110/50 94 Intake & Output 05/01 1600 05/01 0800 05/01 0000 Intake Total 120 252 Output Total 450 700 Balance -330 -448 Intake, IV 12 Intake, Oral 120 240 Number 0 0 Bowel Movements Output, Urine 450 700 Patient 191 lb Weight Weight Bed scale Measurement Method Impression/Plan Impression/Plan Impression/Plan: General Appearance: On room air Alert does follow commands, restless Skin: No Breakdown Skin Temp/Moisture Exam: Hot/Dry Sepsis Skin Exam (color): Flushed HEENT: unable to assess- eyes closed Cardiovascular: Normal S1, Normal S2, Gallops, Rubs Lungs: crackles bilaterally Abdomen: Normal Bowel Sounds, distended Neurological: Moves all limbs Extremities: erythematous and edematous from feet to scrotum Vascular: Normal Pulses IMPRESSION Pt with sig cardiomegaly, pulm htn, prob sig jonny, etoh abuse, rapid afib, now admitted to the ICU issues include * Resolved Acute hypoxic resp failure due to severe DTs and inability to protect his airways with fluid overload and prob aspiration, now status post extubation * Sig DTs with delirium, slowly improving * Resolved Aspiration pna and sinusitis with strep pneumo in the sputum, status post antibiotics * Severe cardiomyopathy, 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, with sig pulm htn and atrial hypertrophy * Sig pulm htn with total body fluid overload * History of Medical non compliance * Afib with high ventricular response * Mild effusion, asicites and rt heart failure * Prob sig untreated JONNY * History of hematuria from traumatic pinon * Resolved Sig electrolyte imbalance * Left lower lobe atx due to cardiomegaly and aspiration REC Continue current meds including libirium and gabapentin, wean off librium in few days As needed Ativan only if he gets agitated DC chest pt Continue chest PT to left lower lobe for one more day cxr in am Cont apixaban cardio to follow Agg bowel regimen WIll sign off and signed out to hospitalist c
--- NOTE | 2017-05-01 14:40 | NUR ---
SALDANA PUT OUT 150ML TEA COLORED URINE WITH SEDEMENT IT IN. BOOK SORTER ALEXANDRA ACOSTA AWARE AND RESIDENT JOSE DAVID AWARE. PER JOSE DAVID WILL WATCH PATIENT FOR NOW. WILL CONTINUE TO MONITOR PT.
[2017-05-01 14:59] VITALS: BP 104/76
--- NOTE | 2017-05-01 19:45 | NUR ---
PT HR UP TO 130-150'S FIELD PROFESSIONAL ALEXANDRA ACOSTA AWARE AND INSTRUCTED TO GIVE PT A DOSE OF ATIVAN AND HIS NIGHTLY DOSE OF METOPROLOL. WILL CONTINUE TO MONITOR PT.
[2017-05-01 22:17] VITALS: BP 114/88
[2017-05-02 06:19] VITALS: BP 110/84
[2017-05-02 08:00] VITALS: BP 110/84
--- NOTE | 2017-05-02 10:42 | NUR ---
SW aware of pt's admit being impacted by ETOH. Pt is a 51 y.o. male admitted on 04/18/17 for AFib, ETOH abuse, edema secondary to CHF x6 weeks, and progressive weakness and impairment in legs and mobility. Pt with respiratory failure while admitted, requiring intubation. Pt extubated 04/29/17. Pt now on Tele and oxygen. Sw into see pt, who is to sleepy to hold a conversation with Sw. Rn reports pt had been up this morning, ate breakfast and visited with his brother who, is no longer in the room. Pt likely will need Physical therapy rehab before he can address ETOH issues. It is unclear if pt is interested in addressing ETOH issues.
[2017-05-02 11:58] VITALS: BP 106/58
[2017-05-02 14:34] VITALS: BP 102/50
--- NOTE | 2017-05-02 15:07 | PN- Psychiatry ---
Assessment/Plan Impression: Identifying Info: 51-year-old single male presents to [facility] emergency department on 04/18/2017 for weakness. Subsequently developed alcohol withdrawal delirium, hypoxic respiratory failure and pneumonia requiring intubation required an ICU stay. Currently downgraded to telemetry. SUBJECTIVE Patient states "I'm feeling great." Brief ROS Gait: Did not assess Sleep: Patient reports adequate Appetite: Patient reports adequate OBJECTIVE Mental Status Exam Presentation/Appearance: Cooperative with evaluation to best of his ability. Hospital garb. Unkempt, long gilbert. 2-point soft wrist restraints in place. Orientation: Oriented to self, states place is "[place]," year "Yea" will not attempt to name date month or season Sensorium: Awake and alert Eye contact: Appropriate Affect: Blunted Mood: "Great" Depression: Denies Anxiety: Denies Thought Content: - Denies SI/HI, AH/VH. - Denies Hopeless/Helpless Thoughts Thought Process: Confused Associations: Loose Speech: Soft and dysarthic, latency in response Judgment: Poor Insight: Poor Cognition: Memory: Deficits noted Attention/Concentration: Deficits noted Fund of Knowledge: Did not assess Abstractions: Did not assess MMSE: Did not assess Per nursing report patient remains confused and has required 2 point wrist restraints to prevent accidental self-harm by pulling on lines or Chery. ASSESSMENT 51-year-old male the long history of alcohol use disorder presents with continued confusion in the context of alcohol withdrawal. His mentation has improved but has yet to return to his previously reported baseline. He would likely benefit from substance abuse treatment and medication to curb alcohol cravings once medically cleared. Diagnosis Alcohol use disorder, severe Delirium due to alcohol withdrawal, improving A total of 30 minutes was spent with the patient with more than 50% of the time spent in counseling and/or coordination of care. Suggestion: 1. Continue to advance Librium taper and when necessary Ativan. 2. Continue vitamin supplementation. 3. Appreciate social work assistance in disposition planning. 4. As patient mentation clears we will continue to educate on medications for alcohol cravings. Campral or naltrexone would be medication of choice. Thank you for including psychiatry in this case, we will follow on an as-needed basis. Subjective Subjective: as above Objective Last 24 Hrs of Vital Signs/I&O Current Medications Sig/Jose Start time Last Medication Dose Route Stop Time Status Admin Acetaminophen 650 MG Q6P PRN 04/18 1445 AC PO Acetaminophen 1,000 MG Q6P PRN 04/18 1445 AC IV Albuterol Sulfate 3 ML BID 04/29 2200 AC 05/02 INH 1031 Apixaban 2.5 MG BID 04/26 1041 AC 05/02 PO 1204 Aspirin Buffered 81 MG DAILY 04/18 1433 AC 05/02 PO 1204 Chlordiazepoxide HCl 50 MG BID 05/01 2200 AC 05/02 PO 1217 Chlorhexidine 15 ML TID 04/21 1000 AC 05/02 Gluconate PO 1217 Diltiazem HCl 5 MG ONCE ONE 05/01 2030 DC 05/01 IV PUSH 05/01 2031 2045 Folic Acid 1 MG DAILY 04/18 1602 AC 05/02 PO 1204 Gabapentin 600 MG Q8 04/25 1400 AC 05/02 PO 1454 Lorazepam 1 MG BID PRN 04/30 1545 AC 05/01 PO 1208 Metoprolol Tartrate 100 MG BID 04/29 1213 AC 05/02 PO 1204 Multivitamins 1 TAB DAILY 04/18 1602 AC 05/02 PO 1204 Nicotine 14 MG DAILY 05/02 1000 AC 05/02 TOP 1216 Omeprazole 40 MG DAILY AC 05/02 0700 AC 05/02 PO 0700 Polyethylene Glycol 17 GM DAILY 04/25 1834 AC 05/01 PO 0910 Potassium Chloride 20 MEQ BID 04/19 2200 AC 05/02 PO 1203 Senna 187 MG AT BEDTIME 04/27 2200 AC 05/01 PO 2305 Thiamine HCl 100 MG DAILY 04/18 1602 AC 05/02 PO 1204 Vital Signs Date Time Temp Pulse Resp B/P B/P Pulse O2 O2 Flow FiO2 Mean Ox Delivery Rate 05/02 1434 98.4 111 20 102/50 97 05/02 1204 120 106/58 05/02 1158 106/58 05/02 0619 97.9 112 20 110/84 97 Room Air 05/01 2302 134 114/88 05/01 2217 98.1 118 20 114/88 97 Room Air 05/01 2045 124 05/01 1952 94 Room Air Room Air Intake & Output 05/02 1600 05/02 0800 05/02 0000 Intake Total 360 Output Total 275 250 Balance -275 110 Intake, Oral 360 Output, Urine 275 250 Patient 182 lb Weight
--- NOTE | 2017-05-02 16:42 | PN- Housestaff ---
See Addendum SANTOS KAMARA,JOHN 05/02/17 1642: Subjective Follow-up For: Alcohol withdrawal Atrial fibrillation with RVR Hypertension Complaints: no complaints Tele-Events Since Last Visit: Patient was in A. fib rates 96-118. Subjective: Patient was seen and examined bedside. Patient is somnolent and speaks in a very low hoarse voice. He has no complaints. Patient is currently on Librium taper and Ativan when necessary. Review of Systems Constitutional: Reports: no symptoms. EENTM: Reports: no symptoms. Cardiovascular: Reports: no symptoms. Respiratory: Reports: no symptoms. Gastrointestinal: Reports: no symptoms. Genitourinary: Reports: no symptoms. Musculoskeletal: Reports: no symptoms. Skin: Reports: no symptoms. Neurological/Psychological: Reports: no symptoms. Hematologic/Endocrine: Reports: no symptoms. Immunologic/Allergic: Reports: no symptoms. Objective Last 24 Hrs of Vital Signs/I&O Vital Signs Date Time Temp Pulse Resp B/P B/P Pulse O2 O2 Flow FiO2 Mean Ox Delivery Rate 05/03 717 97.8 76 20 102/76 98 Room Air 05/03 0400 98 05/03 0200 112 05/03 0000 Nasal 2.0L Cannula 05/02 2228 97.1 117 24 128/90 98 Room Air 05/02 2200 97.1 117 22 128/90 05/02 2123 125 128/90 05/02 2000 135 05/02 1945 96 Room Air Room Air 05/02 1434 98.4 111 20 102/50 97 05/02 1204 120 106/58 05/02 1158 106/58 05/02 0800 97.9 112 20 110/84 Intake & Output 05/03 0800 05/03 0000 05/02 1600 Intake Total 500 120 300 Output Total 250 50 275 Balance 250 70 25 Intake, IV 500 Intake, Oral 0 120 300 Number 0 Bowel Movements Output, Urine 250 50 275 Patient 186 lb 182 lb Weight Weight Bed scale Measurement Method Physical Exam General Appearance: No Acute Distress Skin: No Rashes, No Breakdown, No Significant Lesion Skin Temp/Moisture Exam: Warm/Dry Sepsis Skin Exam (color): Normal for Ethnicity HEENT: Atraumatic, PERRLA, Mucous Membr. moist/pink Neck: Supple Cardiovascular: Normal S1, Normal S2, No Murmurs, Gallops, Rubs Lungs: Clear to Auscultation Abdomen: Normal Bowel Sounds, Soft, No Masses Neurological: Normal Speech Extremities: No Clubbing, No Cyanosis, No Edema, Normal Pulses, No Tenderness/ Swelling Vascular: Pulses Symmetrical Sepsis Peripheral Pulse Location: Radial Current Medications: Current Medications Sig/Jose Start time Last Medication Dose Route Stop Time Status Admin Acetaminophen 650 MG Q6P PRN 04/18 1445 AC PO Acetaminophen 1,000 MG Q6P PRN 04/18 1445 AC IV Albuterol Sulfate 3 ML BID 04/29 2200 AC 05/02 INH 1944 Apixaban 2.5 MG BID 04/26 1041 AC 05/02 PO 2123 Aspirin Buffered 81 MG DAILY 04/18 1433 AC 05/02 PO 1204 Chlordiazepoxide HCl 50 MG BID 05/01 2200 AC 05/02 PO 2122 Chlorhexidine 15 ML TID 04/21 1000 AC 05/02 Gluconate PO 2124 Folic Acid 1 MG DAILY 04/18 1602 AC 05/02 PO 1204 Gabapentin 600 MG Q8 04/25 1400 AC 05/02 PO 2123 Lorazepam 1 MG BID PRN 04/30 1545 AC 05/01 PO 1208 Metoprolol Tartrate 100 MG BID 04/29 1213 AC 05/02 PO 2123 Multivitamins 1 TAB DAILY 04/18 1602 AC 05/02 PO 1204 Nicotine 14 MG DAILY 05/02 1000 AC 05/02 TOP 1216 Omeprazole 40 MG DAILY AC 05/02 0700 AC 05/02 PO 0700 Polyethylene Glycol 17 GM DAILY 04/25 1834 AC 05/01 PO 0910 Potassium Chloride 20 MEQ BID 04/19 2200 AC 05/02 PO 2122 Senna 187 MG AT BEDTIME 04/27 2200 AC 05/01 PO 2305 Sodium Chloride 500 ML BOLUS ONE 05/02 2330 DC 05/02 IV 05/03 0029 2342 Thiamine HCl 100 MG DAILY 04/18 1602 AC 05/02 PO 1204 Lines/Diet/Fluids Restraints: right wrist, left wrist Assessment/Plan Assessment: 51 year old male with a PMH significant for afib with rvr was on eliquis ( electrical cardioversion 2000), htn, alcohol abuse, 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 The patient suddenly became unresponsive, agitated, confused and transferred to ICU for close monitoring on 04/20/17. Patient around 3.30 am on 04/20/17 had worsening respiratory status and intubated as per Dr. Vidal instructions. Patient is no longer on Ativan drip Cardizem drip HELD IN VIEW OF HYPOTENSION, heparin drip HELD IN VIEW OF HEMATURIA. Extubated and progressing well. Currently in telemetry Status post extubation for acute hypoxic respiratory failure due to fluid overload and aspiration pneumonia * Significant improvement in respiratory status, saturating 95% on room air * Last chest x-ray showed stable retrocardiac and hazy right perihilar opacity * Off antibiotics, vital stable, afebrile overnight * Chest PT * Respiratory Cultures positive for strep pneumoniae, finished course of antibiotics * Repeat Chest x-ray today- stable cardiomegaly and rec to followup chest series following treatment. * Pulmonology following Alcohol withdrawal with significant DTs and delirium * Continued on Librium taper 50, tomorrow 25. * Continue thiamine and multivitamins * Hasn't required any when necessary Ativan overnight * Not being maintained on CIWA anymore * Continue gabapentin * Psychiatry consulted: As patient mentation clears we will continue to educate on medications for alcohol cravings. Campral or naltrexone would be medication of choice. Atrial fibrillation with rapid RVR * Patient is currently on eliquis for atrial fibrillation with RVR, aspirin, metoprolol. Patient edema has mostly resolved, no longer on Lasix * Repeat chest x-ray pending * Cardio is following Significant cardiomyopathy with valvular heart disease and mitral valve lesion Mass with significant pulmonary hypertension * Last echo on March 2017 showed an EF of 20-25% with Moderately to severly reduced global left ventricular systolic function. 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 Full code Mild pain pathway Problem List: 1. Atrial fibrillation with RVR 2. Alcohol withdrawal 3. HTN (hypertension) Pain Ratin Pain Location: . Pain Goal: Remain pain free Pain Plan: . Tomorrow's Labs & Rationales: . JUAN A TALAVERA MD 05/02/172057: Attending MD Review Statement Attending Statement Attending MD Statement: examined this patient, discuss w/resident/PA/PRISON CLASSIFICATION COUNSELOR, agreed w/resident/PA/PRISON CLASSIFICATION COUNSELOR, reviewed EMR data (avail), discussed with case mgmt, amended to note Attending Assessment/Plan: The patient was seen and discussed with house staff. Appreciate psychiatry follow-up. Suggest delirium is more due to prolonged use of long acting benzodiazepine (Librium) rather than continued alcohol detox. This patient most likely has underlying liver disease and short acting benzodiazepine are more appropriate. Will taper Librium aggressively as ordered and will use prn Ativan. The patient has been persistently tachycardic and reported episode of decreased HR (?40-50). Will need to trend HR. PO Cardizem restarted today. Will need Cardiology follow-up/input tomorrow. Has dilated cardiomyopathy (?alcohol related). The patient is not combative and is restrained to prevent pulling out IV/pinon. I do suggest continued PT/attempts at mobilizing him after prolonged ICU stay. Most likely will need rehab. Once delirium has cleared more will need social service input. Has some persistent hematuria and is on anticoagulation. Need Urology input regarding pinon.
--- NOTE | 2017-05-02 17:29 | RADIOLOGY REPORT ---
EXAMINATION: CHEST 1 VIEW CLINICAL INFORMATION: Pulmonary edema. COMPARISON: 05/01/2017. TECHNIQUE: An AP view of the chest is provided. FINDINGS: The cardiac silhouette is enlarged, but stable. There are neither pleural effusions nor pneumothoraces. Evaluation of the retrocardiac region is limited, though I suspect that there is retrocardiac airspace disease. There are no pleural effusions or pneumothoraces. IMPRESSION: Stable cardiomegaly. Limited evaluation of the retrocardiac region, though I suspect that a retrocardiac infiltrate is present. Recommendation is for a followup chest series to be obtained following treatment and/or resolution of symptoms to assure resolution of this appearance.
[2017-05-02 22:00] VITALS: BP 128/90
[2017-05-02 22:28] VITALS: BP 128/90
[2017-05-03] VITALS (9 sets, daily range): BP systolic 98–102; BP diastolic 68–76
--- NOTE | 2017-05-03 11:48 | PN- Housestaff ---
SANTOS KAMARA,JOHN 05/03/17 1114: Subjective Follow-up For: Alcohol withdrawal Atrial fibrillation with RVR Hypertension Complaints: no complaints Tele-Events Since Last Visit: Overnight patient was in A. fib, 93-101 Subjective: Patient was examined sitting in bed. He is somnolent but less so than yesterday. He says that he has no complaints. He is currently on half the dose of Librium that he was on yesterday and when necessary Ativan. He asks where he can get beer. Review of Systems Constitutional: Reports: no symptoms. EENTM: Reports: no symptoms. Cardiovascular: Reports: no symptoms. Respiratory: Reports: no symptoms. Gastrointestinal: Reports: no symptoms. Genitourinary: Reports: no symptoms. Musculoskeletal: Reports: no symptoms. Skin: Reports: no symptoms. Neurological/Psychological: Reports: no symptoms. Hematologic/Endocrine: Reports: no symptoms. Immunologic/Allergic: Reports: no symptoms. Objective Last 24 Hrs of Vital Signs/I&O Vital Signs Date Time Temp Pulse Resp B/P B/P Pulse O2 O2 Flow FiO2 Mean Ox Delivery Rate 05/03 1000 97.8 76 20 102/76 05/03 0938 76 102/76 05/03 0800 Nasal 2.0L Cannula 05/03 0800 97.8 76 20 102/76 05/03 0717 97.8 76 20 102/76 98 Room Air 05/03 0400 98 05/03 0200 112 05/03 0000 Nasal 2.0L Cannula 05/02 2228 97.1 117 24 128/90 98 Room Air 05/02 2200 97.1 117 22 128/90 05/02 2123 125 128/90 05/02 2000 135 05/02 1945 96 Room Air Room Air 05/02 1434 98.4 111 20 102/50 97 05/02 1204 120 106/58 05/02 1158 106/58 Intake & Output 05/03 1600 05/03 0800 05/03 0000 Intake Total 500 120 Output Total 250 50 Balance 250 70 Intake, IV 500 Intake, Oral 0 120 Number 0 Bowel Movements Output, Urine 250 50 Patient 186 lb Weight Weight Bed scale Measurement Method Physical Exam General Appearance: Cooperative, No Acute Distress Skin: No Rashes, No Breakdown, No Significant Lesion Skin Temp/Moisture Exam: Warm/Dry Sepsis Skin Exam (color): Normal for Ethnicity HEENT: Atraumatic, EOMI, Mucous Membr. moist/pink Neck: Supple Cardiovascular: Normal S1, Normal S2, No Murmurs, Gallops, Rubs Lungs: Clear to Auscultation Abdomen: Normal Bowel Sounds, Soft Neurological: Normal Speech Extremities: No Edema Vascular: Normal Pulses, Pulses Symmetrical Sepsis Peripheral Pulse Location: Radial Sepsis Peripheral Pulse Exam: Normal Current Medications: Current Medications Sig/Jose Start time Last Medication Dose Route Stop Time Status Admin Acetaminophen 650 MG Q6P PRN 04/18 1445 AC PO Acetaminophen 1,000 MG Q6P PRN 04/18 1445 AC IV Albuterol Sulfate 3 ML BID 04/29 2200 AC 05/03 INH 0909 Apixaban 2.5 MG BID 04/26 1041 AC 05/03 PO 0938 Aspirin Buffered 81 MG DAILY 04/18 1433 AC 05/03 PO 0938 Chlordiazepoxide HCl 25 MG 8AM 05/03 0800 AC 05/03 PO 0832 Chlordiazepoxide HCl 50 MG BID 05/01 2200 DC 05/02 PO 2122 Chlorhexidine 15 ML TID 04/21 1000 AC 05/03 Gluconate PO 0943 Folic Acid 1 MG DAILY 04/18 1602 AC 05/03 PO 0938 Gabapentin 600 MG Q8 04/25 1400 AC 05/03 PO 0546 Lorazepam 1 MG BID PRN 04/30 1545 AC 05/03 PO 1106 Metoprolol Tartrate 100 MG BID 04/29 1213 AC 05/03 PO 0938 Multivitamins 1 TAB DAILY 04/18 1602 AC 05/03 PO 0938 Nicotine 14 MG DAILY 05/02 1000 AC 05/03 TOP 0938 Omeprazole 40 MG DAILY AC 05/02 0700 AC 05/02 PO 0700 Polyethylene Glycol 17 GM DAILY 04/25 1834 AC 05/01 PO 0910 Potassium Chloride 20 MEQ BID 04/19 2200 AC 05/03 PO 0938 Senna 187 MG AT BEDTIME 04/27 2200 AC 05/01 PO 2305 Sodium Chloride 500 ML BOLUS ONE 05/02 2330 DC 05/02 IV 05/03 0029 2342 Thiamine HCl 100 MG DAILY 04/18 1602 AC 05/03 PO 0938 Orders CIWA Score (last 24 hrs): 3, orientation Lines/Diet/Fluids Catheters/Tubes: pinon Pinon Still Needed? 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 The patient suddenly became unresponsive, agitated, confused and transferred to ICU for close monitoring on 04/20/17. Patient around 3.30 am on 04/20/17 had worsening respiratory status and intubated as per Dr. Vidal instructions. Patient is no longer on Ativan drip Cardizem drip HELD IN VIEW OF HYPOTENSION, heparin drip HELD IN VIEW OF HEMATURIA. Extubated and progressing well. Currently in telemetry -Status post extubation for acute hypoxic respiratory failure due to fluid overload and aspiration pneumonia * Significant improvement in respiratory status, saturating high 90's on 2L or RA * Last chest x-ray showed stable retrocardiac and hazy right perihilar opacity * Off antibiotics, vital stable, afebrile overnight * Chest PT * Respiratory Cultures positive for strep pneumoniae, finished course of antibiotics * Repeat Chest x-ray yesterday- stable cardiomegaly and rec to followup chest series following treatment. * Pulmonology following Alcohol withdrawal with significant DTs and delirium * Continued on Librium taper today 25 mg * Continue thiamine and multivitamins * Hasn't required any when necessary Ativan overnight 1 mg twice a day * Is currently on CIWA, score of 3 today, orientation. No longer needed to continue on CIWA. * Psychiatry consulted yesterday: As patient mentation clears we will continue to educate on medications for alcohol cravings. Campral or naltrexone would be medication of choice. Atrial fibrillation with rapid RVR * Patient is currently on eliquis for atrial fibrillation with RVR, aspirin, metoprolol. Patient edema has mostly resolved, no longer on Lasix * Repeat chest x-ray pending * Cardio is following * Patient has required doses of Cardizem for increased heart rate on several occasions during this admission. Significant cardiomyopathy with valvular heart disease and mitral valve lesion, mass with significant pulmonary hypertension * Last echo on March 2017 showed an EF of 20-25% with moderately to severly reduced global left ventricular systolic function. 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 Alimentary * Passed swallow eval, pured and honey thick regular diet * Omeprazole Activity * PT Consult * Patient is currently on restraints as he was trying to remove his oxygen. * Encouraged patient to walk with PT * Patient has early stage bedsore in coccygeal area. Encouraged to walk, turn, Tylenol for pain. DVT * alps, ELIQUIS 2.5 MG BID. Full code Mild pain pathway Problem List: 1. Alcohol withdrawal 2. Atrial fibrillation with RVR 3. Acute on chronic congestive heart failure 4. HTN (hypertension) Pain Ratin Pain Location: None Pain Goal: Remain pain free Pain Plan: Tylenol. Tomorrow's Labs & Rationales: . JUAN A TALAVERA MD 05/03/17 2202: Attending MD Review Statement Attending Statement Attending MD Statement: examined this patient, discuss w/resident/PA/OCCUPATIONAL NURSE, agreed w/resident/PA/OCCUPATIONAL NURSE, reviewed EMR data (avail), discussed with case mgmt, amended to note Attending Assessment/Plan: The patient was seen and discussed with house staff. Appreciate Cardiology follow-up. Still some tachycardia. Delirium improved with Librium taper.
--- NOTE | 2017-05-03 13:42 | NUR ---
PHYSICAL THERAPY: Pt NOT APPROP FOR PT THIS DAY. RESTRAINED, NOT FOLLOWING COMMANDS AND MAKING ATTEMPTS TO GET OOB REPEATEDLY. WILL REVISIT PATIENT FOR SKILLED PT SERVICES HE IS APPROPRIATE.
--- NOTE | 2017-05-03 17:16 | PN- Cardiology ---
Subjective Subjective: The patient is now on the floor and recovering from his alcohol withdrawal syndrome. He is still lethargic but awake and able to eat without any difficulty. He has no specific complaints today. He remains in atrial fibrillation, which is probably permanent for him, and his rate is consistently in the 1 teens to 120s. He is receiving metoprolol 100 mg twice daily. He was previously on Cardizem but this was held for low blood pressure. Objective Vital Signs and I&Os Vital Signs Date Time Temp Pulse Resp B/P B/P Pulse O2 O2 Flow FiO2 Mean Ox Delivery Rate 05/03 1618 98.5 05/03 1600 98.5 129 18 98/68 05/03 1437 100.2 129 18 9868 96 Nasal 2.0L Cannula 05/03 1400 98.2 122 18 100/72 05/03 1200 98.2 122 18 100/72 05/03 1000 97.8 76 20 102/76 05/03 0938 76 102/76 05/03 0800 Nasal 2.0L Cannula 05/03 0800 97.8 76 20 102/76 05/03 0717 97.8 76 20 102/76 98 Room Air 05/03 0400 98 05/03 0200 112 05/03 0000 Nasal 2.0L Cannula 05/02 2228 97.1 117 24 128/90 98 Room Air 05/02 2200 97.1 117 22 128/90 05/02 2123 125 128/90 05/02 2000 135 05/02 1945 96 Room Air Room Air Intake & Output 05/03 1600 05/03 0800 05/03 0000 05/02 1600 05/02 0800 05/02 0000 Intake Total 480 500 120 300 360 Output Total 250 250 50 275 250 Balance 230 250 70 25 110 Intake, IV 500 Intake, Oral 480 0 120 300 360 Number 1 0 Bowel Movements Output, Urine 250 250 50 275 250 Patient 186 lb 182 lb Weight Weight Bed scale Measurement Method Physical Exam: He is somewhat lethargic but able to eat. HEENT exam grossly normal Chest is clear to limited exam Heart irregular rhythm and no murmurs Extremities edema has resolved Current Medications: Current Medications Sig/Jose Start time Last Medication Dose Route Stop Time Status Admin Acetaminophen 650 MG Q6P PRN 04/18 1445 AC PO Acetaminophen 1,000 MG Q6P PRN 04/18 1445 AC IV Albuterol Sulfate 3 ML BID 04/29 2200 AC 05/03 INH 0909 Apixaban 2.5 MG BID 04/26 1041 AC 05/03 PO 0938 Aspirin Buffered 81 MG DAILY 04/18 1433 AC 05/03 PO 0938 Chlordiazepoxide HCl 25 MG 8AM 05/03 0800 DC 05/03 PO 0832 Chlordiazepoxide HCl 50 MG BID 05/01 2200 DC 05/02 PO 2122 Chlorhexidine 15 ML TID 04/21 1000 AC 05/03 Gluconate PO 1530 Folic Acid 1 MG DAILY 04/18 1602 AC 05/03 PO 0938 Gabapentin 600 MG Q8 04/25 1400 AC 05/03 PO 1529 Lorazepam 1 MG BID PRN 04/30 1545 AC 05/03 PO 1106 Metoprolol Tartrate 100 MG BID 04/29 1213 AC 05/03 PO 0938 Multivitamins 1 TAB DAILY 04/18 1602 AC 05/03 PO 0938 Nicotine 14 MG DAILY 05/02 1000 AC 05/03 TOP 0938 Omeprazole 40 MG DAILY AC 05/02 0700 AC 05/02 PO 0700 Polyethylene Glycol 17 GM DAILY 04/25 1834 AC 05/01 PO 0910 Potassium Chloride 20 MEQ BID 04/19 2200 AC 05/03 PO 0938 Senna 187 MG AT BEDTIME 04/27 2200 AC 05/01 PO 2305 Sodium Chloride 500 ML BOLUS ONE 05/02 2330 DC 05/02 IV 05/03 0029 2342 Thiamine HCl 100 MG DAILY 04/18 1602 AC 05/03 PO 0938 Results Last 48 Hrs of Labs/Mics: PATIENT: JUAN A MORALES PRESENT AGE: 51 PATIENT ACCOUNT NO: [id number] : 63 LOCATION: 1NO ORDERING PHYSICIAN: MANJIT VASQUES MD SERVICE DATE: 05/02/17- EXAM TYPE: RAD - XRY-PORTABLE CHEST XRAY EXAMINATION: CHEST 1 VIEW CLINICAL INFORMATION: Pulmonary edema. COMPARISON: 05/01/2017. TECHNIQUE: An AP view of the chest is provided. FINDINGS: The cardiac silhouette is enlarged, but stable. There are neither pleural effusions nor pneumothoraces. Evaluation of the retrocardiac region is limited, though I suspect that there is retrocardiac airspace disease. There are no pleural effusions or pneumothoraces. IMPRESSION: Stable cardiomegaly. Limited evaluation of the retrocardiac region, though I suspect that a retrocardiac infiltrate is present. Recommendation is for a followup chest series to be obtained following treatment and/or resolution of symptoms to assure resolution of this appearance. DICTATED BY: JUAN A DE JESUS MD DATE/TIME DICTATED:05/02/171721 CHEMICAL RESEARCH TECHNICIAN:KENY DATE/TIME TRANSCRIBED:05/02/171721 CONFIDENTIAL, DO NOT COPY WITHOUT APPROPRIATE AUTHORIZATION. <Electronically signed in Other Vendor System> SIGNED BY: JUAN A DE JESUS MD 05/02/171728 Recent Imaging Studies: PATIENT: JUAN A MORALES PRESENT AGE: 51 PATIENT ACCOUNT NO: [id number] : 63 LOCATION: [facility] ORDERING PHYSICIAN: MANJIT VASQUES MD SERVICE DATE: 05/02/17- EXAM TYPE: RAD - XRY-PORTABLE CHEST XRAY EXAMINATION: CHEST 1 VIEW CLINICAL INFORMATION: Pulmonary edema. COMPARISON: 05/01/2017. TECHNIQUE: An AP view of the chest is provided. FINDINGS: The cardiac silhouette is enlarged, but stable. There are neither pleural effusions nor pneumothoraces. Evaluation of the retrocardiac region is limited, though I suspect that there is retrocardiac airspace disease. There are no pleural effusions or pneumothoraces. IMPRESSION: Stable cardiomegaly. Limited evaluation of the retrocardiac region, though I suspect that a retrocardiac infiltrate is present. Recommendation is for a followup chest series to be obtained following treatment and/or resolution of symptoms to assure resolution of this appearance. DICTATED BY: JUAN A DE JESUS MD DATE/TIME DICTATED:05/02/171721 CHEMICAL RESEARCH TECHNICIAN:KENY DATE/TIME TRANSCRIBED:05/02/171721 CONFIDENTIAL, DO NOT COPY WITHOUT APPROPRIATE AUTHORIZATION. <Electronically signed in Other Vendor System> SIGNED BY: JUAN A DE JESUS MD 05/02/171728 Assessment/Plan Assessment/Plan The patient's atrial fibrillation is still at a moderate rate despite being on metoprolol 100 mg twice a day. I suggest adding a small dose of Cardizem for better rate control, 30 mg every 8 hours. Hopefully his blood pressure will hold. I also suggest starting him on Lasix 20 mg daily as he will undoubtedly need baseline diuretics as his ejection fraction is very poor. I would recommend a follow-up echo looking at LV function to see if it has improved over his very low value on admission. Continue telemetry? Yes
--- NOTE | 2017-05-04 00:57 | NUR ---
PT DTV BY 10PM ON 05/03/17. SALDANA REMOVED AT 1400 ON 05/03/17. BLADDER SCAN SHOWED 320ML. ABD SLIGHTLY DISTENDED AND PT STATES HE DID NOT NEED TO VOID. STC DONE AT 1250AM WITH 250ML MORALES URINE OUTPUT. NO HEMATURIA NOTED. WILL CTM.
[2017-05-04 06:00] VITALS: BP 110/80
--- NOTE | 2017-05-04 09:28 | PN- Housestaff ---
SANTOS KAMARA,JOHN 05/04/17 0928: Subjective Follow-up For: Alcohol withdrawal Atrial fibrillation with RVR Hypertension Complaints: no complaints Tele-Events Since Last Visit: Last night A. fib rates from 90-127. No events Subjective: Patient is seen and examined bedside. Patient is quite somnolent and does not answer questions. Review of Systems Constitutional: Reports: no symptoms. Objective Last 24 Hrs of Vital Signs/I&O Vital Signs Date Time Temp Pulse Resp B/P B/P Pulse O2 O2 Flow FiO2 Mean Ox Delivery Rate 05/04 1009 118/86 05/04 0800 96 Nasal 2.0L Cannula 05/04 0600 98.1 105 24 110/80 96 Nasal 2.0L Cannula 05/04 0525 105 110/80 05/04 0400 106 05/04 0000 112 05/04 0000 Nasal 2.0L Cannula 05/03 2253 97.9 113 18 100/68 97 05/03 2200 99 05/03 2135 135 108/80 05/03 2135 135 108/80 05/03 2033 97 Nasal 2.0L Cannula 05/03 2000 125 05/03 1800 98.5 124 18 98/68 05/03 1618 98.5 05/03 1600 98.5 129 18 98/68 05/03 1437 100.2 129 18 98/68 96 Nasal 2.0L Cannula 05/03 1400 98.2 122 18 100/72 05/03 1200 98.2 122 18 100/72 Intake & Output 05/04 1600 05/04 0800 05/04 0000 Intake Total 50 600 Output Total 250 0 Balance -200 600 Intake, Oral 50 600 Number 0 0 Bowel Movements Output, Urine 250 0 Physical Exam General Appearance: No Acute Distress Skin: No Rashes, No Breakdown, No Significant Lesion Skin Temp/Moisture Exam: Warm/Dry Sepsis Skin Exam (color): Normal for Ethnicity HEENT: Atraumatic, Mucous Membr. moist/pink Neck: Supple Cardiovascular: Normal S1, Normal S2, No Murmurs, Gallops, Rubs Lungs: Clear to Auscultation, Normal Air Movement Abdomen: Normal Bowel Sounds, Soft, No Masses Extremities: No Edema, Normal Pulses Vascular: Normal Pulses Sepsis Peripheral Pulse Location: Radial Sepsis Peripheral Pulse Exam: Normal Current Medications: Current Medications Sig/Jose Start time Last Medication Dose Route Stop Time Status Admin Acetaminophen 650 MG Q6P PRN 07/03 1445 AC PO Acetaminophen 1,000 MG Q6P PRN 04/18 1445 AC IV Albuterol Sulfate 3 ML BID 04/29 2200 AC 05/03 INH 2030 Apixaban 2.5 MG BID 04/26 1041 AC 05/04 PO 1009 Aspirin Buffered 81 MG DAILY 04/18 1433 AC 05/04 PO 1005 Chlordiazepoxide HCl 25 MG 8AM 05/03 0800 DC 05/03 PO 0832 Chlorhexidine 15 ML TID 04/21 1000 AC 05/03 Gluconate PO 2135 Diltiazem HCl 30 MG Q8 05/03 2200 AC 05/04 PO 0525 Folic Acid 1 MG DAILY 04/18 1602 AC 05/04 PO 1009 Furosemide 20 MG DAILY 05/04 1000 AC 05/04 PO 1009 Gabapentin 600 MG Q8 04/25 1400 AC 05/04 PO 0526 Lorazepam 1 MG BID PRN 04/30 1545 DC 05/03 PO 1106 Metoprolol Tartrate 100 MG BID 04/29 1213 AC 05/04 PO 1009 Multivitamins 1 TAB DAILY 04/18 1602 AC 05/04 PO 1005 Nicotine 14 MG DAILY 05/02 1000 AC 05/03 TOP 0938 Omeprazole 40 MG DAILY AC 05/02 0700 AC 05/02 PO 0700 Polyethylene Glycol 17 GM DAILY 04/25 1834 AC 05/04 PO 1011 Potassium Chloride 20 MEQ BID 04/19 2200 AC 05/04 PO 1012 Senna 187 MG AT BEDTIME 04/27 2200 AC 05/01 PO 2305 Thiamine HCl 100 MG DAILY 04/18 1602 AC 05/04 PO 1005 Orders CIWA Score (last 24 hrs): 4 Lines/Diet/Fluids Restraints: right wrist, left wrist Assessment/Plan Assessment: 51 year old male with a PMH significant for afib with rvr was on eliquis ( electrical cardioversion 2000), htn, alcohol abuse, 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 The patient suddenly became unresponsive, agitated, confused and transferred to ICU for close monitoring on 04/20/17. Patient around 3.30 am on 04/20/17 had worsening respiratory status and intubated as per Dr. Vidal instructions. Patient is no longer on Ativan drip Cardizem drip HELD IN VIEW OF HYPOTENSION, heparin drip HELD IN VIEW OF HEMATURIA. Extubated and progressing well. Currently in telemetry -Status post extubation for acute hypoxic respiratory failure due to fluid overload and aspiration pneumonia * Significant improvement in respiratory status, saturating high 90's on 2L or RA * Last chest x-ray showed stable retrocardiac and hazy right perihilar opacity * Off antibiotics, vital stable, afebrile overnight * Chest PT * Respiratory Cultures positive for strep pneumoniae, finished course of antibiotics * Repeat Chest x-ray yesterday- stable cardiomegaly and rec to followup chest series following treatment. * Pulmonology following Alcohol withdrawal with significant DTs and delirium * Librium taper stopped, Ativan given last night, patient somnolent, Ativan stopped this morning. * Continue thiamine and multivitamins * Discontinue CIWA. * Psychiatry consulted yesterday: As patient mentation clears we will continue to educate on medications for alcohol cravings. Campral or naltrexone would be medication of choice. * Social work for IOP. Patient is currently requesting beer and is likely to relapse. Atrial fibrillation with rapid RVR * Patient is currently on eliquis for atrial fibrillation with RVR, aspirin, metoprolol. * Cardio is following. As per Dr. Pang yesterday, patient's atrial fibrillation rate is moderate despite being on 100 mg metoprolol twice a day. We have added a small dose of Cardizem 30 mg 3 times a day for better rate control. Continue to watch blood pressure and pulse rate. * He is to be continued on telemetry. Significant cardiomyopathy with valvular heart disease and mitral valve lesion, mass with significant pulmonary hypertension * Last echo on March 2017 showed an EF of 20-25% with moderately to severly reduced global left ventricular systolic function. 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 Pang, we have also started him on 20 mg Lasix daily as he will likely need baseline diuretics since his ejection fraction is quite poor. Hematuria * Likely traumatic due to Chery insertion * Urology consulted * Chery was removed yesterday. Hematuria resolving. This morning a bladder scan showed 320 mL of residual urine with a slightly distended abdomen, patient stated he did not need to void. A straight cath was done and yielded 250 mL of quinton urine with no hematuria. Alimentary * Passed swallow eval, pured and honey thick regular diet * Omeprazole Activity * As per physical therapy yesterday patient not appropriate for physical therapy he was restrained and not following commands and making repeated attempts to get out of bed. * Patient is currently on restraints as he was trying to remove his oxygen. * Patient has early stage bedsore in coccygeal area. Encouraged to walk, turn, Tylenol for pain. DVT * alps, ELIQUIS 2.5 MG BID. Full code Mild pain pathway Problem List: 1. Alcohol withdrawal 2. Atrial fibrillation with RVR 3. HTN (hypertension) 4. Acute on chronic congestive heart failure Pain Ratin Pain Location: None Pain Goal: Remain pain free Pain Plan: Tylenol Tomorrow's Labs & Rationales: None DVT/Prophylaxis: pharmacological JUAN A TALAVERA MD 05/04/17 0106: Attending MD Review Statement Attending Statement Attending MD Statement: examined this patient, discuss w/resident/PA/EMBROIDERY OPERATOR, agreed w/resident/PA/EMBROIDERY OPERATOR, reviewed EMR data (avail), discussed with nursing, discussed with case mgmt, amended to note Attending Assessment/Plan: The patient was seen and discussed with house staff. Less somnolent coming off of Librium. Will continue current care and observe off of Librium. Appreciate cardiology follow-up. HR decreased with addition of Cardizem and will increase dose today.
--- NOTE | 2017-05-04 12:46 | ECHOCARDIOGRAM REPORT ---
JUAN A MORALES Age: 51 : 1965 Gender: M Exam Date: 05/03/2017 19:53 Exam Location: [facility] Ht (in): 73 Wt (lb): 186 BSA: 2.09 BP: 98 / 68 Ordering Physician: NOEL PANG MD Referring Physician: NOEL PANG MD Technologist: Nimo Reddy RDCS Room Number: [id number] Indications: CARDIOMYOPATHY, LIMITED STUDY PER ORDER Rhythm: Atrial fibrillation Technical Quality: Good FINDINGS Left Ventricle Mild left ventricular dilatation. Moderate concentric left ventricular hypertrophy. Moderate to severly reduced global left ventricular systolic function. Left ventricular ejection fraction visually estimated at 25-30 %. Right Ventricle Right Atrium Left Atrium Mitral Valve Aortic Valve Tricuspid Valve Pulmonic Valve Pericardium Great Vessels CONCLUSIONS This is a limited follow-up study to look at left ventricular systolic function. Mild left ventricular dilatation. Moderate concentric left ventricular hypertrophy. Moderate to severly reduced global left ventricular systolic function. Left ventricular ejection fraction visually estimated at 25-30 %. Noel Pang M.D. (Electronically Signed) Final Date: 04 May 2017 12:45 MEASUREMENTS (Male / Female) Normal Values 2D ECHO LV Diastolic Diameter PLAX 5.7 cm 4.2 - 5.9 / 3.9 - 5.3 cm LV Systolic Diameter PLAX 4.9 cm 2.1 - 4.0 cm LV Fractional Shortening PLAX 14.0 % 25 - 46 % LV Ejection Fraction 2D Teich 29.5 % IVS Diastolic Thickness 1.6 cm LVPW Diastolic Thickness 1.5 cm LV Relative Wall Thickness 0.5 LV Ejection Fraction MOD BP 26.5 % >= 55 % LV Diastolic Length 4C 9.3 cm 6.9 - 10.3 cm LV Diastolic Area 4C 44.3 cm LV Diastolic Volume MOD 4C 178.0 cm LV Ejection Fraction MOD 4C 30.3 % LV Stroke Volume MOD 4C 54.0 cm LV Systolic Length 4C 8.6 cm LV Systolic Area 4C 35.1 cm LV Systolic Volume MOD 4C 124.0 cm LV Ejection Fraction MOD 2C 24.5 % LV Diastolic Volume 4C AL 178.8 cm 85 - 139 / 69 - 109 cm LV Systolic Volume 4C AL 121.2 cm LV Ejection Fraction 4C AL 32.2 % LV Stroke Volume 4C AL 57.6 cm LV Ejection Fraction 2C AL 28.4 % DOPPLER TR Peak Velocity 280.0 cm/s TR Peak Gradient 31.4 mmHg Right Atrial Pressure 10.0 mmHg Pulmonary Artery Systolic Pressu 41.4 mmHg Right Ventricular Systolic Press 41.4 mmHg
--- NOTE | 2017-05-04 13:44 | PN- Cardiology ---
Subjective Subjective: The patient remains in atrial fibrillation. His rate is a little bit slower in the 90s to low 100s. He has no cardiac complaints. He is now on Cardizem 30 mg every 8 hours and his blood pressure has been maintained. Lasix has also been started. His echocardiogram still shows poor left ventricular systolic function but perhaps a little bit better than previously. Objective Vital Signs and I&Os Vital Signs Date Time Temp Pulse Resp B/P B/P Pulse O2 O2 Flow FiO2 Mean Ox Delivery Rate 05/04 1156 96 Room Air 05/04 1009 118/86 05/04 0800 96 Nasal 2.0L Cannula 05/04 0600 98.1 105 24 110/80 96 Nasal 2.0L Cannula 05/04 0525 105 110/80 05/04 0400 106 05/04 0000 112 05/04 0000 Nasal 2.0L Cannula 05/03 2253 97.9 113 18 100/68 97 05/03 2200 99 05/03 2135 135 108/80 05/03 2135 135 108/80 05/03 2033 97 Nasal 2.0L Cannula 05/03 2000 125 05/03 1800 98.5 124 18 98/68 05/03 1618 98.5 05/03 1600 98.5 129 18 98/68 05/03 1437 100.2 129 18 98/68 96 Nasal 2.0L Cannula 05/03 1400 98.2 122 18 100/72 Intake & Output 05/04 1600 05/04 0800 05/04 0000 05/03 1600 05/03 0800 05/03 0000 Intake Total 50 600 480 500 120 Output Total 250 0 250 250 50 Balance -200 600 230 250 70 Intake, IV 500 Intake, Oral 50 600 480 0 120 Number 0 0 1 0 Bowel Movements Output, Urine 250 0 250 250 50 Patient 186 lb Weight Weight Bed scale Measurement Method Physical Exam: He is in no distress Chest is clear to limited exam Heart reveals irregular rhythm and no murmurs Current Medications: Current Medications Sig/Jose Start time Last Medication Dose Route Stop Time Status Admin Acetaminophen 650 MG Q6P PRN 04/18 1445 AC PO Acetaminophen 1,000 MG Q6P PRN 04/18 1445 AC IV Albuterol Sulfate 3 ML BID 04/29 2200 AC 05/04 INH 1154 Apixaban 2.5 MG BID 04/26 1041 AC 05/04 PO 1009 Aspirin Buffered 81 MG DAILY 04/18 1433 AC 05/04 PO 1005 Chlordiazepoxide HCl 25 MG 8AM 05/03 0800 DC 05/03 PO 0832 Chlorhexidine 15 ML TID 04/21 1000 AC 05/03 Gluconate PO 2135 Diltiazem HCl 30 MG Q8 05/03 2200 AC 05/04 PO 0525 Folic Acid 1 MG DAILY 04/18 1602 AC 05/04 PO 1009 Furosemide 20 MG DAILY 05/04 1000 AC 05/04 PO 1009 Gabapentin 600 MG Q8 04/25 1400 AC 05/04 PO 0526 Lorazepam 1 MG BID PRN 04/30 1545 DC 05/03 PO 1106 Metoprolol Tartrate 100 MG BID 04/29 1213 AC 05/04 PO 1009 Multivitamins 1 TAB DAILY 04/18 1602 AC 05/04 PO 1005 Nicotine 14 MG DAILY 05/02 1000 AC 05/03 TOP 0938 Omeprazole 40 MG DAILY AC 05/02 0700 AC 05/02 PO 0700 Polyethylene Glycol 17 GM DAILY 04/25 1834 AC 05/04 PO 1011 Potassium Chloride 20 MEQ BID 04/19 2200 AC 05/04 PO 1012 Senna 187 MG AT BEDTIME 04/27 2200 AC 05/01 PO 2305 Thiamine HCl 100 MG DAILY 04/18 1602 AC 05/04 PO 1005 Results Recent Imaging Studies: CONCLUSIONS This is a limited follow-up study to look at left ventricular systolic function. Mild left ventricular dilatation. Moderate concentric left ventricular hypertrophy. Moderate to severly reduced global left ventricular systolic function. Left ventricular ejection fraction visually estimated at 25-30 %. Noel Pang M.D. (Electronically Signed) Final Date: 04 May 2017 12:45 Assessment/Plan Assessment/Plan The patient's atrial fibrillation is a little better controlled with the addition of Cardizem and his blood pressure has been maintained. He still has poor left ventricular systolic function probably due to alcoholic cardiomyopathy. I recommend continuing him on the same medications. If his heart rate should increase then I think it is safe to increase his Cardizem a little bit more for better rate control. Continue telemetry? Yes
[2017-05-04 15:23] VITALS: BP 106/73
[2017-05-04 21:38] VITALS: BP 110/72
[2017-05-05 08:01] VITALS: BP 96/70
--- NOTE | 2017-05-05 09:48 | PN- Psychiatry ---
See Addendum Assessment/Plan Impression: Identifying Info: 51-year-old single male presents to [facility] emergency department on 04/18/2017 for weakness. Subsequently developed alcohol withdrawal delirium, hypoxic respiratory failure and pneumonia requiring intubation required an ICU stay. Currently downgraded to telemetry. SUBJECTIVE Patient states "It's beautiful." Presents today without complaints. Is still interested in alcohol treatment and medications for alcohol cravings. Discussed Campral and Naltrexone, patient will consider and agreeable further education. Brief ROS Gait: Per PT patient is unsteady on his feet and will require rehab Sleep: Adequate Appetite: Adequate OBJECTIVE Mental Status Exam Presentation/Appearance: Cooperative with evaluation. Hospital garb. No longer in 2 pt restraints. Unkempt, long gilbert. Orientation: person, place month and situation but not day Sensorium: Awake and alert Eye contact: Appropriate Affect: Blunted Mood: "Okay" Depression: Denies Anxiety: Denies Thought Content: - Denies SI/HI, AH/VH. - Denies Hopeless/Helpless Thoughts Thought Process: Linear, improved Associations: Appropriate Speech: Soft and dysarthric Judgment: Fair Insight: Fair Cognition: Memory: Recent deficits likely due to withdrawl delirium Attention/Concentration: Grossly intact Fund of Knowledge: Did not assess Abstractions: Did not assess MMSE: Did not assess ASSESSMENT 51-year-old male the long history of alcohol use disorder presents with continued confusion in the context of alcohol withdrawal. His mentation has improved considerably. He would likely benefit from substance abuse treatment and medication to curb alcohol cravings once medically cleared. Diagnosis Alcohol use disorder, severe Delirium due to alcohol withdrawal, improving A total of 30 minutes was spent with the patient with more than 50% of the time spent in counseling and/or coordination of care. Suggestion: 1. Continue vitamin supplementation. 2. Appreciate social work assistance in disposition planning. 3. We will continue to educate on medications for alcohol cravings. Campral or naltrexone would be medication of choice. Thank you for including psychiatry in this case, we will follow on an as-needed basis. Subjective Subjective: as above Objective Last 24 Hrs of Vital Signs/I&O Current Medications Sig/Jose Start time Last Medication Dose Route Stop Time Status Admin Acetaminophen 650 MG Q6P PRN 04/18 1445 AC PO Acetaminophen 1,000 MG Q6P PRN 04/18 1445 AC IV Albuterol Sulfate 3 ML BID 04/29 2200 AC 05/05 INH 0814 Apixaban 2.5 MG BID 04/26 1041 AC 05/04 PO 2206 Aspirin Buffered 81 MG DAILY 04/18 1433 AC 05/04 PO 1005 Chlorhexidine 15 ML TID 04/21 1000 AC 05/04 Gluconate PO 2209 Diltiazem HCl 60 MG Q8 05/04 2200 AC 05/05 PO 0626 Diltiazem HCl 30 MG Q8 05/03 2200 DC 05/04 PO 1408 Folic Acid 1 MG DAILY 04/18 1602 AC 05/04 PO 1009 Furosemide 20 MG DAILY 05/04 1000 AC 05/04 PO 1009 Gabapentin 600 MG Q8 04/25 1400 AC 05/05 PO 0625 Lorazepam 1 MG BID PRN 04/30 1545 DC 05/03 PO 1106 Metoprolol Tartrate 100 MG BID 04/29 1213 AC 05/04 PO 2206 Multivitamins 1 TAB DAILY 04/18 1602 AC 05/04 PO 1005 Nicotine 14 MG DAILY 05/02 1000 AC 05/04 TOP 1407 Omeprazole 40 MG DAILY AC 05/02 0700 AC 05/05 PO 0626 Patient Medication 1 ED .STK-MED ONE 05/04 1357 MS Teaching ED 05/04 1358 Polyethylene Glycol 17 GM DAILY 04/25 1834 AC 05/04 PO 1011 Potassium Chloride 20 MEQ BID 04/19 2200 AC 05/04 PO 2206 Senna 187 MG AT BEDTIME 04/27 2200 AC 05/04 PO 2206 Thiamine HCl 100 MG DAILY 04/18 1602 AC 05/04 PO 1005 Vital Signs Date Time Temp Pulse Resp B/P B/P Pulse O2 O2 Flow FiO2 Mean Ox Delivery Rate 05/05 0816 92 Room Air Room Air 05/05 0801 97.2 92 18 96/70 93 Room Air 05/05 0800 Room Air 05/04 2209 122 110/72 05/046 122 110/72 05/04 2138 98.0 86 18 110/72 94 05/04 1600 Room Air 05/04 1523 97.2 85 20 106/73 97 Nasal Cannula 05/04 1408 106/73 05/04 1156 96 Room Air 05/04 1009 118/86 Intake & Output 05/05 1600 05/05 0800 05/05 0000 Intake Total 200 100 Output Total Balance 200 100 Intake, Oral 200 100 Weight Measurement Method
--- NOTE | 2017-05-05 10:08 | PN- Cardiology ---
Subjective Subjective: The patient remains in atrial fibrillation. He is now on Cardizem 180 mg daily plus Lopressor 200 mg daily. Heart rate is in the 90s. His blood pressure is maintained. He is more alert today. Objective Vital Signs and I&Os Vital Signs Date Time Temp Pulse Resp B/P B/P Pulse O2 O2 Flow FiO2 Mean Ox Delivery Rate 05/05 0816 92 Room Air Room Air 05/05 0801 97.2 92 18 96/70 93 Room Air 05/05 0800 Room Air 05/04 2209 122 110/72 05/04 2206 122 110/72 05/04 2138 98.0 86 18 110/72 94 05/04 1600 Room Air 05/04 1523 97.2 85 20 106/73 97 Nasal Cannula 05/04 1408 106/73 05/04 1156 96 Room Air 05/04 1009 118/86 Intake & Output 05/05 1600 05/05 0800 05/05 0000 05/04 1600 05/04 0800 05/04 0000 Intake Total 200 100 600 50 600 Output Total 550 250 0 Balance 200 100 50 -200 600 Intake, Oral 200 100 600 50 600 Number 2 0 0 Bowel Movements Output, Urine 550 250 0 Weight Measurement Method Physical Exam: He is no distress. He is more alert. HEENT exam normal Chest is clear Heart irregular no murmurs Current Medications: Current Medications Sig/Jose Start time Last Medication Dose Route Stop Time Status Admin Acetaminophen 650 MG Q6P PRN 04/18 1445 AC PO Acetaminophen 1,000 MG Q6P PRN 04/18 1445 AC IV Albuterol Sulfate 3 ML BID 04/29 2200 AC 05/05 INH 0814 Apixaban 2.5 MG BID 04/26 1041 AC 05/04 PO 2206 Aspirin Buffered 81 MG DAILY 04/18 1433 AC 05/04 PO 1005 Chlorhexidine 15 ML TID 04/21 1000 AC 05/04 Gluconate PO 220 Diltiazem HCl 60 MG Q8 05/04 2200 AC 05/05 PO 0626 Diltiazem HCl 30 MG Q8 05/03 2200 DC 05/04 PO 1408 Folic Acid 1 MG DAILY 04/18 1602 AC 05/04 PO 1009 Furosemide 20 MG DAILY 05/04 1000 AC 05/04 PO 1009 Gabapentin 300 MG Q8 05/05 1400 UNVr PO Gabapentin 600 MG Q8 04/25 1400 DC 05/05 PO 0625 Metoprolol Tartrate 100 MG BID 04/29 1213 AC 05/04 PO 2206 Multivitamins 1 TAB DAILY 04/18 1602 AC 05/04 PO 1005 Nicotine 14 MG DAILY 05/02 1000 AC 05/04 TOP 1407 Omeprazole 40 MG DAILY AC 05/02 0700 AC 05/05 PO 0626 Patient Medication 1 ED .STK-MED ONE 05/04 1357 DC Teaching ED 05/04 1358 Polyethylene Glycol 17 GM DAILY 04/25 1834 AC 05/04 PO 1011 Potassium Chloride 20 MEQ BID 04/19 2200 AC 05/04 PO 2206 Senna 187 MG AT BEDTIME 04/27 2200 AC 05/04 PO 2206 Thiamine HCl 100 MG DAILY 04/18 1602 AC 05/04 PO 1005 Assessment/Plan Assessment/Plan The patient's atrial fibrillation is a little better controlled with the addition of Cardizem and his blood pressure has been maintained. He still has poor left ventricular systolic function probably due to alcoholic cardiomyopathy. We can continue on the same medication. We can switch to 180 mg long acting diltiazem on discharge. Telemetry can probably be discontinued at this time as he is stable from a cardiac standpoint and his atrial fibrillation is chronic. Continue telemetry? No
--- NOTE | 2017-05-05 11:03 | PN- Housestaff ---
SANTOS KAMARA,JOHN 05/05/17 1049: Subjective Follow-up For: Valerie pedraza with RVR CHF Alcohol withdrawal Complaints: no complaints Tele-Events Since Last Visit: Patient had rates from 82-114 A. milo last night. At around 10 PM his heart rate was 122. He was increased from 30 mg Cardizem 3 times a day to 60 mg 3 times a day to good effect. Subjective: Patient was seen and examined bedside. He was unresponsive at the time of exam. Review of Systems Constitutional: Reports: no symptoms. Objective Last 24 Hrs of Vital Signs/I&O Vital Signs Date Time Temp Pulse Resp B/P B/P Pulse O2 O2 Flow FiO2 Mean Ox Delivery Rate 05/05 0816 92 Room Air Room Air 05/05 0801 97.2 92 18 96/70 93 Room Air 05/05 0800 Room Air 05/04 2209 122 110/72 05/04 2206 122 110/72 05/04 2138 98.0 86 18 110/72 94 05/04 1600 Room Air 05/04 1523 97.2 85 20 106/73 97 Nasal Cannula 05/04 1408 106/73 05/04 1156 96 Room Air Intake & Output 05/05 1600 05/05 0800 05/05 0000 Intake Total 200 100 Output Total Balance 200 100 Intake, Oral 200 100 Weight Measurement Method Physical Exam General Appearance: No Acute Distress Skin: No Rashes, No Breakdown, No Significant Lesion Skin Temp/Moisture Exam: Warm/Dry Cardiovascular: Regular Rate, Normal S1, Normal S2, No Murmurs, Gallops, Rubs Lungs: Clear to Auscultation, Normal Air Movement Abdomen: Normal Bowel Sounds, Soft, No Masses Extremities: No Edema, Normal Pulses, No Tenderness/Swelling Vascular: Normal Pulses, Pulses Symmetrical Current Medications: Current Medications Sig/Jose Start time Last Medication Dose Route Stop Time Status Admin Acetaminophen 650 MG Q6P PRN 04/18 1445 AC PO Acetaminophen 1,000 MG Q6P PRN 04/18 1445 AC IV Albuterol Sulfate 3 ML BID 04/29 2200 AC 05/05 INH 0814 Apixaban 2.5 MG BID 04/26 1041 AC 05/04 PO 2206 Aspirin Buffered 81 MG DAILY 04/18 1433 AC 05/04 PO 1005 Chlorhexidine 15 ML TID 04/21 1000 AC 05/04 Gluconate PO 2209 Diltiazem HCl 60 MG Q8 05/04 2200 AC 05/05 PO 0626 Diltiazem HCl 30 MG Q8 05/03 2200 DC 05/04 PO 1408 Folic Acid 1 MG DAILY 04/18 1602 AC 05/04 PO 1009 Furosemide 20 MG DAILY 05/04 1000 AC 05/04 PO 1009 Gabapentin 300 MG Q8 05/05 1400 AC PO Gabapentin 600 MG Q8 04/25 1400 DC 05/05 PO 0625 Metoprolol Tartrate 100 MG BID 04/29 1213 AC 05/04 PO 2206 Multivitamins 1 TAB DAILY 04/18 1602 AC 05/04 PO 1005 Nicotine 14 MG DAILY 05/02 1000 AC 05/04 TOP 1407 Omeprazole 40 MG DAILY AC 05/02 0700 AC 05/05 PO 0626 Patient Medication 1 ED .STK-MED ONE 05/04 1357 [facility] Teaching ED 05/04 1358 Polyethylene Glycol 17 GM DAILY 04/25 1834 AC 05/04 PO 1011 Potassium Chloride 20 MEQ BID 04/19 2200 AC 05/04 PO 2206 Senna 187 MG AT BEDTIME 04/27 2200 AC 05/04 PO 2206 Thiamine HCl 100 MG DAILY 04/18 1602 AC 05/04 PO 1005 Orders CIWA Score (last 24 hrs): 4 Lines/Diet/Fluids Restraints: right wrist Assessment/Plan Assessment: Assessment 51 year old male with a PMH significant for afib with rvr was on eliquis ( electrical cardioversion 2000), htn, alcohol abuse, 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 The patient suddenly became unresponsive, agitated, confused and transferred to ICU for close monitoring on 04/20/17. Patient on 04/20/17 had worsening respiratory status and intubated as per Dr. Vidal instructions. Extubated and progressing well. Currently in telemetry Plan Status post extubation for acute hypoxic respiratory failure due to fluid overload and aspiration pneumonia * Significant improvement in respiratory status, saturating high 90's on 2L or RA * Last chest x-ray showed stable retrocardiac and hazy right perihilar opacity * Off antibiotics, vital stable, afebrile overnight * Chest PT * Respiratory Cultures positive for strep pneumoniae, finished course of antibiotics * Repeat Chest x-ray yesterday- stable cardiomegaly and rec to followup chest series following treatment. * Pulmonology following Alcohol withdrawal with significant DTs and delirium * Librium taper stopped, when necessary Ativan stopped. Librium should be out of his system in 1 day. * Continue thiamine and multivitamins * Discontinue CIWA. * Can wean gabapentin which was given to help prevent seizures and calm him during withdrawal can give 300 3 times a day now and wean to twice a day. * Psychiatry consulted 05/03: As patient mentation clears we will continue to educate on medications for alcohol cravings. Campral or naltrexone would be medication of choice. * Social work for IOP. Patient is currently requesting beer and is likely to relapse. Atrial fibrillation with rapid RVR * Patient is currently on eliquis for atrial fibrillation with RVR, aspirin, metoprolol. * Cardio is following. As per Dr. Pang yesterday if patient's A. fib rates spiked we would increase Cardizem dose from 30 mg 3 times a day to 60 mg 3 times a day. Last night his rates spiked to 122 and this was initiated. Continue to watch blood pressure and pulse rate. * He is to be continued on telemetry. Significant cardiomyopathy with valvular heart disease and mitral valve lesion, mass with significant pulmonary hypertension * Last echo on March 2017 showed an EF of 20-25% with moderately to severly reduced global left ventricular systolic function. 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 Pang, we have started him on 20 mg Lasix daily for a baseline diuretic since his ejection fraction is quite poor. Hematuria * Likely traumatic due to Chery insertion * Urology consulted, have not seen him as of today. * Chery was removed 05/03. Hematuria resolving. Alimentary * Passed swallow eval, pured and honey thick regular diet * Omeprazole Activity * Continue to mobilize with PT * Patient is currently on right-handed restraint as he was trying to remove his oxygen. * Patient has recovering early stage bedsore in coccygeal area. Encouraged to walk, turn, Tylenol for pain. DVT * alps, ELIQUIS 2.5 MG BID. Full code Mild pain pathway Problem List: 1. Atrial fibrillation with RVR 2. Alcohol withdrawal 3. Acute on chronic congestive heart failure Pain Ratin Pain Location: Unable to assess at time of interview Pain Goal: Remain pain free Pain Plan: Mild pain pathway Tomorrow's Labs & Rationales: . JUAN A TALAVERA MD 05/05/17 4356: Attending MD Review Statement Attending Statement Attending MD Statement: examined this patient, discuss w/resident/PA/PILOT BOAT OPERATOR, agreed w/resident/PA/PILOT BOAT OPERATOR, reviewed EMR data (avail), discussed with nursing, discussed with case mgmt, amended to note Attending Assessment/Plan: The patient was seen and discussed with house staff. Mental status improving off of Librium/Ativan. Still very weak. HR decreased on increased dose of Cardizem. Appreciate Cardiology input. Will continue PT. Will need Social Service consult regarding EtOH. Pending PT follow-up most likely will need physical rehab (? acute rehab vs STR). Appreciate Psychiatry input and will begin taper of Gabapentin.
[2017-05-05 13:16] VITALS: BP 94/70
[2017-05-05 14:40] VITALS: BP 100/64
--- NOTE | 2017-05-05 15:30 | NUR ---
Sw into see pt who was not awake and would not awake for sw visit. sw spoke with pt's Rn who reported pt was doing better today. Better able to hold his head and sit on the side of the bed. Pt no longer in restraints. Pt continues to ask for beer; wants to go to the store to get some beer per RN. sw to continue to follow pt for support and to discuss ETOH aftercare. Pt will most likly need STR prior to ETOH tx.
[2017-05-05 22:00] VITALS: BP 112/80
--- NOTE | 2017-05-06 05:13 | NUR ---
PER PT "SHAVE IT ALL OFF". MST IN ROOM SHAVING ZAHRA AND NIKI PER PT. A/OX3.
[2017-05-06 06:00] VITALS: BP 112/80
[2017-05-06 08:24] LABS: ABSOLUTE BASOPHIL COUNT 0.1 /CUMM (0.0-0.2); ABSOLUTE EOSINOPHIL COUNT 0.2 /CUMM (0.0-0.7); ABSOLUTE GRANULOCYTE CT 6.1 /CUMM (1.4-6.5); ABSOLUTE LYMPH COUNT 1.5 /CUMM (1.2-3.4); ABSOLUTE MONOCYTE COUNT 0.9 /CUMM (0.10-0.60); BASOPHIL % 1.2 % (0.0-2.0); EOSINOPHIL % 2.2 % (0-5); HEMATOCRIT 33.6 % (42-52); MEAN CORPUSCULAR HGB CONC 32.6 G/DL (33.0-37.0); MEAN CORPUSCULAR VOLUME 94.9 FL (80.0-94.0); MEAN PLATELET VOLUME 8.4 FL (7.4-10.4); PLATELET COUNT 428 /CUMM (130-400); RBC DISTRIBUTION WIDTH 19.9 % (11.5-14.5); RED BLOOD CELL CT 3.54 /CUMM (4.70-6.10); WHITE BLOOD CELL COUNT 8.9 /CUMM (4.8-10.8)
--- NOTE | 2017-05-06 10:11 | PN- Housestaff ---
SANTOS KAMARA,JOHN 05/06/17 1006: Subjective Follow-up For: afib with rvr chf alcohol withdrawal Complaints: no complaints Subjective: Patient is examined in bed. He states that he feels very weak. Other than this he has no complaints. Review of Systems Constitutional: Reports: weakness. Objective Last 24 Hrs of Vital Signs/I&O Vital Signs Date Time Temp Pulse Resp B/P B/P Pulse O2 O2 Flow FiO2 Mean Ox Delivery Rate 05/09 1519 98.0 126 18 122/58 99 05/09 1439 128 102/74 05/09 1439 128 102/74 05/09 1437 128 102/74 05/09 1116 124 88/68 05/09 1050 124 88/68 05/09 1039 124 88/68 05/09 0800 Room Air 05/09 0600 98.1 114 20 90/60 98 Room Air 05/09 0526 114 90/60 05/09 0000 Room Air 05/08 2310 98.9 110 20 118/66 94 05/08 2106 87 108/80 05/08 2106 87 108/80 05/08 1551 110 118/84 Intake & Output 05/09 1600 05/09 0800 05/09 0000 Intake Total 177 321 9398 Output Total 350 650 Balance 603 -110 1130 Intake, IV 3 Intake, Oral 506 014 8285 Output, Urine 350 650 Patient 181 lb Weight Weight Bed scale Measurement Method Physical Exam General Appearance: Alert, Oriented X3, Cooperative, No Acute Distress Skin: No Rashes, No Breakdown, No Significant Lesion Skin Temp/Moisture Exam: Warm/Dry Sepsis Skin Exam (color): Normal for Ethnicity HEENT: EOMI, Mucous Membr. moist/pink Cardiovascular: Normal S1, Normal S2, No Murmurs, Gallops, Rubs Lungs: Clear to Auscultation, Normal Air Movement Abdomen: Normal Bowel Sounds, Soft, No Tenderness, No Hepatospenomegaly, No Masses Neurological: Normal Speech Extremities: No Edema, Normal Pulses, No Tenderness/Swelling Vascular: Normal Pulses Sepsis Peripheral Pulse Location: Radial Sepsis Peripheral Pulse Exam: Normal Current Medications: Current Medications Sig/Jose Start time Last Medication Dose Route Stop Time Status Admin Acamprosate 666 MG TID 05/06 1615 AC 05/09 PO 1050 Acetaminophen 650 MG Q6P PRN 07/03 1445 AC PO Acetaminophen 1,000 MG Q6P PRN 04/18 1445 DC IV Albuterol Sulfate 3 ML BID 04/29 2200 AC 05/05 INH 1900 Apixaban 2.5 MG BID 04/26 1041 AC 05/09 PO 1049 Aspirin Buffered 81 MG DAILY 04/18 1433 AC 05/09 PO 1049 Chlorhexidine 15 ML TID 04/21 1000 AC 05/09 Gluconate PO 1054 Digoxin 0.25 MG 1700 05/10 1700 AC PO Digoxin 0.5 MG ONCE ONE 05/09 1115 DC 05/09 IV 05/09 1116 1116 Digoxin 0.5 MG ONCE ONE 05/09 1045 CAN PO 05/09 1046 Diltiazem HCl 60 MG Q8 05/04 2200 AC 05/09 PO 1439 Folic Acid 1 MG DAILY 04/18 1602 AC 05/09 PO 1049 Furosemide 20 MG DAILY 05/04 1000 AC 05/08 PO 1021 Gabapentin 100 MG Q12 05/09 0734 AC 05/09 PO 1054 Gabapentin 300 MG Q12 05/07 2200 DC 05/08 PO 2106 Metoprolol Tartrate 100 MG BID 04/29 1213 AC 05/09 PO 1439 Multivitamins 1 TAB DAILY 04/18 1602 AC 05/09 PO 1049 Nicotine 14 MG DAILY 05/02 1000 AC 05/09 TOP 1051 Omeprazole 40 MG DAILY AC 05/02 0700 AC 05/05 PO 0626 Polyethylene Glycol 17 GM DAILY 04/25 1834 AC 05/09 PO 1051 Potassium Chloride 20 MEQ BID 04/19 2200 AC 05/09 PO 1049 Senna 187 MG AT BEDTIME 04/27 2200 AC 05/08 PO 2106 Thiamine HCl 100 MG DAILY 04/18 1602 AC 05/09 PO 1049 Lines/Diet/Fluids Restraints: none Assessment/Plan Assessment: Assessment 51 year old male with a PMH significant for afib with rvr was on eliquis ( electrical cardioversion 2000), htn, alcohol abuse, 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 The patient suddenly became unresponsive, agitated, confused and transferred to ICU for close monitoring on 04/20/17. Patient on 04/20/17 had worsening respiratory status and intubated as per Dr. Vidal instructions. Extubated and progressing well. Currently in telemetry. Plan Status post extubation for acute hypoxic respiratory failure due to fluid overload and aspiration pneumonia * Significant improvement in respiratory status, saturating high 90's on 2L or RA * Last chest x-ray showed stable retrocardiac and hazy right perihilar opacity * Off antibiotics, vital stable, afebrile overnight * Chest PT * Respiratory Cultures positive for strep pneumoniae, finished course of antibiotics * Repeat Chest x-ray yesterday- stable cardiomegaly and rec to followup chest series following treatment. * Pulmonology following Alcohol withdrawal with significant DTs and delirium * Librium taper stopped, Ativan stopped. Librium is out of his system and his mentation has much improved. * Continue thiamine and multivitamins * Discontinue CIWA. * Can wean gabapentin which was given to help prevent seizures and calm him during withdrawal can give 300 3 times a day now and wean to twice a day. * Psychiatry consulted 05/06: As patient mentation has cleared, we can start campral 666 mg tid. * Social work for IOP Atrial fibrillation with rapid RVR * Patient is currently on eliquis for atrial fibrillation with RVR, aspirin, metoprolol. * Cardio is following. As per Dr. Pang yesterday if patient's A. fib rates spiked we would increase Cardizem dose from 30 mg 3 times a day to 60 mg 3 times a day. Last night his rates spiked to 122 and this was initiated. Continue to watch blood pressure and pulse rate. * convert to 180 mg long acting cardizem on discharge * Put back on tele Significant cardiomyopathy with valvular heart disease and mitral valve lesion, mass with significant pulmonary hypertension * Last echo on March 2017 showed an EF of 20-25% with moderately to severly reduced global left ventricular systolic function. 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 Pang, we have started him on 20 mg Lasix daily for a baseline diuretic since his ejection fraction is quite poor. Hematuria * Likely traumatic due to Chery insertion * Urology consulted, have not seen him as of today. * Chery was removed 05/03. Hematuria resolving. Alimentary * Passed swallow eval, pured and honey thick regular diet * Omeprazole Activity * Continue to mobilize with PT * Patient is currently on right-handed restraint as he was trying to remove his oxygen. * Patient has recovering early stage bedsore in coccygeal area. Encouraged to walk, turn, Tylenol for pain. DVT * alps, ELIQUIS 2.5 MG BID. acute rehab vs str- awaiting bed availability Full code Mild pain pathway Problem List: 1. Alcohol withdrawal 2. Atrial fibrillation with RVR 3. CHF (congestive heart failure) Pain Ratin Pain Location: . Pain Goal: Remain pain free Pain Plan: . Tomorrow's Labs & Rationales: bep, cbc KELI PIERRE 05/06/17 1237: Attending MD Review Statement Attending Statement Attending MD Statement: examined this patient, discuss w/resident/PA/VENEER SORTER, agreed w/resident/PA/VENEER SORTER, discussed with family, reviewed EMR data (avail), discussed with nursing, discussed with case mgmt, reviewed images, amended to note Attending Assessment/Plan: The patient was seen and discussed with house staff. Mental status improving off of Librium/Ativan. Still very weak. HR decreased on increased dose of Cardizem. Appreciate Cardiology input. Will continue PT. Social Service consulted regarding EtOH, not candidate. Pending PT follow-up most likely will need physical rehab. Appreciate Psychiatry input and will begin taper of Gabapentin. Case management aware, anticipate d/c soon in next 24 hrs. Patient has sacral satge 2 decubitus ulcer at coccyx, recommend wound consult.
--- NOTE | 2017-05-06 10:14 | PN- Psychiatry ---
Assessment/Plan Impression: Identifying Info: 51-year-old single male presents to [facility] emergency department on 04/18/2017 for weakness. Subsequently developed alcohol withdrawal delirium, hypoxic respiratory failure and pneumonia requiring intubation required an ICU stay. Currently downgraded to telemetry. SUBJECTIVE Patient states "I'm happy" Presents today without complaints. Discussed campral and naltrexone in detail and patient states he would like to trial campral for alcohol cravings. Brief ROS Gait: Per PT patient is unsteady on his feet and will require rehab Sleep: Adequate Appetite: Adequate OBJECTIVE Mental Status Exam Presentation/Appearance: Cooperative with evaluation. Hospital garb. Sitting in bed. Unkempt, long gilbert. Orientation: person, place month and situation but not day Sensorium: Awake and alert Eye contact: Appropriate Affect: Blunted Mood: "Good" Depression: Denies Anxiety: Denies Thought Content: - Denies SI/HI, AH/VH. - Denies Hopeless/Helpless Thoughts Thought Process: Linear, also denies any periods of confusion Associations: Appropriate Speech: Soft and dysarthric Judgment: Intact Insight: Intact Cognition: Memory: Recent deficits likely due to withdrawl delirium Attention/Concentration: Grossly intact Fund of Knowledge: Did not assess Abstractions: Did not assess MMSE: Did not assess ASSESSMENT 51-year-old male the long history of alcohol use disorder presents with continued confusion in the context of alcohol withdrawal. His mentation has improved considerably. He would like to start campral for alcohol cravings. Diagnosis Alcohol use disorder, severe Delirium due to alcohol withdrawal, resolved A total of 30 minutes was spent with the patient with more than 50% of the time spent in counseling and/or coordination of care. Suggestion: 1. Continue vitamin supplementation. 2. Please start Campral 666mg TID PO. 3. Appreciate social work assistance in disposition planning. Thank you for including psychiatry in this case, we will follow on an as-needed basis. Subjective Subjective: as above Objective Last 24 Hrs of Vital Signs/I&O Current Medications Sig/Jose Start time Last Medication Dose Route Stop Time Status Admin Acetaminophen 650 MG Q6P PRN 04/18 1445 AC PO Acetaminophen 1,000 MG Q6P PRN 04/18 1445 AC IV Albuterol Sulfate 3 ML BID 04/29 2200 AC 05/05 INH 1900 Apixaban 2.5 MG BID 04/26 1041 AC 05/05 PO 2049 Aspirin Buffered 81 MG DAILY 04/18 1433 AC 05/05 PO 1051 Chlorhexidine 15 ML TID 04/21 1000 AC 05/05 Gluconate PO 204 Diltiazem HCl 60 MG Q8 05/04 2200 AC 05/06 PO 0510 Folic Acid 1 MG DAILY 04/18 1602 AC 05/05 PO 1051 Furosemide 20 MG DAILY 05/04 1000 AC 05/05 PO 1051 Gabapentin 300 MG Q8 05/05 1400 AC 05/06 PO 0509 Metoprolol Tartrate 100 MG BID 04/29 1213 AC 05/05 PO 2048 Multivitamins 1 TAB DAILY 04/18 1602 AC 05/05 PO 1043 Nicotine 14 MG DAILY 05/02 1000 AC 05/05 TOP 1051 Omeprazole 40 MG DAILY AC 05/02 0700 AC 05/05 PO 0626 Polyethylene Glycol 17 GM DAILY 04/25 1834 AC 05/04 PO 1011 Potassium Chloride 20 MEQ BID 04/19 2200 AC 05/05 PO 204 Senna 187 MG AT BEDTIME 04/27 2200 AC 05/05 PO 2048 Thiamine HCl 100 MG DAILY 04/18 1602 AC 05/05 PO 1043 Laboratory Tests 05/06/17 0637: Anion Gap 9, Estimated GFR > 60, BUN/Creatinine Ratio 18.8, CBC w Diff NO MAN DIFF REQ, RBC 3.54 L, MCV 94.9 H, MCH 31.0, RDW 19.9 H, MPV 8.4, Gran % 69.0, Lymphocytes % 17.1 L, Monocytes % 10.5 H, Eosinophils % 2.2, Basophils % 1.2, Absolute Granulocytes 6.1, Absolute Lymphocytes 1.5, Absolute Monocytes 0.9 H, Absolute Eosinophils 0.2, Absolute Basophils 0.1, PUBS MCHC 32.6 L Vital Signs Date Time Temp Pulse Resp B/P B/P Pulse O2 O2 Flow FiO2 Mean Ox Delivery Rate 05/06 0800 Room Air 05/06 0600 98.1 104 22 112/80 94 Room Air 05/06 0510 104 112/80 05/06 0000 Room Air 05/05 220 97.8 124 22 112/80 94 Room Air 05/05 2048 124 112/80 05/05 2048 124 112/80 05/05 1905 97 Room Air 05/05 1440 98.3 108 18 100/64 97 Room Air 05/05 1316 100 94/70 05/05 1045 101 96/62 Intake & Output 05/06 1600 05/06 0800 05/06 0000 Intake Total 240 300 Output Total Balance 240 300 Intake, IV 10 Intake, Oral 240 290 Patient 177 lb Weight
[2017-05-06 14:21] VITALS: BP 120/86
--- NOTE | 2017-05-06 14:28 | NUR ---
follow up sw visit sw into see pt and finds him alert and engagable with a strong enough voice to hear. Pt is aware of his improvement and that it has been along journey. Pt was assisted by staff with shaving, personal care and reports it feels good. It was reported to sw that pt walked outside of his room with a two person assist. Pt motivated for more ambulation. sw and pt discusssed " what is next in his recovery" Discussed it from a "What brought you in" and "wellness" prespective. Pt is agreeable to a [facility] acute care bed [facility] due to location. Pt reports he would then be interested in [facility] as his mother is currently rehab there. Sw and pt then discussed inpt rehab vs iop for his ETOH. Pt reproted he had seen psych and was going to be started on a med to help with craving and urges to drink. SW supported the idea. Currently, pt would not be able to particpate in a ETOH Rehab or IOP level of care as he would need to sit for hours and be independent in ambulation, clear in his speech and cognition. Pt reports he lives alone and his drinking got away from him. Pt reports he was frustrated with SSD process and gave up on many things. Pt reports he lives alone in an duplex apt with is dog who weighs about 70 lbs. Pt reports his brother and neighbor are caring for his dog. Pt staes he is now living off the money he got for selling his duplex building which he still lives in, Pt reports his brother last visited yesterday and is supportive of him.
[2017-05-06 21:38] VITALS: BP 108/72
--- NOTE | 2017-05-07 08:49 | PN- Housestaff ---
ALEXANDRA ACOSTA 05/07/17 0849: Subjective Follow-up For: Valerie pedraza with RVR CHF Alcohol withdrawal Review of Systems Constitutional: Reports: see HPI. Objective Last 24 Hrs of Vital Signs/I&O Vital Signs Date Time Temp Pulse Resp B/P B/P Pulse O2 O2 Flow FiO2 Mean Ox Delivery Rate 05/07 1118 86 124/82 05/07 0628 94 118/80 05/07 0000 94 Room Air 05/06 2138 98.0 102 18 108/72 96 Room Air 05/06 2129 102 108/72 05/06 2129 102 108/72 05/06 1944 95 Room Air 05/06 1522 Room Air Room Air 05/06 1504 99.6 05/06 1424 97 120/86 05/06 1421 97 18 120 95 Room Air Intake & Output 05/07 1600 05/07 0800 05/07 0000 Intake Total 240 660 Output Total 350 Balance 240 310 Intake, Oral 240 660 Number 1 2 Bowel Movements Output, Urine 350 Physical Exam General Appearance: Alert, Oriented X3, Cooperative, No Acute Distress HEENT: Atraumatic, PERRLA Neck: Supple, No JVD Cardiovascular: Normal S1, Normal S2, No Murmurs Lungs: Clear to Auscultation, Normal Air Movement Abdomen: Normal Bowel Sounds, Soft, No Tenderness Current Medications: Current Medications Sig/Jose Start time Last Medication Dose Route Stop Time Status Admin Acamprosate 666 MG TID 05/06 1615 AC 05/07 PO 1111 Acetaminophen 650 MG Q6P PRN 04/18 1445 AC PO Acetaminophen 1,000 MG Q6P PRN 04/18 1445 AC IV Albuterol Sulfate 3 ML BID 04/29 220 AC 05/05 INH 1900 Apixaban 2.5 MG BID 04/26 1041 AC 05/07 PO 1108 Aspirin Buffered 81 MG DAILY 04/18 1433 AC 05/07 PO 1108 Chlorhexidine 15 ML TID 04/21 1000 AC 05/07 Gluconate PO 1109 Diltiazem HCl 60 MG Q8 05/04 2200 AC 05/07 PO 0628 Folic Acid 1 MG DAILY 04/18 1602 AC 05/07 PO 1109 Furosemide 20 MG DAILY 05/04 1000 AC 05/07 PO 1109 Gabapentin 300 MG Q8 05/05 1400 AC 07/22 PO 0628 Metoprolol Tartrate 100 MG BID 04/29 1213 AC 05/07 PO 1118 Multivitamins 1 TAB DAILY 04/18 1602 AC 05/07 PO 1109 Nicotine 14 MG DAILY 05/02 1000 AC 05/07 TOP 1110 Omeprazole 40 MG DAILY AC 05/02 0700 AC 05/05 PO 0626 Polyethylene Glycol 17 GM DAILY 04/25 1834 AC 05/04 PO 1011 Potassium Chloride 20 MEQ BID 04/19 2200 AC 05/07 PO 1112 Senna 187 MG AT BEDTIME 04/27 2200 AC 05/06 PO 2129 Thiamine HCl 100 MG DAILY 04/18 1602 AC 05/07 PO 1109 Assessment/Plan Assessment: Assessment 51 year old male with a PMH significant for afib with rvr was on eliquis ( electrical cardioversion 2000), htn, alcohol abuse, 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 The patient suddenly became unresponsive, agitated, confused and transferred to ICU for close monitoring on 04/20/17. Patient on 04/20/17 had worsening respiratory status and intubated as per Dr. Vidal instructions. Extubated and progressing well. Currently in telemetry Plan Status post extubation for acute hypoxic respiratory failure due to fluid overload and aspiration pneumonia * Significant improvement in respiratory status, saturating high 90's on 2L or RA * Last chest x-ray showed stable retrocardiac and hazy right perihilar opacity * Off antibiotics, vital stable, afebrile overnight * Chest PT * Respiratory Cultures positive for strep pneumoniae, finished course of antibiotics * Repeat Chest x-ray yesterday- stable cardiomegaly and rec to followup chest series following treatment. * Pulmonology following Alcohol withdrawal with significant DTs and delirium * Librium taper stopped, when necessary Ativan stopped. Librium should be out of his system in 1 day. * Continue thiamine and multivitamins * Discontinue CIWA. * Can wean gabapentin which was given to help prevent seizures and calm him during withdrawal can give 300 3 times a day now and wean to twice a day. * Psychiatry consulted 05/03: As patient mentation clears we will continue to educate on medications for alcohol cravings. Campral or naltrexone would be medication of choice. * Social work for IOP. Patient is currently requesting beer and is likely to relapse. * Gabapentin 300mg decreased from q8 to q12 Atrial fibrillation with rapid RVR * Patient is currently on eliquis for atrial fibrillation with RVR, aspirin, metoprolol. * Cardio is following. As per Dr. Pang yesterday if patient's A. fib rates spiked we would increase Cardizem dose from 30 mg 3 times a day to 60 mg 3 times a day. Last night his rates spiked to 122 and this was initiated. Continue to watch blood pressure and pulse rate. * convert to 180 mg long acting cardizem on discharge * Put back on tele Significant cardiomyopathy with valvular heart disease and mitral valve lesion, mass with significant pulmonary hypertension * Last echo on March 2017 showed an EF of 20-25% with moderately to severly reduced global left ventricular systolic function. 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 Pang, we have started him on 20 mg Lasix daily for a baseline diuretic since his ejection fraction is quite poor. Hematuria * Likely traumatic due to Chery insertion * Urology consulted, have not seen him as of today. * Chery was removed 05/03. Hematuria resolving. Alimentary * Passed swallow eval, pured and honey thick regular diet * Omeprazole Activity * Continue to mobilize with PT * Patient is currently on right-handed restraint as he was trying to remove his oxygen. * Patient has recovering early stage bedsore in coccygeal area. Encouraged to walk, turn, Tylenol for pain. DVT * alps, ELIQUIS 2.5 MG BID. acute rehab vs str- awaiting bed availability Full code Mild pain pathway Problem List: 1. Alcohol withdrawal 2. Atrial fibrillation with RVR 3. HTN (hypertension) 4. Acute on chronic congestive heart failure Pain Ratin Pain Location: N/A Pain Goal: Remain pain free Pain Plan: N/A Tomorrow's Labs & Rationales: CBC ANGELY LAUGHLIN MD 05/07/17 1301: Attending MD Review Statement Attending Statement Attending MD Statement: examined this patient, discuss w/resident/PA/SENIOR SOFTWARE DEVELOPMENT MANAGER, agreed w/resident/PA/SENIOR SOFTWARE DEVELOPMENT MANAGER, reviewed EMR data (avail) Attending Assessment/Plan: 51M PMH chronic atrial fibrillation (h/o attempted cardioversion 2000), HTN, fatty liver, dilated cardiomyopathy (EF 30-35% in 2016), EtOH abuse (currently drinks at lease 1 six pack of beer/day) admitted 04/18 with acute on chronic CHF with fluid overload also found to be in rapid atrial fibrillation. Patient was rate controlled and diuresed and then went into alcohol withdrawal requiring ICU transfer and intubation, now extubated for several days, on Librium taper, experiencing delirium and weakness, requires assist of 2, also found to have stage 2 sacral ulcer. Patient with no complaints, pleasantly confused. Vitals stable, labs reviewed. No telemetry events. Plan - Continue on telemetry for monitoring of atrial fibrillation as he still becomes rapid at times - Follow cardiology recommendations - Continue Cardizem for rate control and Eliquis for anti-coagulation - Xeroform with dry pressure dressing for sacral ulcer - Frequent repositioning - Decrease Gabapentin to 300mg q12h today - Continue home medications - Continue to work with PT
[2017-05-07 14:00] VITALS: BP 110/64
[2017-05-07 22:30] VITALS: BP 110/80
[2017-05-07 23:46] VITALS: BP 130/86
[2017-05-08 08:31] LABS: ABSOLUTE BASOPHIL COUNT 0.1 /CUMM (0.0-0.2); ABSOLUTE EOSINOPHIL COUNT 0.2 /CUMM (0.0-0.7); ABSOLUTE GRANULOCYTE CT 4.4 /CUMM (1.4-6.5); ABSOLUTE LYMPH COUNT 1.5 /CUMM (1.2-3.4); ABSOLUTE MONOCYTE COUNT 0.9 /CUMM (0.10-0.60); BASOPHIL % 1.5 % (0.0-2.0); EOSINOPHIL % 2.8 % (0-5); GRANULOCYTE % 61.8 % (42.2-75.2); HEMATOCRIT 32.8 % (42-52); MEAN CORPUSCULAR HGB 30.8 PG (27.0-31.0); MEAN CORPUSCULAR HGB CONC 32.9 G/DL (33.0-37.0); MEAN CORPUSCULAR VOLUME 93.7 FL (80.0-94.0); MEAN PLATELET VOLUME 7.9 FL (7.4-10.4); PLATELET COUNT 443 /CUMM (130-400); RBC DISTRIBUTION WIDTH 19.2 % (11.5-14.5); WHITE BLOOD CELL COUNT 7.2 /CUMM (4.8-10.8)
--- NOTE | 2017-05-08 10:11 | PN- Housestaff ---
NEHEMIAS KAMARA,NIRMALA 05/08/17 1010: Subjective Follow-up For: Valerie pedraza with RVR CHF Alcohol withdrawal Complaints: no complaints Tele-Events Since Last Visit: Valerie pedraza [id number] Subjective: Patient was examined at bedside. He was lying down in no acute distress. Somnolent Review of Systems Constitutional: Denies: see HPI. EENTM: Reports: no symptoms. Cardiovascular: Reports: no symptoms. Neurological/Psychological: Denies: see HPI. Objective Last 24 Hrs of Vital Signs/I&O Vital Signs Date Time Temp Pulse Resp B/P B/P Pulse O2 O2 Flow FiO2 Mean Ox Delivery Rate 05/08 1551 110 118/84 05/08 1458 97.7 110 20 118/84 96 Room Air 05/08 1021 116 124/80 05/08 0712 116 124/80 05/08 0600 98.1 122 20 94 Room Air 05/08 0000 94 05/07 2346 98.7 89 20 130/86 98 Room Air 05/07 2230 100.2 102 24 110/80 94 Room Air 05/07 2151 102 110/62 05/07 2151 102 110/64 Intake & Output 05/08 1600 05/08 0800 05/08 0000 Intake Total 480 300 800 Output Total 100 Balance 480 300 700 Intake, Oral 480 300 800 Output, Urine 100 Patient 158 lb Weight Weight Bed scale Measurement Method Physical Exam General Appearance: No Acute Distress, [place] Skin: No Significant Lesion, SACRAL ULCER Skin Temp/Moisture Exam: Warm/Dry Sepsis Skin Exam (color): Normal for Ethnicity HEENT: Atraumatic, PERRLA, EOMI, Mucous Membr. moist/pink Neck: Supple Cardiovascular: Normal S1, Normal S2, No Murmurs, IRREGULAR IRREGULAR Lungs: Clear to Auscultation, Normal Air Movement Abdomen: Normal Bowel Sounds, Soft, No Tenderness Extremities: No Edema Assessment/Plan Assessment: Assessment 51 year old male with a PMH significant for afib with rvr was on eliquis ( electrical cardioversion 2000), htn, alcohol abuse, 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 The patient suddenly became unresponsive, agitated, confused and transferred to ICU for close monitoring on 04/20/17. Patient on 04/20/17 had worsening respiratory status and intubated as per Dr. Vidal instructions. Extubated and progressing well. Currently in telemetry Plan Status post extubation for acute hypoxic respiratory failure due to fluid overload and aspiration pneumonia * Significant improvement in respiratory status, saturating high 90's on 2L or RA * Last chest x-ray showed stable retrocardiac and hazy right perihilar opacity * Off antibiotics, vital stable, afebrile overnight * Chest PT * Respiratory Cultures positive for strep pneumoniae, finished course of antibiotics * Repeat Chest x-ray yesterday- stable cardiomegaly and rec to followup chest series following treatment. * Pulmonology following Alcohol withdrawal with significant DTs and delirium * Librium taper stopped, when necessary Ativan stopped. Librium should be out of his system in 1 day. * Continue thiamine and multivitamins * Discontinue CIWA. * Continue gabapentin 300 mg every 12 today, taper tomorrow * Psychiatry consulted 05/03: As patient mentation clears we will continue to educate on medications for alcohol cravings. Campral or naltrexone would be medication of choice. * Social work for IOP. Patient is currently requesting beer and is likely to relapse. * Gabapentin 300mg decreased from q8 to q12 Atrial fibrillation with rapid RVR * Patient is currently on eliquis for atrial fibrillation with RVR, aspirin, metoprolol. * Cardio is following. As per Dr. Pang yesterday if patient's A. fib rates spiked we would increase Cardizem dose from 30 mg 3 times a day to 60 mg 3 times a day. Last night his rates spiked to 122 and this was initiated. Continue to watch blood pressure and pulse rate. * convert to 180 mg long acting cardizem on discharge * Put back on tele Significant cardiomyopathy with valvular heart disease and mitral valve lesion, mass with significant pulmonary hypertension * Last echo on March 2017 showed an EF of 20-25% with moderately to severly reduced global left ventricular systolic function. 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 Pang, we have started him on 20 mg Lasix daily for a baseline diuretic since his ejection fraction is quite poor. Hematuria * Likely traumatic due to Chery insertion * Urology consulted, have not seen him as of today. * Chery was removed 05/03. Hematuria resolving. Alimentary * Passed swallow eval, pured and honey thick regular diet * Omeprazole Sacral ulcer * Xeroform with dry pressure dressing * Frequent repositioning Activity * Continue to mobilize with PT * Patient is currently on right-handed restraint as he was trying to remove his oxygen. * Patient has recovering early stage bedsore in coccygeal area. Encouraged to walk, turn, Tylenol for pain. DVT * alps, ELIQUIS 2.5 MG BID. acute rehab vs str- awaiting bed availability Full code Mild pain pathway Problem List: 1. Acute respiratory failure with hypoxia 2. Alcohol withdrawal delirium 3. Delirium tremens 4. Atrial fibrillation with RVR 5. Cardiomyopathy 6. Valvular disease 7. Hematuria Pain Ratin Pain Location: N/A Pain Goal: Remain pain free Pain Plan: Acetaminophen Tomorrow's Labs & Rationales: N/a DVT/Prophylaxis: pharmacological ANGELY CANNON MD 05/08/17 1339: Attending MD Review Statement Attending Statement Attending MD Statement: examined this patient, discuss w/resident/PA/FULL STACK PHP DEVELOPER, agreed w/resident/PA/FULL STACK PHP DEVELOPER, reviewed EMR data (avail) Attending Assessment/Plan: 51M PMH chronic atrial fibrillation (h/o attempted cardioversion 2000), HTN, fatty liver, dilated cardiomyopathy (EF 30-35% in 2016), EtOH abuse (currently drinks at lease 1 six pack of beer/day) admitted 04/18 with acute on chronic CHF with fluid overload also found to be in rapid atrial fibrillation. Patient was rate controlled and diuresed and then went into alcohol withdrawal requiring ICU transfer and intubation, now extubated for several days, on Librium taper, experiencing delirium and weakness, requires assist of 2, also found to have stage 2 sacral ulcer. Patient with no complaints, pleasantly confused. Vitals stable, labs reviewed. No telemetry events. Plan - Continue on telemetry for monitoring of atrial fibrillation as he still becomes rapid at times - Follow cardiology recommendations - Continue Cardizem for rate control and Eliquis for anti-coagulation - Xeroform with dry pressure dressing for sacral ulcer - Frequent repositioning - Continue Gabapentin 300mg q12h today, taper tomorrow - Continue home medications - Continue to work with PT
[2017-05-08 14:58] VITALS: BP 118/84
[2017-05-08 23:10] VITALS: BP 118/66
[2017-05-09 06:00] VITALS: BP 90/60
[2017-05-09 10:39] VITALS: BP 88/68
[2017-05-09] MEDS ORDERED: ELIQUIS2.5 M1 PO (10:44)
[2017-05-09] MEDS ORDERED: GABAPENTIN100 M2 PO (10:51)
[2017-05-09] MEDS ORDERED: LOPRESSOR100 M1 PO (10:51)
[2017-05-09] MEDS ORDERED: LASIX20 M1 PO (10:51)
[2017-05-09] MEDS ORDERED: ACAMPROSATE CA333 M1 PO (10:52)
--- NOTE | 2017-05-09 10:59 | Patient Discharge Instructions ---
Discharge Instructions General Discharge Information You were seen/treated for: A. fib with RVR CHF Alcohol withdrawal Acute hypoxic respiratory failure s/p extubation Special Instructions: #1 please follow-up with your PCP within 1 week of discharge. #2 please follow-up with your rib sawyer within 1 week of discharge. #3 please follow-up with [place] [facility] for admission to the IOP program. Diet Recommended Diet: Regular no added salt, CHOPPED AND THIN LIQUIDS Activity Full Activity/No Limits: Yes (as tolerated) Acute Coronary Syndrome Inclusion Criteria At DC or during hospital stay patient has or had the following: ACS DIAGNOSIS No Discharge Core Measures Meds if any: Prescribed or Continued at Discharge Meds if any: NOT Prescribed or Continued at Discharge Congestive Heart Failure Inclusion Criteria At DC or during hospital stay patient has or had the following: CHF DIAGNOSIS Yes Discharge Core Measures Meds if any: Prescribed or Continued at Discharge ALEX/ARB for EF <40% No Meds if any: NOT Prescribed or Continued at Discharge No ALEX/ARB d/t Medical Contraindication (low bp) Cerebrovascular accident Inclusion Criteria At DC or during hospital stay patient has or had the following: CVA/TIA Diagnosis No Discharge Core Measures Meds if any: Prescribed or Continued at Discharge Meds if any: NOT Prescribed or Continued at Discharge Venous thromboembolism Inclusion Criteria VTE Diagnosis No VTE Type NONE VTE Confirmed by (Test) NONE Discharge Core Measures - Per Current guidelines, there needs to be overlap - treatment for the first 5 days of Warfarin therapy. - If discharged on Warfarin prior to 5 days of - overlap therapy, the patient will need to be - assessed for post discharge needs including - *Post discharge parental anticoagulation - *Warfarin and/or parental anticoagulation education - *Follow up date to check INR post discharge At least 5 days overlap therapy as Inpatient No Meds if any: Prescribed or Continued at Discharge Note: Overlap Therapy is Warfarin and Anticoagulant Meds if any: NOT Prescribed or Continued at Discharge
[2017-05-09] MEDS ORDERED: DIGOXIN250 MCG PO (11:03)
--- NOTE | 2017-05-09 11:03 | PN- Housestaff ---
SANTOS KAMARA,JOHN 05/09/17 1058: Subjective Follow-up For: afib with RVR --> CHF alcohol withdrawal Complaints: no complaints Tele-Events Since Last Visit: overnight patient's rates ranged from 74-111 afib. No events. Subjective: Patient was examined bedside. He states that he is feeling good. He denies palpitations, back pain, chest pain, headache, abdominal pain. He states that he would like to walk more. Review of Systems Constitutional: Reports: no symptoms. Objective Last 24 Hrs of Vital Signs/I&O Vital Signs Date Time Temp Pulse Resp B/P B/P Pulse O2 O2 Flow FiO2 Mean Ox Delivery Rate 05/09 1116 124 88/68 05/09 1050 124 88/68 05/09 1039 124 8805/09 0600 98.1 114 20 90/60 98 Room Air 05/09 0526 114 90/60 05/09 0000 Room Air 05/08 2310 98.9 110 20 118/66 94 05/08 2106 87 108/80 05/08 2106 87 108/80 05/08 1551 110 118/84 05/08 1458 97.7 110 20 118/84 96 Room Air Intake & Output 05/09 1600 05/09 0800 05/09 0000 Intake Total 240 1780 Output Total 350 650 Balance -110 1130 Intake, Oral 240 1780 Output, Urine 350 650 Patient 181 lb Weight Weight Bed scale Measurement Method Physical Exam General Appearance: Alert, Oriented X3, Cooperative, No Acute Distress Skin: No Rashes, patient has stage II decubitus ulcer in sacral/coccygeal region. Skin Temp/Moisture Exam: Warm/Dry Sepsis Skin Exam (color): Normal for Ethnicity HEENT: EOMI, Mucous Membr. moist/pink Cardiovascular: Regular Rate, Normal S1, Normal S2, No Murmurs, Gallops, Rubs Lungs: Clear to Auscultation, Normal Air Movement Abdomen: Normal Bowel Sounds, Soft, No Tenderness, No Hepatospenomegaly, No Masses Neurological: Normal Speech Extremities: No Cyanosis, No Edema, Normal Pulses, No Tenderness/Swelling Vascular: Normal Pulses, Pulses Symmetrical Sepsis Peripheral Pulse Location: Radial Sepsis Peripheral Pulse Exam: Normal Current Medications: Current Medications Sig/Jose Start time Last Medication Dose Route Stop Time Status Admin Acamprosate 666 MG TID 05/06 1615 AC 05/09 PO 1050 Acetaminophen 650 MG Q6P PRN 04/18 1445 AC PO Acetaminophen 1,000 MG Q6P PRN 04/18 1445 AC IV Albuterol Sulfate 3 ML BID 04/29 2200 AC 05/05 INH 1900 Apixaban 2.5 MG BID 04/26 1041 AC 05/09 PO 1049 Aspirin Buffered 81 MG DAILY 04/18 1433 AC 05/09 PO 1049 Chlorhexidine 15 ML TID 04/21 1000 AC 05/09 Gluconate PO 1054 Digoxin 0.25 MG 1700 05/10 1700 AC PO Digoxin 0.5 MG ONCE ONE 05/09 1115 DC 05/09 IV 05/09 1116 1116 Digoxin 0.5 MG ONCE ONE 05/09 1045 CAN PO 05/09 1046 Diltiazem HCl 60 MG Q8 05/04 2200 AC 05/08 PO 2106 Folic Acid 1 MG DAILY 04/18 1602 AC 05/09 PO 1049 Furosemide 20 MG DAILY 05/04 1000 AC 05/08 PO 1021 Gabapentin 100 MG Q12 05/09 0734 AC 05/09 PO 1054 Gabapentin 300 MG Q12 05/07 2200 DC 05/08 PO 2106 Metoprolol Tartrate 100 MG BID 04/29 1213 AC 05/08 PO 2106 Multivitamins 1 TAB DAILY 04/18 1602 AC 05/09 PO 1049 Nicotine 14 MG DAILY 05/02 1000 AC 05/09 TOP 1051 Omeprazole 40 MG DAILY AC 05/02 0700 AC 05/05 PO 0626 Polyethylene Glycol 17 GM DAILY 04/25 1834 AC 05/09 PO 1051 Potassium Chloride 20 MEQ BID 04/19 2200 AC 05/09 PO 1049 Senna 187 MG AT BEDTIME 04/27 2200 AC 05/08 PO 2106 Thiamine HCl 100 MG DAILY 04/18 1602 AC 05/09 PO 1049 Lines/Diet/Fluids Restraints: none Assessment/Plan Assessment: Assessment 51 year old male with a PMH significant for afib with rvr was on eliquis ( electrical cardioversion 2000), htn, alcohol abuse, 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 The patient suddenly became unresponsive, agitated, confused and transferred to ICU for close monitoring on 04/20/17. Patient on 04/20/17 had worsening respiratory status and intubated as per Dr. Vidal instructions. Extubated and progressing well. Currently in telemetry, monitored for rapid afib rates, on cardizem and DIGOXIN. Plan Status post extubation for acute hypoxic respiratory failure due to fluid overload and aspiration pneumonia * Significant improvement in respiratory status, saturating high 90's on RA * Last chest x-ray showed stable retrocardiac and hazy right perihilar opacity * Off antibiotics, vital stable, afebrile overnight * Respiratory Cultures positive for strep pneumoniae, finished course of antibiotics Alcohol withdrawal with significant DTs and delirium * Librium off, ativan off * Continue thiamine and multivitamins * Discontinue CIWA. * Has been on 300mg gabapentin taper, now 100mg bid taper * Psychiatry consulted 05/06: As patient mentation clears we will recommend campral 666 mg for alcohol cravings. * Currently case picker is working on finding a rehab bed Atrial fibrillation with rapid RVR * Patient is currently on eliquis for atrial fibrillation with RVR, aspirin, metoprolol 100mg bid. * Cardio is following. This morning, patient had blood pressure 90/60 so we held cardizem. Today, his blood pressure is 88/58, and his heart rates are 120' s-140's so we have held metropolol and lasix and have started digoxin - loading dose 50mg IV push and 25mg PO daily thereafter. We will watch his vitals closely and dose lasix, BB, CCB as tolerated. * convert to 180 mg long acting cardizem on discharge * Pt still on tele Significant cardiomyopathy with valvular heart disease and mitral valve lesion, mass with significant pulmonary hypertension * Last echo on March 2017 showed an EF of 20-25% with moderately to severly reduced global left ventricular systolic function. 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 Pang, we have started him on 20 mg Lasix daily for a baseline diuretic since his ejection fraction is quite poor. Holding for now as blood pressure does not permit. Hematuria * Likely traumatic due to Chery insertion * Urology consulted, have not seen him. * Chery was removed 05/03. Hematuria resolved. Alimentary * Full chopped and thin liquids currently * Omeprazole Sacral Ulcer : Stage II * Xeroform with dry pressure dressing * Frequent repositioning * Tylenol for pain Activity * Continue to mobilize with PT DVT * ALPS, ELIQUIS 2.5 MG BID. Full code Mild pain pathway Problem List: 1. CHF (congestive heart failure) 2. Atrial fibrillation 3. Rapid atrial fibrillation 4. HTN (hypertension) 5. Alcohol withdrawal 6. Cardiomyopathy 7. Hematuria Pain Ratin Pain Location: none Pain Goal: Pain 4 or less Pain Plan: tylenol 650mg Tomorrow's Labs & Rationales: . DVT/Prophylaxis: pharmacological JUAN A TALAVERA MD 05/09/17 1902: Attending MD Review Statement Attending Statement Attending MD Statement: examined this patient, discuss w/resident/PA/HEAD OF MATHEMATICS, agreed w/resident/PA/HEAD OF MATHEMATICS, reviewed EMR data (avail), discussed with nursing, discussed with case mgmt, amended to note Attending Assessment/Plan: The patient was seen and discussed with house staff. Appreciate Cardiology follow-up. Still tachycardic at 130 with low BP limiting ability to use Cardizem. Digoxin given as per Cardiology. Will continue to follow on monitor. Continue PT.
--- NOTE | 2017-05-09 11:53 | Discharge Summary ---
See Addendum Visit Information Visit Dates Admission Date: 04/18/17 Discharge Date: 05/10/17 Hospital Course Course Attending Physician: JUAN A TALAVERA MD Primary Care Physician: LYSSA KAMARA,DOTTIE Cohen Hospital Course: Patient is a 50-year-old male with past medical history of A. fib on Eliquis, hypertension, electrical cardioversion in 2000, dilated cardiomyopathy, alcohol abuse who presented to the hospital today for worsening leg edema and shortness of breath. Labs showed an H&H of 12.9/39.5, normal chemistries, lactic Acid level of 3.9, T bili of 2.3, normal AST, ALT, alkaline phosphatase 151, troponin 0.03. U tox pending. Serum alcohol level was 138. EKG showed a A. fib with rapid RVR, heart rate of 124, QTC 483 Chest x-ray showed no evidence of pulmonary edema and severe left midlung atelectasis was seen. He was treated in the hospital for the following problems: #1 A. fib with rapid RVR: Patient was initially admitted for rapid atrial fibrillation with RVR. He was started on a Cardizem drip and heparin drip for anticoagulation. ACS was ruled with 3 sets of negative troponins and EKG. Later patient was switched to by mouth Cardizem and metoprolol for rate control and Eliquis was resumed. Patient developed acute pulmonary edema and hypoxic respiratory failure while in the hospital and was transferred to ICU where he required intubation. Post extubation patient was back on the telemetry floor and his heart rate was closely monitored. Digoxin was started for better rate control as we could not go higher up on the beta tequila or calcium channel tequila due to his labile blood pressure will follow-up with Dr. Pang as an outpatient. #2 Acute on chronic heart failure with reduced ejection fraction: Patient had heart failure with EF of 35% at admission. He was aggressively diuresed with IV Lasix. Strict ins and outs were maintained and daily weights were checked. Lower extremity Dopplers were negative for DVT. Patient was doing well until the second day of admission when he suddenly developed respiratory distress with agonal breathing and increased oxygen requirements. He was transferred for ICU for close monitoring. He was found to be in pulmonary edema and had developed delirium tremens secondary to alcohol withdrawal. He was somnolent and was intubated to protect airway. He also had episodes of hematuria due to traumatic Chery insertion and heparin drip was held for that. Patient was maintained on Ativan drip, heparin drip, propofol and Cardizem drip in the ICU. Repeat echocardiogram done showed a severe left ventricular ejection fraction reduction of 25-30% with moderate LVH, and moderate to severely reduced global ventricular systolic function. Cardiology, pulmonology were on board. Patient was slowly extubated and transferred back to the telemetry floor. Metoprolol, aspirin, Cardizem, Eliquis were continued. Digoxin was later added for better rate control. He was transitioned to by mouth try her Lasix and was instructed to follow-up with PCP and cured meats supervisor after discharge #3 Acute hypoxic respiratory failure requiring intubation: Patient was transferred to the ICU for severe hypoxemic respiratory failure and was intubated to protect the airways. He had significant hematuria secondary to traumatic Chery insertion. He was maintained on heparin, Cardizem, propofol, Ativan drip in the ICU. 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 He was also found to have aspiration pneumonia and cultures were positive for strep pneumonia and urinary positive for Klebsiella. He was treated with aggressive diuresis, antibiotics, tube feeds with Jevity, aggressive oral suctioning for improvement of his respiratory status. Patient was subsequently extubated and transferred to the telemetry floor. On the telemetry floor he remained stable and was watched off antibiotics. He passed a swallow evaluation and was subsequently started on a diet. #4 Alcohol withdrawal and delirium tremens: Patient developed alcohol withdrawal on the second day of admission and went into DTs. He was transferred to ICU and was intubated to protect airway. He was maintained on an Ativan drip and was later transitioned to by mouth Librium. There were occasional episodes of agitation requiring restraints on the floor. Slowly patient recovered and was seen by psychiatry who started him on gabapentin and Acamprosate for alcohol cravings. He passed a swallow eval and was started on regular mechanical soft diet with nectar thick liquids. He was maintained on by mouth multivitamin, Chery acid. Plan to follow-up with [facility] as an outpatient for detox program. #5 Hematuria: Patient was found to have hematuria in the hospital likely secondary to traumatic Chery insertion. Renal/bladder US WNL. H&H was closely monitored, and heparin drip was stopped for a short while. He remained stable and hematuria cleared by itself. Urology evaluated the patient and recommended to continue the Chery. Patient improved with no more symptoms. Urine culture was positive for Klebsiella and he was treated with ceftriaxone. He remained afebrile and did not have any more episodes of hematuria later. #6 Significant cardiomyopathy with valvular heart disease and mitral valve lesion, mass with significant pulmonary hypertension: Last echo showed an EF of 20-25% with moderately to severly reduced global left ventricular systolic function. A Mobile mass on the anterior leaflet of the mitral valve measuring slightly less than <1 cm, fibroblastoma versus vegetation, F/U needed. Patient was on metoprolol, Cardizem, digoxin, and Lasix. He was started on digoxin for better rate control. Outpatient follow-up with Dr. Pang recommended. #7 Sacral ulcer: Xeroform with dry pressure dressing, Frequent repositioning. DVT prophylaxis Eliquis Full code Mild pain pathway Complications: developed acute hypoxic respiratory failure and was transferred to ICU he was intubated in the ICU for protection of the airways and started on Ativan drip for delirium tremens.. Allergies: Coded Allergies: No Known Allergies (06/04/16) Disposition Summary Disposition Principal Diagnosis: Atrial fibrillation with rapid RVR Status post extubation for acute hypoxic respiratory failure due to fluid overload and aspiration pneumonia Additional Diagnosis: Heart failure with reduced ejection fraction Alcohol withdrawal with significant DTs and delirium Discharge Disposition: SNF Discharge Instructions General Discharge Information Code Status: Full Code Patient's Diet: CHOPPED AND THIN LIQUIDS Patient's Activity: As tolerated Follow-Up Instructions/Appts: #1 please follow-up with your PCP within 1 week of discharge. #2 please follow-up with your cured meats supervisor within 1 week of discharge. #3 please follow-up with [place] outpatient psychiatry for admission to the IOP program. Medications at Discharge Discharge Medications: Stop taking the following medications: Furosemide (Furosemide) 40 MG TABLET ORAL DAILY Qty = 60 Nadolol (Nadolol) 40 MG TABLET ORAL DAILY Qty = 30 Diltiazem HCl (Diltiazem 24HR ER) 240 MG CAP.ER.24H ORAL DAILY Qty = 30 Apixaban (Eliquis) 5 MG TABLET ORAL TWICE DAILY Qty = 30 Continue taking these medications: Aspirin (Ecotrin*) 81 MG TABLET.DR 1 Tablet ORAL DAILY Comments: Last Taken: 05/10/17 Time: 9AM Thiamine HCl (Vitamin B-1) 100 MG TABLET 1 Tablet ORAL DAILY Days = 30 Comments: Last Taken: 05/10/17 Time: 9AM Multivitamin (One Daily Multivitamin) 1 EACH TABLET 1 Tablet ORAL DAILY Days = 30 Comments: Last Taken: 05/10/17 Time: 9AM Folic Acid (Folic Acid) 1 MG TABLET 1 Tablet ORAL DAILY Qty = 30 Comments: Last Taken: 05/10/17 Time: 9AM Start taking the following new medications: Apixaban (Eliquis) 2.5 MG TABLET 1 Tablet ORAL TWICE DAILY Qty = 60 No Refills Comments: Last Taken: 05/10/17 Time: 9AM Metoprolol Tartrate (Lopressor) 100 MG TABLET 1 Tablet ORAL TWICE DAILY Qty = 60 No Refills Comments: Last Taken: 05/10/17 Time: 9AM Gabapentin (Gabapentin) 100 MG CAPSULE 1 Capsule ORAL TWICE DAILY Qty = 90 No Refills Comments: Last Taken: 05/10/17 Time: 9AM Furosemide (Lasix) 20 MG TABLET 1 Tablet ORAL DAILY Qty = 30 No Refills Comments: Last Taken: 05/10/17 Time: 9AM Acamprosate Calcium (Acamprosate Calcium) 333 MG TABLET.DR 2 Tablet ORAL THREE TIMES DAILY Qty = 180 No Refills Comments: Last Taken: 05/10/17 Time: 9AM Digoxin (Digoxin) 250 MCG TABLET 1 Tablet ORAL DAILY Qty = 30 No Refills Comments: NOT GIVEN IN HOSPITAL Diltiazem HCl (Cardizem Cd) 180 MG CAP.ER.24H 1 Capsule ORAL DAILY Qty = 30 No Refills Comments: NOT GIVEN IN HOSPITAL. PT RECEIVED 60MG 05/10/17 @ 6AM Copies To: FEI KAMARA,JOVANY Fitzgerald; LYSSA KAMARA,DOTTIE Cohen Attending MD Review Statement Documenting Attending: JUAN A TALAVERA MD Other Findings: The patient was seen on the day of discharge. Agree with plan of care. HR decreased in 80's on Digoxin and other med. Will discharge to [facility] for physical rehab today.
--- NOTE | 2017-05-09 12:50 | PN- Cardiology ---
Subjective Subjective: The patient remains in atrial fibrillation. His rate is occasionally above 100 especially with activity. His blood pressure is trending slightly low from the 90s to low 100s. He is on metoprolol 100 mg twice a day and Cardizem 60 mg every 8 hours. These meds were held this AM as his BP was lower than usual. Objective Vital Signs and I&Os Vital Signs Date Time Temp Pulse Resp B/P B/P Pulse O2 O2 Flow FiO2 Mean Ox Delivery Rate 05/09 1116 124 88/68 05/09 1050 124 88/68 05/09 1039 124 88/68 05/09 0600 98.1 114 20 90/60 98 Room Air 05/09 0526 114 90/60 05/09 0000 Room Air 05/08 2310 98.9 110 20 118/66 94 05/08 2106 87 108/80 05/08 2106 87 108/80 05/08 1551 110 118/84 05/08 1458 97.7 110 20 118/84 96 Room Air Intake & Output 05/09 1600 05/09 0800 05/09 0000 05/08 1600 05/08 0800 05/08 0000 Intake Total 240 1780 480 300 800 Output Total 350 650 100 Balance -110 1130 480 300 700 Intake, Oral 240 1780 480 300 800 Output, Urine 350 650 100 Patient 181 lb 158 lb Weight Weight Bed scale Bed scale Measurement Method Physical Exam: NAD, more alert HEENT exam normal Neck veins not distended Chest clear Heart irregular, moderate rate No peripheral edema Current Medications: Current Medications Sig/Jose Start time Last Medication Dose Route Stop Time Status Admin Acamprosate 666 MG TID 05/06 1615 AC 05/09 PO 1050 Acetaminophen 650 MG Q6P PRN 04/18 1445 AC PO Acetaminophen 1,000 MG Q6P PRN 04/18 1445 AC IV Albuterol Sulfate 3 ML BID 04/29 2200 AC 05/05 INH 1900 Apixaban 2.5 MG BID 04/26 1041 AC 05/09 PO 1049 Aspirin Buffered 81 MG DAILY 04/18 1433 AC 05/09 PO 1049 Chlorhexidine 15 ML TID 04/21 1000 AC 05/09 Gluconate PO 1054 Digoxin 0.25 MG 1700 05/10 1700 AC PO Digoxin 0.5 MG ONCE ONE 05/09 1115 DC 05/09 IV 05/09 1116 1116 Digoxin 0.5 MG ONCE ONE 05/09 1045 CAN PO 05/09 1046 Diltiazem HCl 60 MG Q8 05/04 2200 AC 05/08 PO 2106 Folic Acid 1 MG DAILY 04/18 1602 AC 05/09 PO 1049 Furosemide 20 MG DAILY 05/04 1000 AC 05/08 PO 1021 Gabapentin 100 MG Q12 05/09 0734 AC 05/09 PO 1054 Gabapentin 300 MG Q12 05/07 2200 DC 05/08 PO 2106 Metoprolol Tartrate 100 MG BID 04/29 1213 AC 05/08 PO 2106 Multivitamins 1 TAB DAILY 04/18 1602 AC 05/09 PO 1049 Nicotine 14 MG DAILY 05/02 1000 AC 05/09 TOP 1051 Omeprazole 40 MG DAILY AC 05/02 0700 AC 05/05 PO 0626 Polyethylene Glycol 17 GM DAILY 04/25 1834 AC 05/09 PO 1051 Potassium Chloride 20 MEQ BID 04/19 2200 AC 05/09 PO 1049 Senna 187 MG AT BEDTIME 04/27 2200 AC 05/08 PO 2106 Thiamine HCl 100 MG DAILY 04/18 1602 AC 05/09 PO 1049 Results Last 48 Hrs of Labs/Mics: Laboratory Tests 05/08/17 0720: Anion Gap 11, Estimated GFR > 60, BUN/Creatinine Ratio 16.3, CBC w Diff NO MAN DIFF REQ, RBC 3.50 L, MCV 93.7, MCH 30.8, RDW 19.2 H, MPV 7.9, Gran % 61.8, Lymphocytes % 21.1, Monocytes % 12.8 H, Eosinophils % 2.8, Basophils % 1.5, Absolute Granulocytes 4.4, Absolute Lymphocytes 1.5, Absolute Monocytes 0.9 H, Absolute Eosinophils 0.2, Absolute Basophils 0.1, PUBS MCHC 32.9 L Assessment/Plan Assessment/Plan Michael's blood pressure is trending down but he is asymptomatic from this. His heart rate is still not ideal. We will start him on digoxin for better rate control and this should not adversely affect his blood pressure. I would keep his other medications the same, but try not to hold them for minor BP drops. When his hemodynamics are more stable he can be discharged to rehabilitation. Continue telemetry? Yes
[2017-05-09 14:37] VITALS: BP 102/74
[2017-05-09 15:19] VITALS: BP 122/58
[2017-05-09 22:28] VITALS: BP 108/62
[2017-05-10 07:28] VITALS: BP 110/60
--- NOTE | 2017-05-10 10:27 | PN- Cardiology ---
Subjective Subjective: The patient is awake and alert and eager to be discharged. He seems however still to be a little confused. He is on diltiazem total of 180 mg daily, Lopressor total of 200 mg daily, digoxin 0.25 mg daily. His blood pressure is maintained over 100 systolic. Objective Vital Signs and I&Os Vital Signs Date Time Temp Pulse Resp B/P B/P Pulse O2 O2 Flow FiO2 Mean Ox Delivery Rate 05/10 0944 85 110/60 05/10 0800 Room Air 05/10 0728 99.2 85 16 110/60 93 Room Air 05/10 0628 92 108/62 05/09 2228 98.3 91 16 108/62 95 Room Air 05/09 2218 Room Air 05/09 2127 128/64 05/09 2126 128/64 05/09 1519 98.0 126 18 122/58 99 05/09 1439 128 102/74 05/09 1439 128 102/74 05/09 1437 128 102/74 05/09 1116 124 88/68 05/09 1050 124 88/68 05/09 1039 124 88/68 Intake & Output 05/10 1600 05/10 0800 05/10 0000 05/09 1600 05/09 0800 05/09 0000 Intake Total 450 1310 667 709 8436 Output Total 1100 500 400 350 650 Balance -650 810 203 -110 1130 Intake, IV 10 3 Intake, Oral 450 1300 010 018 9595 Number 1 Bowel Movements Output, Urine 1100 500 400 350 650 Patient 178 lb 181 lb Weight Weight Chair scale Bed scale Measurement Method Physical Exam: He is in no distress HEENT exam is normal Chest is clear Heart is irregular with no murmurs there is no edema Current Medications: Current Medications Sig/Jose Start time Last Medication Dose Route Stop Time Status Admin Acamprosate 666 MG TID 05/06 1615 AC 05/10 PO 0945 Acetaminophen 650 MG Q6P PRN 04/18 1445 AC PO Acetaminophen 1,000 MG Q6P PRN 04/18 1445 DC IV Albuterol Sulfate 3 ML BID 04/29 2200 AC 05/05 INH 1900 Apixaban 2.5 MG BID 04/26 1041 AC 05/10 PO 0944 Aspirin Buffered 81 MG DAILY 04/18 1433 AC 05/10 PO 0944 Chlorhexidine 15 ML TID 07/06 1000 AC 05/10 Gluconate PO 0945 Digoxin 0.25 MG 1700 05/10 1700 AC PO Digoxin 0.5 MG ONCE ONE 05/09 1115 DC 05/09 IV 05/09 1116 1116 Digoxin 0.5 MG ONCE ONE 05/09 1045 CAN PO 05/09 1046 Diltiazem HCl 60 MG Q8 05/04 2200 AC 05/10 PO 0628 Folic Acid 1 MG DAILY 04/18 1602 AC 05/10 PO 0944 Furosemide 20 MG DAILY 05/04 1000 AC 05/10 PO 0945 Gabapentin 100 MG Q12 05/09 0734 AC 05/10 PO 0945 Metoprolol Tartrate 100 MG BID 04/29 1213 AC 05/10 PO 0944 Multivitamins 1 TAB DAILY 04/18 1602 AC 05/10 PO 0945 Nicotine 14 MG DAILY 05/02 1000 AC 05/10 TOP 0943 Omeprazole 40 MG DAILY AC 05/02 0700 AC 05/10 PO 0628 Polyethylene Glycol 17 GM DAILY 04/25 1834 AC 05/10 PO 0943 Potassium Chloride 20 MEQ BID 04/19 2200 AC 05/10 PO 0943 Senna 187 MG AT BEDTIME 04/27 2200 AC 05/09 PO 2126 Thiamine HCl 100 MG DAILY 04/18 1602 AC 05/10 PO 0945 Results Last 48 Hrs of Labs/Mics: Laboratory Tests 05/09/17 1600: Urine Color YEL, Urine Clarity CLEAR, Urine pH 7.5, Ur Specific [place] 1.015, Urine Protein NEG, Urine Ketones NEG, Urine Nitrite NEG, Urine Bilirubin NEG, Urine Urobilinogen >=8.0 H, Ur Leukocyte Esterase NEG, Ur Microscopic EXAM NOT REQUIRED, Urine Hemoglobin NEG, Urine Glucose NEG Assessment/Plan Assessment/Plan Bill's heart rate is better controlled. His blood pressure is being maintained. He is not clinically in CHF. I think he is stable enough for discharge from a cardiac standpoint. He seems to have mostly recovered from his alcohol withdrawal syndrome although the nurses say he is still a little confused. He is cleared for discharge to short-term rehabilitation from a cardiac standpoint. He should receive some further counseling regarding alcohol cessation. I recommend discharging him on Lopressor 100 mg twice daily, diltiazem 240 mg long-acting daily and digoxin 0.25 mg once daily. He should also be discharged on Lasix 20 mg daily to prevent congestive heart failure. This can be adjusted as an outpatient as necessary. Continue telemetry? No
[2017-05-10] MEDS ORDERED: CARDIZEM CD180 M1 PO (10:29)
[2017-05-10 10:42] VITALS: BP 110/60
--- NOTE | 2017-05-10 11:46 | PN- Housestaff ---
JOHN GRAHAM MD 05/10/17 1145: Subjective Follow-up For: afib with RVR alcohol withdrawal Complaints: no complaints Tele-Events Since Last Visit: Last night patient was in A. fib rates 85-99 Subjective: Patient states that he feels well, is eager to leave. Review of Systems Constitutional: Reports: no symptoms. Cardiovascular: Reports: no symptoms. Respiratory: Reports: no symptoms. Gastrointestinal: Reports: no symptoms. Genitourinary: Reports: no symptoms. Musculoskeletal: Denies: back pain. Objective Last 24 Hrs of Vital Signs/I&O Vital Signs Date Time Temp Pulse Resp B/P B/P Pulse O2 O2 Flow FiO2 Mean Ox Delivery Rate 05/10 1042 99.2 85 16 110/60 05/10 0944 85 110/60 05/10 0800 Room Air 05/10 0728 99.2 85 16 110/60 93 Room Air 05/10 0628 92 108/62 05/09 2228 98.3 91 16 108/62 95 Room Air 05/09 2218 Room Air 05/09 2127 128/64 05/09 2126 128/64 05/09 1519 98.0 126 18 122/58 99 05/09 1439 128 102/74 05/09 1439 128 102/74 05/09 1437 128 102/74 Intake & Output 05/10 1600 05/10 0800 05/10 0000 Intake Total 418 985 2792 Output Total 400 1100 500 Balance 62 -650 810 Intake, IV 10 Intake, Oral 740 014 7843 Number 1 Bowel Movements Output, Urine 400 1100 500 Patient 178 lb Weight Weight Chair scale Measurement Method Physical Exam General Appearance: Alert, Oriented X3, Cooperative, No Acute Distress Skin: stage II sacral decubitus ulcer Skin Temp/Moisture Exam: Warm/Dry Sepsis Skin Exam (color): Normal for Ethnicity HEENT: EOMI, Mucous Membr. moist/pink Neck: Supple Cardiovascular: Normal S1, Normal S2, No Murmurs, Gallops, Rubs Lungs: Clear to Auscultation, Normal Air Movement Abdomen: Normal Bowel Sounds, Soft, No Tenderness, No Hepatospenomegaly, No Masses Neurological: Normal Speech Extremities: No Clubbing, No Cyanosis, No Edema, Normal Pulses, No Tenderness/ Swelling Vascular: Normal Pulses Sepsis Peripheral Pulse Location: Radial Current Medications: Current Medications Sig/Jose Start time Last Medication Dose Route Stop Time Status Admin Acamprosate 666 MG TID 05/06 1615 AC 05/10 PO 0945 Acetaminophen 650 MG Q6P PRN 04/18 1445 AC PO Albuterol Sulfate 3 ML BID 04/29 2200 AC 05/05 INH 1900 Apixaban 2.5 MG BID 04/26 1041 AC 05/10 PO 0944 Aspirin Buffered 81 MG DAILY 04/18 1433 AC 05/10 PO 0944 Chlorhexidine 15 ML TID 04/21 1000 AC 05/10 Gluconate PO 0945 Digoxin 0.25 MG 1700 05/10 1700 AC PO Diltiazem HCl 60 MG Q8 05/04 2200 AC 05/10 PO 0628 Folic Acid 1 MG DAILY 04/18 1602 AC 05/10 PO 0944 Furosemide 20 MG DAILY 05/04 1000 AC 05/10 PO 0945 Gabapentin 100 MG Q12 05/09 0734 AC 05/10 PO 0945 Metoprolol Tartrate 100 MG BID 04/29 1213 AC 05/10 PO 0944 Multivitamins 1 TAB DAILY 04/18 1602 AC 05/10 PO 0945 Nicotine 14 MG DAILY 05/02 1000 AC 05/10 TOP 0943 Omeprazole 40 MG DAILY AC 05/02 0700 AC 05/10 PO 0628 Polyethylene Glycol 17 GM DAILY 04/25 1834 AC 05/10 PO 0943 Potassium Chloride 20 MEQ BID 04/19 2200 AC 05/10 PO 0943 Senna 187 MG AT BEDTIME 04/27 2200 AC 05/09 PO 2126 Thiamine HCl 100 MG DAILY 04/18 1602 AC 05/10 PO 0945 Last 24 Hrs of Lab/Ruddy Results Last 24 Hrs of Labs/Mics: Laboratory Tests 05/09/17 1600: Urine Color YEL, Urine Clarity CLEAR, Urine pH 7.5, Ur Specific [place] 1.015, Urine Protein NEG, Urine Ketones NEG, Urine Nitrite NEG, Urine Bilirubin NEG, Urine Urobilinogen >=8.0 H, Ur Leukocyte Esterase NEG, Ur Microscopic EXAM NOT REQUIRED, Urine Hemoglobin NEG, Urine Glucose NEG Assessment/Plan Assessment: Assessment 51 year old male with a PMH significant for afib with rvr was on eliquis ( electrical cardioversion 2000), htn, alcohol abuse, 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 The patient suddenly became unresponsive, agitated, confused and transferred to ICU for close monitoring on 04/20/17. Patient on 04/20/17 had worsening respiratory status and intubated as per Dr. Vidal instructions. Extubated and progressing well. Currently in telemetry. Plan Status post extubation for acute hypoxic respiratory failure due to fluid overload and aspiration pneumonia * Significant improvement in respiratory status, saturating high 90's on 2L or RA * Last chest x-ray showed stable retrocardiac and hazy right perihilar opacity * Off antibiotics, vital stable, afebrile overnight * Chest PT * Respiratory Cultures positive for strep pneumoniae, finished course of antibiotics * Repeat Chest x-ray yesterday- stable cardiomegaly and rec to followup chest series following treatment. * Pulmonology following Alcohol withdrawal with significant DTs and delirium * Librium taper stopped, Ativan stopped. Librium is out of his system and his mentation has much improved. * Continue thiamine and multivitamins * Discontinue CIWA. * Currently weaning gabapentin, 100 mg twice a day. * Psychiatry consulted 05/06: Campral 666 mg tid. * Social work for IOP Atrial fibrillation with rapid RVR * Heart rates overnight are better, from 85-99. Blood pressure is better at 110 /60. * Patient is currently on eliquis for atrial fibrillation with RVR, aspirin, metoprolol. * Cardio is following. Yesterday, patient had high heart rates 120s to 140s, blood pressure 88/60 so we held cardizem, metropolol and lasix and started digoxin - loading dose 50mg IV push and 25mg PO daily thereafter. His high rates persisted so we gave 100 mg metoprolol and will continue this dosage twice a day as per Dr. Pang * Convert Cardizem to 240 mg long-acting daily on discharge. His Lasix should also be continued. * Currently still being monitored on telemetry Significant cardiomyopathy with valvular heart disease and mitral valve lesion, mass with significant pulmonary hypertension * Last echo on March 2017 showed an EF of 20-25% with moderately to severly reduced global left ventricular systolic function. 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 Pang, we have started him on 20 mg Lasix daily for a baseline diuretic since his ejection fraction is quite poor. Hematuria * Likely traumatic due to Chery insertion * Urology consulted, have not seen him as of today. * Chery was removed 05/03. Hematuria resolved. Alimentary * Passed swallow eval, pured and honey thick regular diet * Has been converted to regular diet. * Omeprazole Activity * Continue to mobilize with PT * Patient is currently on right-handed restraint as he was trying to remove his oxygen. * Patient has recovering early stage bedsore in coccygeal area. Encouraged to walk, turn, Tylenol for pain. DVT * alps, ELIQUIS 2.5 MG BID. acute rehab vs str- awaiting bed availability Full code Mild pain pathway Problem List: 1. Acute on chronic congestive heart failure 2. Atrial fibrillation with RVR 3. Alcohol withdrawal 4. Cardiomyopathy Pain Ratin Pain Location: . Pain Goal: Remain pain free Pain Plan: . Tomorrow's Labs & Rationales: Stable for discharge JUAN A TALAVERA MD 05/10/17 2908: Attending MD Review Statement Attending Statement Attending MD Statement: examined this patient, discuss w/resident/PA/BULLET SWAGING MACHINE OPERATOR, agreed w/resident/PA/BULLET SWAGING MACHINE OPERATOR, discussed with family, reviewed EMR data (avail), discussed with case mgmt Attending Assessment/Plan: The patient was seen and discussed with house staff. AGree with the plan of care as outlined.
== END 2017-05-10 14:02 | DRG 775 ==
LOC: ERH 11:44 → CRI 14:22 → 1NO 14:22 → ERHI 14:22 → ENRESERV 15:31 → ENTRNSPT 16:59 → 1NO 17:28 → CMPTRNSPT 04-19 07:03 → CRI 04-20 11:20 → 1NO 04-29 20:36 → ENPENDDIS 05-10 10:30 → 1NO 05-10 14:02
PROVIDERS: Emergency Medicine; Internal Medicine; Internal Medicine Cardiovascular Disease; Internal Medicine Endocrinology, Diabetes & Metabolism; Internal Medicine Pulmonary Disease; Student in an Organized Health Care Education/Training Program; ADMIT Internal Medicine
PROC: 0BH17EZ Insertion of Endotracheal Airway into Trachea, Via Natural or Artificial Opening (ICD-10-PCS; principal; 2017-04-22)
PROC: 5A1955Z Respiratory Ventilation, Greater than 96 Consecutive Hours (ICD-10-PCS; 2017-04-22)
DX: F10.231 Alcohol dependence with withdrawal delirium (principal); I50.23 Acute on chronic systolic (congestive) heart failure; J95.4 Chemical pneumonitis due to anesthesia; J96.01 Acute respiratory failure with hypoxia; N39.0 Urinary tract infection, site not specified; I42.6 Alcoholic cardiomyopathy; I48.2 Chronic atrial fibrillation; I11.0 Hypertensive heart disease with heart failure; R60.9 Edema, unspecified; E87.2 Acidosis; Z91.14 Patient's other noncompliance with medication regimen; I47.2 Ventricular tachycardia; K70.10 Alcoholic hepatitis without ascites; E87.6 Hypokalemia; E83.42 Hypomagnesemia; F17.210 Nicotine dependence, cigarettes, uncomplicated; E66.01 Morbid (severe) obesity due to excess calories; Z68.34 Body mass index [BMI] 34.0-34.9, adult; G47.33 Obstructive sleep apnea (adult) (pediatric); I05.9 Rheumatic mitral valve disease, unspecified; R31.9 Hematuria, unspecified; B95.3 Streptococcus pneumoniae as the cause of diseases classified elsewhere; Y90.6 Blood alcohol level of 120-199 mg/100 ml; L89.152 Pressure ulcer of sacral region, stage 2; Z79.01 Long term (current) use of anticoagulants
CPT/HCPCS: 1NP; 86021; CCU; 36415; 74000; 76775; 80307; 81001; 81003; 82436; 87040; 87070; 87086; 93005; 93010; 93306; 93308; 93321; 93970; 96374; 96376; 97110-GO; 97112-GO; 97116-GO; 97161-GP; 97530-GO; 99291; G0480; J0131; J0696; J1160; J1644; J1940; J2060; J2920; J2930; J3490; J7040; J7060; J7608